=== PATIENT | female | born 1995 | race African-American/Black ===

== ENCOUNTER 2020-03-19 10:30 | Emergency (ER) | payer MEDICAID, SELFPAY ==
[2020-03-19 11:04] VITALS: BP 146/101; PULSE 95; RESP 16; TEMP 37.2; O2SAT 100; BMI 50.4
[2020-03-19 11:30] VITALS: BP 142/92; PULSE 73; RESP 20; TEMP 36.7; O2SAT 99
--- NOTE | 2020-03-19 11:36 | ED_ITS ---
HPI - Female Genitourinary General Chief complaint: Urogenital-Female Stated complaint: personal problem Time Seen by Provider: 03/19/20 11:09 History of Present Illness HPI Narrative: patient presents to the ED for uterine prolapse for 1 month. Patient denies any abdominal pain, nausea, vomiting, fever, or chills. Patient was evaluated by membership sales advisor who states she needs referral to OBGYN to have pessary procedure done. Patient [facility] for about a month and has not been called back for an appointment. Patient states slight vaginal spotting since IUD was placed. patient states she is presently being treated for yeast infection. Related Data Previous Rx's Medication Instructions Recorded nitrofurantoin monohyd/m-cryst 100 mg PO Q12H 7 Days #14 cap 03/19/20 [Macrobid] Allergies Allergy/AdvReac Type Severity Reaction Status Date / Time No Known Allergies Allergy Verified 03/19/20 11:09 Review of Systems Constitutional: Constitutional: Reports no additional constitutional complaints ENT: Reports system reviewed and no additional complaints, except as documented Cardiovascular: Cardiovascular: Reports as per HPI, Reports no additional cardiovascular complaints, Denies chest pain at rest and Denies chest pain with activity Respiratory: Respiratory: Reports as per HPI and Reports no additional respi ratory complaints Gastrointestinal: Gastrointestinal: Denies abdominal pain, Denies belching, Denies melena, Denies bloating, Denies hematochezia and Denies change in bowel habits Genitourinary: Genitourinary: Reports no additional female genitourinary complaints and Reports as per HPI Comments: Uterine prolapse Musculoskeletal: Musculoskeletal: Reports no additional musculoskeletal complaints Psychiatric: Psychiatric: Reports no additional psychiatric complaints and Reports as per HPI [facility] Past Medical History Medical History (Updated 03/19/20 @ 13:57 by GET Matso) Asthma Social History Social History Smoking Status: Never smoker Use of substances other than those prescribed or required for medical reasons: No Advance Directives: No Advance Directives Information Provided: Yes Physical Exam Vital Signs: Vital Signs: Vital Signs Temp Pulse Resp BP Pulse Ox 03/19/20 13:40 79 14 127/84 99 03/19/20 11:30 98.1 F 73 20 142/92 H 99 03/19/20 11:04 99.0 F 95 16 146/101 H 100 Body Mass Index 50.4 Const: General: cooperative, healthy appearing and comfortable Orientation/consciousness: patient oriented x3 HENMT: Head: Yes normal to inspection Eyes: General: appearance normal, both eyes and all related structures Neck: Neck: Yes normal visual inspection and Yes full ROM Chest: Chest palpation & inspection: normal inspection of the chest Resp: Effort & Inspection: normal respiratory effort and able to speak in complete sentences Cardio: Jugular venous distension: no JVD Rate: regular rate Rhythm: regular rhythm Heart sounds: S1 normal heart sound present and S2 normal heart sound present GI: Inspection: Yes normal to inspection, No abdominal wall ecchymosis, No Abdominal wall edema, No distended, No incision, No Abdominal panniculus present, No obesity and No scaphoid : Other: positive for uterine prolapse. Negative for any vaginal lesions or vaginal discharge. General: No CVA tenderness and Yes no CVA tenderness Bimanual Exam- Adnexa, other: normal adnexae Back/Spine/Pelvis: Back: no CVA tenderness, No CVA tenderness and No back tenderness Skin: General skin exam: no rashes or lesions noted Neuro: General: patient oriented x3 Extrem: General: Yes normal to inspection Psych: Appearance: grossly normal and well kempt Course Course Course Narrative: History physical exam indicate uterine prolapse. Awaiting UA results to make sure there is no . Also mention in the UTI Reevaluation(s) Reevaluation #1: spoke with Dr. Rene of OBGYN and she agrees patient should follow-up with [facility]. [facility]. Rene states she will send patient's name To her office and they will call patient for appointment this week. Urine negative for any . urine shows UTI, may be dirty catch will be treated. Time: 13:52 MDM - Female Genitourinary MDM Narrative Medical decision making narrative: patient does not need any emergency surgical procedure for uterine prolapse. Patient will follow-up outpatient with OBGYN. Uterine prolapse high vaginal canal. Uterine prolapse is not at vaginal opening. Lab Data Attestation: I reviewed the patient's lab results. Labs: Lab Results 03/19/20 Range/Units 12:46 Urine Color YELLOW Urine Appearance HAZY Urine pH 7.0 (5.0-8.0) Ur Specific [place] 1.025 (1.005-1.025) Urine Protein NEG (NEG-TRACE) MG/DL Urine Glucose (UA) NEG (NEG) MG/DL Urine Ketones NEG (NEG) MG/DL Urine Blood NEG (NEG) Urine Nitrite NEG (NEG) Ur Leukocyte Esterase 2+ H (NEG) Urine RBC 1-4 (0) /HPF Urine WBC 10-14 H (0-4) /HPF Ur Squamous Epith Cells 2+ /LPF Urine Bacteria 1+ /LPF Urine Mucus 2+ /LPF Urine Test NEGATIVE (NEGATIVE) Discharge Plan Discharge Clinical Impression: Urinary tract infection, Uterine prolapse Patient Disposition: Home, Self-Care Instructions: Urinary Tract Infection in Women (ED), Uterine Prolapse (ED) Prescriptions: New nitrofurantoin monohyd/m-cryst [Macrobid] 100 mg capsule 100 mg PO Q12H 7 Days Qty: 14 RF: 0 Referrals: Chrissy Rene MD [Physician] - 2 days ( please call for follow-up for management of uterine prolapse. call the number [phone]. Address: [address] [place] [address]. [place] [address]) Stand Alone Forms: Work/School Release Interventions: ED Discharge Assessment Last Done: 03/19/20 14:55 Discharge Date/Time: 03/19/20 14:15 Print Language: [place]ian
--- NOTE | 2020-03-19 12:52 | PC.NURSE ---
NABOR DEUTSCH PERFORMING A PELVIC EXAM, CHAPERONED BY JARVIS MITTAL
[2020-03-19 12:59] LABS: Glucose Urine UA NEG (NEG); Leukocyte Esterase Urine 2+ (NEG); Nitrite Urine NEG (NEG); Specific Gravity - Urine 1.025 (1.005-1.025); Urine Blood NEG (NEG); Urine Ketones NEG (NEG); Urine Protein NEG (NEG-TRACE)
[2020-03-19 13:00] LABS: Appearance Urine HAZY; Color Urine YELLOW
[2020-03-19 13:02] LABS: UPreg QC Valid YES; Urine Pregnancy NEGATIVE (NEGATIVE)
[2020-03-19 13:11] LABS: Bacteria Urine 1+ /LPF; Mucus Urine 2+ /LPF; Squamous Epithelial Cell Urine 2+ /LPF
[2020-03-19 13:40] VITALS: BP 127/84; PULSE 79; RESP 14; O2SAT 99
== END 2020-03-19 14:15 | disposition home or self-care (01) ==
PROVIDERS: Physician Assistant; Emergency Provider Emergency Medicine; PCP Internal Medicine
DX: N39.0 Urinary tract infection, site not specified (principal); N81.4 Uterovaginal prolapse, unspecified
CPT/HCPCS: 81001; 81003; 81025; 87086; 99283; 99284

== ENCOUNTER 2020-03-28 13:15 | Outpatient (REF) | payer MEDICAID, SELFPAY ==
[2020-03-29 11:38] LABS: CT PCR NOT DETECTED (Not Detect.); NG PCR NOT DETECTED (Not Detect.)
== END 2020-03-28 13:16 | disposition home or self-care (01) ==
LOC: HO.LAB 13:15
PROVIDERS: PCP Internal Medicine; Visit Provider Obstetrics & Gynecology
DX: N81.4 Uterovaginal prolapse, unspecified (principal)
CPT/HCPCS: 51798; 57160; 87491; 87591; 99203; 99204

== ENCOUNTER → 2020-04-04 13:32 | Outpatient (BNVA) | payer MEDICAID, SELFPAY | PROVIDERS: PCP Internal Medicine; Visit Provider Obstetrics & Gynecology | DX: Z46.6 Encounter for fitting and adjustment of urinary device (principal); N81.4 Uterovaginal prolapse, unspecified | CPT/HCPCS: 51798; 99213 ==

== ENCOUNTER 2020-04-06 09:01 | Outpatient (REF) | payer MEDICAID, SELFPAY ==
[2020-04-07 10:32] LABS: BV Int Neg Control Negative (Negative); BV Int Pos Control Positive (Positive)
[2020-04-12 07:21] LABS: HPV mRNA E6/E7 rflx Not Detected (Not Detected)
== END 2020-04-06 09:02 | disposition home or self-care (01) ==
LOC: HO.LAB 09:01
PROVIDERS: Visit Provider Obstetrics & Gynecology
DX: Z01.419 Encounter for gynecological examination (general) (routine) without abnormal findings (principal); N81.4 Uterovaginal prolapse, unspecified; Z97.5 Presence of (intrauterine) contraceptive device
CPT/HCPCS: 87480; 87510; 87624; 87625; 87660; 88142

== ENCOUNTER 2020-06-23 15:08 | Outpatient (REF) | payer MEDICAID, SELFPAY ==
--- NOTE | 2020-06-23 | XR_ITS ---
EXAMINATION: XR CHEST CLINICAL INFORMATION: Cough for 3 weeks.] Positive COMPARISON: None TECHNIQUE: 2 views of the chest were obtained. FINDINGS: The lungs are well-expanded with increased bilateral interstitial markings but no confluent infiltrates. Heart size and vascularity is normal. No gross bony abnormality seen. XR/XR chest 2V IMPRESSION: Unremarkable chest exam.
== END 2020-06-23 15:09 | disposition home or self-care (01) ==
LOC: HO.XRAY 15:08
PROVIDERS: PCP Internal Medicine; Visit Provider Nurse Practitioner Family
DX: U07.1 COVID-19 (principal); R05 Cough
CPT/HCPCS: 71046

== ENCOUNTER 2020-07-20 14:53 | Outpatient (REF) | payer MEDICAID, SELFPAY ==
--- NOTE | 2020-07-20 | PFT_ITS ---
INDICATION: Asthma. SPIROMETRY: The FEV1 to FVC 91% with an FEV1 of 3.56 L, which is 106% predicted and an FVC of 3.93 L, which is 102% predicted. No significant response to bronchodilators noted. Maximum voluntary ventilation 108% predicted. LUNG VOLUMES: Total lung capacity 98% predicted with an expiratory reserve volume of 53% predicted. DIFFUSION CAPACITY: DLCO 111% predicted. COMPARISONS: None. INTERPRETATION: No obstructive nor restrictive ventilatory defects identified. No significant response to bronchodilators noted. Normal maximum voluntary ventilation. Normal lung volumes and also normal diffusion capacity. These are consistent with normal lung mechanics. If asthma is in the differential, a methacholine challenge will be helpful in assessing for hyper-reactive airways, otherwise clinical correlation warranted. Grant Montano MD MR/MODL / [id number]
== END 2020-07-20 14:54 | disposition home or self-care (01) ==
LOC: HO.RESP 14:53
PROVIDERS: PCP Internal Medicine; Visit Provider Internal Medicine
DX: J45.20 Mild intermittent asthma, uncomplicated (principal)
CPT/HCPCS: 94060; 94727; 94729

== ENCOUNTER 2020-10-26 14:39 | Outpatient (REF) | payer MEDICAID, SELFPAY ==
--- NOTE | ~2020-10-26 | US_ITS ---
EXAMINATION: ULTRASOUND PELVIS AND TRANSVAGINAL. CLINICAL INFORMATION: History aneurysm COMPARISON: None TECHNIQUE: Transabdominal and transvaginal imaging of pelvis is performed FINDINGS: Limited exam due to patient's body habitus. The uterus is anteverted measuring 7.0 cm in length, 2.6 cm in AP and 2.9 cm in transverse dimension. Endometrial thickness is 0.49 cm. Low-lying IUD within the endometrial mL. The right ovary measures 2.5 x 1.6 x 2.6 cm volume 4.6 mL. It appears unremarkable. The left ovary measures 8.9 x 6.6 x 10.2 cm and volume 313.7 mL. There is a large cyst with diffuse internal echogenicity suggestive of complex cyst. It measures 7.0 x 6.9 x 6.5 cm There is a small amount of free fluid in cul-de-sac. US/US pelvic and transvaginal IMPRESSION: Large complex left ovary and cyst. Unremarkable right ovary. Low-lying IUD within the endometrial canal. Small amount of free fluid in the cul-de-sac.
== END 2020-10-26 14:40 | disposition home or self-care (01) ==
LOC: HO.US 14:39
PROVIDERS: Visit Provider Family Medicine
DX: L68.0 Hirsutism (principal)
CPT/HCPCS: 76830; 76856

== ENCOUNTER → 2020-11-15 10:36 | Outpatient (BNVA) | payer MEDICAID, SELFPAY | PROVIDERS: PCP Internal Medicine; Referring Provider Internal Medicine; Visit Provider Internal Medicine | DX: L68.0 Hirsutism (principal); N83.209 Unspecified ovarian cyst, unspecified side; E55.9 Vitamin D deficiency, unspecified | CPT/HCPCS: 99202 ==

== ENCOUNTER 2020-11-17 07:32 | Outpatient (REF) | payer MEDICAID, SELFPAY ==
[2020-11-17 09:05] LABS: Estimated Average Glucose 114 mg/dL; Hemoglobin A1c % 5.6 %
[2020-11-17 09:10] LABS: Alanine Aminotransferase 8 U/L (0-31); Albumin Level 3.7 g/dL (3.5-5.0); Alkaline Phosphatase 67 U/L (39-117); Anion Gap 10 (12-20); Aspartate Amino Transferase 13 U/L (5-31); Bilirubin Total 0.3 mg/dL (0.0-1.0); Blood Urea Nitrogen 10 mg/dL (9-16); Calcium 8.5 mg/dL (8.4-10.2); Carbon Dioxide 26 mmol/L (22-29); Chloride 107 mmol/L (96-108); Cholesterol 125 mg/dL; Estimated Glomerular Filt Rate > 60; Glucose Random 115 mg/dL (60-115); HDL Cholesterol 33 mg/dL; LDL Cholesterol Calculated 82 mg/dl; Potassium 4.1 mmol/L (3.3-5.1); Sodium 139 mmol/L (135-145); Total Protein 6.9 g/dL (6.5-8.0); Triglycerides 53 mg/dL
[2020-11-17 09:28] LABS: Glucose Fasting 113 mg/dL (60-99)
[2020-11-17 09:32] LABS: Free T4 (Free Thyroxine) 1.06 ng/dL (0.71-1.85); HCG Quantitative < 2 mIU/mL; Thyroid Stimulating Hormone 1.05 uIU/mL (0.32-4.0); Vitamin D 25-OH Total 11.6 ng/mL (>30)
[2020-11-17 10:26] LABS: Glucose 1 Hour 180 mg/dL
[2020-11-17 12:13] LABS: Glucose 2 Hour 100 mg/dL
[2020-11-18 08:32] LABS: Follicle Stimulating Hormone 4.9 mIU/mL; Lutenizing Hormone 1.8 mIU/mL; Prolactin 10.6 ng/mL
[2020-11-18 09:17] LABS: DHEA Sulfate 148 mcg/dL (18-391); Sex Hormone Binding Globulin 31 nmol/L (17-124)
[2020-11-20 18:18] LABS: LDL Cholesterol Direct 93 mg/dL (<100)
[2020-11-20 22:46] LABS: Adrenocorticotropic Hormone 22 pg/mL (6-50)
[2020-11-21 16:56] LABS: Testosterone, Total 31 ng/dL (2-45)
[2020-11-22 22:03] LABS: Estradiol Ultra Sensitive 32 pg/mL
[2020-11-23 19:57] LABS: Androstenedione 86 ng/dL
[2020-11-25 01:12] LABS: Estradiol Free 0.83 pg/mL; Estradiol, Ultrasensitive 32 pg/mL
== END 2020-11-17 07:33 | disposition home or self-care (01) ==
LOC: HO.RESP 07:32
PROVIDERS: Absent Provider Internal Medicine; PCP Internal Medicine; Visit Provider Internal Medicine
DX: J45.20 Mild intermittent asthma, uncomplicated (principal); E55.9 Vitamin D deficiency, unspecified; L68.0 Hirsutism
CPT/HCPCS: 36415; 80053; 80061; 82024; 82157; 82306; 82533; 82627; 82670; 82681; 83001; 83002; 83036; 83498; 83721; 84146; 84270; 84402; 84403; 84439; 84443; 84702

== ENCOUNTER 2020-12-01 14:28 | Outpatient (REF) | payer MEDICAID, SELFPAY ==
[2020-12-01 16:34] LABS: Lactate Dehydrogenase 250 U/L (122-220)
[2020-12-01 16:49] LABS: HCG Quantitative < 2 mIU/mL
[2020-12-02 02:29] LABS: CT PCR NOT DETECTED (Not Detect.); NG PCR NOT DETECTED (Not Detect.)
[2020-12-04 11:51] LABS: Alpha Fetoprotein 1.5 ng/mL
[2020-12-04 18:46] LABS: CA-125 14 U/mL (<35)
[2020-12-05 18:36] LABS: Inhibin B 99 pg/mL
== END 2020-12-01 14:29 | disposition home or self-care (01) ==
LOC: HO.LAB 14:28
PROVIDERS: PCP Internal Medicine; Visit Provider Obstetrics & Gynecology
DX: Z30.432 Encounter for removal of intrauterine contraceptive device (principal); T83.32XA Displacement of intrauterine contraceptive device, initial encounter; N83.299 Other ovarian cyst, unspecified side; N92.6 Irregular menstruation, unspecified
CPT/HCPCS: 36415; 58301; 81003; 81025; 82105; 82397; 83615; 84702; 86304; 86336; 87491; 87591; 99212

== ENCOUNTER → 2020-12-19 12:26 | Outpatient (BNVA) | payer MEDICAID, SELFPAY | PROVIDERS: PCP Internal Medicine; Visit Provider Obstetrics & Gynecology ==

== ENCOUNTER 2021-01-04 13:08 | Outpatient (REF) | payer MEDICAID, SELFPAY ==
--- NOTE | ~2021-01-04 | CT_ITS ---
EXAMINATION: CT ABDOMEN AND PELVIS WITH CONTRAST CLINICAL INFORMATION: Large complex cystic mass left adnexa. COMPARISON: Ultrasound pelvis 10/26/2020. Scoliosis series 07/06/2008. TECHNIQUE: Multidetector volumetric images were obtained from the superior aspect of the liver through the pubic symphysis following administration 85 mL of Omnipaque 350 intravenous contrast. Sagittal and coronal reformatted images were obtained on the technologist's workstation. Oral contrast: Yes This CT examination was performed using dose optimization techniques as appropriate, variously including the following: *Automated exposure control *Adjustment of mA and/or kV according to patient size (this includes techniques or standardized protocols for targeted exams where dose is matched to indication/reason for exam; i.e. extremities or head) *Use of iterative reconstruction technique DLP: 813 mGy-cm FINDINGS: LUNG BASES: The visualized lung bases are unremarkable. LIVER, GALLBLADDER, AND BILIARY TREE: The The gallbladder is unremarkable with no evidence of radiopaque gallstones, gallbladder wall thickening, or obvious pericholecystic inflammatory changes. PANCREAS: Unremarkable. SPLEEN: Unremarkable. ADRENAL GLANDS: Unremarkable. KIDNEYS AND URETERS: The kidneys are normal in size, shape, and attenuation. No hydronephrosis, hydroureter, or calculi seen. No perinephric stranding. BLADDER: Unremarkable. GASTROINTESTINAL TRACT: There is no bowel obstruction or inflammatory changes in the bowel or mesentery. The appendix is normal. There is no ascites or fluid collection. ABDOMINAL WALL: No significant hernia is appreciated. LYMPH NODES: No lymphadenopathy. VASCULAR: Unremarkable. PELVIC VISCERA: There is a large complex posterior left adnexal mass measuring 10.5 x 8.5 x 8.2 cm. The lesion has large fatty component with fat-fluid level and an internal septation with bulky calcification 2 x 3 cm in size. There are some intermediate smooth peripheral nodular densities within the lesion. No associated pelvic ascites. The uterus is tilted towards the left and otherwise normal in size and contour. The right ovary appears normal and has a dominant follicle measuring 2 cm. OSSEOUS STRUCTURES: Unremarkable. CT/CT abdomen pelvis w con IMPRESSION: 1. Large complex posterior left adnexal mass consistent with cystic teratoma 10.5 cm. No pelvic ascites. Normal-appearing uterus and right ovary. 2. No hydronephrosis or perinephric stranding. 3. No inflammatory changes in bowel or mesentery. Normal appendix.
[2021-01-04 14:29] LABS: Blood Urea Nitrogen 13 mg/dL (9-16); Estimated Glomerular Filt Rate > 60
[2021-01-04] MEDS: iohexoL 350 MG/ML 100 ML INFUS..BTL IV (16:19)
[2021-01-04] MEDS: Barium Sulfate Oral (Mocha) 450 ML ORAL.SUSP 900 ML PO (16:20)
== END 2021-01-04 13:09 | disposition home or self-care (01) ==
LOC: HO.CT 13:08
PROVIDERS: PCP Internal Medicine; Visit Provider Obstetrics & Gynecology
DX: N83.299 Other ovarian cyst, unspecified side (principal)
CPT/HCPCS: 36415; 74177; 82565; 84520; Q9967

== ENCOUNTER → 2021-05-07 08:59 | Outpatient (BNVA) | payer MEDICAID, SELFPAY | PROVIDERS: PCP Internal Medicine; Visit Provider Internal Medicine ==

== ENCOUNTER 2021-05-22 14:17 | Outpatient (REF) | payer MEDICAID, SELFPAY ==
[2021-05-23 10:50] LABS: CT PCR NOT DETECTED (Not Detect.); NG PCR NOT DETECTED (Not Detect.)
[2021-05-23 11:18] LABS: BV Int Neg Control Negative (Negative); BV Int Pos Control Positive (Positive)
== END 2021-05-22 14:18 | disposition home or self-care (01) ==
LOC: HO.LAB 14:17
PROVIDERS: PCP Internal Medicine; Visit Provider Obstetrics & Gynecology
DX: Z01.411 Encounter for gynecological examination (general) (routine) with abnormal findings (principal); R10.2 Pelvic and perineal pain; B37.3 Candidiasis of vulva and vagina
CPT/HCPCS: 81003; 81025; 87480; 87491; 87510; 87591; 87660

== ENCOUNTER 2021-06-18 12:13 | Outpatient (REF) | payer MEDICAID, SELFPAY ==
--- NOTE | ~2021-06-18 | US_ITS ---
EXAMINATION: US PELVIS CLINICAL INFORMATION: Pelvic and perineal pain. COMPARISON: CT abdomen/pelvis dated from 01/04/2021 and pelvic ultrasound dated from 10/26/2020. TECHNIQUE: Ultrasound of the pelvis is performed using both transabdominal and transvaginal transducers. Transvaginal imaging is performed due to inadequate visualization transabdominally. FINDINGS: Uterus: The uterus is anteverted and measures 7.0 x 2.2 x 4.0 cm cm. The double wall endometrial thickness is 5 mm. The uterus is smooth in contour and has normal myometrial echogenicity. No visible fibroid. Adnexa: The right ovary measures 3.0 x 1.9 x 3.0 cm (volume of approximately 9 mL). There is a simple follicle in the right ovary measuring up to 1.2 cm. The left ovary measures 4.3 x 2.2 x 3.4 cm (volume of approximately 17 mL) with redemonstration of a large predominantly hyperechoic complex lesion, previously characterized as a fat-containing teratoma. This is not entirely well delineated in this examination and accurate size determination cannot be obtained. Flow to both ovaries is preserved on color Doppler. There is free fluid in the cul-de-sac and within both adnexal regions. US/US pelvic and transvaginal IMPRESSION: Due to its large size, a previously described teratoma is not entirely well delineated in this examination. This could predispose to torsion/detorsion, and therefore if clinical indicated, surgical referral should be considered. Free fluid is indeterminate.
== END 2021-06-18 12:14 | disposition home or self-care (01) ==
LOC: HO.US 12:13
PROVIDERS: Visit Provider Obstetrics & Gynecology
DX: R10.2 Pelvic and perineal pain (principal)
CPT/HCPCS: 76830; 76856

== ENCOUNTER → 2021-06-20 13:35 | Outpatient (BNVA) | payer MEDICAID, SELFPAY | PROVIDERS: Visit Provider Obstetrics & Gynecology ==

== ENCOUNTER 2022-05-14 14:25 | Emergency (ER) | payer MEDICAID, SELFPAY ==
[2022-05-14 15:22] VITALS: BP 157/92; PULSE 121; RESP 16; TEMP 38.4; O2SAT 100; BMI 53.0
--- NOTE | 2022-05-14 15:22 | ED_ITS ---
HPI - General Adult General Chief complaint: Fever <Corie Robles MD - Last Filed: 05/14/22 15:26> Stated complaint: HBP/Heartrate/SOB/Fever <Corie Robles MD - Last Filed: 05/14/22 15:26> Time Seen by Provider: 05/14/22 17:30 <Corie Robles MD - Last Filed: 05/14/22 15:26> Source: patient <Chrissy Landry CNP - Last Filed: 05/14/22 17:48> Mode of arrival: ambulatory <Chrissy Landry CNP - Last Filed: 05/14/22 17:48> Limitations: no limitations <Chrissy Landry CNP - Last Filed: 05/14/22 17:48> History of Present Illness HPI narrative: Patient is a 27-year-old female who presents emergency department for evaluation of fever, chills, headache, lightheadedness, and body aches. Reports symptom onset at approximately 01:00 this morning. She states that she was recently over a friend's house who sibling was ill with similar symptoms. She has been vaccinated for COVID-19, has not received vaccination for influenza. Denies neck pain, neck stiffness, chest pain, shortness of breath, difficulty breathing, nausea, vomiting, abdominal pain, possibility of . <Chrissy Landry CNP - Last Filed: 05/14/22 17:48> Related Data Home medications: Home Medications Medication Instructions Recorded Confirmed albuterol sulfate 90 mcg/actuation 2 puff inhalation Q6H PRN 03/28/20 05/07/21 aerosol inhaler cetirizine 10 mg capsule (Zyrtec) 10 mg PO DAILY 03/28/20 05/07/21 hydroxyzine HCl 10 mg tablet 10 mg PO TID PRN 12/01/20 05/07/21 escitalopram oxalate 5 mg tablet 10 mg PO DAILY 01/04/21 05/07/21 Previous Rx's Medication Instructions Recorded cholecalciferol (vitamin D3) 50 50 mcg PO DAILY 30 days #30 caps 01/11/21 mcg (2,000 unit) capsule terconazole 0.8 % vaginal cream 1 appful vaginal BEDTIME 3 days 05/22/21 #20 grams <Corie Robles MD - Last Filed: 05/14/22 15:26> Allergies/adverse reactions: Allergies Allergy/AdvReac Type Severity Reaction Status Date / Time No Known Allergies Allergy Verified 05/22/21 14:24 <Corie Robles MD - Last Filed: 05/14/22 15:26> Review of Systems Review of Systems: Constitutional: Positive tactile fever. Positive chills. No weakness. Positive fatigue. Positive body aches ENT/ Mouth: No Ear Pain, no Nasal Congestion, no sore throat, No Rhinorrhea, No Swallowing Difficulty Skin: No rash or itching. Cardiovascular: No chest pain. No palpitations. Respiratory: No shortness of breath. No cough. No sputum production. Gastrointestinal: No nausea. No vomiting. No diarrhea. No abdominal pain. Genitourinary: No burning micturition. No urinary frequency. Neurologic: Positive headache. No dizziness. No syncope. No numbness or tingling in the extremities. <Chrissy Landry CNP - Last Filed: 05/14/22 17:48> Yes all other systems are reviewed and are negative <Chrissy Landry CNP - Last Filed: 05/14/22 17:48> PMF Past Medical History Attestation statement: The following information was validated with the patient. <Chrissy Landry CNP - Last Filed: 05/14/22 17:48> Source: old records reviewed <Chrissy Landry CNP - Last Filed: 05/14/22 17:48> Medical History: Medical History Asthma Hirsutism History of anxiety History of depression Ovarian cyst Vitamin D deficiency <Corie Robles MD - Last Filed: 05/14/22 15:26> Surgical History: Surgical History Hx of ovarian cystectomy <Corie Robles MD - Last Filed: 05/14/22 15:26> Family History Family History: Family History Father HTN (hypertension) Diabetes Mother HTN (hypertension) Diabetes Maternal Grandmother Cervical cancer <Corie Robles MD - Last Filed: 05/14/22 15:26> Social History Social History: Social History Alcohol intake: current Alcohol intake frequency: holidays/special occasions only Alcohol type: wine Patient Tobacco Use Status: Never used Tobacco Advance Directives: No Advance Directives Information Provided: No Sexual orientation: Straight/Heterosexual Gender identity: Female <Corie Robles MD - Last Filed: 05/14/22 15:26> Physical Exam ED Vital Signs: Vital Signs - 24 hr 05/14/22 15:22 05/14/22 17:32 Temperature 101.1 F H 98.0 F Pulse Rate 121 H 99 Respiratory Rate 16 18 Blood Pressure 157/92 H 142/85 H Pulse Oximetry 100 96 Oxygen Delivery Method Room Air Room Air BMI result Body Mass Index 53.0 <Corie Robles MD - Last Filed: 05/14/22 15:26> Vital Signs - 24 hr 05/14/22 15:22 05/14/22 17:32 Temperature 101.1 F H 98.0 F Pulse Rate 121 H 99 Respiratory Rate 16 18 Blood Pressure 157/92 H 142/85 H Pulse Oximetry 100 96 Oxygen Delivery Method Room Air Room Air BMI result Body Mass Index 53.0 <Chrissy Landry CNP - Last Filed: 05/14/22 17:48> Appearance: Alert.?Oriented to person, place and time. No acute distress.?Normal affect. Eyes: Pupils equal, round and reactive to light.? ENT: TM normal bilaterally. Pharynx with 2+ tonsillar hypertrophy bilaterally, no exudates, uvula midline, no trismus Neck: Normal inspection.? Neck supple.??No cervical adenopathy. No nuchal rigidity CVS: Heart sounds normal. Normal heart rate and rhythm.? Pulses normal.?? Respiratory: No respiratory distress.? Lung sounds clear to auscultation bilaterally?? Abdomen: Soft and non-tender. Skin: Skin warm and dry.? Normal skin color.? ? Extremities: No lower extremity edema.? Neuro: Moves all extremities spontaneously. Sensation intact bilaterally. No motor deficits. Ambulates with normal steady gait. <Chrissy Landry CNP - Last Filed: 05/14/22 17:48> Course Course Course Narrative: 27F with subjective fevers, chills, headaches, denies cough/sore throat and denies GI/. VS Reviewed GEN: NAD EARS: wnl THROAT: enlarged tonsils no noted exudates LUNGS: CTAB CVS: RRR ABD: NT/ND <Corie Robles MD - Last Filed: 05/14/22 15:26> Medications Administered Discontinued Medications Generic Name Dose Route Start Last Admin Trade Name Freq PRN Reason Stop Dose Admin Acetaminophen 975 mg 05/14/22 15:24 05/14/22 15:26 Acetaminophen 325 Mg Tablet PO 05/14/22 15:25 975 mg ONCE ONE Administration <Corie Robles MD - Last Filed: 05/14/22 15:26> Medications Administered Discontinued Medications Generic Name Dose Route Start Last Admin Trade Name Freq PRN Reason Stop Dose Admin Acetaminophen 975 mg 05/14/22 15:24 05/14/22 15:26 Acetaminophen 325 Mg Tablet PO 05/14/22 15:25 975 mg ONCE ONE Administration <Chrissy Landry CNP - Last Filed: 05/14/22 17:48> Medical Decision Making Medical Decision Making MDM Narrative: Patient is a 27-year-old female with past medical history of asthma, anxiety, depression, presenting for evaluation of upper respiratory symptoms. COVID-19 testing negative. Influenza A testing positive, discussed indications for Tamiflu and potential side-effects, patient declined.. At this time history and physical exam not consistent with meningitis/pneumonia/ peritonsillar abscess/ retropharyngeal abscess. Well-appearing, nontoxic, no tachypnea/hypoxia. Initially tachycardic and febrile which is secondary to viral infection, do not suspect sepsis/bacterial infection, after receiving antipyretic fever normalized, heart rate improved. Speaking clear full sentences, ambulatory with steady gait. Discussed conservative treatment including rest, hydration, Tylenol/ibuprofen as needed for fever and body aches, saline nasal spray, humidifier, [id number] cold medication. Advised to f ollow-up with primary care provider as needed, discussed reasons to return back to the emergency department. All questions were answered. Patient discharged home in stable condition. Provided with a return to worknote. <Chrissy Landry CNP - Last Filed: 05/14/22 17:48> Differential Diagnoses: Differential diagnosis Differential Diagnosis: The differential diagnosis associated with the patient?s presentation includes: COVID-19/influenza/ meningitis/ pneumonia/ peritonsillar abscess/ retroph aryngeal abscess <Chrissy Landry CNP - Last Filed: 05/14/22 17:48> Lab Attestation: I reviewed the patient's lab results. Lab results narrative: Reviewed viral studies, positive for influenza A, COVID-19 and strep testing are negative. <Chrissy Landry CNP - Last Filed: 05/14/22 17:48> Discharge Plan Discharge Clinical Impression: Influenza <Corie Robles MD - Last Filed: 05/14/22 15:26> Patient Disposition: Home, Self-Care <Corie Robles MD - Last Filed: 05/14/22 15:26> Instructions: Influenza (ED) <Corie Robles MD - Last Filed: 05/14/22 15:26> Additional Instructions: Be sure to rest, stay well hydrated drinking plenty of fluids, eat small frequent meals. Tylenol/ibuprofen can be used as needed for fever/pain. [id number]-[id number] cold medications may be helpful as well for symptoms. Saline nasal spray, humidifier may be helpful for nasal congestion. You may return to the emergency department with any new or worsening symptoms or concerns. Follow-up with your primary care provider as needed. Should remain out of school/ work until symptoms have resolved and have been without a fever for 24 hours without the use of Tylenol or ibuprofen. <Corie Robles MD - Last Filed: 05/14/22 15:26> Prescriptions: No Action cholecalciferol (vitamin D3) 50 mcg (2,000 unit) capsule 50 mcg PO DAILY 30 Days Qty: 30 11RF hydroxyzine HCl 10 mg tablet 10 mg PO TID PRN escitalopram oxalate 5 mg tablet 10 mg PO DAILY albuterol sulfate 90 mcg/actuation HFA aerosol inhaler 2 puff inhalation Q6H PRN Zyrtec 10 mg capsule 10 mg PO DAILY terconazole 0.8 % cream 1 appful vaginal BEDTIME 3 Days Qty: 20 0RF <Corie Robles MD - Last Filed: 05/14/22 15:26> Referrals: Nichole Andrea MD [Primary Care Provider] - <Corie Robles MD - Last Filed: 05/14/22 15:26> Stand Alone Forms: Work/School Release <Corie Robles MD - Last Filed: 05/14/22 15:26>
[2022-05-14] MEDS: Acetaminophen 325 MG TABLET 975 MG PO (15:26)
[2022-05-14 16:43] LABS: Strep A Nucleic Acid Negative (Negative)
[2022-05-14 16:49] LABS: COVID-19 Test Negative (Negative); IDNOW Serial# BCCEAD1C
[2022-05-14 16:52] LABS: IDNOW Serial# 9DB6401D; Influenza A Positive (Negative); Influenza B2 Negative (Negative)
[2022-05-14 17:32] VITALS: BP 142/85; PULSE 99; RESP 18; TEMP 36.7; O2SAT 96
== END 2022-05-14 17:55 | disposition home or self-care (01) ==
PROVIDERS: Student in an Organized Health Care Education/Training Program; Emergency Provider Internal Medicine; PCP Internal Medicine
DX: J10.1 Influenza due to other identified influenza virus with other respiratory manifestations (principal); R50.9 Fever, unspecified; R06.02 Shortness of breath; R51.9 Headache, unspecified; M79.10 Myalgia, unspecified site; Z20.822 Contact with and (suspected) exposure to COVID-19; Z79.899 Other long term (current) drug therapy
CPT/HCPCS: 36415; 87502; 87635; 87651; 99283

== ENCOUNTER 2022-06-19 14:28 | Outpatient (REF) | payer MEDICAID, SELFPAY ==
[2022-06-20 12:46] LABS: CT PCR NOT DETECTED (Not Detect.); NG PCR NOT DETECTED (Not Detect.)
[2022-06-20 14:36] LABS: BV Int Neg Control Negative (Negative); BV Int Pos Control Positive (Positive)
== END 2022-06-19 14:29 | disposition home or self-care (01) ==
LOC: HO.LNP 14:28
PROVIDERS: PCP Internal Medicine; Visit Provider Advanced Practice Midwife
DX: Z01.419 Encounter for gynecological examination (general) (routine) without abnormal findings (principal); D27.9 Benign neoplasm of unspecified ovary; L68.0 Hirsutism; B37.31 Acute candidiasis of vulva and vagina; N81.4 Uterovaginal prolapse, unspecified; R32 Unspecified urinary incontinence; E66.01 Morbid (severe) obesity due to excess calories; Z11.3 Encounter for screening for infections with a predominantly sexual mode of transmission; Z79.899 Other long term (current) drug therapy
CPT/HCPCS: 0353U; 87480; 87510; 87660; 88142

== ENCOUNTER 2022-07-09 15:13 | Outpatient (REF) | payer MEDICAID, SELFPAY ==
--- NOTE | ~2022-07-09 | US_ITS ---
EXAMINATION: US PELVIS CLINICAL INFORMATION: History of left ovarian teratoma removal COMPARISON: CT abdomen pelvis 01/04/2021, pelvic ultrasound 06/18/2021 TECHNIQUE: Ultrasound of the pelvis is performed using both transabdominal and transvaginal transducers along with Doppler. Transvaginal imaging is performed due to inadequate visualization transabdominally. FINDINGS: The uterus is of normal size and echogenicity measuring 6.8 x 2.9 x 3.6 cm. A regular homogeneous endometrium is identified measuring 0.3 cm. Both ovaries are mildly enlarged with multiple follicles which could be seen in the setting of polycystic ovarian syndrome. The right measures 4.1 x 2.3 x 2.2 cm for a volume of 10.9 mL. The left measures 4.0 x 1.8 x 3.4 cm for a volume of 12.8 mL. There is a 1.4 x 0.7 x 1.9 cm echogenic structure in the left ovary, previously 2.3 x 1.[address] the previous ovarian dermoid measured approximately 10.5 cm There is trace physiologic volume pelvic free fluid. US/US pelvic and transvaginal IMPRESSION: A 1.4 cm echogenic structure in the left ovary, could potentially reflect some remnant ovarian dermoid tissue, similar to recent pelvic ultrasound however markedly decreased from prior CT. Recommend continued annual surveillance. Ovaries are mildly enlarged bilaterally with multiple follicles which could be seen in the setting of polycystic ovarian syndrome.
== END 2022-07-09 15:14 | disposition home or self-care (01) ==
LOC: HO.US 15:13
PROVIDERS: Visit Provider Advanced Practice Midwife
DX: D27.9 Benign neoplasm of unspecified ovary (principal); L68.0 Hirsutism; B37.9 Candidiasis, unspecified
CPT/HCPCS: 76830; 76856

== ENCOUNTER → 2022-07-23 13:18 | Outpatient (BNVA) | payer MEDICAID, SELFPAY | PROVIDERS: PCP Internal Medicine; Visit Provider Advanced Practice Midwife | DX: Z12.4 Encounter for screening for malignant neoplasm of cervix (principal); D72.9 Disorder of white blood cells, unspecified; D28.2 Benign neoplasm of uterine tubes and ligaments; E66.01 Morbid (severe) obesity due to excess calories; Z68.43 Body mass index [BMI] 50.0-59.9, adult | CPT/HCPCS: 99212 ==

== ENCOUNTER 2023-02-05 18:57 | Emergency (ER) | payer MEDICAID, SELFPAY ==
--- NOTE | ~2023-02-05 | XR_ITS ---
EXAMINATION: XR CHEST CLINICAL INFORMATION: Chest pain. Covid infection. COMPARISON: Previous chest x-ray June 2020 TECHNIQUE: Frontal view of the chest was obtained. FINDINGS: No significant abnormality is noted involving the heart, lungs, mediastinum, bony thorax or soft tissues. XR/XR chest 1V IMPRESSION: Unremarkable examination.
[2023-02-05 19:57] VITALS: BP 156/98; PULSE 85; RESP 18; TEMP 36.8; O2SAT 99; BMI 57.2
--- NOTE | 2023-02-05 20:10 | ED.URI ---
HPI - URI/Sore Throat General Chief Complaint: Upper Respiratory Symptoms Stated Complaint: Covid +, chest pain Time Seen by Provider: 02/05/23 20:25 Source: patient Mode of arrival: ambulatory Limitations: no limitations History of Present Illness HPI Narrative: 27 yo female with PMH of PCOS, obesity, vaccinated against COVID x 2, not on OCPs started with body aches, cough not feeling well yesterday + COVID test at home today. Comes in today with c/o R upper chest wall pain anf feeling short of breath. She wants paxlovid. MD elicited complaint: cough Pertinent past history: asthma Onset (ago): day(s) (2) Consistency: intermittent Severity: mild Description of mucous: clear Able to tolerate fluids by mouth: Yes Exacerbating factors: deep breaths Relieving factors: nothing Associated symptoms: chills, rhinorrhea, cough, chest pain and shortness of breath Treatments prior to arrival: none Related Data Home Medications Medication Instructions Recorded Confirmed albuterol sulfate 90 mcg/actuation 2 puff inhalation Q6H PRN 03/28/20 07/23/22 aerosol inhaler cetirizine 10 mg capsule (Zyrtec) 10 mg PO DAILY 03/28/20 07/23/22 fluticasone propionate 110 1 puff inhalation Q12H 06/19/22 07/23/22 mcg/actuation HFA aerosol inhaler (Flovent HFA) triamcinolone acetonide 55 mcg 2 spray intranasal DAILY 06/19/22 07/23/22 nasal spray aerosol Previous Rx's Medication Instructions Recorded cholecalciferol (vitamin D3) 50 50 mcg PO DAILY 30 days #30 caps 01/11/21 mcg (2,000 unit) capsule fluconazole 150 mg tablet 150 mg PO Q3D 2 doses #2 tabs 06/19/22 nirmatrelvir 300 mg (150 mg See Rx Instructions PO .COMPLEX 02/05/23 x2)-ritonavir 100 mg tablet,dose #30 ea pack (Paxlovid) Allergies Allergy/AdvReac Type Severity Reaction Status Date / Time No Known Allergies Allergy Verified 02/05/23 20:04 Review of Systems Review of Systems: Constitutional : No Fever, pos Chills ENT/Mouth : No Hoarseness, No sore throat, No Rhinorrhea Eyes: No Redness, No Discharge, No Vision Changes Cardiovascular : pos Chest Pain, positive SOB, positive Dyspnea on Exertion, No Edema Respiratory : positive Cough, No Sputum, positive Wheezing, Gastrointestinal : No Nausea, No Vomiting, No Diarrhea, No abdominal Pain Genitourinary : No Dysuria, No Hematuria Musculoskeletal : No joint pain, No Myalgias Skin : No rash Neuro : No Weakness, No Numbness, No Headache Psych : No anxiety, depression Heme/Lymph: No Bruising, No Bleeding Endocrine : No Polyuria, No Polydipsia All other systems reviewed and are negative [facility] Past Medical History Attestation statement: The following information was validated with the patient. Medical History Asthma Hirsutism History of anxiety History of depression Ovarian cyst Vitamin D deficiency Surgical History Hx of ovarian cystectomy Family History Family History Father HTN (hypertension) Diabetes Mother HTN (hypertension) Diabetes Maternal Grandmother Cervical cancer Social History Social History Alcohol intake: current Alcohol intake frequency: holidays/special occasions only Alcohol type: wine Patient Tobacco Use Status: Never used Tobacco Advance Directives: No Advance Directives Information Provided: No Sexual orientation: Straight/Heterosexual Gender identity: Female Physical Exam Vital Signs: Vital Signs: Last Vital Signs Temp 98.2 F 02/05/23 19:57 Pulse 85 02/05/23 19:57 Resp 18 02/05/23 19:57 BP 156/98 H 02/05/23 19:57 Pulse Ox 99 02/05/23 19:57 O2 Del Method Room Air 02/05/23 19:57 BMI result Body Mass Index 57.2 Appearance: Alert. Oriented X3. No acute distress. Eyes: Pupils equal, round and reactive to light. ENT: Pharynx normal. Neck: Normal inspection. Neck supple. CVS: Normal heart rate and rhythm. Pulses normal. Respiratory: No respiratory distress. Breath sounds normal. Abdomen: Soft and nontender. Skin: Skin warm and dry. Normal skin color. Normal skin turgor. Extremities: No lower extremity edema. No calf ttp Neuro: Oriented X 3. No motor deficit. No sensory deficit. Course Course Course Narrative: This is an RME: Additional HPI, ROS, PE not included below will be deferred to primary provider. This is a 27-year-old female presenting to the emergency department with complaints of cough, shortness of breath, sore throat and SOB since yesterday. Lungs CTAB, OP is erythematous with tonsillar hypertrophy. Mildly hypertensive, all other VSS. Plan: Strep, COVID/FLU/RSV Reevaluation(s) Reevaluation #1: ddimer trop and CXR negative Medical Decision Making Medical Decision Making MDM Narrative: 27 yo female with PMH of PCOS, obesity, vaccinated against COVID x 2, not on OCPs here with c/o COVID symptoms + test at this time will need EKG, CXR, ddimer and troponin - her symptoms do seem MSK in nature but she is somewhat high risk given her BMI. She is not hypoxic or toxic appearing. If her workup is negative I will start her on paxlovid - she is aware of EAU and wants to proceed. Differential Diagnosis Differential Diagnoses: The differential diagnosis associated with the presentation includes COVID, chest wall pain, VTE, covid pneumonia Admission/Observation Consideration of admission/observation: Escalation of care including admission/observation considered no hypoxia can be managed as outpatient workup negative Lab Data [facility] Lab Attestation statement: I reviewed the patient's lab results. 02/05/23 21:18 02/05/23 21:18 Labs: Lab Results 02/05/23 02/05/23 02/05/23 Range/Units 20:24 20:24 21:18 WBC 7.1 (4.8-10.8) X10*3/uL RBC 4.57 (4.20-5.50) X10*6/uL Hgb 12.6 (12.0-16.0) g/dl Hct 40.1 (37.0-47.0) % MCV 87.7 (80.0-98.0) fL MCH 27.6 (27.0-33.0) pg MCHC 31.4 (31.0-35.0) g/dl RDW 13.7 (11.0-16.0) % Plt Count 332 (160-400) X10*3/uL MPV 9.5 (9.4-12.3) fL Immature Gran % (Auto) 0.3 (0.0-0.4) % Neut % (Auto) 44.1 L (45-73) % Lymph % (Auto) 29.0 (20-40) % Hendricks % (Auto) 18.8 H (2-11) % Eos % (Auto) 7.1 H (0-4) % Baso % (Auto) 0.7 (0-2) % Lymph # (Auto) 2.1 (1.2-4.9) X10*3/uL Hendricks # (Auto) 1.3 H (0.1-1.2) X10*3/uL Eos # (Auto) 0.5 H (0.0-0.4) X10*3/uL Baso # (Auto) 0.1 (0.0-0.2) X10*3/uL Abs Immat Gran (auto) 0.02 (0.00-0.03) X10*3/uL Absolute Neuts (auto) 3.2 (2.0-8.3) x10*3/uL Absolute Nucleated RBC 0.000 (0.0-0.012) X10*3/uL Nucleated RBC % (auto) 0.0 (0.0-0.2) /100WBC D-Dimer High Sensitivty NG/ML Sodium (135-145) mmol/L Potassium (3.3-5.1) mmol/L Chloride (96-108) mmol/L Carbon Dioxide (22-29) mmol/L Anion Gap (12-20) BUN (9-16) mg/dL Creatinine (0.5-1.4) mg/dL Estim Creat Clear Calc Estimated GFR Random Glucose (60-115) mg/dL Calcium (8.4-10.2) mg/dL Troponin I High Sens (<3.5-17.0) ng/L COVID-19 (GRETTA) Positive A (Negative) COVID-19 Clin Com See Note S. pyogenes GrpA LANDRY Negative (Negative) 02/05/23 02/05/23 02/05/23 Range/Units 21:18 21:18 21:18 WBC (4.8-10.8) X10*3/uL RBC (4.20-5.50) X10*6/uL Hgb (12.0-16.0) g/dl Hct (37.0-47.0) % MCV (80.0-98.0) fL MCH (27.0-33.0) pg MCHC (31.0-35.0) g/dl RDW (11.0-16.0) % Plt Count (160-400) X10*3/uL MPV (9.4-12.3) fL Immature Gran % (Auto) (0.0-0.4) % Neut % (Auto) (45-73) % Lymph % (Auto) (20-40) % Hendricks % (Auto) (2-11) % Eos % (Auto) (0-4) % Baso % (Auto) (0-2) % Lymph # (Auto) (1.2-4.9) X10*3/uL Hendricks # (Auto) (0.1-1.2) X10*3/uL Eos # (Auto) (0.0-0.4) X10*3/uL Baso # (Auto) (0.0-0.2) X10*3/uL Abs Immat Gran (auto) (0.00-0.03) X10*3/uL Absolute Neuts (auto) (2.0-8.3) x10*3/uL Absolute Nucleated RBC (0.0-0.012) X10*3/uL Nucleated RBC % (auto) (0.0-0.2) /100WBC D-Dimer High Sensitivty < 150 NG/ML Sodium 141 (135-145) mmol/L Potassium 4.0 (3.3-5.1) mmol/L Chloride 107 (96-108) mmol/L Carbon Dioxide 26 (22-29) mmol/L Anion Gap 12 (12-20) BUN 10 (9-16) mg/dL Creatinine 0.73 (0.5-1.4) mg/dL Estim Creat Clear Calc 173.4 Estimated GFR > 60 Random Glucose 113 (60-115) mg/dL Calcium 8.7 (8.4-10.2) mg/dL Troponin I High Sens < 2.7 (<3.5-17.0) ng/L COVID-19 (GRETTA) (Negative) COVID-19 Clin Com S. pyogenes GrpA LANDRY (Negative) Independent Interpretation I performed an independent interpretation of an: EKG and Plain X-Ray (no pneumonia) Interpretation: Rate: 87 Rhythm: NSR [place]: left Normal P waves. Normal [place]. Normal QRS complex. ST T wave : no SHANAE, inverted V1, III aVF qTC: normal prior studies: no priors but no acute ischemia The study has been interpreted contemporaneously by me. . Radiology Impression Discussion of test interpretation with radiology: I have reviewed the radiologist's reading. External Record Review External record reviewed: Inpatient record Prescription Management I considered prescription management with: Antiviral Discharge Plan Discharge Clinical Impression: COVID-19 Patient Disposition: Home, Self-Care Instructions: COVID-19 (Coronavirus Disease 2019) (ED) Additional Instructions: your chest xray did NOT show covid pneumonia, your heart test was normal, your blood clot test was negative. return for worsening symptoms of difficulty breathing and you cannot walk to your bathroom you are so short of breath. your amlodipine interacts with paxlovid - you need to cut the amlodipine down to 5mg daily while on treatment and for 5 days afterwards - monitor your blood pressure Prescriptions: New Paxlovid 300 mg (150 mg x 2)-100 mg tablets,dose pack See Rx Instructions .ROUTE .COMPLEX Qty: 30 0RF Rx Instructions: take TWO 150 mg tablets of nirmatrelvir with ONE 100 mg tablet of ritonavir twice daily for 5 days No Action cholecalciferol (vitamin D3) 50 mcg (2,000 unit) capsule 50 mcg PO DAILY 30 Days Qty: 30 11RF albuterol sulfate 90 mcg/actuation HFA aerosol inhaler 2 puff inhalation Q6H PRN Zyrtec 10 mg capsule 10 mg PO DAILY fluticasone propionate [Flovent HFA] 110 mcg/actuation HFA aerosol inhaler 1 puff inhalation Q12H triamcinolone acetonide 55 mcg aerosol,spray 2 spray intranasal DAILY fluconazole 150 mg tablet 150 mg PO Q3D 0 Days Qty: 2 2RF Rx Instructions: may repeat second dose 72 hrs after first dose if symptoms persist
[2023-02-05 20:47] LABS: IDNOW Serial# 16C4AD1C; Strep A Nucleic Acid Negative (Negative)
[2023-02-05 20:48] LABS: COVID-19 Test Positive (Negative)
--- NOTE | 2023-02-05 20:48 | ECG_ITS ---
Test Reason : plueritic CP Blood Pressure : / mmHG Vent. Rate : 087 BPM Atrial Rate : 087 BPM P-R Int : 142 ms QRS Dur : 078 ms QT Int : 346 ms P-R-T Axes : 000 071 -27 degrees QTc Int : 416 ms Normal sinus rhythm with sinus arrhythmia Low voltage QRS T wave abnormality, consider inferior ischemia Abnormal ECG No previous ECGs available Referred By: Faiza Sanchez Electronically Signed By:DANNY MARK
--- NOTE | 2023-02-05 21:23 | PC.NURSE ---
labs obtained, EKG performed, XR taken - call cordero within reach
[2023-02-05 21:24] LABS: MANUAL DIFF FLAG NO
[2023-02-05 21:26] LABS: Basophils Absolute Auto 0.1 X10*3/uL (0.0-0.2); Basophils Percent Auto 0.7 % (0-2); Eosinophils Absolute Auto 0.5 X10*3/uL (0.0-0.4); Eosinophils Percent Auto 7.1 % (0-4); Hematocrit 40.1 % (37.0-47.0); Hemoglobin 12.6 g/dl (12.0-16.0); Imm Gran Abs Auto 0.02 X10*3/uL (0.00-0.03); Imm Gran Pct Auto 0.3 % (0.0-0.4); Lymphocytes Absolute Auto 2.1 X10*3/uL (1.2-4.9); Mean Corpuscular HGB Conc 31.4 g/dl (31.0-35.0); Mean Corpuscular Hemoglobin 27.6 pg (27.0-33.0); Mean Corpuscular Volume 87.7 fL (80.0-98.0); Mean Platelet Volume 9.5 fL (9.4-12.3); Monocytes Absolute Auto 1.3 X10*3/uL (0.1-1.2); Monocytes Percent Auto 18.8 % (2-11); Neutrophils Absolute Auto 3.2 x10*3/uL (2.0-8.3); Neutrophils Percent Auto 44.1 % (45-73); Platelet Count 332 X10*3/uL (160-400); Red Blood Count 4.57 X10*6/uL (4.20-5.50); Red Cell Distribution Width 13.7 % (11.0-16.0); White Blood Count 7.1 X10*3/uL (4.8-10.8)
[2023-02-05 21:40] LABS: D Dimer High Sensitivity < 150 NG/ML
[2023-02-05 21:44] LABS: Anion Gap 12 (12-20); Blood Urea Nitrogen 10 mg/dL (9-16); Calcium 8.7 mg/dL (8.4-10.2); Carbon Dioxide 26 mmol/L (22-29); Chloride 107 mmol/L (96-108); Creatinine Clr Calc Pharmacy 173.4; Estimated Glomerular Filt Rate > 60; Glucose Random 113 mg/dL (60-115); Sodium 141 mmol/L (135-145)
[2023-02-05 21:55] LABS: Troponin-I High Sensitivity < 2.7 ng/L (<3.5-17.0)
== END 2023-02-05 22:17 | disposition home or self-care (01) ==
PROVIDERS: Physician Assistant Medical; Emergency Provider Emergency Medicine; PCP Internal Medicine
DX: U07.1 COVID-19 (principal); R06.02 Shortness of breath
CPT/HCPCS: 36415; 71045; 80048; 84484; 85025; 85379; 87635; 87651; 93005; 99283

== ENCOUNTER 2023-02-28 18:03 | Outpatient (REF) | payer MEDICAID, SELFPAY ==
[2023-03-02 10:50] LABS: CT PCR NOT DETECTED (Not Detect.); NG PCR NOT DETECTED (Not Detect.)
[2023-03-02 11:20] LABS: BV Int Neg Control Negative (Negative); BV Int Pos Control Positive (Positive)
== END 2023-02-28 18:04 | disposition home or self-care (01) ==
LOC: HO.LNP 18:03
PROVIDERS: Visit Provider Emergency Medicine
DX: B37.31 Acute candidiasis of vulva and vagina (principal); N81.4 Uterovaginal prolapse, unspecified
CPT/HCPCS: 0353U; 87086; 87480; 87510; 87660

== ENCOUNTER 2023-03-06 13:03 | Outpatient (AMB) | payer MEDICAID, SELFPAY ==
--- NOTE | 2023-03-06 13:08 | A.OFFVIS_ITS ---
Intake Vital Signs 03/06/23 13:16 Height 5 ft 4 in Weight 332 lb 14.368 oz BMI 57.1 BP 126/82 Intake Visit Reasons: ? Prolapse Quality Control Microbiologist Required: No Information Interpreted: non-clinical & clinical Flight Radio Officer: Flight Radio Officer Present (Ana ONTIVEROS) Accompanied by: Self / Same As Patient Allergies No Known Allergies Allergy (Verified 03/06/23 13:17) Is last menstrual period known: Yes Last menstrual period: 02/10/23 HPI HPI Comments History of Present Illness Details Presenting complaining of a bulge per vagina associated with leakage of urine upon coughing, sneezing or lifting heavy objects in addition to urinary frequency nocturia , urgency and urge incontinence. No dysuria PFSH Medical History Vitamin D deficiency Ovarian cyst Hirsutism History of depression History of anxiety Asthma Surgical History Hx of ovarian cystectomy Family History Father HTN (hypertension) Diabetes Mother HTN (hypertension) Diabetes Maternal Grandmother Cervical cancer Social History Household Members: None Housing: Apartment Alcohol intake: current Alcohol intake frequency: holidays/special occasions on ly Alcohol type: wine Patient Tobacco Use Status: Never used Tobacco Current occupational status: student Sexually active: No Sexual orientation: Straight/Heterosexual Gender identity: Female Female Reproductive History Menstrual Age of Menarche: 14 Date of last menstrual period: 02/10/23 Review of Systems Const All systems reviewed & are unremarkable except as noted in HPI and below Physical Exam Vital Signs: Last Vital Signs BP 126/82 03/06/23 13:16 BMI result Body Mass Index 57.1 General: Yes no CVA tenderness External Female Exam: normal external appearance and normal appearance of the urethra Speculum Exam - Vagina: normal appearance of the vagina, normal palpation, no lesions and no masses Speculum Exam - Cervix: normal appearance of the cervix, normal palpation, no lesions, no masses and nontender Bimanual exam- vagina & uterus: normal bimanual exam, normal palpation, uterine size normal, normal palpation, uterine shape normal, No Cervical tenderness present, non-tender and other (Moderate uterine prolapse) Bimanual Exam- Adnexa, other: normal adnexae Back/Spine/Pelvis Back: no CVA tenderness Assessment & Plan Assessment & Plan (1) Uterine prolapse: Code(s): N81.4 - Uterovaginal prolapse, unspecified Plan: Discussed with the patient the finding on pelvic exam showing moderate uterine prolapse, options of treatment were discussed with the patient, will refer to Urogynecology for further management (2) Urine incontinence: Code(s): R32 - Unspecified urinary incontinence Plan: Discussed with the patient the different types of Urine incontinence, stress urinary incontinence, intrinsic sphincter deficiency, overactive bladder and its work up. We will refer to uro Gyne. All questions answered, the patient verbalized understanding. Orders: Referrals Urogynecology Referral N81.4 - Uterovaginal prolapse, unspecified, R32 - Unspecified urinary incontinence Coding Level of Care Code Est Pt Level 3 (05380) Diagnoses Uterine prolapse N81.4 Urine incontinence R32
[2023-03-06 13:16] VITALS: BP 126/82; BMI 57.1
== END 2023-03-06 14:24 | disposition home or self-care (01) ==
PROVIDERS: PCP Internal Medicine; Visit Provider Obstetrics & Gynecology
DX: N81.4 Uterovaginal prolapse, unspecified (principal); R32 Unspecified urinary incontinence
CPT/HCPCS: 99213

== ENCOUNTER → 2023-03-06 13:03 | Outpatient (BNVA) | payer MEDICAID, SELFPAY | PROVIDERS: PCP Internal Medicine; Visit Provider Obstetrics & Gynecology | DX: N81.4 Uterovaginal prolapse, unspecified (principal); R32 Unspecified urinary incontinence | CPT/HCPCS: 99212 ==

== ENCOUNTER 2023-05-04 20:13 | Emergency (ER) | payer MEDICAID, SELFPAY ==
[2023-05-04 20:15] VITALS: BP 161/94; PULSE 98; RESP 22; TEMP 36.7; O2SAT 98; BMI 57.9
[2023-05-04 21:14] LABS: Influenza A PCR NEGATIVE (Negative); Influenza B PCR NEGATIVE (Negative); Resp Syncy Virus RNA Qual PCR NEGATIVE (Negative); SARS COV2 PCR INHOUSE NEGATIVE (Negative)
--- NOTE | 2023-05-04 22:26 | ED_ITS ---
HPI - URI/Sore Throat General Chief Complaint: Upper Respiratory Symptoms Stated Complaint: asthma,cough sob Time Seen by Provider: 05/04/23 22:25 Source: patient Mode of arrival: ambulatory Limitations: no limitations History of Present Illness HPI Narrative: Patient with history of asthma lives in apartment with mold in the bathroom does have a lot of allergies come complaining of feeling short of breath for l ast 4 weeks Related Data Home Medications Medication Instructions Recorded Confirmed albuterol sulfate 90 mcg/actuation 2 puff inhalation Q6H PRN 03/28/20 07/23/22 aerosol inhaler cetirizine 10 mg capsule (Zyrtec) 10 mg PO DAILY 03/28/20 07/23/22 fluticasone propionate 110 1 puff inhalation Q12H 06/19/22 07/23/22 mcg/actuation HFA aerosol inhaler (Flovent HFA) triamcinolone acetonide 55 mcg 2 spray intranasal DAILY 06/19/22 07/23/22 nasal spray aerosol Previous Rx's Medication Instructions Recorded cholecalciferol (vitamin D3) 50 50 mcg PO DAILY 30 days #30 caps 01/11/21 mcg (2,000 unit) capsule fluconazole 150 mg tablet 150 mg PO Q3D 2 doses #2 tabs 06/19/22 nirmatrelvir 300 mg (150 mg See Rx Instructions PO .COMPLEX 02/05/23 x2)-ritonavir 100 mg tablet,dose #30 ea pack (Paxlovid) albuterol sulfate 2.5 mg/3 mL 2.5 mg (3 mL) inhalation Q4-6H PRN 05/04/23 (0.083 %) solution for nebulization shortness of breath or wheezing #90 mL albuterol sulfate 2.5 mg/3 mL 2.5 mg (3 mL) inhalation Q4-6H PRN 05/04/23 (0.083 %) solution for nebulization shortness of breath or wheezing #90 mL albuterol sulfate 90 mcg/actuation 2 puff inhalation Q4-6H PRN 05/04/23 aerosol inhaler (ProAir HFA) shortness of breath or wheezing #8.5 grams benzonatate 200 mg capsule 200 mg PO TID PRN cough #30 caps 05/04/23 nebulizer and compressor #1 ea 05/04/23 nebulizer and compressor #1 ea 05/04/23 prednisone 20 mg tablet 40 mg (2 x 20 mg) PO DAILY #10 tabs 05/04/23 prednisone 20 mg tablet 40 mg (2 x 20 mg) PO DAILY #10 tabs 05/04/23 Allergies Allergy/AdvReac Type Severity Reaction Status Date / Time environmental allergies Allergy Unknown Verified 05/04/23 20:20 Review of Systems Review of Systems: Yes all other systems are reviewed and are negative [facility] Past Medical History Medical History (Updated 05/05/23 @ 00:01 by Prakash Sanchez) Vitamin D deficiency Ovarian cyst Hirsutism History of depression History of anxiety Asthma Surgical History Hx of ovarian cystectomy Family History Family History Father HTN (hypertension) Diabetes Mother HTN (hypertension) Diabetes Maternal Grandmother Cervical cancer Social History Household Members: None Housing: Apartment Alcohol intake: current Alcohol intake frequency: holidays/special occasions only Alcohol type: wine Patient Tobacco Use Status: Never used Tobacco Smoked in Last 30 Days: No Use of substances other than those prescribed or required for medical reasons: No Advance Directives: No Advance Directives Information Provided: No Current occupational status: student Sexual orientation: Straight/Heterosexual Gender identity: Female Physical Exam Vital Signs: Vital Signs: Last Vital Signs Temp 98.1 F 05/04/23 20:15 Pulse 107 H 05/04/23 23:50 Resp 20 05/04/23 23:50 BP 158/62 H 05/04/23 23:50 Pulse Ox 98 05/04/23 23:50 O2 Del Method Room Air 05/04/23 23:50 BMI result Body Mass Index 57.9 Appearance: Alert. Oriented X3. No acute distress. ENT: Pharynx normal. Oral Mucosa moist enlarged tonsils Neck: Normal inspection. Neck supple. CVS: Normal heart rate and rhythm. Pulses normal. Respiratory: No respiratory distress. Equal air entry bilateral, bilateral wheezing Abdomen: Soft and nontender. Bowel sounds are present, no mass palpable, no CVA tenderness Skin: Skin warm and dry. Normal skin color. Normal skin turgor. Extremities: No lower extremity edema. No calf tenderness Neuro: Oriented X 3. Medications Administered Discontinued Medications Generic Name Dose Route Start Last Admin Trade Name Freq PRN Reason Stop Dose Admin Albuterol Sulfate 5 mg/ 7.5 mg 05/04/23 22:46 05/04/23 22:50 Albuterol Sulfate 2.5 mg INHALE 05/04/23 22:47 7.5 mg ONCE ONE Administration Benzonatate 200 mg 05/04/23 22:37 05/04/23 22:54 Benzonatate 100 Mg Capsule PO 05/04/23 22:38 200 mg ONCE ONE Administration Dexamethasone 10 mg 05/04/23 22:36 05/04/23 22:54 Dexamethasone 2 Mg Tablet PO 05/04/23 22:37 10 mg ONCE ONE Administration Medical Decision Making Medical Decision Making MDM Narrative: Patient has allergies with asthma comes here multiple times with asthma flare up. Patient advised to take as a mold at home with nebulizing treatment and steroid Lab Data Labs: Lab Results 05/04/23 Range/Units 20:32 Influenza Type A (PCR) NEGATIVE (Negative) Influenza Type B (PCR) NEGATIVE (Negative) RSV RNA Qual (PCR) NEGATIVE (Negative) SARS-CoV-2 RNA (RT-PCR) NEGATIVE (Negative) Discharge Plan Discharge Clinical Impression: Acute asthma exacerbation Patient Disposition: Home, Self-Care Instructions: Asthma (ED) Additional Instructions: Use inhaler as advised take prednisone use Nebulizer as advised Follow-up with your PCP/lung specialist Prescriptions: New (DME) nebulizer and compressor Device See Rx Instructions .Route Qty: 1 0RF Rx Instructions: As directed albuterol sulfate 2.5 mg /3 mL (0.083 %) solution for nebulization 2.5 mg inhalation Q4-6H PRN (Reason: shortness of breath or wheezing) Qty: 90 0RF prednisone 20 mg tablet 40 mg PO DAILY Qty: 10 0RF (DME) nebulizer and compressor Device See Rx Instructions .Route Qty: 1 0RF Rx Instructions: As directed albuterol sulfate 2.5 mg /3 mL (0.083 %) solution for nebulization 2.5 mg inhalation Q4-6H PRN (Reason: shortness of breath or wheezing) Qty: 90 0RF benzonatate 200 mg capsule 200 mg PO TID PRN (Reason: cough) Qty: 30 0RF prednisone 20 mg tablet 40 mg PO DAILY Qty: 10 0RF albuterol sulfate [ProAir HFA] 90 mcg/actuation HFA aerosol inhaler 2 puff inhalation Q4-6H PRN (Reason: shortness of breath or wheezing) Qty: 8.5 0RF No Action cholecalciferol (vitamin D3) 50 mcg (2,000 unit) capsule 50 mcg PO DAILY 30 Days Qty: 30 11RF Paxlovid 300 mg (150 mg x 2)-100 mg tablets,dose pack See Rx Instructions .ROUTE .COMPLEX Qty: 30 0RF Rx Instructions: take TWO 150 mg tablets of nirmatrelvir with ONE 100 mg tablet of ritonavir twice daily for 5 days albuterol sulfate 90 mcg/actuation HFA aerosol inhaler 2 puff inhalation Q6H PRN Zyrtec 10 mg capsule 10 mg PO DAILY fluticasone propionate [Flovent HFA] 110 mcg/actuation HFA aerosol inhaler 1 puff inhalation Q12H triamcinolone acetonide 55 mcg aerosol,spray 2 spray intranasal DAILY fluconazole 150 mg tablet 150 mg PO Q3D 0 Days Qty: 2 2RF Rx Instructions: may repeat second dose 72 hrs after first dose if symptoms persist Referrals: Grant Montano MD [Physician] - 2 weeks Interventions: ED Discharge Assessment Last Done: 05/04/23 23:51 Discharge Date/Time: 05/04/23 23:55
[2023-05-04] MEDS: Albuterol Sulfate 5 MG, Albuterol Sulfate (0.083%) 2.5 MG 7.5 MG INHALE (22:50)
[2023-05-04 22:51] VITALS: PULSE 89; RESP 18; O2SAT 95
[2023-05-04] MEDS: Benzonatate 100 MG CAPSULE 200 MG PO (22:54)
[2023-05-04] MEDS: dexAMETHasone 2 MG TABLET 10 MG PO (22:54)
[2023-05-04 23:50] VITALS: BP 158/62; PULSE 107; RESP 20; O2SAT 98
== END 2023-05-04 23:55 | disposition home or self-care (01) ==
PROVIDERS: Emergency Provider Internal Medicine
DX: J45.901 Unspecified asthma with (acute) exacerbation (principal); R05.9 Cough, unspecified; R06.02 Shortness of breath; Z20.822 Contact with and (suspected) exposure to COVID-19; Z20.828 Contact with and (suspected) exposure to other viral communicable diseases; Z79.899 Other long term (current) drug therapy
CPT/HCPCS: 0241U; 94640; 99284; J8540

== ENCOUNTER 2023-06-23 13:43 | Outpatient (AMB) | payer MEDICAID, SELFPAY ==
[2023-06-23 13:57] VITALS: BP 138/80; PULSE 98; O2SAT 99; BMI 57.5
--- NOTE | 2023-06-23 13:57 | MHC.OFFVIS ---
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 Allergies environmental allergies Allergy (Verified 05/04/23 20:20) Unknown Medication List - Last Reconciled 06/23/23 by Huma Ochoa CNM albuterol sulfate 2.5 mg (3 mL) inhalation Q4-6H PRN albuterol sulfate 90 mcg/actuation (ProAir HFA) 2 puffs inhalation Q4-6H PRN albuterol sulfate 2.5 mg (3 mL) inhalation Q4-6H PRN albuterol sulfate 90 mcg/actuation 2 puffs inhalation Q6H PRN benzonatate 200 mg PO TID PRN cetirizine (Zyrtec) 10 mg PO DAILY cholecalciferol (vitamin D3) 50 mcg PO DAILY 30 days fluticasone propionate 110 mcg/actuation (Flovent HFA) 1 puff inhalation Q12H nebulizer and compressor As directed nebulizer and compressor As directed triamcinolone acetonide 2 sprays intranasal DAILY 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 She saw her primary 0 while ago and says she asked for referral to a power chisel operator her somebody help her with weight loss she just got a stove after having had to go to a house in court in order to get 1. She commutes by bus to work 2 jobs in [place]. She did not grow up eating healthy foods and she is starting to learn about eating healthier foods and wants to continue in this effort and is interested in being seen by somebody who could help her with this. She says also in the past she has had problems with uterine prolapse and was referred to [facility] urogynecology and had a discussion about surgery and was given a pessary but it makes her have more bowel movements and so that is very difficult and she can not use it when she is working because of that. She is sexually active with a female partner and has absolutely 0 worries about any STIs since she was last evaluated a year ago and had a negative Pap smear as well. She says her uterine prolapse is in his bad right now in the last month but sometimes it can be bad. [facility] Medical History (Updated 06/23/23 @ 15:13 by Huma Ochoa CNM) Vitamin D deficiency Ovarian cyst Hirsutism History of depression History of anxiety Asthma Surgical History Hx of ovarian cystectomy Family History Father HTN (hypertension) Diabetes Mother HTN (hypertension) Diabetes Maternal Grandmother Cervical cancer Social History Household Members: None Housing: Apartment Alcohol intake: current Alcohol intake frequency: holidays/special occasions only Alcohol type: wine Patient Tobacco Use Status: Never used Tobacco Current occupational status: student Sexual orientation: Straight/Heterosexual Gender identity: Female Female Reproductive History Menstrual Age of Menarche: 14 Date of last menstrual period: 06/13/23 Total pregnancies: 0 Date of last pap smear: 06/19/22 (wl) Physical Exam Vital Signs: Last Vital Signs Pulse 98 06/23/23 13:57 BP 138/80 06/23/23 13:57 Pulse Ox 99 06/23/23 13:57 Oxygen Delivery Method Room Air 06/23/23 13:57 BMI result Body Mass Index 57.5 Const Other: Has some darkening around skin folds around neck and also some darkening around her hands but she says the hands are eczema. General: healthy appearing, comfortable, no acute distress, well developed and alert Nutritional Appearance: average body habitus and obese morbidly obese Orientation/consciousness: patient oriented x3 Limitations: no limitations HEENT Head: Yes normocephalic Neck Neck: Yes normal visual inspection Chest Chest palpation & inspection: normal inspection of the chest Breast/axilla inspection: normal inspection of the breasts and normal inspection of the axillae Breast/axilla palpation: normal palpation of the breasts and normal palpation of the axillae Resp Effort & Inspection: normal respiratory effort GI Inspection: Yes normal to inspection, No Abdominal wall edema and No distended Palpation (GI): Soft to palpation and nontender Other: External normal limits vagina pink and moist normal appearing whitish discharge cervix nulliparous pink smooth healthy appearing it does palpate ever so slightly low but does not feel as if it is prolapsed to day during this exam uterus difficult to feel completely but nontender adnexa nontender and patient was able to do a good Kegel. General: Yes bladder normal to palpation External Female Exam: normal external appearance and normal appearance of the urethra Speculum Exam - Vagina: normal appearance of the vagina, normal palpation and normal vaginal discharge Speculum Exam - Cervix: normal appearance of the cervix, normal palpation and nontender Bimanual exam- vagina & uterus: normal bimanual exam, normal palpation, uterine size normal, bladder normal to palpation, consistency normal, normal palpation, uterine mobility normal, uterine shape normal, No Cervical tenderness present, non-tender and no cervical motion tenderness Bimanual Exam- Adnexa, other: normal adnexae, no masses, normal and No adnexal tenderness Neuro General: patient oriented x3 Results Reviewed Results Reviewed: Name: Rafaela Terrell Age/Sex: 27/F Attending: Huma Ochoa CNM : 1995 Submitted by: Huma Ochoa CNM Copies to: Nichole Andrea MD MR #: [id number] Status: DEP REF Collected: 06/19/22 [facility] Received: 06/20/22 Interpretation Satisfactory for evaluation. Negative for intraepithelial lesion or malignancy. Clinical Information LMP: 05/27/22 Previous PAP test: 04/07/20, WNL Material Received ThinPrep-Cervical Copies To Nichole Andrea MD [address] [place] [id number] Leonard [address] [place] [address] [id number] Electronically Signed By: Anabel Matthews 06/29/22 [id number] The Pap Test is a screening procedure with the inherent possibility of both false negative and false positive results. Results should be interpreted in the context of historic and current clinical findings. Reliability of the Pap Test is enhanced by performing the test on a regular repetitive basis. Patient: Rafaela Terrell Age/Sex: 27/F MR#: [id number] Page 1 of 1 Assessment & Plan Assessment & Plan (1) Well woman exam: Code(s): Z01.419 - Encounter for gynecological examination (general) (routine) without abnormal findings (2) Uterine prolapse: Code(s): N81.4 - Uterovaginal prolapse, unspecified (3) Obesity, morbid, BMI 50 or higher: Code(s): E66.01 - Morbid (severe) obesity due to excess calories (4) Elevated blood pressure reading: Code(s): R03.0 - Elevated blood-pressure reading, without diagnosis of hypertension (5) Cervical cancer screening: Comment: 06/19/2022 Pap is negative. Code(s): Z12.4 - Encounter for screening for malignant neoplasm of cervix Plan Discussed her efforts to be healthier and goals. She is interested in trying to eat healthier and lose weight so I placed a referral for her to weight management because I did not see it already placed in the system. She certainly has comorbidities that would recommend her to the program. Discussed healthy ways of preparing vegetables now that she has a stove. Suggested ways to sneak in exercise and walking in her day but it is challenging given her commute by bus and working 2 jobs in a different city. Did offer testing for STIs but she declined discussed her efforts and previous learning that she has done about trying to support her pelvic structures. I do recommend that if she were add to ever consider surgery she should really really endeavor to lose weight 1st. I offered and placed another referral to pelvic floor therapy for her and encouraged her to continue doing her exercises every day as much as she can. Both referrals were placed and we will see her in a year. She has not due for Pap smear for another 2 years Orders: Referrals Medical Weight Management Referral E66.01 - Morbid (severe) obesity due to excess calories, N81.4 - Uterovaginal prolapse, unspecified, R03.0 - Elevated blood-pressure reading, without diagnosis of hypertension, Z01.419 - Encounter for gynecological examination (general) (routine) without abnormal findings, Z12.4 - Encounter for screening for malignant neoplasm of cervix Pelvic Detail Supervisor Referral M62.89 - Other specified disorders of muscle Coding Level of Care Code Est Pt Prev Care 18-39y([id number]) Diagnoses Well woman exam Z01.419 Uterine prolapse N81.4 Obesity, morbid, BMI 50 or higher E66.01 Elevated blood pressure reading R03.0 Cervical cancer screening Z12.4
== END 2023-06-23 15:14 | disposition home or self-care (01) ==
PROVIDERS: PCP Internal Medicine; Visit Provider Advanced Practice Midwife
DX: Z01.419 Encounter for gynecological examination (general) (routine) without abnormal findings (principal); N81.4 Uterovaginal prolapse, unspecified; E66.01 Morbid (severe) obesity due to excess calories; R03.0 Elevated blood-pressure reading, without diagnosis of hypertension; Z12.4 Encounter for screening for malignant neoplasm of cervix
CPT/HCPCS: 99395

== ENCOUNTER → 2023-06-23 13:43 | Outpatient (BNVA) | payer MEDICAID, SELFPAY | PROVIDERS: Visit Provider Advanced Practice Midwife | DX: Z01.419 Encounter for gynecological examination (general) (routine) without abnormal findings (principal); Z12.4 Encounter for screening for malignant neoplasm of cervix; N81.4 Uterovaginal prolapse, unspecified; R03.0 Elevated blood-pressure reading, without diagnosis of hypertension; E66.01 Morbid (severe) obesity due to excess calories; Z68.43 Body mass index [BMI] 50.0-59.9, adult | CPT/HCPCS: 99395 ==

== ENCOUNTER 2023-08-08 18:51 | Outpatient (REF) | payer MEDICAID, SELFPAY ==
[2023-08-09 13:47] LABS: BV Int Neg Control Negative (Negative); BV Int Pos Control Positive (Positive)
== END 2023-08-08 18:52 | disposition home or self-care (01) ==
LOC: HO.HHCLNP 18:51
PROVIDERS: Visit Provider Internal Medicine
DX: N89.8 Other specified noninflammatory disorders of vagina (principal)
CPT/HCPCS: 87480; 87510; 87660

== ENCOUNTER → 2023-08-29 19:00 | Outpatient (BNV) | payer MEDICAID, SELFPAY | PROVIDERS: PCP Internal Medicine; Visit Provider Internal Medicine | DX: G47.33 Obstructive sleep apnea (adult) (pediatric) (principal) | CPT/HCPCS: 95811 ==

== ENCOUNTER → 2023-08-29 20:30 | Outpatient (REF) | payer MEDICAID, SELFPAY | LOC: HO.SL 20:30 | PROVIDERS: PCP Internal Medicine; Visit Provider Internal Medicine | DX: G47.33 Obstructive sleep apnea (adult) (pediatric) (principal); R06.83 Snoring; I10 Essential (primary) hypertension; Z79.899 Other long term (current) drug therapy | CPT/HCPCS: 95811 ==

== ENCOUNTER 2023-09-11 17:57 | Emergency (ER) | payer MEDICAID, SELFPAY ==
--- NOTE | ~2023-09-11 | XR_ITS ---
EXAMINATION: XR CHEST CLINICAL INFORMATION: Chest pain. COMPARISON: None available. TECHNIQUE: 2 views of the chest were obtained. FINDINGS: No significant abnormality is noted involving the heart, lungs, mediastinum, bony thorax or soft tissues. XR/XR chest 2V IMPRESSION: Unremarkable chest examination.
[2023-09-11 18:01] VITALS: BP 152/95; PULSE 92; RESP 16; TEMP 36.9; O2SAT 98; BMI 58.4
--- NOTE | 2023-09-11 18:01 | ED_ITS ---
HPI - General Adult General Chief complaint: Upper Respiratory Symptoms Stated complaint: chest congestion,tightness cough,sob Time Seen by Provider: 09/11/23 19:14 Source: patient Mode of arrival: ambulatory Limitations: no limitations History of Present Illness HPI narrative: 28-year-old female history of asthma hypertension presents to ED for shortness of breath, coughing, congestion, nasal congestion, right-sided pleurisy, and chills. Patient states her friend was sick 1st symptoms. Patient denies any recent long travel recent surgery. Patient denies any calf pain or of control use Related Data Home Medications ?Medication ?Instructions ?Recorded ?Confirmed albuterol sulfate 90 mcg/actuation 2 puff inhalation Q6H PRN 03/28/20 06/23/23 aerosol inhaler cetirizine 10 mg capsule (Zyrtec) 10 mg PO DAILY 03/28/20 06/23/23 fluticasone propionate 110 1 puff inhalation Q12H 06/19/22 07/23/22 mcg/actuation HFA aerosol inhaler (Flovent HFA) triamcinolone acetonide 55 mcg 2 spray intranasal DAILY 06/19/22 07/23/22 nasal spray aerosol Previous Rx's ?Medication ?Instructions ?Recorded cholecalciferol (vitamin D3) 50 50 mcg PO DAILY 30 days #30 caps 01/11/21 mcg (2,000 unit) capsule albuterol sulfate 2.5 mg/3 mL 2.5 mg (3 mL) inhalation Q4-6H PRN 05/04/23 (0.083 %) solution for nebulization shortness of breath or wheezing #90 mL albuterol sulfate 2.5 mg/3 mL 2.5 mg (3 mL) inhalation Q4-6H PRN 05/04/23 (0.083 %) solution for nebulization shortness of breath or wheezing #90 mL albuterol sulfate 90 mcg/actuation 2 puff inhalation Q4-6H PRN 05/04/23 aerosol inhaler (ProAir HFA) shortness of breath or wheezing #8.5 grams benzonatate 200 mg capsule 200 mg PO TID PRN cough #30 caps 05/04/23 nebulizer and compressor #1 ea 05/04/23 nebulizer and compressor #1 ea 05/04/23 benzonatate 200 mg capsule 200 mg PO TID PRN cough 5 days #15 04/04/24 caps prednisone 20 mg tablet 40 mg (2 x 20 mg) PO DAILY 5 days 09/11/23 #10 tabs Allergies Allergy/AdvReac Type Severity Reaction Status Date / Time environmental allergies Allergy Unknown Verified 09/11/23 18:06 Review of Systems 2 Review of Systems: Coughing, nasal congestion, right-sided pleurisy, Yes all other systems are reviewed and are negative [facility] Past Medical History Medical History (Updated 09/12/23 @ 00:01 by Prakash Sanchez) Vitamin D deficiency Ovarian cyst Hirsutism History of depression History of anxiety Asthma Surgical History Hx of ovarian cystectomy Family History Family History Father HTN (hypertension) Diabetes Mother HTN (hypertension) Diabetes Maternal Grandmother Cervical cancer Social History Social History Household Members: None Housing: Apartment Alcohol intake: current Alcohol intake frequency: holidays/special occasions only Alcohol type: wine Patient Tobacco Use Status: Never used Tobacco Advance Directives: No Advance Directives Information Provided: No Current occupational status: student Sexual orientation: Straight/Heterosexual Gender identity: Female Physical Exam ED Vital Signs: Vital Signs - 24 hr 09/11/23 18:01 Temperature 98.4 F Pulse Rate 92 Respiratory Rate 16 Blood Pressure 152/95 H Pulse Oximetry 98 Oxygen Delivery Method Room Air BMI result Body Mass Index 58.4 Const General: cooperative, healthy appearing, comfortable, no acute distress, well developed, alert, awake and Physically active Orientation/consciousness: oriented to person, oriented to place, oriented to time and patient oriented x3 HENMT Head: Yes normal to inspection, Yes No palpable skull fracture present, Yes normocephalic, Yes atraumatic and No abrasion Eyes General: appearance normal, both eyes and all related structures Neck Neck: Yes normal visual inspection, Yes full ROM, Yes no lymphadenopathy, Yes no meningeal signs, Yes trachea midline, Yes supple, No anterior neck swelling and No tender Chest Chest palpation & inspection: normal inspection of the chest and normal palpation of entire chest wall Chest/axillae images: 2 1. Positive for tenderness on palpation. For rash, breast swelling, bruising erythema, or nipple discharge Resp Effort & Inspection: normal respiratory effort and able to speak in complete sentences Auscultation: clear to auscultation bilaterally Cardio Jugular venous distension: no JVD Heart sounds: S1 normal heart sound present and S2 normal heart sound present GI Inspection: Yes normal to inspection Palpation (GI): Soft to palpation, not firm, nontender, no guarding and not rigid General: No CVA tenderness and Yes no CVA tenderness Back/Spine/Pelvis Back: no CVA tenderness, No CVA tenderness and No back tenderness Skin General skin exam: no rashes or lesions noted, elasticity normal and turgor normal Neuro General: oriented to person, oriented to place, oriented to time, patient oriented x3, gait normal, tone normal, moves all extremities, Normal light touch and pain sensation, no meningeal signs, no focal motor deficits, CN's II-XI intact bilaterally and normal sensation to monofilament Extrem Other: Negative for bilateral extremity swelling, pitting edema, or calf tenderness General: Yes normal to inspection, Yes full ROM and Yes capillary refill normal Psych Appearance: grossly normal, well kempt and not disheveled Course Course Course Narrative: RME:?28 yo female hx of asthma here w/ fatigue, chest tightness/pressure to right chest worse with breathing, cough, nasal congestion, and tactile fevers x2 days. admits her friend recently had viral pneumonia. denies hemoptysis, calf pain, palpitations, chest pain. viral serology, ekg, and cxr ordered. Full HPI, ROS and PE to be performed by the primary ED provider. Medical Decision Making Medical Decision Making [facility] Narrative: 28-year-old female with past medical history of asthma hypertension presents to ED for coughing, shortness of breath, right-sided pleurisy, nasal congestion, body aches, and chills for 2 days. Patient denies recent long travel recent surgery or control use. EKG negative STEMI. Troponin negative. BNP negative. D-dimer 159 which is negative. Upper limit normal 230. PERC score 0. Chest x-ray normal. Patient is safe for discharge. Patient explained worrisome signs. Not suspecting heart failure, myocardial infarction, pulmonary embolus, myocarditis, or respiratory failure. Differential Diagnosis Differential Diagnoses: The differential diagnosis associated with the presentation includes (COVID, RSV, influenza, pneumonia, PE, heart failure, myocardial infarction) Admission/Observation Consideration of admission/observation: Escalation of care including admission/observation considered Lab Data MDM Lab Attestation statement: I reviewed the patient's lab results. 09/11/23 20:21 09/11/23 20:21 Labs: Lab Results 09/11/23 09/11/23 09/11/23 Range/Units 18:17 20:21 20:21 WBC 13.0 H (4.8-10.8) X10*3/uL RBC 4.31 (4.20-5.50) X10*6/uL Hgb 11.8 L (12.0-16.0) g/dl Hct 36.9 L (37.0-47.0) % MCV 85.6 (80.0-98.0) fL MCH 27.4 (27.0-33.0) pg MCHC 32.0 (31.0-35.0) g/dl RDW 13.0 (11.0-16.0) % Plt Count 347 (160-400) X10*3/uL MPV 9.4 (9.4-12.3) fL Immature Gran % (Auto) 0.4 (0.0-0.4) % Neut % (Auto) 66.5 (45-73) % Lymph % (Auto) 18.7 L (20-40) % [place] % (Auto) 8.2 (2-11) % Eos % (Auto) 5.8 H (0-4) % Baso % (Auto) 0.4 (0-2) % Lymph # (Auto) 2.4 (1.2-4.9) X10*3/uL [place] # (Auto) 1.1 (0.1-1.2) X10*3/uL Eos # (Auto) 0.8 H (0.0-0.4) X10*3/uL Baso # (Auto) 0.1 (0.0-0.2) X10*3/uL Abs Immat Gran (auto) 0.05 H (0.00-0.03) X10*3/uL Absolute Neuts (auto) 8.6 H (2.0-8.3) x10*3/uL Absolute Nucleated RBC 0.000 (0.0-0.012) X10*3/uL Nucleated RBC % (auto) 0.0 (0.0-0.2) /100WBC PT 12.8 (11.1-13.3) SEC INR 1.1 (0.9-1.1) APTT 34.4 (26.0-36.8) SEC D-Dimer High Sensitivty 159 NG/ML Sodium Cancelled 139 Potassium Cancelled Chloride Carbon Dioxide Anion Gap BUN Creatinine Estim Creat Clear Calc Estimated GFR Random Glucose Calcium Total Bilirubin AST ALT Alkaline Phosphatase Troponin I High Sens (<3.5-17.0) ng/L B-Natriuretic Peptide (<100) pg/mL Total Protein Albumin Beta HCG, Quant mIU/mL Influenza Type A (PCR) NEGATIVE (Negative) Influenza Type B (PCR) NEGATIVE (Negative) RSV RNA Qual (PCR) NEGATIVE (Negative) SARS-CoV-2 RNA (RT-PCR) NEGATIVE (Negative) 09/11/23 09/11/23 09/11/23 Range/Units 20:21 20:21 20:21 WBC (4.8-10.8) X10*3/uL RBC (4.20-5.50) X10*6/uL Hgb (12.0-16.0) g/dl Hct (37.0-47.0) % MCV (80.0-98.0) fL MCH (27.0-33.0) pg MCHC (31.0-35.0) g/dl RDW (11.0-16.0) % Plt Count (160-400) X10*3/uL MPV (9.4-12.3) fL Immature Gran % (Auto) (0.0-0.4) % Neut % (Auto) (45-73) % Lymph % (Auto) (20-40) % [place] % (Auto) (2-11) % Eos % (Auto) (0-4) % Baso % (Auto) (0-2) % Lymph # (Auto) (1.2-4.9) X10*3/uL [place] # (Auto) (0.1-1.2) X10*3/uL Eos # (Auto) (0.0-0.4) X10*3/uL Baso # (Auto) (0.0-0.2) X10*3/uL Abs Immat Gran (auto) (0.00-0.03) X10*3/uL Absolute Neuts (auto) (2.0-8.3) x10*3/uL Absolute Nucleated RBC (0.0-0.012) X10*3/uL Nucleated RBC % (auto) (0.0-0.2) /100WBC PT (11.1-13.3) SEC INR (0.9-1.1) APTT (26.0-36.8) SEC D-Dimer High Sensitivty NG/ML Sodium Potassium 3.6 Chloride Cancelled 106 Carbon Dioxide Cancelled 28 Anion Gap Cancelled BUN Creatinine Estim Creat Clear Calc Estimated GFR Random Glucose Calcium Total Bilirubin AST ALT Alkaline Phosphatase Troponin I High Sens (<3.5-17.0) ng/L B-Natriuretic Peptide (<100) pg/mL Total Protein Albumin Beta HCG, Quant mIU/mL Influenza Type A (PCR) (Negative) Influenza Type B (PCR) (Negative) RSV RNA Qual (PCR) (Negative) SARS-CoV-2 RNA (RT-PCR) (Negative) 09/11/23 09/11/23 09/11/23 Range/Units 20:21 20:21 20:21 WBC (4.8-10.8) X10*3/uL RBC (4.20-5.50) X10*6/uL Hgb (12.0-16.0) g/dl Hct (37.0-47.0) % MCV (80.0-98.0) fL MCH (27.0-33.0) pg MCHC (31.0-35.0) g/dl RDW (11.0-16.0) % Plt Count (160-400) X10*3/uL MPV (9.4-12.3) fL Immature Gran % (Auto) (0.0-0.4) % Neut % (Auto) (45-73) % Lymph % (Auto) (20-40) % [place] % (Auto) (2-11) % Eos % (Auto) (0-4) % Baso % (Auto) (0-2) % Lymph # (Auto) (1.2-4.9) X10*3/uL [place] # (Auto) (0.1-1.2) X10*3/uL Eos # (Auto) (0.0-0.4) X10*3/uL Baso # (Auto) (0.0-0.2) X10*3/uL Abs Immat Gran (auto) (0.00-0.03) X10*3/uL Absolute Neuts (auto) (2.0-8.3) x10*3/uL Absolute Nucleated RBC (0.0-0.012) X10*3/uL Nucleated RBC % (auto) (0.0-0.2) /100WBC PT (11.1-13.3) SEC INR (0.9-1.1) APTT (26.0-36.8) SEC D-Dimer High Sensitivty NG/ML Sodium Potassium Chloride Carbon Dioxide Anion Gap 9 L BUN Cancelled 9 Creatinine Cancelled 0.70 Estim Creat Clear Calc Cancelled Estimated GFR Random Glucose Calcium Total Bilirubin AST ALT Alkaline Phosphatase Troponin I High Sens (<3.5-17.0) ng/L B-Natriuretic Peptide (<100) pg/mL Total Protein Albumin Beta HCG, Quant mIU/mL Influenza Type A (PCR) (Negative) Influenza Type B (PCR) (Negative) RSV RNA Qual (PCR) (Negative) SARS-CoV-2 RNA (RT-PCR) (Negative) 09/11/23 09/11/23 09/11/23 Range/Units 20:21 20:21 20:21 WBC (4.8-10.8) X10*3/uL RBC (4.20-5.50) X10*6/uL Hgb (12.0-16.0) g/dl Hct (37.0-47.0) % MCV (80.0-98.0) fL MCH (27.0-33.0) pg MCHC (31.0-35.0) g/dl RDW (11.0-16.0) % Plt Count (160-400) X10*3/uL MPV (9.4-12.3) fL Immature Gran % (Auto) (0.0-0.4) % Neut % (Auto) (45-73) % Lymph % (Auto) (20-40) % [place] % (Auto) (2-11) % Eos % (Auto) (0-4) % Baso % (Auto) (0-2) % Lymph # (Auto) (1.2-4.9) X10*3/uL [place] # (Auto) (0.1-1.2) X10*3/uL Eos # (Auto) (0.0-0.4) X10*3/uL Baso # (Auto) (0.0-0.2) X10*3/uL Abs Immat Gran (auto) (0.00-0.03) X10*3/uL Absolute Neuts (auto) (2.0-8.3) x10*3/uL Absolute Nucleated RBC (0.0-0.012) X10*3/uL Nucleated RBC % (auto) (0.0-0.2) /100WBC PT (11.1-13.3) SEC INR (0.9-1.1) APTT (26.0-36.8) SEC D-Dimer High Sensitivty NG/ML Sodium Potassium Chloride Carbon Dioxide Anion Gap BUN Creatinine Estim Creat Clear Calc 181.7 Estimated GFR Cancelled > 60 Random Glucose Cancelled 109 Calcium Cancelled Total Bilirubin AST ALT Alkaline Phosphatase Troponin I High Sens (<3.5-17.0) ng/L B-Natriuretic Peptide (<100) pg/mL Total Protein Albumin Beta HCG, Quant mIU/mL Influenza Type A (PCR) (Negative) Influenza Type B (PCR) (Negative) RSV RNA Qual (PCR) (Negative) SARS-CoV-2 RNA (RT-PCR) (Negative) 09/11/23 09/11/23 09/11/23 Range/Units 20:21 20:21 20:21 WBC (4.8-10.8) X10*3/uL RBC (4.20-5.50) X10*6/uL Hgb (12.0-16.0) g/dl Hct (37.0-47.0) % MCV (80.0-98.0) fL MCH (27.0-33.0) pg MCHC (31.0-35.0) g/dl RDW (11.0-16.0) % Plt Count (160-400) X10*3/uL MPV (9.4-12.3) fL Immature Gran % (Auto) (0.0-0.4) % Neut % (Auto) (45-73) % Lymph % (Auto) (20-40) % [place] % (Auto) (2-11) % Eos % (Auto) (0-4) % Baso % (Auto) (0-2) % Lymph # (Auto) (1.2-4.9) X10*3/uL [place] # (Auto) (0.1-1.2) X10*3/uL Eos # (Auto) (0.0-0.4) X10*3/uL Baso # (Auto) (0.0-0.2) X10*3/uL Abs Immat Gran (auto) (0.00-0.03) X10*3/uL Absolute Neuts (auto) (2.0-8.3) x10*3/uL Absolute Nucleated RBC (0.0-0.012) X10*3/uL Nucleated RBC % (auto) (0.0-0.2) /100WBC PT (11.1-13.3) SEC INR (0.9-1.1) APTT (26.0-36.8) SEC D-Dimer High Sensitivty NG/ML Sodium Potassium Chloride Carbon Dioxide Anion Gap BUN Creatinine Estim Creat Clear Calc Estimated GFR Random Glucose Calcium 8.8 Total Bilirubin Cancelled 0.1 AST Cancelled 12 ALT Cancelled Alkaline Phosphatase Troponin I High Sens (<3.5-17.0) ng/L B-Natriuretic Peptide (<100) pg/mL Total Protein Albumin Beta HCG, Quant mIU/mL Influenza Type A (PCR) (Negative) Influenza Type B (PCR) (Negative) RSV RNA Qual (PCR) (Negative) SARS-CoV-2 RNA (RT-PCR) (Negative) 09/11/23 09/11/23 09/11/23 Range/Units 20:21 20:21 20:21 WBC (4.8-10.8) X10*3/uL RBC (4.20-5.50) X10*6/uL Hgb (12.0-16.0) g/dl Hct (37.0-47.0) % MCV (80.0-98.0) fL MCH (27.0-33.0) pg MCHC (31.0-35.0) g/dl RDW (11.0-16.0) % Plt Count (160-400) X10*3/uL MPV (9.4-12.3) fL Immature Gran % (Auto) (0.0-0.4) % Neut % (Auto) (45-73) % Lymph % (Auto) (20-40) % [place] % (Auto) (2-11) % Eos % (Auto) (0-4) % Baso % (Auto) (0-2) % Lymph # (Auto) (1.2-4.9) X10*3/uL [place] # (Auto) (0.1-1.2) X10*3/uL Eos # (Auto) (0.0-0.4) X10*3/uL Baso # (Auto) (0.0-0.2) X10*3/uL Abs Immat Gran (auto) (0.00-0.03) X10*3/uL Absolute Neuts (auto) (2.0-8.3) x10*3/uL Absolute Nucleated RBC (0.0-0.012) X10*3/uL Nucleated RBC % (auto) (0.0-0.2) /100WBC PT (11.1-13.3) SEC INR (0.9-1.1) APTT (26.0-36.8) SEC D-Dimer High Sensitivty NG/ML Sodium Potassium Chloride Carbon Dioxide Anion Gap BUN Creatinine Estim Creat Clear Calc Estimated GFR Random Glucose Calcium Total Bilirubin AST ALT 11 Alkaline Phosphatase Cancelled 73 Troponin I High Sens < 2.7 (<3.5-17.0) ng/L B-Natriuretic Peptide 36 (<100) pg/mL Total Protein Cancelled 7.0 Albumin Cancelled Beta HCG, Quant mIU/mL Influenza Type A (PCR) (Negative) Influenza Type B (PCR) (Negative) RSV RNA Qual (PCR) (Negative) SARS-CoV-2 RNA (RT-PCR) (Negative) 09/11/23 Range/Units 20:21 WBC (4.8-10.8) X10*3/uL RBC (4.20-5.50) X10*6/uL Hgb (12.0-16.0) g/dl Hct (37.0-47.0) % MCV (80.0-98.0) fL MCH (27.0-33.0) pg MCHC (31.0-35.0) g/dl RDW (11.0-16.0) % Plt Count (160-400) X10*3/uL MPV (9.4-12.3) fL Immature Gran % (Auto) (0.0-0.4) % Neut % (Auto) (45-73) % Lymph % (Auto) (20-40) % [place] % (Auto) (2-11) % Eos % (Auto) (0-4) % Baso % (Auto) (0-2) % Lymph # (Auto) (1.2-4.9) X10*3/uL [place] # (Auto) (0.1-1.2) X10*3/uL Eos # (Auto) (0.0-0.4) X10*3/uL Baso # (Auto) (0.0-0.2) X10*3/uL Abs Immat Gran (auto) (0.00-0.03) X10*3/uL Absolute Neuts (auto) (2.0-8.3) x10*3/uL Absolute Nucleated RBC (0.0-0.012) X10*3/uL Nucleated RBC % (auto) (0.0-0.2) /100WBC PT (11.1-13.3) SEC INR (0.9-1.1) APTT (26.0-36.8) SEC D-Dimer High Sensitivty NG/ML Sodium Potassium Chloride Carbon Dioxide Anion Gap BUN Creatinine Estim Creat Clear Calc Estimated GFR Random Glucose Calcium Total Bilirubin AST ALT Alkaline Phosphatase Troponin I High Sens (<3.5-17.0) ng/L B-Natriuretic Peptide (<100) pg/mL Total Protein Albumin 3.5 Beta HCG, Quant < 2 mIU/mL Influenza Type A (PCR) (Negative) Influenza Type B (PCR) (Negative) RSV RNA Qual (PCR) (Negative) SARS-CoV-2 RNA (RT-PCR) (Negative) Independent Interpretation I performed an independent interpretation of an: EKG (Negative STEMI. Sinus rhythm) and Plain X-Ray Radiology Impression Discussion of test interpretation with radiology: I have reviewed the radiologist's reading. Independent Historian Clinical information obtained from an independent historian. History obtained from or confirmed by: Other (Prior visits) External Record Review External record reviewed: Other (Prior visits) Discharge Plan Discharge Clinical Impression: Asthma, Upper respiratory infection Patient Disposition: Home, Self-Care Instructions: Asthma (ED), Upper Respiratory Infection (ED) Additional Instructions: EKG blood work and chest x-ray came back negative for signs of heart failure, heart attack, pneumonia, or pulmonary embolus. Recommend follow-up with the primary care provider. Return to the ED immediately for any chest pain, shortness of breath, coughing up blood, weakness, dizziness, calf pain, leg swelling, chest pain inspiration, or any other concerning symptoms. Keep using your albuterol pump at home. Prescriptions: New prednisone 20 mg tablet 40 mg PO DAILY 5 Days Qty: 10 0RF benzonatate 200 mg capsule 200 mg PO TID PRN (Reason: cough) 5 Days Qty: 15 0RF No Action cholecalciferol (vitamin D3) 50 mcg (2,000 unit) capsule 50 mcg PO DAILY 30 Days Qty: 30 11RF (DME) nebulizer and compressor Device See Rx Instructions .Route Qty: 1 0RF Rx Instructions: As directed albuterol sulfate 2.5 mg /3 mL (0.083 %) solution for nebulization 2.5 mg inhalation Q4-6H PRN (Reason: shortness of breath or wheezing) Qty: 90 0RF (DME) nebulizer and compressor Device See Rx Instructions .Route Qty: 1 0RF Rx Instructions: As directed albuterol sulfate 2.5 mg /3 mL (0.083 %) solution for nebulization 2.5 mg inhalation Q4-6H PRN (Reason: shortness of breath or wheezing) Qty: 90 0RF benzonatate 200 mg capsule 200 mg PO TID PRN (Reason: cough) Qty: 30 0RF albuterol sulfate [ProAir HFA] 90 mcg/actuation HFA aerosol inhaler 2 puff inhalation Q4-6H PRN (Reason: shortness of breath or wheezing) Qty: 8.5 0RF albuterol sulfate 90 mcg/actuation HFA aerosol inhaler 2 puff inhalation Q6H PRN Zyrtec 10 mg capsule 10 mg PO DAILY fluticasone propionate [Flovent HFA] 110 mcg/actuation HFA aerosol inhaler 1 puff inhalation Q12H triamcinolone acetonide 55 mcg aerosol,spray 2 spray intranasal DAILY Stand Alone Forms: Work/School Release Interventions: ED Discharge Assessment Last Done: 09/11/23 22:39 Discharge Date/Time: 09/11/23 22:40 Print Language: Amharic
--- NOTE | 2023-09-11 18:04 | ECG_ITS ---
Test Reason : CHEST PERSSURE Blood Pressure : / mmHG Vent. Rate : 085 BPM Atrial Rate : 085 BPM P-R Int : 146 ms QRS Dur : 088 ms QT Int : 340 ms P-R-T Axes : 044 031 004 degrees QTc Int : 404 ms Sinus rhythm with marked sinus arrhythmia Otherwise normal ECG When compared with ECG of 05-FEB-2023 21:11, T wave inversion less evident in Inferior leads Referred By: Jacque Curry Electronically Signed By:GOKUL LEWIS MD
[2023-09-11 19:04] LABS: Influenza A PCR NEGATIVE (Negative); Influenza B PCR NEGATIVE (Negative); Resp Syncy Virus RNA Qual PCR NEGATIVE (Negative); SARS COV2 PCR INHOUSE NEGATIVE (Negative)
[2023-09-11 20:28] LABS: MANUAL DIFF FLAG NO
[2023-09-11 20:30] LABS: Basophils Absolute Auto 0.1 X10*3/uL (0.0-0.2); Basophils Percent Auto 0.4 % (0-2); Eosinophils Absolute Auto 0.8 X10*3/uL (0.0-0.4); Eosinophils Percent Auto 5.8 % (0-4); Hematocrit 36.9 % (37.0-47.0); Hemoglobin 11.8 g/dl (12.0-16.0); Imm Gran Abs Auto 0.05 X10*3/uL (0.00-0.03); Imm Gran Pct Auto 0.4 % (0.0-0.4); Lymphocytes Absolute Auto 2.4 X10*3/uL (1.2-4.9); Lymphocytes Percent Auto 18.7 % (20-40); Mean Corpuscular Hemoglobin 27.4 pg (27.0-33.0); Mean Corpuscular Volume 85.6 fL (80.0-98.0); Mean Platelet Volume 9.4 fL (9.4-12.3); Monocytes Absolute Auto 1.1 X10*3/uL (0.1-1.2); Monocytes Percent Auto 8.2 % (2-11); Neutrophils Absolute Auto 8.6 x10*3/uL (2.0-8.3); Neutrophils Percent Auto 66.5 % (45-73); Platelet Count 347 X10*3/uL (160-400); Red Blood Count 4.31 X10*6/uL (4.20-5.50)
[2023-09-11 20:36] LABS: INTERNATIONAL NORM RATIO 1.1 (0.9-1.1); Prothrombin Time 12.8 SEC (11.1-13.3)
[2023-09-11 20:38] LABS: D Dimer High Sensitivity 159 NG/ML
[2023-09-11 20:39] LABS: Partial Thromboplastin Time 34.4 SEC (26.0-36.8)
[2023-09-11 20:50] LABS: Alanine Aminotransferase 11 U/L (0-31); Albumin Level 3.5 g/dL (3.5-5.0); Alkaline Phosphatase 73 U/L (39-117); Anion Gap 9 (12-20); Aspartate Amino Transferase 12 U/L (5-31); Bilirubin Total 0.1 mg/dL (0.0-1.0); Blood Urea Nitrogen 9 mg/dL (9-16); Calcium 8.8 mg/dL (8.4-10.2); Carbon Dioxide 28 mmol/L (22-29); Chloride 106 mmol/L (96-108); Creatinine Clr Calc Pharmacy 181.7; Estimated Glomerular Filt Rate > 60; Glucose Random 109 mg/dL (60-115); Potassium 3.6 mmol/L (3.3-5.1); Sodium 139 mmol/L (135-145)
[2023-09-11 20:51] LABS: HCG Quantitative < 2 mIU/mL
[2023-09-11 20:52] LABS: Troponin-I High Sensitivity < 2.7 ng/L (<3.5-17.0)
[2023-09-11 21:17] VITALS: BP 141/80; PULSE 83; RESP 18; TEMP 36.6; O2SAT 98
[2023-09-11 21:48] LABS: B Type Natriuretic Peptide 36 pg/mL (<100)
[2023-09-11 22:39] VITALS: BP 141/80; PULSE 83; RESP 18; TEMP 36.6; O2SAT 98
== END 2023-09-11 22:40 | disposition home or self-care (01) ==
PROVIDERS: Physician Assistant; Physician Assistant Medical; Emergency Provider Emergency Medicine; PCP Internal Medicine
DX: J06.9 Acute upper respiratory infection, unspecified (principal); R07.89 Other chest pain; R05.9 Cough, unspecified; R06.02 Shortness of breath; J45.909 Unspecified asthma, uncomplicated; Z11.52 Encounter for screening for COVID-19; Z20.822 Contact with and (suspected) exposure to COVID-19; Z79.899 Other long term (current) drug therapy
CPT/HCPCS: 0241U; 36415; 71046; 80053; 83880; 84484; 84702; 85025; 85379; 85610; 85730; 93005; 99283

== ENCOUNTER → 2023-09-11 18:04 | Outpatient (BNV) | payer MEDICAID, SELFPAY | PROVIDERS: Emergency Provider Emergency Medicine; PCP Internal Medicine; Visit Provider Internal Medicine Cardiovascular Disease | DX: I49.8 Other specified cardiac arrhythmias (principal) | CPT/HCPCS: 93010 ==

== ENCOUNTER 2023-09-20 17:16 | Emergency (ER) | payer MEDICAID, SELFPAY ==
--- NOTE | ~2023-09-20 | CT_ITS ---
EXAMINATION: CT SOFT TISSUE NECK WITH CONTRAST CLINICAL INFORMATION: Neck fullness COMPARISON: None available. TECHNIQUE: Following the intravenous administration of 100 mL of Omnipaque 350 intravenous contrast, helical imaging was performed in the axial plane with generation of coronal and sagittal reformatted images. This CT examination was performed using dose optimization techniques as appropriate, variously including the following: *Automated exposure control *Adjustment of mA and/or kV according to patient size (this includes techniques or standardized protocols for targeted exams where dose is matched to indication/reason for exam; i.e. extremities or head) *Use of iterative reconstruction technique DLP: 667 mGy-cm FINDINGS: Bilateral, mildly enlarged lymph nodes are identified to 1.5 cm in transverse diameter on the right and, likely reactive in nature. No cystic components. Normal pedro morphology. There is hypertrophy of the bilateral palatine tonsils with associated central narrowing of the nasopharyngeal airway. No peritonsillar abscesses is identified. No abnormal enhancement is seen seen within the oral cavity or pharyngeal mucosal space. The parotid glands are homogeneous in attenuation. The submandibular glands are normal. The laryngeal structures are normal. The parapharyngeal fat is preserved. The carotid sheath vasculature opacify normally. No extra mucosal soft tissue mass or fluid collection is seen. No retropharyngeal fluid collection is seen. There is a 6 mm hypoattenuating nodule in the right thyroid lobe. No recommend imaging follow-up Thyroid glands are otherwise normal.. The superior mediastinum is unremarkable. The lung apices are clear. The mastoid air cells are clear. There is mucosal thickening in the left maxillary sinus with an air-fluid level. The temporomandibular joints are normal. No periapical disease is identified. No osseous abnormalities are seen. The imaged portions of the brain parenchyma are unremarkable. CT/CT soft tissue neck w IV con IMPRESSION: 1. Hypertrophy of the bilateral palatine tonsils with associated central narrowing of the nasopharyngeal airway. No peritonsillar abscesses. 2. Left maxillary sinus mucosal thickening with an air-fluid level. This may correspond to acute sinusitis. 3. Mild cervical adenopathy, likely reactive in nature.
[2023-09-20 17:49] VITALS: BP 164/91; PULSE 79; RESP 18; TEMP 36.8; O2SAT 100; BMI 53.3
--- NOTE | 2023-09-20 17:51 | ED_ITS ---
HPI - General Adult General Chief complaint: Neck Pain/Injury Stated complaint: sore throat Time Seen by Provider: 09/20/23 20:27 Source: patient and RN notes reviewed Mode of arrival: ambulatory Limitations: no limitations History of Present Illness HPI narrative: This is a 28-year-old female, with a history of hypertension and uterine prolapse, who presents emergency department with complaints of neck fullness sensation since yesterday. Patient reports that yesterday gradually throughout the day she noticed increased swelling in her neck. She states that today she is noticed worsening neck swelling, she states that she feels as though someone is choking her. She is able to eat and drink okay however states that she has had progressing symptoms in her neck. Patient was seen on September 11, 2023 due to a upper respiratory infection and was treated with prednisone, and Tessalon Perles. Patient also endorsing urinary frequency and dysuria. Also reports some vaginal discharge. She states that her period is late, which is atypical of her. Denies fevers, chills, chest pain, shortness of breath, abdominal pain, nausea, vomiting or diarrhea. She does state that yesterday she felt sweaty overnight, otherwise denies any night sweats, or recent weight loss. No other complaints or concerns at this time. MD complaint: Neck fullness Onset (ago): day(s) Location: neck Radiation: neck Severity: moderate Pain Consistency: constant Relieving factors: none Exacerbating factors: none Associated symptoms: denies other symptoms Treatments prior to arrival: none Related Data Home Medications ?Medication ?Instructions ?Recorded ?Confirmed albuterol sulfate 90 mcg/actuation 2 puff inhalation Q6H PRN 03/28/20 06/23/23 aerosol inhaler cetirizine 10 mg capsule (Zyrtec) 10 mg PO DAILY 03/28/20 06/23/23 fluticasone propionate 110 1 puff inhalation Q12H 06/19/22 07/23/22 mcg/actuation HFA aerosol inhaler (Flovent HFA) triamcinolone acetonide 55 mcg 2 spray intranasal DAILY 06/19/22 07/23/22 nasal spray aerosol Previous Rx's ?Medication ?Instructions ?Recorded cholecalciferol (vitamin D3) 50 50 mcg PO DAILY 30 days #30 caps 01/11/21 mcg (2,000 unit) capsule albuterol sulfate 2.5 mg/3 mL 2.5 mg (3 mL) inhalation Q4-6H PRN 05/04/23 (0.083 %) solution for nebulization shortness of breath or wheezing #90 mL albuterol sulfate 2.5 mg/3 mL 2.5 mg (3 mL) inhalation Q4-6H PRN 05/04/23 (0.083 %) solution for nebulization shortness of breath or wheezing #90 mL albuterol sulfate 90 mcg/actuation 2 puff inhalation Q4-6H PRN 05/04/23 aerosol inhaler (ProAir HFA) shortness of breath or wheezing #8.5 grams benzonatate 200 mg capsule 200 mg PO TID PRN cough #30 caps 05/04/23 nebulizer and compressor #1 ea 05/04/23 nebulizer and compressor #1 ea 05/04/23 benzonatate 200 mg capsule 200 mg PO TID PRN cough 5 days #15 09/11/23 caps prednisone 20 mg tablet 40 mg (2 x 20 mg) PO DAILY 5 days 09/11/23 #10 tabs amoxicillin 875 mg-potassium 1 tab PO Q12H 7 days #14 tabs 09/21/23 clavulanate 125 mg tablet prednisone 50 mg tablet 50 mg PO DAILY 5 days #5 tabs 09/21/23 Allergies Allergy/AdvReac Type Severity Reaction Status Date / Time environmental allergies Allergy Unknown Verified 09/20/23 17:52 Review of Systems 2 Review of Systems: Yes all other systems are reviewed and are negative Constitutional: Constitutional: Reports as per [facility] Past Medical History Medical History (Updated 09/21/23 @ 01:00 by GET Martinez) Vitamin D deficiency Ovarian cyst Hirsutism History of depression History of anxiety Asthma Surgical History Hx of ovarian cystectomy Family History Family History Father HTN (hypertension) Diabetes Mother HTN (hypertension) Diabetes Maternal Grandmother Cervical cancer Social History Social History Household Members: None Housing: Apartment Alcohol intake: current Alcohol intake frequency: holidays/special occasions only Alcohol type: wine Patient Tobacco Use Status: Never used Tobacco Smoked in Last 30 Days: No Use of substances other than those prescribed or required for medical reasons: No Advance Directives: No Advance Directives Information Provided: No Current occupational status: student Sexual orientation: Straight/Heterosexual Gender identity: Female Physical Exam ED Vital Signs: Vital Signs - 24 hr 09/20/23 17:49 09/20/23 20:12 09/20/23 22:34 Temperature 98.3 F 98.2 F 98.2 F Pulse Rate 79 80 97 Respiratory Rate 18 20 20 Blood Pressure 164/91 H 158/88 H 144/70 H Pulse Oximetry 100 100 100 Oxygen Delivery Method Room Air Room Air Room Air 09/21/23 01:53 Temperature 97.9 F Pulse Rate 89 Respiratory Rate 18 Blood Pressure 143/84 H Pulse Oximetry 100 Oxygen Delivery Method Room Air BMI result Body Mass Index 53.3 Const General: cooperative, comfortable and no acute distress Orientation/consciousness: patient oriented x3 Limitations: no limitations HENMT Other: Oropharynx is patent Head: Yes normal to inspection, Yes normocephalic and Yes atraumatic Ears: hearing grossly normal bilaterally General nose exam: Normal external nose present Face and sinus: Yes normal facial exam Mouth: Normal oral and palatal mucosa present, oropharynx normal and moist mucous membranes Throat: Yes posterior oropharynx normal Eyes General: appearance normal, both eyes and all related structures Eyelids: Yes eyelids normal Conjunctivae: conjunctivae normal Sclerae: sclerae normal Pupils: Equal, round and reactive pupils present EOM: EOMs intact bilaterally Neck Other: Neck is supple however full, no palpable masses. Neck: Yes normal visual inspection, Yes full ROM and Yes no lymphadenopathy Lymphatic: no lymphadenopathy noted Chest Chest palpation & inspection: normal inspection of the chest Resp Effort & Inspection: normal respiratory effort and able to speak in complete sentences Auscultation: clear to auscultation bilaterally, no crackles, no rales, no rhonchi and no wheezes Cardio Rate: regular rate Rhythm: regular rhythm Heart sounds: S1 normal heart sound present and S2 normal heart sound present GI Other: Abdomen is soft, nontender, nondistended Inspection: Yes normal to inspection Skin General skin exam: no rashes or lesions noted Trauma: no lacerations or abrasions Wounds: no wounds Neuro General: patient oriented x3 and moves all extremities Cranial nerves: Yes Equal, round and reactive pupils present Extrem General: Yes normal to inspection Right upper extremity: normal to inspection Left upper extremity: normal to inspection Right lower extremity: normal to inspection Left lower extremity: normal to inspection Course Reevaluation(s) Reevaluation #1: Labs returned, significant for leukocytosis at 19.5 with left shift. Of note, patient did complete a course of prednisone, this may be reactive however given fullness sensation in her neck, will obtain CT of the neck. She remained stable, mildly hypertensive however she is speaking in full sentences under no acute respiratory distress. Will continue to closely monitor. Cultures added. Time: 20:56 Reevaluation #2: Sign-out given to my colleague, Jacque Curry PA-C pending CT neck and UA. Time: 21:11 Reevaluation #3: I received patient in sign-out pending CT neck and UA. > > Urine does not show infection. CT soft tissue neck showing hypertrophy of the bilateral palatine tonsils with associated central narrowing of the oropharyngeal airway. There is no peritonsillar abscesses. Left maxillary sinus mucosal thickening with air-fluid level corresponding to acute sinusitis > will start patient on amoxicillin.There is mild cervical adenopathy, likely reactive. > after discussing these findings with my attending physician, Dr. Izaguirre, IV dexamethasone was administered. On re-evaluation, patient reports improvement in symptoms after dexamethasone administration. She states that she has been struggling with enlarged tonsils for years and is currently following with PCP and sleep specialist. She was recently diagnosed with obstructive sleep apnea and will be getting CPAP within the next few weeks. She has never consulted ENT regarding further interventions. Will provide patient with and he referral. Five days of prednisone sent to pharmacy. > Patient has remained stable throughout ED visit today. Airway is patent. No concern for acute respiratory distress. Discussed worrisome signs and symptoms and when to return to the ED. All questions answered at this time. Patient is agreeable with disposition and stable for discharge. Time: 01:00 Medications Administered Discontinued Medications Generic Name Dose Route Start Last Admin Trade Name Freq PRN Reason Stop Dose Admin Dexamethasone Sodium Phosphate 10 mg 09/20/23 23:22 09/20/23 23:58 Dexamethasone Sod Phosphate 10 Mg/Ml Vial IVPUSH 09/20/23 23:23 10 mg ONCE ONE Administration Iohexol 100 ml 09/20/23 21:06 09/20/23 21:06 Iohexol 350 Mg/Ml 100 Ml Infus..Btl IV 09/20/23 21:07 80 ml ONCE ONE Administration Medical Decision Making Medical Decision Making [facility] Narrative: This is a 28-year-old female,with a history of hypertension, and uterine prolapse, who presents emergency department with complaints of neck fullness sensation since yesterday. On arrival, patient mildly hypertensive at 164/91, all other vital signs within normal limits. Patient does have fullness sensation in her anterior neck. Differential diagnoses include mono, RSV, flu, angioedema-unlikely, mass, abscess. Patient also complaining of urinary symptoms as well as increased vaginal discharge. Patient refusing pelvic examination, requesting self swabs. Explained to patient that this will only test for gonorrhea chlamydia, she will follow-up outpatient with her OBGYN regarding this further. Plan: Labs, viral swabs, CT neck with IV contrast Differential Diagnosis Differential Diagnoses: The differential diagnosis associated with the presentation includes See above Admission/Observation Consideration of admission/observation: Escalation of care including admission/observation considered Escalation of care including admission/observation considered however given workup today not warranted at this time. Lab Data [facility] Lab Attestation statement: I reviewed the patient's lab results. Patient with leukocytosis at 19.5, with left shift noted. Chemistry within normal limits, TSH normal, negative flu, RSV, COVID, strep 09/20/23 18:08 09/20/23 18:08 Labs: Lab Results 09/20/23 09/21/23 Range/Units 18:08 01:17 WBC 19.5 H (4.8-10.8) X10*3/uL RBC 4.67 (4.20-5.50) X10*6/uL Hgb 12.5 (12.0-16.0) g/dl Hct 38.7 (37.0-47.0) % MCV 82.9 (80.0-98.0) fL MCH 26.8 L (27.0-33.0) pg MCHC 32.3 (31.0-35.0) g/dl RDW 13.1 (11.0-16.0) % Plt Count 430 H (160-400) X10*3/uL MPV 8.9 L (9.4-12.3) fL Immature Gran % (Auto) 0.4 (0.0-0.4) % Neut % (Auto) 69.9 (45-73) % Lymph % (Auto) 18.8 L (20-40) % [place] % (Auto) 5.6 (2-11) % Eos % (Auto) 4.9 H (0-4) % Baso % (Auto) 0.4 (0-2) % Lymph # (Auto) 3.7 (1.2-4.9) X10*3/uL [place] # (Auto) 1.1 (0.1-1.2) X10*3/uL Eos # (Auto) 1.0 H (0.0-0.4) X10*3/uL Baso # (Auto) 0.1 (0.0-0.2) X10*3/uL Abs Immat Gran (auto) 0.08 H (0.00-0.03) X10*3/uL Absolute Neuts (auto) 13.6 H (2.0-8.3) x10*3/uL Absolute Nucleated RBC 0.000 (0.0-0.012) X10*3/uL Nucleated RBC % (auto) 0.0 (0.0-0.2) /100WBC Sodium 137 (135-145) mmol/L Potassium 3.8 (3.3-5.1) mmol/L Chloride 105 (96-108) mmol/L Carbon Dioxide 25 (22-29) mmol/L Anion Gap 11 L (12-20) BUN 9 (9-16) mg/dL Creatinine 0.73 (0.5-1.4) mg/dL Estim Creat Clear Calc 176.0 Estimated GFR > 60 Random Glucose 104 (60-115) mg/dL Calcium 8.7 (8.4-10.2) mg/dL Total Bilirubin 0.1 (0.0-1.0) mg/dL Direct Bilirubin < 0.2 (0.0-0.5) mg/dL AST 15 (5-31) U/L ALT 15 (0-31) U/L Alkaline Phosphatase 81 (39-117) U/L Total Protein 7.1 (6.5-8.0) g/dL Albumin 3.5 (3.5-5.0) g/dL TSH 0.67 (0.32-4.0) uIU/mL Beta HCG, Quant < 2 mIU/mL Urine Color Yellow Urine Appearance Clear Urine pH 7.0 (5.0-9.0) Ur Specific [place] 1.020 (1.005-1.025) Urine Protein Negative (Neg-Trace) mg/dL Urine Glucose (UA) Negative (Negative) mg/dL Urine Ketones Negative (Negative) mg/dL Urine Blood Negative (Negative) Urine Nitrite Negative (Negative) Ur Leukocyte Esterase Small (1+) H (Negative) Urine RBC 0-2 (0-2) /HPF Urine WBC 0-5 (0-5) /HPF Ur Squamous Epith Cells 0-2 (0-2) /HPF Urine Bacteria None Seen (None Seen) Hyaline Casts 0-2 (0-2) /LPF Monoscreen Negative (Negative) Influenza Type A (PCR) NEGATIVE (Negative) Influenza Type B (PCR) NEGATIVE (Negative) RSV RNA Qual (PCR) NEGATIVE (Negative) SARS-CoV-2 RNA (RT-PCR) NEGATIVE (Negative) S. pyogenes GrpA LANDRY Negative (Negative) Radiology Impression Discussion of test interpretation with radiology: I have reviewed the radiologist's reading. External Record Review External record reviewed: Inpatient record, Office record, Outpatient record, Prior outpatient labs, Prior outpatient radiology, Primary care record and Outside ED record Discharge Plan Discharge Clinical Impression: Neck fullness, Sinusitis Patient Disposition: Home, Self-Care Instructions: Sleep Apnea (DC), Sinusitis (ED), Tonsillectomy (DC) Additional Instructions: Your labs today are reassuring. You tested negative for COVID, flu, RSV. The CT scan of your neck demonstrated enlarged tonsils causing narrowing of the airway. These results were discussed with you. You were given 1 dose of steroids in the ED today. Prednisone as a steroid that has been sent to your pharmacy. Start this medication tomorrow. Take this for the next 5 days. You have been provided with a referral to an ear nose and throat doctor. You may call them to establish care. They will not call you. The CT scan of your neck also demonstrated an incidental finding of sinusitis (infection of the sinuses). Treatment for this is antibiotics. Augmentin as an antibiotic that has been sent to your pharmacy. Take this as prescribed over the next 7 days. Do not stop taking this early or skip any doses. On Augmentin, softer bowel movements are to be expected. Call your provider if you move your bowels more than 4 times a day, your bowel movements are almost all liquid, or you get a rash.? Additionally, you were swabbed for both gonorrhea and chlamydia today and these were sent off to the lab. You will be contacted with any positive results from these tests. Your urine does not demonstrate infection. Please return to the ED with new or worsening symptoms. In the case of an emergency call 911. Prescriptions: New prednisone 50 mg tablet 50 mg PO DAILY 5 Days Qty: 5 0RF amoxicillin-pot clavulanate 875-125 mg tablet 1 tab PO Q12H 7 Days Qty: 14 0RF No Action cholecalciferol (vitamin D3) 50 mcg (2,000 unit) capsule 50 mcg PO DAILY 30 Days Qty: 30 11RF (DME) nebulizer and compressor Device See Rx Instructions .Route Qty: 1 0RF Rx Instructions: As directed albuterol sulfate 2.5 mg /3 mL (0.083 %) solution for nebulization 2.5 mg inhalation Q4-6H PRN (Reason: shortness of breath or wheezing) Qty: 90 0RF (DME) nebulizer and compressor Device See Rx Instructions .Route Qty: 1 0RF Rx Instructions: As directed albuterol sulfate 2.5 mg /3 mL (0.083 %) solution for nebulization 2.5 mg inhalation Q4-6H PRN (Reason: shortness of breath or wheezing) Qty: 90 0RF benzonatate 200 mg capsule 200 mg PO TID PRN (Reason: cough) Qty: 30 0RF albuterol sulfate [ProAir HFA] 90 mcg/actuation HFA aerosol inhaler 2 puff inhalation Q4-6H PRN (Reason: shortness of breath or wheezing) Qty: 8.5 0RF prednisone 20 mg tablet 40 mg PO DAILY 5 Days Qty: 10 0RF benzonatate 200 mg capsule 200 mg PO TID PRN (Reason: cough) 5 Days Qty: 15 0RF albuterol sulfate 90 mcg/actuation HFA aerosol inhaler 2 puff inhalation Q6H PRN Zyrtec 10 mg capsule 10 mg PO DAILY fluticasone propionate [Flovent HFA] 110 mcg/actuation HFA aerosol inhaler 1 puff inhalation Q12H triamcinolone acetonide 55 mcg aerosol,spray 2 spray intranasal DAILY Referrals: Christian Hendrix [Physician] - Interventions: ED Discharge Assessment Last Done: 09/21/23 01:53 Discharge Date/Time: 09/21/23 01:54 Print Language: Guatemalan
[2023-09-20 18:15] LABS: MANUAL DIFF FLAG NO
[2023-09-20 18:17] LABS: Basophils Absolute Auto 0.1 X10*3/uL (0.0-0.2); Basophils Percent Auto 0.4 % (0-2); Eosinophils Percent Auto 4.9 % (0-4); Hematocrit 38.7 % (37.0-47.0); Hemoglobin 12.5 g/dl (12.0-16.0); Imm Gran Abs Auto 0.08 X10*3/uL (0.00-0.03); Imm Gran Pct Auto 0.4 % (0.0-0.4); Lymphocytes Absolute Auto 3.7 X10*3/uL (1.2-4.9); Lymphocytes Percent Auto 18.8 % (20-40); Mean Corpuscular HGB Conc 32.3 g/dl (31.0-35.0); Mean Corpuscular Hemoglobin 26.8 pg (27.0-33.0); Mean Corpuscular Volume 82.9 fL (80.0-98.0); Mean Platelet Volume 8.9 fL (9.4-12.3); Monocytes Absolute Auto 1.1 X10*3/uL (0.1-1.2); Monocytes Percent Auto 5.6 % (2-11); Neutrophils Absolute Auto 13.6 x10*3/uL (2.0-8.3); Neutrophils Percent Auto 69.9 % (45-73); Platelet Count 430 X10*3/uL (160-400); Red Blood Count 4.67 X10*6/uL (4.20-5.50); Red Cell Distribution Width 13.1 % (11.0-16.0); White Blood Count 19.5 X10*3/uL (4.8-10.8)
[2023-09-20 18:37] LABS: IDNOW Serial# 58CA691E; Strep A Nucleic Acid Negative (Negative)
[2023-09-20 18:41] LABS: Monotest Negative (Negative)
[2023-09-20 18:46] LABS: Alanine Aminotransferase 15 U/L (0-31); Albumin Level 3.5 g/dL (3.5-5.0); Alkaline Phosphatase 81 U/L (39-117); Anion Gap 11 (12-20); Aspartate Amino Transferase 15 U/L (5-31); Bilirubin Direct < 0.2 mg/dL (0.0-0.5); Bilirubin Total 0.1 mg/dL (0.0-1.0); Blood Urea Nitrogen 9 mg/dL (9-16); Calcium 8.7 mg/dL (8.4-10.2); Carbon Dioxide 25 mmol/L (22-29); Chloride 105 mmol/L (96-108); Estimated Glomerular Filt Rate > 60; Glucose Random 104 mg/dL (60-115); Potassium 3.8 mmol/L (3.3-5.1); Sodium 137 mmol/L (135-145); Total Protein 7.1 g/dL (6.5-8.0)
[2023-09-20 18:56] LABS: Influenza A PCR NEGATIVE (Negative); Influenza B PCR NEGATIVE (Negative); Resp Syncy Virus RNA Qual PCR NEGATIVE (Negative); SARS COV2 PCR INHOUSE NEGATIVE (Negative)
[2023-09-20 19:00] LABS: TSH reflex Free T4 0.67 uIU/mL (0.32-4.0)
[2023-09-20 20:12] VITALS: BP 158/88; PULSE 80; RESP 20; TEMP 36.8; O2SAT 100
[2023-09-20 20:50] LABS: HCG Quantitative < 2 mIU/mL
[2023-09-20] MEDS: iohexoL 350 MG/ML 100 ML INFUS..BTL IV (21:06)
[2023-09-20 22:34] VITALS: BP 144/70; PULSE 97; RESP 20; TEMP 36.8; O2SAT 100
[2023-09-20] MEDS: dexAMETHasone sod phosphate 10 MG/ML VIAL IVPUSH (23:58)
[2023-09-21 01:22] LABS: Appearance Urine Clear; Color Urine Yellow; Glucose Urine UA Negative (Negative); Leukocyte Esterase Urine Small (1+) (Negative); Nitrite Urine Negative (Negative); UMIC TRIGGER UACC YES; Urine Blood Negative (Negative); Urine Ketones Negative (Negative); Urine Protein Negative (Neg-Trace)
[2023-09-21 01:31] LABS: Bacteria Urine None Seen (None Seen); Hyaline Casts Urine 0-2 /LPF (0-2); RBC Urine 0-2 /HPF (0-2); Squamous Epithelial Cell Urine 0-2 /HPF (0-2); UACC Culture Trigger YES; WBC Urine 0-5 /HPF (0-5)
[2023-09-21 01:53] VITALS: BP 143/84; PULSE 89; RESP 18; TEMP 36.6; O2SAT 100
[2023-09-21 08:50] LABS: CT PCR NOT DETECTED (Not Detect.); NG PCR NOT DETECTED (Not Detect.)
== END 2023-09-21 01:54 | disposition home or self-care (01) ==
PROVIDERS: Physician Assistant Medical; Emergency Provider Emergency Medicine; PCP Internal Medicine
DX: J32.9 Chronic sinusitis, unspecified (principal); J02.9 Acute pharyngitis, unspecified; R22.1 Localized swelling, mass and lump, neck; N89.8 Other specified noninflammatory disorders of vagina; Z79.899 Other long term (current) drug therapy; Z11.52 Encounter for screening for COVID-19; Z20.822 Contact with and (suspected) exposure to COVID-19
CPT/HCPCS: 0241U; 0353U; 36415; 70491; 80048; 80076; 81001; 84443; 84702; 85025; 86308; 87040; 87086; 87651; 96374; 99284; J1100; Q9967

== ENCOUNTER 2023-09-24 19:06 | Outpatient (REF) | payer MEDICAID, SELFPAY ==
[2023-09-26 17:23] LABS: C. trachomatis RNA TMA NOT DETECTED (NOT DETECTED); Candida glabrata RNA NOT DETECTED (NOT DETECTED); Candida species RNA DETECTED (NOT DETECTED); N. gonorrhoeae RNA TMA NOT DETECTED (NOT DETECTED); Trichomonas vaginalis RNA NOT DETECTED (NOT DETECTED)
== END 2023-09-24 19:07 | disposition home or self-care (01) ==
LOC: HO.HHCLNP 19:06
PROVIDERS: Visit Provider Emergency Medicine
DX: N89.8 Other specified noninflammatory disorders of vagina (principal); R30.0 Dysuria
CPT/HCPCS: 36415; 81513; 87086; 87481; 87491; 87591; 87661

== ENCOUNTER 2023-09-25 14:54 | Outpatient (AMB) | payer MEDICAID, SELFPAY ==
--- NOTE | 2023-09-25 15:05 | A.OFFVIS_ITS ---
Vital Signs 09/25/23 15:06 Height 5 ft 6 in Weight 330 lb BMI 53.3 BP 114/72 Intake Visit Reasons: ? vaginitis Intake Note: pt c/o white/yellow discharge, prolapse Unishear Operator: Unishear Operator Present (Gilda) Allergies environmental allergies Allergy (Verified 09/25/23 15:06) Unknown Is last menstrual period known: Yes Last menstrual period: 08/08/23 HPI Comments Details: Patient is here today with her partner, and has concerns that she is experiencing some external discomfort irritation. Was seen in urgent care yesterday and had some cultures, they are currently pending. She recently repor ts being on prednisone and some antibiotics for a sinus and tonsillitis infection. 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 She has a history of irregular cycles and reports the last menstrual cycle was 2 months ago, was told in the past by Huma that she possibly had PCOS, unclear on her diagnoses. She also is concerned that she has a history of prolapse and was seen at [facility], she did not think the visit was a good fit for her and the provider, she has not proceeded with any plans but would like to continue with pursuing treatment options for the prolapse. [facility] Medical History (Updated 09/25/23 @ 15:10 by WESTON Travis) Sleep apnea Vitamin D deficiency Ovarian cyst Hirsutism History of depression History of anxiety Asthma Surgical History Hx of ovarian cystectomy Family History Father HTN (hypertension) Diabetes Mother HTN (hypertension) Diabetes Maternal Grandmother Cervical cancer Social History Household Members: None Housing: Apartment Alcohol intake: current Alcohol intake frequency: holidays/special occasions only Alcohol type: wine Patient Tobacco Use Status: Never used Tobacco Current occupational status: student Sexual orientation: Straight/Heterosexual Gender identity: Female Female Reproductive History Menstrual Age of Menarche: 14 Date of last menstrual period: 08/08/23 Review of Systems Const All systems reviewed & are unremarkable except as noted in HPI and below Physical Exam Vital Signs: Last Vital Signs BP 114/72 09/25/23 15:06 BMI result Body Mass Index 53.3 Const General: cooperative, healthy appearing and no acute distress Orientation/consciousness: patient oriented x3 GI Inspection: Yes normal to inspection Palpation (GI): Soft to palpation and Other GI palpation findings present (Nontender) Rectal Exam - Female: visual inspection normal Other: Mild external erythema, no lesions General: Yes bladder normal to palpation External Female Exam: normal appearance of the urethra Speculum Exam - Vagina: normal appearance of the vagina, normal palpation and abnormal vaginal discharge (Clumpy white) Speculum Exam - Cervix: normal appearance of the cervix, normal palpation and Other cervical findings present (Elongated length) Bimanual exam- vagina & uterus: normal bimanual exam, normal palpation, uterine size normal, bladder normal to palpation, normal palpation, uterine shape normal and non-tender Bimanual Exam- Adnexa, other: normal adnexae and Other (Some degree of prolapse with Valsalva maneuver) Neuro General: patient oriented x3 Results AMB Test Urine AMB Test Urine Negative Last Edit by WESTON Travis on 09/25/23 15:57 Results Reviewed Results Reviewed: Laboratory Last Values Tst Clinic Negative 09/25/23 15:57 Assessment & Plan Assessment & Plan (1) Uterine prolapse: Code(s): N81.4 - Uterovaginal prolapse, unspecified Category: Medical (2) Vulvar irritation: Code(s): N90.89 - Other specified noninflammatory disorders of vulva and perineum (3) Irregular menses: Code(s): N92.6 - Irregular menstruation, unspecified Plan Discussed: PCOS, irregular cycles plan a follow up visit to continue a plan of care. 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 Will discuss referral to [facility] again for prolapse concerns at her next visit. All of her questions and concerns were addressed to the best of my ability and shared decision making. She is agreeable to the plan of care. This note is constructed using voice recognition software. While every effort has been made to ensure accuracy, insurance broker errors may have been included. Orders: Orders AMB HCG Urine Test Today Z32.02 - Encounter for test, result negative Medications: New clotrimazole-betamethasone 1-0.05 % apply externally a thin coat to the area 1 appl topical BID 45 grams 0RF itching 7 days
[2023-09-25 15:06] VITALS: BP 114/72; BMI 53.3
== END 2023-09-25 15:59 | disposition home or self-care (01) ==
LOC: HO.HWS 14:54
PROVIDERS: PCP Internal Medicine; Visit Provider Advanced Practice Midwife
DX: N81.4 Uterovaginal prolapse, unspecified (principal); N90.89 Other specified noninflammatory disorders of vulva and perineum; N92.6 Irregular menstruation, unspecified; Z32.02 Encounter for pregnancy test, result negative
CPT/HCPCS: 99214

== ENCOUNTER → 2023-09-25 14:54 | Outpatient (BNVA) | payer MEDICAID, SELFPAY | PROVIDERS: PCP Internal Medicine; Visit Provider Advanced Practice Midwife | DX: N81.4 Uterovaginal prolapse, unspecified (principal); N90.89 Other specified noninflammatory disorders of vulva and perineum; N92.6 Irregular menstruation, unspecified; Z32.02 Encounter for pregnancy test, result negative | CPT/HCPCS: 81025; 99212 ==

== ENCOUNTER 2023-11-06 14:35 | Outpatient (AMB) | payer MEDICAID, SELFPAY ==
[2023-11-06 14:55] VITALS: BP 126/80; BMI 53.4
--- NOTE | 2023-11-06 14:55 | MHC.OFFVIS ---
Vital Signs 11/06/23 14:55 Height 5 ft 6 in Weight 331 lb BMI 53.4 BP 126/80 Intake Visit Reasons: Follow up Intake Note: Still hasn't had menses for 3 months, follow up on PCOS, and possible needing control Steeple Jack Required: No Information Interpreted: non-clinical & clinical Plasma Specialist: Plasma Specialist Present (Jannie) Allergies environmental allergies Allergy (Verified 11/06/23 14:56) Unknown Post menopausal: No HPI Comments Details: Patient is here for a follow-up she was recently referred to [facility] for a consultation visit this month is not available. She also has a history of irregular menstrual cycles, facial hair, acne. Labs in the past for normal ranges. She denies any risk to , female only partner. She also has some vaginal discharge white clumpy with some itching, lower abdominal pressure and frequency of urination. She also notes that her moods are off when she has not cycling regularly, history of anxiety and depression. She reports the provider recommended weight loss before she has surgery for her prolapse. She is attempting to eat a healthy balanced diet and goes to plan at fitness. [facility] Medical History (Updated 11/06/23 @ 15:30 by Lamar Mcallister CNM) Sleep apnea Vitamin D deficiency Ovarian cyst Hirsutism History of depression History of anxiety Asthma Surgical History (Updated 11/06/23 @ 15:34 by Lamar Mcallister CNM) Hx of ovarian cystectomy Family History Father HTN (hypertension) Diabetes Mother HTN (hypertension) Diabetes Maternal Grandmother Cervical cancer Social History Household Members: None Housing: Apartment Alcohol intake: current Alcohol intake frequency: holidays/special occasions only Alcohol type: wine Patient Tobacco Use Status: Never used Tobacco Current occupational status: student Sexual orientation: Straight/Heterosexual Gender identity: Female Female Reproductive History Menstrual Age of Menarche: 14 control method: none Date of last pap smear: 06/20/22 (negative) History of abnormal pap smear: No Review of Systems Const All systems reviewed & are unremarkable except as noted in HPI and below Physical Exam Vital Signs: Last Vital Signs BP 126/80 11/06/23 14:55 BMI result Body Mass Index 53.4 Const General: cooperative, healthy appearing and no acute distress Orientation/consciousness: patient oriented x3 GI Inspection: Yes normal to inspection Palpation (GI): Soft to palpation and Other GI palpation findings present (Nontender) Rectal Exam - Female: visual inspection normal General: Yes bladder normal to palpation External Female Exam: normal appearance of the urethra Speculum Exam - Vagina: normal appearance of the vagina, normal palpation and normal vaginal discharge Speculum Exam - Cervix: normal appearance of the cervix, normal palpation and Other cervical findings present (Elongated) Bimanual exam- vagina & uterus: normal bimanual exam, normal palpation, uterine size normal, bladder normal to palpation, normal palpation, uterine shape normal and non-tender Bimanual Exam- Adnexa, other: normal adnexae Neuro General: patient oriented x3 Results AMB Urinalysis, Automated UA Leukoctes 0 Dominick/uL Last Edit by WESTON Earl on 11/06/23 15:28 UA Nitrite Negative Last Edit by Jannie [place] on 11/06/23 15:28 UA Urobilinogen 0 mg/dL Last Edit by Jannie [place] on 11/06/23 15:28 UA Protein 0 mg/dL Last Edit by Jannie [place] on 11/06/23 15:28 UA pH 6 Last Edit by Jannie South [facility] on 11/06/23 15:28 UA Blood 0 Beni/uL Last Edit by Jannie [place] on 11/06/23 15:28 UA Specific [place] 1.025 Last Edit by Jannie [place] on 11/06/23 15:28 UA Ketone Negative Last Edit by Jannie [place] on 11/06/23 15:28 UA Bilirubin 0 mg/dL Last Edit by Jannie [place] on 11/06/23 15:28 UA Glucose 0 mg/dL Last Edit by Jannie South [facility] on 11/06/23 15:28 Assessment & Plan Assessment & Plan (1) Hirsutism: Code(s): L68.0 - Hirsutism Category: Medical (2) Uterine prolapse: Code(s): N81.4 - Uterovaginal prolapse, unspecified Category: Medical (3) Irregular menses: Code(s): N92.6 - Irregular menstruation, unspecified (4) Vaginal itching: Code(s): N89.8 - Other specified noninflammatory disorders of vagina Plan Discussed: BV panel obtained today await results for plan of care. PCOS labs ordered, she will start Provera for withdrawal bleed, counseled regarding intermittent Provera use verses control, risks and benefits. Return to the office in 3 weeks for test results and future plan of care. Sign release from records from [facility]. Continue with eating healthy follow up Mediterranean type diet, and exercise as planned at [employer] regularly. All of her q Insert voice recognition uestions and concerns were addressed to the best of my ability and shared decision making. She is agreeable to the plan of care. Orders: Orders DHEA Sulfate Today L68.0 - Hirsutism, L70.9 - Acne, unspecified, N92.6 - Irregular menstruation, unspecified Testosterone, Free/Total Today L68.0 - Hirsutism, L70.9 - Acne, unspecified, N92.6 - Irregular menstruation, unspecified 17 Hydroxyprogesterone Today L68.0 - Hirsutism, L70.9 - Acne, unspecified, N92.6 - Irregular menstruation, unspecified AMB Urinalysis Automated Today N81.4 - Uterovaginal prolapse, unspecified Bacterial Vaginosis Panel Today L68.0 - Hirsutism, L70.9 - Acne, unspecified, N90.89 - Other specified noninflammatory disorders of vulva and perineum, N92.6 - Irregular menstruation, unspecified Prolactin Today L68.0 - Hirsutism, L70.9 - Acne, unspecified, N92.6 - Irregular menstruation, unspecified Medications: New medroxyprogesterone (Provera) may repeat if no menses after 2.5-3 months, and after a home test is negative 10 mg PO DAILY 10 days 10 tabs 3RF Coding Level of Care Code Est Pt Level 4 (82110) Diagnoses Hirsutism L68.0 Uterine prolapse N81.4 Irregular menses N92.6 Vaginal itching N89.8
== END 2023-11-06 15:34 | disposition home or self-care (01) ==
PROVIDERS: PCP Internal Medicine; Visit Provider Advanced Practice Midwife
DX: L68.0 Hirsutism (principal); N81.4 Uterovaginal prolapse, unspecified; N92.6 Irregular menstruation, unspecified; N89.8 Other specified noninflammatory disorders of vagina
CPT/HCPCS: 99214

== ENCOUNTER 2023-11-06 14:35 | Outpatient (REF) | payer MEDICAID, SELFPAY ==
[2023-11-07 11:00] LABS: Bacterial Vaginosis PCR NEGATIVE (Negative); Candida Group PCR NOT DETECTED (Not Detect); Candida glab krusei PCR NOT DETECTED (Not Detect); Trichomonas vaginalis PCR NOT DETECTED (Not Detect)
== END 2023-11-06 14:36 | disposition home or self-care (01) ==
LOC: HO.LNP 14:35
PROVIDERS: PCP Internal Medicine; Visit Provider Advanced Practice Midwife
DX: N90.89 Other specified noninflammatory disorders of vulva and perineum (principal); N92.6 Irregular menstruation, unspecified; N81.4 Uterovaginal prolapse, unspecified; L70.9 Acne, unspecified; L68.0 Hirsutism; E28.2 Polycystic ovarian syndrome
CPT/HCPCS: 0352U; 36415; 81003; 82627; 83498; 84146; 84402; 84403; 99212

== ENCOUNTER 2023-11-06 15:49 | Outpatient (REF) | payer MEDICAID, SELFPAY ==
[2023-11-07 22:48] LABS: Prolactin 8.2 ng/mL
[2023-11-08 00:54] LABS: DHEA Sulfate 128 mcg/dL (14-349)
[2023-11-16 16:28] LABS: Testosterone, Free 3.5 pg/mL (0.1-6.4); Testosterone, Total 31 ng/dL (2-45)
== END 2023-11-06 15:50 | disposition home or self-care (01) ==
LOC: HO.LAB 15:49
PROVIDERS: Absent Provider Internal Medicine; PCP Internal Medicine; Visit Provider Advanced Practice Midwife
DX: N92.6 Irregular menstruation, unspecified (principal); L68.0 Hirsutism; L70.9 Acne, unspecified
CPT/HCPCS: 36415; 82627; 83498; 84146; 84402; 84403

== ENCOUNTER 2023-12-03 13:26 | Outpatient (AMB) | payer MEDICAID, SELFPAY ==
--- NOTE | 2023-12-03 13:30 | MHC.OFFVIS ---
Vital Signs 12/03/23 13:32 Height 5 ft 6 in Weight 339 lb 6 oz BMI 54.8 BP 110/84 Blood Pressure Location Lt radial Position Sitting Intake Visit Reasons: Follow up Intake Note: Blood work follow up, medication follow up, she did have a period. Allergies environmental allergies Allergy (Verified 11/06/23 14:56) Unknown Is last menstrual period known: Yes Last menstrual period: 11/17/23 Post menopausal: No Patient : No HPI Comments Details: Patient is here today with her partner for test results. History of anovulatory cycles. She has a follow up at [facility] for her prolapse. She reports withdrawal bleed from the Provera. [facility] Medical History (Updated 11/06/23 @ 15:30 by Lamar Mcallister CNM) Sleep apnea Vitamin D deficiency Ovarian cyst Hirsutism History of depression History of anxiety Asthma Surgical History (Updated 11/06/23 @ 15:34 by Lamar Mcallister CNM) Hx of ovarian cystectomy Family History Father HTN (hypertension) Diabetes Mother HTN (hypertension) Diabetes Maternal Grandmother Cervical cancer Social History Household Members: None Housing: Apartment Alcohol intake: current Alcohol intake frequency: holidays/special occasions only Alcohol type: wine Patient Tobacco Use Status: Never used Tobacco Current occupational status: student Sexual orientation: Straight/Heterosexual Gender identity: Female Female Reproductive History Menstrual Age of Menarche: 14 Date of last menstrual period: 11/17/23 Review of Systems Const All systems reviewed & are unremarkable except as noted in HPI and below Physical Exam Vital Signs: Last Vital Signs BP 110/84 12/03/23 13:32 BMI result Body Mass Index 54.8 Const General: cooperative, healthy appearing and no acute distress Orientation/consciousness: patient oriented x3 Neuro General: patient oriented x3 Assessment & Plan Assessment & Plan (1) PCOS (polycystic ovarian syndrome): Code(s): E28.2 - Polycystic ovarian syndrome Category: Medical (2) Encounter to discuss test results: Code(s): Z71.2 - Person consulting for explanation of examination or test findings Plan Discussed: Lab work is normal plan to continue with Provera use as needed. Reviewed purpose of the Provera, risks, warning and benefits. She denies any risk factors for Provera use. Female only partner. Weight management. Has a annual exam in 06/28/2024 scheduled. All of her questions and concerns were addressed to the best of my ability and shared decision making. She is agreeable to the plan of care. This note is constructed using voice recognition software. While every effort has been made to ensure accuracy, liner worker errors may have been included. Medications: New medroxyprogesterone (Provera) 10 mg PO DAILY 10 tabs 6RF 10 days Coding Level of Care Code Est Pt Level 3 (90352) Diagnoses PCOS (polycystic ovarian syndrome) E28.2 Encounter to discuss test results Z71.2
[2023-12-03 13:32] VITALS: BP 110/84; BMI 54.8
== END 2023-12-03 14:27 | disposition home or self-care (01) ==
PROVIDERS: PCP Internal Medicine; Visit Provider Advanced Practice Midwife
DX: E28.2 Polycystic ovarian syndrome (principal); Z71.2 Person consulting for explanation of examination or test findings
CPT/HCPCS: 99213

== ENCOUNTER → 2023-12-03 13:26 | Outpatient (BNVA) | payer MEDICAID, SELFPAY | PROVIDERS: PCP Internal Medicine; Visit Provider Advanced Practice Midwife | DX: E28.2 Polycystic ovarian syndrome (principal); Z71.2 Person consulting for explanation of examination or test findings | CPT/HCPCS: 99212 ==

== ENCOUNTER 2024-02-15 16:01 | Emergency (ER) | payer MEDICAID, OTHER, SELFPAY ==
--- NOTE | ~2024-02-15 | XR_ITS ---
EXAMINATION: CHEST 2 VIEWS CLINICAL INFORMATION: SOB. COMPARISON: 09/11/2023. TECHNIQUE: PA and lateral views of the chest obtained. FINDINGS: The lungs are well expanded. No focal infiltrate, effusion, edema, or pneumothorax. Cardiac and mediastinal silhouettes are within normal limits for technique. No acute bony abnormality seen XR/XR chest 2V IMPRESSION: No evidence of acute disease Electronically signed by: Ever Vazquez MD 02/15/2024 04:45 PM EDT
[2024-02-15 16:05] VITALS: BP 180/97; PULSE 105; RESP 19; TEMP 36.6; O2SAT 100; BMI 58.0
--- NOTE | 2024-02-15 16:07 | ED_ITS ---
HPI - General Adult General Chief complaint: Upper Respiratory Symptoms Stated complaint: sob Time Seen by Provider: 02/15/24 17:20 Source: patient, RN notes reviewed and old records reviewed Mode of arrival: ambulatory History of Present Illness ED Provider: Libertad Enamorado PA-C HPI narrative: 29-year-old female with past medical history of sleep apnea, hirsutism, asthma, presenting to the ED complaining of intermittent SOB and chest discomfort x1 month, now with dry cough, subjective fever/chills and fatigue x few days. Has been using inhaler with little relief. Denies sore throat, recent travel, sick contacts, pedal edema. Related Data Home Medications ?Medication ?Instructions ?Recorded ?Confirmed cetirizine 10 mg capsule (Zyrtec) 10 mg PO DAILY 03/28/20 06/23/23 fluticasone propionate 110 1 puff inhalation Q12H 06/19/22 07/23/22 mcg/actuation HFA aerosol inhaler (Flovent HFA) triamcinolone acetonide 55 mcg 2 spray intranasal DAILY 06/19/22 07/23/22 nasal spray aerosol lisinopril 2.5 mg tablet 2.5 mg PO QAM 09/25/23 Previous Rx's ?Medication ?Instructions ?Recorded albuterol sulfate 2.5 mg/3 mL 2.5 mg (3 mL) inhalation Q4-6H PRN 05/04/23 (0.083 %) solution for nebulization shortness of breath or wheezing #90 mL albuterol sulfate 90 mcg/actuation 2 puff inhalation Q4-6H PRN 05/04/23 aerosol inhaler (ProAir HFA) shortness of breath or wheezing #8.5 grams prednisone 50 mg tablet 50 mg PO DAILY 5 days #5 tabs 09/21/23 medroxyprogesterone 10 mg tablet 10 mg PO DAILY 10 days #10 tabs 12/03/23 (Provera) methylprednisolone 4 mg tablets in 4 mg PO DAILY #21 ea 02/15/24 a dose pack (Medrol (John)) Allergies Allergy/AdvReac Type Severity Reaction Status Date / Time prednisone Allergy Unknown Flushing Verified 02/15/24 17:57 environmental allergies Allergy Unknown Verified 02/15/24 16:06 Review of Systems Review of Systems: Yes all other systems are reviewed and are negative Constitutional: Constitutional: Reports as per HPI PMFSH Past Medical History Attestation statement: The following information was validated with the patient. Source: old records reviewed Medical History Sleep apnea Vitamin D deficiency Ovarian cyst Hirsutism History of depression History of anxiety Asthma Surgical History Hx of ovarian cystectomy Family History Family History Father HTN (hypertension) Diabetes Mother HTN (hypertension) Diabetes Maternal Grandmother Cervical cancer Social History Social History Household Members: None Housing: Apartment Alcohol intake: current Alcohol intake frequency: holidays/special occasions only Alcohol type: wine Patient Tobacco Use Status: Never used Tobacco Advance Directives: No Advance Directives Information Provided: No Do you have a plan to hurt others: No Plan Current occupational status: student Sexual orientation: Straight/Heterosexual Gender identity: Female Physical Exam ED Vital Signs: Vital Signs - 24 hr 02/15/24 16:05 02/15/24 17:41 02/15/24 18:19 Temperature 98 F 99.3 F 99.3 F Pulse Rate 105 H 102 H 102 H Respiratory Rate 19 19 19 Blood Pressure 180/97 H 156/91 H 156/91 H Pulse Oximetry 100 100 100 Oxygen Delivery Method Room Air Room Air Room Air BMI result Body Mass Index 58.0 Const General: cooperative, healthy appearing and no acute distress Orientation/consciousness: patient oriented x3 Limitations: no limitations HENAL Head: Yes normal to inspection and Yes atraumatic Ears: hearing grossly normal bilaterally General nose exam: Normal external nose present Face and sinus: Yes normal facial exam Eyes General: appearance normal, both eyes and all related structures EOM: EOMs intact bilaterally Neck Neck: Yes normal visual inspection and Yes no meningeal signs Resp Effort & Inspection: normal respiratory effort and no respiratory distress Auscultation: clear to auscultation bilaterally, no crackles and no wheezes Cardio Rate: regular rate Heart sounds: S1 normal heart sound present and S2 normal heart sound present GI Inspection: Yes normal to inspection Palpation (GI): Soft to palpation, nontender, no guarding and not rigid General: Yes no CVA tenderness Back/Spine/Pelvis Back: no CVA tenderness Skin Rashes: no rashes Wounds: no wounds Neuro General: patient oriented x3, tone normal and no meningeal signs Cranial nerves: Yes CN's II-XII intact bilaterally Gait exam (Neuro): Normal gait present Extrem General: Yes normal to inspection and Yes no pedal edema Course Course Course Narrative: RME performed by Kaylen Hua PA-C. Patient is a 29 year old assigned female at presenting to the emergency department with increased shortness of breath / asthma symptoms. Patient states her inhaler has not been working like it usually does and she feels as though she is having worsening asthma. Detailed physical exam and review of systems are deferred to the manager urology. Imaging and swabs ordered. Patient placed back in the waiting room pending room availability and results. XR chest 2V IMPRESSION: No evidence of acute disease -COVID-19 positive Results discussed with patient including worrisome signs and symptoms and strict return precautions, and when to return to the emergency department. They verbalized understanding and feel safe for discharge at this time. Medications Administered Discontinued Medications Generic Name Dose Route Start Last Admin Trade Name Freq PRN Reason Stop Dose Admin Ibuprofen 400 mg 02/15/24 17:56 02/15/24 18:07 Ibuprofen 400 Mg Tablet PO 02/15/24 17:57 400 mg ONCE ONE Administration Medical Decision Making Medical Decision Making [facility] Narrative: 29-year-old female with past medical history of sleep apnea, hirsutism, asthma, presenting to the ED complaining of intermittent SOB and chest discomfort x1 month, now with dry cough, subjective fever/chills and fatigue x few days. On exam mildly tachycardic likely from low-grade fever, 99.3. Lungs CTA, no pedal edema/calf tenderness. Nontoxic appearing, no respiratory distress. Concern for viral illness vs asthma exacerbation vs bronchitis. Rule out pneumonia. Lower suspicion for ACS/PE Plan: Viral testing, CXR Please refer to course for remaining clinical decision making, interpretation of labs/imaging results, and discussions with consultants and/or family members. Differential Diagnosis Differential Diagnoses: The differential diagnosis associated with the presentation includes As above Admission/Observation Consideration of admission/observation: Escalation of care including admission/observation considered Lab Data [facility] Lab Attestation statement: I reviewed the patient's lab results. Labs: Lab Results 02/15/24 Range/Units 16:15 Influenza Type A (PCR) NEGATIVE (Negative) Influenza Type B (PCR) NEGATIVE (Negative) RSV RNA Qual (PCR) NEGATIVE (Negative) SARS-CoV-2 RNA (RT-PCR) POSITIVE A (Negative) Independent Interpretation I performed an independent interpretation of an: Plain X-Ray Radiology Impression Discussion of test interpretation with radiology: I have reviewed the radiologist's reading. External Record Review External record reviewed: Inpatient record, Office record, Outpatient record, Prior outpatient labs, Prior outpatient radiology, Primary care record and Outside ED record Tests considered The following testing was considered but not selected: As above Prescription Management I considered prescription management with: Pain Medication and Antibiotic Chronic Conditions Patient?s care impacted by: Other (Asthma) Discharge Plan Discharge Clinical Impression: COVID-19 Patient Disposition: Home, Self-Care Instructions: COVID-19 (Coronavirus Disease 2019) (ED) Additional Instructions: YOU HAVE COVID-19 Your x-ray is unremarkable. Please continue to use inhaler at home. Please take Medrol pack as prescribed At this time you will be okay for discharge. Please self isolate for 5 days. Do not expose yourself to others. You may not go to work or school. Please continue to follow cold instructions and wash your hands frequently. You may take Tylenol / Motrin as directed on the bottle for pain or fever. If you have constant or persistent shortness of breath, fever unresolved with medications, chest pain, or your unable to eat or drink please return to the ED CDC Guidelines for home isolation: - Stay away from others - WEAR A MASK if you are sick AND STAY HOME - Cover your mouth and nose with a tissue when you cough or sneeze. Dispose of tissues in a lined trash can and wash your hands immediately with soap and water for at least 20 seconds. If soap and water are not available, clean hands with alcohol-based hand skirt trimmer that contains at least 60% alcohol. - Clean your hands often with soap and water for at least 20 seconds - Avoid touching your eyes, nose and mouth with unwashed hands - Do not share dishes, drinking glasses, cups, eating utensils, towels, or bedding with other people in your home. After using these items, wash them thoroughly with soap and water or put in the analog design engineer. - Clean high-touch surfaces in your isolation area ( sick room and bathroom) every day; let a caregiver clean and disinfect high-touch surfaces in other areas of the home. Clean the area or item with soap and water or another detergent if it is dirty. Then, use a household disinfectant. - Limit contact with pets and animals: If you must care for a pet, wash your hands before and after interacting with them) Prescriptions: New methylprednisolone [Medrol (John)] 4 mg tablets,dose pack 4 mg PO DAILY Qty: 21 0RF No Action albuterol sulfate 2.5 mg /3 mL (0.083 %) solution for nebulization 2.5 mg inhalation Q4-6H PRN (Reason: shortness of breath or wheezing) Qty: 90 0RF albuterol sulfate [ProAir HFA] 90 mcg/actuation HFA aerosol inhaler 2 puff inhalation Q4-6H PRN (Reason: shortness of breath or wheezing) Qty: 8.5 0RF prednisone 50 mg tablet 50 mg PO DAILY 5 Days Qty: 5 0RF Zyrtec 10 mg capsule 10 mg PO DAILY fluticasone propionate [Flovent HFA] 110 mcg/actuation HFA aerosol inhaler 1 puff inhalation Q12H triamcinolone acetonide 55 mcg aerosol,spray 2 spray intranasal DAILY lisinopril 2.5 mg tablet 2.5 mg PO QAM medroxyprogesterone [Provera] 10 mg tablet 10 mg PO DAILY 10 Days Qty: 10 6RF Referrals: Nichole Andrea MD [Primary Care Provider] - 1 week Stand Alone Forms: Work/School Release Interventions: ED Discharge Assessment Last Done: 02/15/24 18:19 Discharge Date/Time: 02/15/24 18:19 Print Language: Sinhala
[2024-02-15 17:06] LABS: Influenza A PCR NEGATIVE (Negative); Influenza B PCR NEGATIVE (Negative); Resp Syncy Virus RNA Qual PCR NEGATIVE (Negative); SARS COV2 PCR INHOUSE POSITIVE (Negative)
[2024-02-15 17:41] VITALS: BP 156/91; PULSE 102; RESP 19; TEMP 37.4; O2SAT 100
[2024-02-15] MEDS: Ibuprofen 400 MG TABLET PO (18:07)
[2024-02-15 18:19] VITALS: BP 156/91; PULSE 102; RESP 19; TEMP 37.4; O2SAT 100
== END 2024-02-15 18:19 | disposition home or self-care (01) ==
PROVIDERS: Physician Assistant Medical; Emergency Provider Emergency Medicine; PCP Internal Medicine
DX: U07.1 COVID-19 (principal); R06.02 Shortness of breath; R07.89 Other chest pain; R53.83 Other fatigue; Z79.899 Other long term (current) drug therapy
CPT/HCPCS: 0241U; 71046; 99283

== ENCOUNTER 2024-02-29 03:43 | Emergency (ER) | payer MEDICAID, SELFPAY ==
--- NOTE | ~2024-02-29 | XR_ITS ---
EXAMINATION: XR CHEST CLINICAL INFORMATION: Cough and congestion. COMPARISON: February 15, 2024 TECHNIQUE: Frontal view of the chest was obtained. FINDINGS: No significant abnormality is noted involving the heart, lungs, mediastinum, bony thorax or soft tissues. XR/XR chest 1V IMPRESSION: Unremarkable examination. Electronically signed by: Daniel Carranza MD 02/29/2024 04:37 AM EDT
[2024-02-29 03:47] VITALS: BP 151/99; PULSE 80; RESP 18; TEMP 36.6; O2SAT 98; BMI 58.3
[2024-02-29 04:39] VITALS: PULSE 83; RESP 16; O2SAT 99
--- NOTE | 2024-02-29 04:42 | PC.NURSE ---
Holding protocol labs pending MD assessment
[2024-02-29] MEDS: Albuterol Sulfate 5 MG, Albuterol/Iprat 2.5/0.5MG 3 ML 3 ML INHALE (04:49)
[2024-02-29 04:51] VITALS: PULSE 98; RESP 22; O2SAT 98
[2024-02-29] MEDS: Magnesium Sulfate/H2O 2 GM/50 ML PIGGYBACK IV (05:08)
[2024-02-29] MEDS: methylPREDNISolone Sod Succ 125 MG/2 ML VIAL IVPUSH (05:08)
[2024-02-29 05:12] LABS: Basophils Absolute Auto 0.1 X10*3/uL (0.0-0.2); Basophils Percent Auto 0.6 % (0-2); Eosinophils Percent Auto 8.1 % (0-4); Hematocrit 37.6 % (37.0-47.0); Hemoglobin 12.2 g/dl (12.0-16.0); Imm Gran Abs Auto 0.03 X10*3/uL (0.00-0.03); Imm Gran Pct Auto 0.3 % (0.0-0.4); Lymphocytes Absolute Auto 3.8 X10*3/uL (1.2-4.9); Lymphocytes Percent Auto 32.7 % (20-40); MANUAL DIFF FLAG NO; Mean Corpuscular HGB Conc 32.4 g/dl (31.0-35.0); Mean Corpuscular Hemoglobin 26.9 pg (27.0-33.0); Mean Platelet Volume 9.3 fL (9.4-12.3); Monocytes Percent Auto 8.8 % (2-11); Neutrophils Absolute Auto 5.8 x10*3/uL (2.0-8.3); Neutrophils Percent Auto 49.5 % (45-73); Platelet Count 356 X10*3/uL (160-400); Red Blood Count 4.53 X10*6/uL (4.20-5.50); Red Cell Distribution Width 13.8 % (11.0-16.0); White Blood Count 11.7 X10*3/uL (4.8-10.8)
[2024-02-29 05:25] LABS: Alanine Aminotransferase 11 U/L (0-31); Albumin Level 3.8 g/dL (3.5-5.0); Alkaline Phosphatase 70 U/L (39-117); Anion Gap 12 (12-20); Aspartate Amino Transferase 11 U/L (5-31); Bilirubin Total 0.2 mg/dL (0.0-1.0); Blood Urea Nitrogen 10 mg/dL (9-16); Calcium 8.9 mg/dL (8.4-10.2); Carbon Dioxide 24 mmol/L (22-29); Chloride 107 mmol/L (96-108); Creatinine Clr Calc Pharmacy 161.6; Estimated Glomerular Filt Rate > 60; Glucose Random 145 mg/dL (60-115); Potassium 3.5 mmol/L (3.3-5.1); Sodium 139 mmol/L (135-145); Total Protein 7.3 g/dL (6.5-8.0)
[2024-02-29 07:55] VITALS: BP 146/78; PULSE 121; RESP 16; TEMP 36.9; O2SAT 97
--- NOTE | 2024-02-29 07:55 | ED_ITS ---
HPI - URI/Sore Throat General Chief Complaint: Upper Respiratory Symptoms Stated Complaint: diff breathing Time Seen by Provider: 02/29/24 04:52 Source: patient Mode of arrival: ambulatory Limitations: no limitations History of Present Illness ED Provider: Dr. Rothmna HPI Narrative: Patient has a history of asthma had recent COVID and now not using her CPAP. MD elicited complaint: cough Onset (ago): day(s) Severity: moderate Related Data Home Medications ?Medication ?Instructions ?Recorded ?Confirmed cetirizine 10 mg capsule (Zyrtec) 10 mg PO DAILY 03/28/20 06/23/23 fluticasone propionate 110 1 puff inhalation Q12H 06/19/22 07/23/22 mcg/actuation HFA aerosol inhaler (Flovent HFA) triamcinolone acetonide 55 mcg 2 spray intranasal DAILY 06/19/22 07/23/22 nasal spray aerosol lisinopril 2.5 mg tablet 2.5 mg PO QAM 09/25/23 Previous Rx's ?Medication ?Instructions ?Recorded albuterol sulfate 2.5 mg/3 mL 2.5 mg (3 mL) inhalation Q4-6H PRN 05/04/23 (0.083 %) solution for nebulization shortness of breath or wheezing #90 mL albuterol sulfate 90 mcg/actuation 2 puff inhalation Q4-6H PRN 05/04/23 aerosol inhaler (ProAir HFA) shortness of breath or wheezing #8.5 grams prednisone 50 mg tablet 50 mg PO DAILY 5 days #5 tabs 09/21/23 medroxyprogesterone 10 mg tablet 10 mg PO DAILY 10 days #10 tabs 12/03/23 (Provera) methylprednisolone 4 mg tablets in 4 mg PO DAILY #21 ea 02/15/24 a dose pack (Medrol (John)) prednisone 20 mg tablet 60 mg (3 x 20 mg) PO DAILY #12 tabs 02/29/24 Allergies Allergy/AdvReac Type Severity Reaction Status Date / Time prednisone Allergy Unknown Flushing Verified 02/29/24 03:47 environmental allergies Allergy Unknown Verified 02/29/24 03:47 Review of Systems 2 Review of Systems: Yes all other systems are reviewed and are negative Neurologic: Denies Sensory deficit (Neuro) PMFSH Past Medical History Medical History Sleep apnea Vitamin D deficiency Ovarian cyst Hirsutism History of depression History of anxiety Asthma Surgical History Hx of ovarian cystectomy Family History Family History Father HTN (hypertension) Diabetes Mother HTN (hypertension) Diabetes Maternal Grandmother Cervical cancer Social History Social History Household Members: None Housing: Apartment Alcohol intake: current Alcohol intake frequency: holidays/special occasions only Alcohol type: wine Patient Tobacco Use Status: Never used Tobacco Smoked in Last 30 Days: No Use of substances other than those prescribed or required for medical reasons: No Advance Directives: No Do you have a plan to hurt others: No Plan Patient : No Current occupational status: student Sexual orientation: Straight/Heterosexual Gender identity: Female Physical Exam 2 Vital Signs: Vital Signs: Last Vital Signs Temp 98.5 F 02/29/24 07:55 Pulse 121 H 02/29/24 07:55 Resp 16 02/29/24 07:55 BP 146/78 H 02/29/24 07:55 Pulse Ox 97 02/29/24 07:55 O2 Del Method Room Air 02/29/24 07:55 BMI result Body Mass Index 58.3 Const: Other: obese female short of breath Orientation/consciousness: oriented to person and patient oriented x3 L imitations: no limitations HEENT: Head: Yes normal to inspection Ears: external ears normal General nose exam: Normal external nose present Mouth: Normal oral and palatal mucosa present and oropharynx normal Throat: Yes posterior oropharynx normal Eyes: General: appearance normal, both eyes and all related structures Neck: Other: supple Neck: Yes normal visual inspection Chest: Chest palpation & inspection: normal inspection of the chest Resp: Other: diffuse wheezing tight Cardio: Jugular venous distension: no JVD Rate: regular rate Rhythm: r egular rhythm Heart sounds: S1 normal heart sound present and S2 normal heart sound present GI: Inspection: Yes normal to inspection Palpation (GI): Soft to palpation, nontender and No hepatosplenomegaly present Auscultation: normal bowel sounds : General: Yes no CVA tenderness Back/Spine/Pelvis: Back: no CVA tenderness Skin: General skin exam: no rashes or lesions noted Neuro: General: oriented to person and patient oriented x3 Cranial nerves: Yes CN's II-XII intact bilaterally Motor exam (neuro): 5/5 motor strength present throughout Sensory Exam: No Sensory deficit (Neuro) Extrem: General: Yes normal to inspection Psych: Appearance: grossly normal Course Reevaluation(s) Reevaluation #1: Patient recieved IV magnesium, IV steroids and continous nebs. Time: 07:58 Reevaluation #2: I spent 40 minutes of critical care, with interventions, assessments, speaking to patient, consultants, and family. Time: 07:58 Reevaluation #3: patient improved will dc home Time: 07:59 Medications Administered Discontinued Medications Generic Name Dose Route Start Last Admin Trade Name Freq PRN Reason Stop Dose Admin Albuterol Sulfate 5 mg/ 0 mg 02/29/24 04:48 02/29/24 04:49 Albuterol/Ipratropium 3 ml INHALE 02/29/24 04:49 1 each ONCE ONE Administration Magnesium Sulfate 2 gm in 50 mls @ 25 mls/hr 02/29/24 04:53 02/29/24 06:33 Magnesium Sulfate/H2o IV 02/29/24 06:52 Infused ONCE ONE Infusion Methylprednisolone Sodium Succinate 125 mg 02/29/24 04:54 02/29/24 05:08 Methylprednisolone Sod Succ 125 Mg/2 Ml Vial IVPUSH 02/29/24 04:55 125 mg ONCE ONE Administration Medical Decision Making Differential Diagnosis Differential Diagnoses: The differential diagnosis associated with the presentation includes (asthma exacerbation, pneumonia) Admission/Observation Consideration of admission/observation: Escalation of care including admission/observation considered (upon arrival patient considered for admission) Lab Data 02/29/24 05:05 02/29/24 05:05 Labs: Lab Results 02/29/24 Range/Units 05:05 WBC 11.7 H (4.8-10.8) X10*3/uL RBC 4.53 (4.20-5.50) X10*6/uL Hgb 12.2 (12.0-16.0) g/dl Hct 37.6 (37.0-47.0) % MCV 83.0 (80.0-98.0) fL MCH 26.9 L (27.0-33.0) pg MCHC 32.4 (31.0-35.0) g/dl RDW 13.8 (11.0-16.0) % Plt Count 356 (160-400) X10*3/uL MPV 9.3 L (9.4-12.3) fL Immature Gran % (Auto) 0.3 (0.0-0.4) % Neut % (Auto) 49.5 (45-73) % Lymph % (Auto) 32.7 (20-40) % [place] % (Auto) 8.8 (2-11) % Eos % (Auto) 8.1 H (0-4) % Baso % (Auto) 0.6 (0-2) % Lymph # (Auto) 3.8 (1.2-4.9) X10*3/uL [place] # (Auto) 1.0 (0.1-1.2) X10*3/uL Eos # (Auto) 1.0 H (0.0-0.4) X10*3/uL Baso # (Auto) 0.1 (0.0-0.2) X10*3/uL Abs Immat Gran (auto) 0.03 (0.00-0.03) X10*3/uL Absolute Neuts (auto) 5.8 (2.0-8.3) x10*3/uL Absolute Nucleated RBC 0.000 (0.0-0.012) X10*3/uL Nucleated RBC % (auto) 0.0 (0.0-0.2) /100WBC Sodium 139 (135-145) mmol/L Potassium 3.5 (3.3-5.1) mmol/L Chloride 107 (96-108) mmol/L Carbon Dioxide 24 (22-29) mmol/L Anion Gap 12 (12-20) BUN 10 (9-16) mg/dL Creatinine 0.78 (0.5-1.4) mg/dL Estim Creat Clear Calc 161.6 Estimated GFR > 60 Random Glucose 145 H (60-115) mg/dL Calcium 8.9 (8.4-10.2) mg/dL Total Bilirubin 0.2 (0.0-1.0) mg/dL AST 11 (5-31) U/L ALT 11 (0-31) U/L Alkaline Phosphatase 70 (39-117) U/L Total Protein 7.3 (6.5-8.0) g/dL Albumin 3.8 (3.5-5.0) g/dL Independent Interpretation I performed an independent interpretation of an: Plain X-Ray (no infiltrate) Independent Historian Clinical information obtained from an independent historian. History obtained from or confirmed by: Friend External Record Review External record reviewed: Outpatient record Prescription Management I considered prescription management with: Antibiotic (no infiltrate on cxr) Chronic Conditions Patient?s care impacted by: Other (asthma, sleep apnea) Discharge Plan Discharge Clinical Impression: Asthma Patient Disposition: Home, Self-Care Instructions: Asthma (ED) Prescriptions: New prednisone 20 mg tablet 60 mg PO DAILY Qty: 12 0RF No Action albuterol sulfate 2.5 mg /3 mL (0.083 %) solution for nebulization 2.5 mg inhalation Q4-6H PRN (Reason: shortness of breath or wheezing) Qty: 90 0RF albuterol sulfate [ProAir HFA] 90 mcg/actuation HFA aerosol inhaler 2 puff inhalation Q4-6H PRN (Reason: shortness of breath or wheezing) Qty: 8.5 0RF prednisone 50 mg tablet 50 mg PO DAILY 5 Days Qty: 5 0RF methylprednisolone [Medrol (John)] 4 mg tablets,dose pack 4 mg PO DAILY Qty: 21 0RF Zyrtec 10 mg capsule 10 mg PO DAILY fluticasone propionate [Flovent HFA] 110 mcg/actuation HFA aerosol inhaler 1 puff inhalation Q12H triamcinolone acetonide 55 mcg aerosol,spray 2 spray intranasal DAILY lisinopril 2.5 mg tablet 2.5 mg PO QAM medroxyprogesterone [Provera] 10 mg tablet 10 mg PO DAILY 10 Days Qty: 10 6RF Referrals: Physician,Unknown J [Primary Care Provider] - 5 days Print Language: Slovenian
[2024-02-29 08:15] VITALS: BP 146/78; PULSE 121; RESP 16; TEMP 36.9; O2SAT 97
== END 2024-02-29 08:15 | disposition home or self-care (01) ==
PROVIDERS: Emergency Provider Emergency Medicine
DX: R06.02 Shortness of breath (principal); R05.9 Cough, unspecified; J45.909 Unspecified asthma, uncomplicated; R09.89 Other specified symptoms and signs involving the circulatory and respiratory systems
CPT/HCPCS: 36415; 71045; 80053; 85025; 94640; 96365; 96366; 99284; 99285; J2919; J3475

== ENCOUNTER 2024-06-29 09:44 | Outpatient (REF) | payer MEDICAID, SELFPAY ==
--- OUTSIDE RECORDS SUMMARY | 2024-06-29 12:04 | XMS_ITS | Encounter Summary ---
Author Organization [employer] Address [address] [facility] 7t [place] [address] Care Team Providers Care Medical Office Technology Instructor Name Role Phone Nichole Andrea MD Primary Care Provider + Encounter Details Date Type Department Care Team (Late Contact Info) Description 05/30/2023 Telephone [facility] [address] [place] [address] Nichole Andrea MD [address] [place] [address] Social History Tobacco Use Types Packs/Day Years [...] Description 09/06/2024 8:00 AM EDT Office Visit [facility] ADULT DENTAL [address] [place] [address] González Perezaris [address] [place] [address] documented as of this encounter Visit Diagnoses Not on filedocumented in this encounter Care Teams Medical Office Technology Instructor Relationship Specialty Start Date End Date Nichole Andrea MD [address] [place] [phone] PCP - General Family Medicine 05/27/18 documented as of this encounter
--- OUTSIDE RECORDS SUMMARY | 2024-06-29 12:04 | XMS_ITS | Encounter Summary ---
Author Organization [employer] Address [address] [facility] 7t [place] [address] Care Team Providers Care Microarray Operations Vice President Name Role Phone Nichole Andrea MD Primary Care Provider + Reason for Visit * Reason Comments Sinusitis Encounter Details Date Type Department Care Team ([facility] st Contact Info) Description 06/15/2024 1:40 PM EST Office Visit [facility] [address] [place], [place] [phone] Debo Hayes NP [address] [place] [address] Hypertension, unspecified type (Primary Dx); Frontal sinusitis, [...] 09/06/2024 8:00 AM EDT Office Visit [facility] ADULT DENTAL [address] [place], [place] [phone] González Perezaris [address] [place] [address] Scheduled Orders Name Type Priority Associated Diagnoses [...] PM EST) Influenza B Negative Negative, Indeterminate [facility] Swab 06/15/2024 1:43 PM EST Debo Hayes NP POINT OF CARE TEST ENTER/EDIT OR DERABLES Final Result Performing Organization Address [facility]/ZIP Co de Phone Number [facility] [address] [place] [phone] * Influenza A (ID NOW Rapid Molecular) (06/15/2024 1:43 PM EST) Pathologist [facility] Influenza A Negative Negative, Indeterminate [facility] Swab 06/15/2024 1:43 PM EST Debo Hayes EMPLOYEE OPERATIONS EXAMINER POINT OF CARE TEST ENTER/EDIT OR DERABLES Final Result Performing Organization Address [facility]/ZIP Co de Phone Number [facility] [address] [place] [phone] * POCT Rapid COVID Ag (06/15/2024 1:43 PM EST) Rapid COVID Ag Negative [facility] Swab 06/15/2024 1:43 PM EST us Debo Hayes EMPLOYEE OPERATIONS EXAMINER POINT OF CARE TEST ENTER/EDIT OR DERABLES Final Result [facility] [address] [place] [phone] documented in this encounter Visit Diagnoses Diagnosis Hypertension, unspecified type- Primary Frontal sinusitis, unspecified chronicity documented in this encounter Care Teams Microarray Operations Vice President Relationship Specialty Start Date End Date Nichole Andrea MD [address] [place] [phone] PCP - General Family Medicine 05/27/18 documented as of this encounter
--- OUTSIDE RECORDS SUMMARY | 2024-06-29 12:04 | XMS_ITS | Encounter Summary ---
Author Organization [employer] Address [address] [place] [address] 7t [place] [address] Care Team Providers Care Special Forces Warrant Officer Name Role Phone Nichole Andrea MD Primary Care Provider + Reason for Visit * Reason Onset Date Comments Medication Question 02/04/2023 Encounter Details Date Type Department Care Team ([facility] st Contact Info) Description 02/04/2023 Telephone [facility] [address] [place], [place] [phone] Nichole Andrea MD [address] [place], [place] [phone] Medication Question Social History Tobacco Use Types [...] seems like the [facility] has already filledscript and should be [...] Description 09/06/2024 8:00 AM EDT Office Visit [facility] ADULT DENTAL [address] [place] [address] Ana, Damari [address] [place] [address] documented as of this encounter Visit Diagnoses Not on filedocumented in this encounter Care Teams Special Forces Warrant Officer Relationship Specialty Start Date End Date Nichole Andrea MD [address] [place] [address] PCP - General Family Medicine 05/27/18 documented as of this encounter
--- OUTSIDE RECORDS SUMMARY | 2024-06-29 12:04 | XMS_ITS | Clinical Summary ---
Author Organization [facility] Address [address] [place] [address] Phone Care Team Providers Care Braddisher Name Role Phone Yisel Hooker MD Primary [...] age to complete this topic Care Teams Braddisher Relationship Specialty Start Date End Date Yisel Hooker MD PCP - General 01/17/17
--- OUTSIDE RECORDS SUMMARY | 2024-06-29 12:04 | XMS_ITS | Clinical Summary ---
Author Organization [employer] Address [address] [facility] 7t [place] [address] Care Team Providers Care Business Assistant Name Role Phone Nichole Andrea MD Primary [...] intercourse exclusively with AFAB - f/u with BUSINESS SUPPORT MANAGER - counseled regarding weight reduction SEBAS (obstructive [...] (10/15/2023 10:51 AM EDT): - seen by BUSINESS SUPPORT MANAGER, awaiting for surgery - refer to [facility] , she needs to lose weight prior to surgery Assessment & Plan (06/30/2023 8:05 PM EST): FU with BUSINESS SUPPORT MANAGER at [facility]. Dental caries 07/11/2022 Foot pain, bilateral [...] life style modifications, diet and referral to case manager specialist. Recommended to decrease soda and sugary [...] exercise, life style modifications, diet, referral to case manager specialist. Discussed re lower calorie intake, increase dietary fiber Will refer to transplant nurse practitioner Pt given information about weight reduction programs at both [facility] and [facility] Assessment & Plan (06/30/2023 8:05 PM EST): Discussed re weight reduction options including exercise, life style modifications, diet, referral to case manager specialist, she wants to hold off on it for now.. Discussed re lower calorie intake, increase dietary fiber Resolved Problems Problem Noted Date Diagnosed Date Resolved Date Overweight (BMI 25.0-29.9) 05/11/2022 0 06/17/2023 Encounters Date Type Department Care Team Description 06/24/2024 Telephone [facility] [address] [place] [address] Meli Ch MA Chart prep 06/22/2024 Telephone [facility] [address] [place] [address] Nichole Andrea MD Referral 06/15/2024 1:40 PM EST Office Visit [facility] [address] [place] [address] Debo Hayes NP Hypertension, unspecified type (Primary Dx); Frontal sinusitis, unspecified chronicity 04/26/2024 10:30 AM EST Clinical Support [facility] [address] [place] [phone] Leigha Newsome, TEJ Primary hypertension 04/26/2024 Telephone [facility] [address] [place] [phone] Leigha Newsome RN Blood Pressure Check 04/26/2024 Travel 04/21/2024 11:30 AM EST Office Visit [facility] ADULT DENTAL [address] [place] [address] Haley Freeman DDS Status post dental jehovah's witness (Primary Dx) 04/20/2024 Telephone [facility] [address] [place] [phone] Nichole Andrea MD Jeny recall 04/01/2024 3:00 PM EDT Office Visit [facility] ADULT D[facility]AL [address] [place] [address] Haley Freeman, DDS Dental caries (Primary Dx) [...] Description 09/06/2024 8:00 AM EDT Office Visit [facility] ADULT DENTAL [address] [place] [address] Ana, Damari [address] [place] [address] Health Maintenance Due Date Last Done Comments [...] 04/21/2024 11:30 AM EST Status post dental jehovah's witness [employer] - PROFESSIONAL VISITS - [...] Rapid Molecular) (06/15/2024 1:43 PM EST) Pathologist [facility] Influenza B Negative Negative, Indeterminate [facility] Swab 06/15/2024 1:43 PM EST Debo Hayes MAINTENANCE PORTER POINT OF CARE TEST ENTER/EDIT OR DERABLES Final Result Performing Organization Address [facility] Co de Phone Number [facility] [address] [place] [phone] * Influenza A (ID NOW Rapid Molecular) (06/15/2024 1:43 PM EST) Pathologist [facility] Influenza A Negative Negative, Indeterminate [facility] Swab 06/15/2024 1:43 PM EST Debo Hayes MAINTENANCE PORTER POINT OF CARE TEST ENTER/EDIT OR DERABLES Final Result Performing Organization Address [facility] Co de Phone Number [facility] [address] [place] [phone] * POCT Rapid COVID Ag (06/15/2024 1:43 PM EST) [facility] Rapid COVID Ag Negative [facility] Swab 06/15/2024 1:43 PM EST Debo Hayes MAINTENANCE PORTER POINT OF CARE TEST ENTER/EDIT OR DERABLES Final Result Performing Organization Address [facility] de Phone Number [facility] [address] [place] [phone] * Pap Smear (06/19/2022 3:50 PM EST) 06/19/2022 3:50 PM EST 06/20/2022 9:45 AM EST Narrative [facility] - 06/29/2022 3:25 PM EST ----- ------- Name: Rafaela Terrell Lilliam ?Age/Sex: 27/F ? : 1995 Unit#: [id number] ?? Attend Dr: Huma Ochoa CNM ?Re06/19/22 ?Status: DEP REF ? Location: HO.LNP ?Disch: ? ----- ------- SPEC : [id number] ?RECD: 06/20/22 ? STATUS: ??SOUT ? REQ NUM: [id number] ? ENEIDA: 06/19/22-1549 ? SUBM DR: Huma Ochoa CNM ? ENTERED: ??06/20/22 ?SP TYPE: Pap Smr ?OTHR DR: Nichole Andrea MD ? ORDERED: ??Pap Smear ? Interpretation ?? Satisfactory for evaluation. ?? Negative for intraepithelial lesion or malignancy. ?Clinical Information LMP: 05/27/22 Previous PAP test: 04/07/20, WNL ? Material Received ?? ThinPrep-Cervical Copies To: ?? Nichole Andrea MD ?? [address] [facility] ?? [address] [place] [address] ? Huma Ochoa CNM ?? [address] [place] [address] [facility] ?? [address] [place] [address] ?? [phone] ----- ------- Signed (signature on file) Anabel Vyas Cassie 06/29/22 1525 ? ----- ------- ? END OF REPORT ? [facility] External Provider LAB CYT OLOGY ORDERABLES Final Result [facility] [address] [place] [address] [phone] * HIV 1/2 ANTIGEN/ANTIBODY,FOURTH GENERATION W/RFL [...] ? For additional information please refer to http://Cribspot.CarRentalsMarket/faq/LHQ922 (This link is being provided for informational/ [...] ? For additional information please refer to http://Cribspot.[employer]RentalsMarket/faq/TRV724 (This link is being provided for informational/ educational purposes only.) ? The performance of this assay has not been clinically validated in patients less than 2 years old. ?? 11/11/2019 12:0 4 PM EDT us Anna Whitfield CN LAB BLOOD ORDERABLES Angeli albert Result [facility] Pending sale to [facility] [address] from Last 3 Months or Most Recently Relevant to Health Maintenance Insurance [facility] C3 HSN FULL * Guarantor: Rafaela Terrell Account Type Relation to Patient Date of Phone Billing Address Dental Self 1995 [address] [facility] [address] [place] [address] [facility] MEDICAID STAND ADULT Care Teams Business Assistant Relationship Specialty Start Date End Date Nichole Andrea MD [address] [place] [phone] PCP - General Family Medicine 05/27/18
--- OUTSIDE RECORDS SUMMARY | 2024-06-29 12:04 | XMS_ITS | Encounter Summary ---
Author Organization [employer] Address [address] [facility] 7t [place] [address] Care Team Providers Care High Pressure Kettle Operator Name Role Phone Nichole Andrea MD Primary Care Provider + Reason for Referral * Consultation (Routine) - Pending Review Specialty Diagnoses / Procedures Referred By Chloe wagner Referred To Contact Optometry Diagnoses Primary hypertension Nichole Andrea MD [address] [place] [address] Phone: tel: fax: Referral ID Status Reason Start Date Expiration Date Visits Requested Visits Authorized [id number] Pending Review Specialty Services Required 06/22/2024 06/22/2025 1 1 Reason for Visit * Reason Onset Date Comments Referral 06/22/2024 Encounter Details Date Type Department Care Team (Late st Contact Info) Description 06/22/2024 Telephone [facility] [address] [place], [place] [phone] Nichole Andrea MD [address] [place], [place] [phone] Referral Social History Tobacco Use Types Packs/Day [...] from pt requesting new referral : Address: [address] [place] [address], [place] [address] Visits: 3 per year Facility Name: [facility] Type of Specialist: Cashier Receptionist DX: [id number] Provider : Franco Provider NPI : [id number] Facility Phone # : [phone] Fax #: [phone] documented in this encounter Plan of Treatment Upcoming Encounters Date Type Department Care Team (Late st Contact Info) Description 09/06/2024 8:00 AM EDT Office Visit [facility] ADULT DENTAL [address] [place] [address] Ana, Damari [address] [place] [address] Scheduled Referrals Name Type Priority Associated Diagnoses Orde r Schedule Referral to Optometry Outpatient Referral Routine Primary hypertension Expected: 06/22/2024 (Approximate), Expires: 06/22/2025 documented as of this encounter Visit Diagnoses Diagnosis Primary hypertension- Primary Unspecified essential hypertension documented in this encounter Care Teams High Pressure Kettle Operator Relationship Specialty Start Date End Date Nichole Andrea MD [address] [place] [address] PCP - General Family Medicine 05/27/18 documented as of this encounter
--- OUTSIDE RECORDS SUMMARY | 2024-06-29 12:04 | XMS_ITS | Encounter Summary ---
Author Organization [employer] [facility] Address [address] [facility] 7t [place] [address] Care Team Providers Care Duty Manager Name Role Phone Nichole Andrea MD Primary Care Provider + Encounter Details Date Type Department Care Team (Late Contact Info) Description 08/09/2022 Abstract [facility] ADULT DENTAL [address] [place], [place] [phone] Madi Summers DDS [address] [place], [place] [phone] Social History Tobacco Use Types Packs/Day Years [...] Description 09/06/2024 8:00 AM EDT Office Visit [facility] ADULT [facility] [address] [place], [place] [phone] Damari Perez [address] [place] [address] documented as of this encounter Visit Diagnoses Not on filedocumented in this encounter Care Teams Duty Manager Relationship Specialty Start Date End Date Nichole Andrea MD [address] [place] [phone] PCP - General Family Medicine 05/27/18 documented as of this encounter
--- OUTSIDE RECORDS SUMMARY | 2024-06-29 12:04 | XMS_ITS | Clinical Summary ---
Author Organization [facility] [employer] Address [address] [facility] [place] [address] Care Team Providers Care Pharmacy General Manager Name Role Phone Pcp, No Primary Care Provider [phone] Social History Tobacco Use Types Packs/Day Years [...] Adults 18 yrs or above (or HM Modifier)([facility]) 2015 Hepatitis C Virus Infection in Adolescents and Adults: Screening (or Modifier) ([facility]) 2015 SDOH Screening Reminder: Tiff calvinlly for all adults ([facility]) 2015 Tobacco Smoking Cessation: i n Adults excluding Women: Behavioral and Pharmacotherapy Interventions ([facility]) 2015 DTaP/Tdap/Td Vaccines ([facility]) (1 - Tdap) 02/13/2016 Lipid Screening: Once for Wo men aged 20 to 45 yrs ([facility]) 2017 Cervical Cancer Screenin 1-65 yrs of age (or Modifier) 2018 Cervical Cancer Screening: P ap every 3 yrs pts age 21-65 2018 Cervical Cancer: Pap Screeni ng with Modifier timing ([facility]) 2018 Cervical Cancer: hrHPV alone or with cotesting Pap for Pts 30-65yrs screening every 5yrs ([facility]) 2018 Flu Vaccination: Yearly for ages 18mos through 64 years (or Modifier)([facility]) 01/08/2024 COVID-19 Vaccine Screening: Initial Series and Booster Status ([facility]) (2023- season) 2024 Zoster/Shingles Vaccine Seri es Screening: Adults aged 18+ yrs (or HM Modifiers)([facility]) (1 of 2) 2047 Pneumococcal Vaccination Scr eening: Pts 0-19 & 19-64 yrs of age ([facility]) Aged Out No longer eligible based on patient's age to complete this topic [employer] Not on file Insurance [employer] Care Teams Pharmacy General Manager Relationship Specialty Start Date End Date Pcp, Keisha PCP - General Family Medicine 10/01/20
--- OUTSIDE RECORDS SUMMARY | 2024-06-29 12:04 | XMS_ITS | Encounter Summary ---
Author Organization [employer] [facility] Address [address] [facility] 7t [place] [address] Care Team Providers Care Electronics Scale Tester Name Role Phone Nichole Andrea MD Primary Care Provider + Encounter Details Date Type Department Care Team (Latest Contact Info) Description 08/21/2020 Abstract [facility] Dental, Provider, DDS Social History [...] Description 09/06/2024 8:00 AM EDT Office Visit [facility] ADULT DENTAL [address] [place] [address] Ana, Damari [address] [place] [address] documented as of this encounter Visit Diagnoses Not on filedocumented in this encounter Care Teams Electronics Scale Tester Relationship Specialty Start Date End Date Nichole Andrea MD [address] [place] [address] PCP - General Family Medicine 05/27/18 documented as of this encounter
--- OUTSIDE RECORDS SUMMARY | 2024-06-29 12:04 | XMS_ITS | Encounter Summary ---
Author Organization [employer] Address [address] [facility] 7t [place] [address] Care Team Providers Care Black Jack Dealer Name Role Phone Nichole Andrea MD Primary Care Provider + Reason for Visit * Reason Onset Date Comments Appointment Request 05/30/2023 Encounter Details Date Type Department Care Team (Late st Contact Info) Description 05/30/2023 Telephone [facility] [address] [place], [place] [phone] Nichole Andrea MD [address] [place] [address] Appointment Request Social History Tobacco Use Types [...] Description 09/06/2024 8:00 AM EDT Office Visit [facility] ADULT DENTAL [address] [place] [address] González Perezaris [address] [place], [place] [phone] documented as of this encounter Visit Diagnoses Not on filedocumented in this encounter Care Teams Black Jack Dealer Relationship Specialty Start Date End Date Nichole Andrea MD [address] [place] [address] PCP - General Family Medicine 05/27/18 documented as of this encounter
--- OUTSIDE RECORDS SUMMARY | 2024-06-29 12:04 | XMS_ITS | Encounter Summary ---
Author Organization [employer] Address [address] [facility] 7t [place] [address] Care Team Providers Care Sales Support Associate Name Role Phone Nichole Andrea MD Primary Care Provider + Reason for Visit * Reason Onset Date Comments Chart prep 06/24/2024 Encounter Details Date Type Department Care Team (Late Contact Info) Description 06/24/2024 Telephone [facility] MED[facility]INE [address] [place] [address] Meli Ch MA Chart prep Social History [...] EDT Office Visit [facility] [address] [place] [address] González Perezaris [address] [place] [address] documented as of this encounter Visit Diagnoses Not on filedocumented in this encounter Care Teams Sales Support Associate Relationship Specialty Start Date End Date Nichole Andrea MD [address] [place] [address] PCP - General Family Medicine 05/27/18 documented as of this encounter
--- OUTSIDE RECORDS SUMMARY | 2024-06-29 12:04 | XMS_ITS | Encounter Summary ---
Author Organization [employer] Address [address] [facility] 7t [place] [address] Care Team Providers Care Crane Service Technician Name Role Phone Nichole Andrea MD Primary Care Provider + Reason for Visit * Reason Onset Date Comments Nurse Triage 11/25/2023 Encounter Details Date Type Department Care Team ([facility] st Contact Info) Description 11/25/2023 Telephone [facility] [address] [place], [place] [phone] Nichole Andrea MD [address] [place], [place] [phone] Nurse Triage Social History Tobacco Use Types [...] . Pt is advised to come to [facility] to be seen by provider if needed. Pt agrees with home care advised and if time available will come to [facility]. Pt agrees with disposition and home care [...] Upcoming Encounters Date Type Department Care Team ([facility] st Contact Info) Description 09/06/2024 8:00 AM EDT Office Visit [facility] ADULT [facility] [address] [place] [address] Ana Damari [address] [place] [address] documented as of this encounter Visit Diagnoses Not on filedocumented in this encounter Care Teams Crane Service Technician Relationship Specialty Start Date End Date Nichole Andrea MD [address] [place] [phone] PCP - General Family Medicine 05/27/18 documented as of this encounter
--- OUTSIDE RECORDS SUMMARY | 2024-06-29 12:04 | XMS_ITS | Encounter Summary ---
Author Organization [facility] Address [address] [place] [phone] Phone Care Team Providers Care Foster Care Case Manager Name Role Phone Yisel Hooker MD Primary Care Provider Unavailabl e Encounter Details Date Type Department Care Team (Late st Contact Info) Description 04/10/2017 Conversion Encounter [facility] - [address] [address] Social History Tobacco Use Types Packs/Day Years [...] on filedocumented in this encounter Care Teams Foster Care Case Manager Relationship Specialty Start Date End Date Yisel Hooker MD PCP - General 01/17/17 documented as of this encounter
[2024-06-30 03:23] LABS: CT PCR NOT DETECTED (Not Detect.); NG PCR NOT DETECTED (Not Detect.)
[2024-06-30 13:46] LABS: Bacterial Vaginosis PCR NEGATIVE (Negative); Candida Group PCR NOT DETECTED (Not Detect); Candida glab krusei PCR DETECTED (Not Detect); Trichomonas vaginalis PCR NOT DETECTED (Not Detect)
== END 2024-06-29 09:45 | disposition home or self-care (01) ==
LOC: HO.LAB 09:44
PROVIDERS: PCP Internal Medicine; Visit Provider Advanced Practice Midwife
DX: Z01.419 Encounter for gynecological examination (general) (routine) without abnormal findings (principal); R10.2 Pelvic and perineal pain
CPT/HCPCS: 81515; 87491; 87591; 99212

== ENCOUNTER 2024-06-29 09:44 | Outpatient (AMB) | payer MEDICAID, SELFPAY ==
--- NOTE | 2024-06-29 10:11 | A.OFFVIS_ITS ---
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 Additionally she feels like she has another yeast infection. Regular monthly menses. Currently is sexually active, female partner only. STI screening offered; she accepts. She tries to eat healthy and stays active with some exercise, walks when possible. Denies family history of breast, ovarian or colon cancer. Last pap smear 2022, negative. [facility] Medical History Sleep apnea Vitamin D deficiency Ovarian cyst Hirsutism History of depression History of anxiety Asthma Surgical History Hx of ovarian cystectomy Family History (Updated 06/29/24 @ 10:19 by WESTON Travis) Father HTN (hypertension) Diabetes Mother HTN (hypertension) Diabetes Maternal Grandmother Cervical cancer Uterine cancer Maternal Grandfather Colon cancer Social History Household Members: None Housing: Apartment Alcohol intake: current Alcohol intake frequency: holidays/special occasions only Alcohol type: wine Patient Tobacco Use Status: Never used Tobacco Current occupational status: student Sexual orientation: Straight/Heterosexual Gender identity: Female Female Reproductive History Menstrual Age of Menarche: 14 Duration of menses: 3-5 days Date of last menstrual period: 06/14/24 Total pregnancies: 0 Date of last pap smear: 06/19/22 (neg) Review of Systems Const All systems reviewed & are unremarkable except as noted in HPI and below Reports as per HPI Eyes Reports no additional complaints ENT Reports no additional complaints Card Reports no additional complaints Resp Reports no additional complaints GI Reports as per HPI and Reports no additional complaints Reports as per HPI Musc Reports no additional complaints Skin/Breast Reports as per HPI Neuro Reports no additional complaints Psych Reports no additional complaints Endo Reports no additional complaints Michael/Lymph Reports no additional complaints Aller/Immun Reports no additional complaints Physical Exam Vital Signs: Last Vital Signs BP 106/62 06/29/24 10:14 BMI result Body Mass Index 56.6 Const General: cooperative, healthy appearing, no acute distress, well developed and alert Orientation/consciousness: patient oriented x3 HEENT Head: Yes normal to inspection Eyes General: appearance normal, both eyes and all related structures Neck Neck: Yes normal visual inspection Thyroid: Thyroid normal Chest Chest palpation & inspection: normal inspection of the chest and other (no puckering, dimpling, peau de orange, retraction, discharge, masses) Breast/axilla inspection: normal inspection of the breasts Breast/axilla palpation: normal palpation of the breasts Resp Effort & Inspection: normal respiratory effort GI Inspection: Yes normal to inspection Palpation (GI): Soft to palpation Rectal Exam - Female: deferred General: Yes bladder normal to palpation External Female Exam: normal external appearance and normal appearance of the urethra Speculum Exam - Vagina: normal appearance of the vagina, normal palpation and normal vaginal discharge Speculum Exam - Cervix: normal appearance of the cervix, normal palpation and Other cervical findings present (Elongated cervix) Bimanual exam- vagina & uterus: normal bimanual exam, normal palpation, uterine size normal, bladder normal to palpation, normal palpation and non-tender Bimanual Exam- Adnexa, other: no masses Skin General skin exam: no rashes or lesions noted Rashes: no rashes Neuro General: patient oriented x3 Cognition (Neuro): normal cognition Extrem General: Yes normal to inspection Psych Attitude: cooperative Thought process: Normal thought process present Assessment & Plan Assessment & Plan (1) Well woman exam: Code(s): Z01.419 - Encounter for gynecological examination (general) (routine) without abnormal findings Category: Medical (2) Pelvic pain: Code(s): R10.2 - Pelvic and perineal pain Category: Medical Plan: Plan pelvic ultrasound workup, pelvic cultures, follow up in person for test results. If any increase in pain or on resolved or worsening to report to the emergency room for immediate evaluation. [id number] ibuprofen or Tylenol if no contraindications for use per manufacture's recommendations. Total time I personally spent on visit and management today: ?15 minutes. Time spent included review of pertinent office notes in the electronic health record; review of laboratory and imaging results; review of personal family, discussing diagnosis and plan of care with the patient; documenting the encounter in the EMR. Plan Discussed: Current recommendations for pap smears per ASCCP guidelines. Breast awareness and periodic breast exams. Maintain a healthy lifestyle including a well balanced diet and routine exercise. Use condoms for STI and prevention. Patient verbalizes understanding and agrees to the plan of care. She was given opportunity to ask questions and all questions were answered to the best of my ability. 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 This note is constructed using voice recognition software. While every effort has been made to ensure accuracy, auction block clerk errors may have been included. Orders: Orders US pelvic and transvaginal Today R10.2 - Pelvic and perineal pain Bacterial Vaginosis Panel Today R10.2 - Pelvic and perineal pain CT NG by PCR Today R10.2 - Pelvic and perineal pain Coding Level of Care Code Est Pt Level 2 (68408) Diagnoses Well woman exam Z01.419 Pelvic pain R10.2
[2024-06-29 10:14] VITALS: BP 106/62; BMI 56.6
--- OUTSIDE RECORDS SUMMARY | 2024-06-29 10:42 | XMS_ITS | Clinical Summary ---
Author Organization [facility] Address [address] [place] [phone] Phone Care Team Providers Care Instructional Specialist Name Role Phone Yisel Hooker MD Primary Care Provider Unavailabl e Immunizations Name Administration Dates Next Due Unknown Vaccine 06/23/2007 Social History Tobacco Use Types Packs/Day Years Used Date Smoking Tobacco: Never Assessed Comments Unknown Sex and Gender Information Value Date Recorded Sex Assigned at Not on file Legal Sex Female 4:15 PM EDT Gender Identity Not on file Sexual Orientation Not on file Plan of Treatment Health Maintenance Due Date Last Done Comments MMR Vaccines (1 of 1 - Stand jose antonio series) 1998 Varicella Vaccines (1 of 2 - 13+ 2-dose series) 2010 DTaP,Tdap,and Td Vaccines (1 - Tdap) 2015 Hepatitis B Vaccines (1 of 3 - 19+ 3-dose series) 02/13/2016 Influenza Vaccines (#1) 2024 COVID-19 Vaccine ( - 2023-2 5 season) 2024 HIB Vaccines Aged Out No longer eligi ble based on patient's age to complete this topic HPV Vaccines Aged Out No longer eligi ble based on patient's age to complete this topic Hepatitis A Vaccines Aged Out No long er eligible based on patient's age to complete this topic IPV Vaccines Aged Out No longer eligi ble based on patient's age to complete this topic Men B Vaccine Aged Out No longer elig ible based on patient's age to complete this topic Meningococcal Vaccine Aged Out No poly mushtaq eligible based on patient's age to complete this topic Pneumococcal Vaccine Aged Out No long er eligible based on patient's age to complete this topic Care Teams Instructional Specialist Relationship Specialty Start Date End Date Yisel Hooker MD PCP - General 01/17/17
--- OUTSIDE RECORDS SUMMARY | 2024-06-29 10:42 | XMS_ITS | Clinical Summary ---
Author Organization [facility] [employer] [address] Address [address] [facility] [place] [address] Care Team Providers Care Reinforcement Maker Name Role Phone Pcp, No Primary Care Provider [phone] Social History Tobacco Use Types Packs/Day Years Used Date Smoking Tobacco: Never Assessed Comments Unknown Sex and Gender Information Value Date Recorded Sex Assigned at Not on file Legal Sex Female 1:51 PM EDT Gender Identity Not on file Sexual Orientation Not on file Plan of Treatment Health Maintenance Due Date Last Done Comments Depression: Screening Annual ly using PHQ-2/9 in Adults 18 yrs or above (or HM Modifier)([facility]) 2015 Hepatitis C Virus Infection in Adolescents and Adults: Screening (or Modifier) ([facility]) 2015 SDOH Screening Reminder: Tiff calvinlly for all adults ([facility]) 2015 Tobacco Smoking Cessation: i n Adults excluding Women: Behavioral and Pharmacotherapy Interventions ([facility]) 2015 DTaP/Tdap/Td Vaccines ([facility]) (1 - Tdap) 02/13/2016 Lipid Screening: Once for Wo men aged 20 to 45 yrs ([facility]) 2017 Cervical Cancer Screenin 1-65 yrs of age (or Modifier) 2018 Cervical Cancer Screening: P ap every 3 yrs pts age 21-65 2018 Cervical Cancer: Pap Screeni ng with Modifier timing ([facility]) 2018 Cervical Cancer: hrHPV alone or with cotesting Pap for Pts 30-65yrs screening every 5yrs ([facility]) 2018 Flu Vaccination: Yearly for ages 18mos through 64 years (or Modifier)([facility]) 01/08/2024 COVID-19 Vaccine Screening: Initial Series and Booster Status ([facility]) (2023- season) 2024 Zoster/Shingles Vaccine Seri es Screening: Adults aged 18+ yrs (or HM Modifiers)([facility]) (1 of 2) 2047 Pneumococcal Vaccination Scr eening: Pts 0-19 & 19-64 yrs of age ([facility]) Aged Out No longer eligible based on patient's age to complete this topic Medical Devices Not on file Insurance [facility] Care Teams Reinforcement Maker Relationship Specialty Start Date End Date Pcp, Keisha PCP - General Family Medicine 10/01/20
--- OUTSIDE RECORDS SUMMARY | 2024-06-29 10:42 | XMS_ITS | Encounter Summary ---
Author Organization [employer] Address [address] [place] [address] Care Team Providers Care Tire Building Supervisor Name Role Phone Nichole Andrea MD Primary Care Provider + Encounter Details Date Type Department Care Team (Late Contact Info) Description 05/30/2023 Telephone [facility] MEDICINE [address] [place] [phone] Nichole Andrea MD [address] [place] [address] Social History Tobacco Use Types Packs/Day Years Used Date Smoking Tobacco: Never Passive Smoke Exposure: Never Smokeless Tobacco: Never Alcohol Use Standard Drinks/Week Comments Never 0 (1 standard drink = 0.6 oz pur e alcohol) Comments Unknown Sex and Gender Information Value Date Recorded Sex Assigned at Female 04/08/2022 10:14 AM EDT Legal Sex Female 10:14 AM EDT Gender Identity Female 04/08/2022 10:14 AM EDT Sexual Orientation Bisexual 06/03/2022 12 :40 PM EST documented as of this encounter Plan of Treatment Upcoming Encounters Date Type Department Care Team (Late st Contact Info) Description 09/06/2024 8:00 AM EDT Office Visit [facility] ADULT DENTAL [address] [place] [address] González Perez[address] [place] [address] documented as of this encounter Visit Diagnoses Not on filedocumented in this encounter Care Teams Tire Building Supervisor Relationship Specialty Start Date End Date Nichole Andrea MD [address] [place] [phone] PCP - General Family Medicine 05/27/18 documented as of this encounter
--- OUTSIDE RECORDS SUMMARY | 2024-06-29 10:42 | XMS_ITS | Encounter Summary ---
Author Organization [employer] Address [address] [facility] 7t [place] [address] Care Team Providers Care Urban Redevelopment Specialist Name Role Phone Nichole Andrea MD Primary Care Provider + Reason for Visit * Reason Comments Sinusitis Encounter Details Date Type Department Care Team ([facility] st Contact Info) Description 06/15/2024 1:40 PM EST Office Visit [facility] [address] [place], [place] [phone] Debo Hayes NP [address] [place] [address] Hypertension, unspecified type (Primary Dx); Frontal sinusitis, unspecified chronicity Social History Tobacco Use Types Packs/Day Years Used Date Smoking Tobacco: Never Passive Smoke Exposure: Never Smokeless Tobacco: Never Alcohol Use Standard Drinks/Week Comments Yes 0 (1 standard drink = 0.6 oz pur e alcohol) casual Comments No Sex and Gender Information Value Date Recorded Sex Assigned at Female 04/08/2022 10:14 AM EDT Legal Sex Female 10:14 AM EDT Gender Identity Female 04/08/2022 10:14 AM EDT Sexual Orientation Bisexual 06/03/2022 12 :40 PM EST documented as of this encounter Last Filed Vital Signs Vital Sign Reading Time Taken Comments Blood Pressure 158/69 06/15/2024 1:30 PM EST Pulse 65 06/15/2024 1:30 PM EST Temperature 36.2 ??C (97.2 ??F) 06/15/2024 1:30 PM ES T Respiratory Rate 19 06/15/2024 1:30 PM EST Oxygen Saturation 98% 06/15/2024 1:30 PM EST Inhaled Oxygen Concentration - - Weight 152 kg (334 lb 3.2 oz) 06/15/2024 1:30 PM EST Height - - Body Mass Index 57.37 03/15/2024 3:45 PM EDT documented in this encounter Progress Notes * Debo Hayes NP - 06/15/2024 1:40 PM EST Subjective: Rafaela Terrell is a 29 y.o. female who presents to the office for a sick visit. HPI 3 weeks of sinus infection, nasal congestion, copious green mucous, no lower URI symptoms, sinus pain , pressure headache, unable to clear congestion Taking topical therapies no improvement Elevated bp, running high at home , using cpap mask, taking meds as prescribed, no side effects No chance of No fever no cough Has had sinus infections before, used to get them regularly 2 years ago was last, but as a child had them frequently Patient Active Problem List Diagnosis Abnormal uterine bleeding Acanthosis nigricans Acne Acute low back pain Allergic rhinitis Anxiety disorder Asthenia Asthma Attention deficit hyperactivity disorder, predominantly inattentive type Atypical chest pain Benign cyst of breast Cyst of ovary Depressive disorder Dizziness Female hirsutism Fever Flexural eczema Food insecurity Loss of hair Low vision, both eyes Mild intermittent asthma Obesity Sleep disorder Pain in female pelvis Panic attack Suspected COVID-19 virus infection Tremor Preventative health care Encounter for initial prescription of contraceptives, unspecified Foot pain, bilateral Dental caries Uterine prolapse Primary hypertension Witnessed episode of apnea Habitual snoring Vaginal discharge Enlarged tonsils Amenorrhea SEBAS (obstructive sleep apnea) Bed bug bite Cervical cancer screening Disease due to severe acute respiratory syndrome coronavirus 2 (SARS-CoV-2) Elevated blood pressure reading Influenza Neck fullness Ovarian teratoma Polycystic ovarian syndrome Scoliosis deformity of spine Sinusitis Upper respiratory infection Urinary tract infection Urine incontinence Vitamin D deficiency Candidiasis of genitalia in female Vulvovaginitis evelyn albicans Anxiety Acute asthma exacerbation Complex ovarian cyst Depressed Encounter for IUD removal Family planning advice Screen for sexually transmitted diseases Well woman exam Hirsutism Obesity, morbid, BMI 50 or higher (CMS/HCC) Severe obesity (CMS/HCC) Pelvic pain Malpositioned IUD Hypertension Review of Systems Constitutional: Negative for activity change, appetite change and chills. HENT: Positive for congestion, sinus pressure and sinus pain. Negative for sore throat. Cardiovascular: Negative for chest pain. Allergies Allergen Reactions Dust Mite Extract Hives and Itching Reported by Pt. Molds & Smuts Cough, Headache, Itching, Shortness of breath, Swelling and Wheezing Lactase 500 [Tilactase] Other Intolerance Prednisone Other pt reports reaction is burning of skin. Objective: Visit Vitals BP (!) 158/69 (BP Location: Left arm, Patient Position: Sitting, BP Cuff Size: Large adult) Pulse 65 Temp 97.2 ??F (36.2 ??C) (Temporal) Resp 19 Wt 334 lb 3.2 oz (152 kg) SpO2 98% BMI 57.37 kg/m?? OB Status Having periods Smoking Status Never BSA 2.62 m?? Physical Exam Vitals reviewed. Constitutional: Appearance: She is obese. HENT: Head: Normocephalic and atraumatic. Right Ear: Tympanic membrane normal. Left Ear: Tympanic membrane normal. Nose: Congestion and rhinorrhea present. Mouth/Throat: Mouth: Mucous membranes are moist. Tonsils: 3+ on the right. 3+ on the left. Eyes: Conjunctiva/sclera: Conjunctivae normal. Cardiovascular: Rate and Rhythm: Normal rate and regular rhythm. Pulmonary: Effort: Pulmonary effort is normal. Breath sounds: Normal breath sounds. Musculoskeletal: Cervical back: Normal range of motion and neck supple. Neurological: General: No focal deficit present. Mental Status: She is alert. Assessment/Plan: Problem List Items Addressed This Visit Sinusitis Current Assessment & Plan Worsening symptoms over 3 weeks Poct tests neg for covid/flu Treat with augmentin Return to clinic for failure to improve Relevant Medications amoxicillin-clavulanate (Augmentin) 875-125 MG tablet Other Relevant Orders POCT Rapid COVID Ag (Completed) Influenza A (ID NOW Rapid Molecular) (Completed) Influenza B (ID NOW Rapid Molecular) (Completed) Hypertension - Primary Current Assessment & Plan Above goal both in clinic and at home readings Pt compliant with meds and cpap Increase lisinopril to 20 mg Future bmp ordered Has upcoming visit with pcp Relevant Orders Basic Metabolic Panel Current Outpatient Medications Medication Sig Dispense Refill albuterol (Ventolin HFA) 108 (90 Base) MCG/ACT inhaler Inhale 2 puffs Every 4-6 hours as needed forwheezing. 18 g 1 amoxicillin-clavulanate (Augmentin) 875-125 MG tablet Take 1 tablet by mouth 2 times daily for 7 days. 14 tablet 0 azelastine (Astelin) 0.1 % nasal spray Administer 1 spray into each nostril 2 times daily. Use in each nostril as directed 30 mL 12 Blood Pressure Monitor kit Use as directed 3x/week 1 kit 0 cetirizine (ZyrTEC) 10 MG tablet Take 1 tablet (10 mg) by mouth Once per day. 90 tablet 3 fluticasone furoate (Arnuity Ellipta) 200 MCG/ACT inhaler Inhale 1 puff Once per day. Rinse mouth with water after use to reduce aftertaste and incidence of candidiasis. Do not swallow. 1 each 11 lisinopril (Prinivil) 20 MG tablet Take 1 tablet (20 mg) by mouth Once per day. 30 tablet 11 Spacer/Aero-Holding Chambers device Use as directed 4x/d prn SOB, with inhaler 1 Units 0 No current facility-administered medications for this visit. documented in this encounter Miscellaneous Notes * Assessment & Plan Note - Debo Hayes NP - 06/15/2024 2:21 PM ESTAssociated Problem(s): Sinusitis Worsening symptoms over 3 weeks Poct tests neg for covid/flu Treat with augmentin Return to clinic for failure to improve * Assessment & Plan Note - Debo Hayes NP - 06/15/2024 2:20 PM ESTAssociated Problem(s): Hypertension Above goal both in clinic and at home readings Pt compliant with meds and cpap Increase lisinopril to 20 mg Future bmp ordered Has upcoming visit with pcp documented in this encounter Plan of Treatment Upcoming Encounters Date Type Department Care Team (Late st Contact Info) Description 09/06/2024 8:00 AM EDT Office Visit [facility] [address] [place], [place] [phone] González Perezaris [address] [place] [address] Scheduled Orders Name Type Priority Associated Diagnoses Orde r Schedule Basic Metabolic Panel Lab Routine Hypertension, unspecified type Expected: 06/15/2024 (Approximate), Expires: 07/16/2024 documented as of this encounter Procedures Procedure Name Priority Date/Time Associated Diagnosis Comments POCT INFLUENZA B (ID NOW RAPID MOLECULAR) Routine 06/15/2024 1:43 PM EST Frontal sinusitis, unspecified chronicity POCT INFLUENZA A (ID NOW RAPID MOLECULAR) Routine 06/15/2024 1:43 PM EST Frontal sinusitis, unspecified chronicity POCT RAPID COVID ANTIGEN Routine 06/15/2024 1:43 PM EST Frontal sinusitis, unspecified chronicity documented in this encounter Results * Influenza B (ID NOW Rapid Molecular) (06/15/2024 1:43 PM EST) Influenza B Negative Negative, Indeterminate [facility] Swab 06/15/2024 1:43 PM EST Debo Hayes NP POINT OF CARE TEST ENTER/EDIT OR DERABLES Final Result Performing Organization Address [facility]/ZIP Co de Phone Number [facility] [address] [place] [phone] * Influenza A (ID NOW Rapid Molecular) (06/15/2024 1:43 PM EST) Pathologist [facility] Influenza A Negative Negative, Indeterminate [facility] Swab 06/15/2024 1:43 PM EST Debo Hayes BUSINESS PROCESS COORDINATOR POINT OF CARE TEST ENTER/EDIT OR DERABLES Final Result Performing Organization Address [facility]/ZIP Co de Phone Number [facility] [address] [place] [phone] * POCT Rapid COVID Ag (06/15/2024 1:43 PM EST) Rapid COVID Ag Negative [facility] Swab 06/15/2024 1:43 PM EST us Debo Hayes BUSINESS PROCESS COORDINATOR POINT OF CARE TEST ENTER/EDIT OR DERABLES Final Result [facility] [address] [place] [phone] documented in this encounter Visit Diagnoses Diagnosis Hypertension, unspecified type- Primary Frontal sinusitis, unspecified chronicity documented in this encounter Care Teams Urban Redevelopment Specialist Relationship Specialty Start Date End Date Nichole Andrea MD [address] [place] [phone] PCP - General Family Medicine 05/27/18 documented as of this encounter
--- OUTSIDE RECORDS SUMMARY | 2024-06-29 10:42 | XMS_ITS | Encounter Summary ---
Author Organization [employer] [facility] Address [address] [facility] 7t [place] [address] Care Team Providers Care Design/Animation Instructor Name Role Phone Nichole Andrea MD Primary Care Provider + Encounter Details Date Type Department Care Team (Late Contact Info) Description 08/09/2022 Abstract [facility] [address] [place], [place] [phone] Madi Summers DDS [address] [place], [place] [phone] Social History Tobacco Use Types Packs/Day Years [...] Orientation Bisexual 06/03/2022 12 :40 PM EST COVID-19 Exposure Response Date Recorded In the last 10 days, have yo u been in contact with someone who was confirmed or suspected to have Coronavirus/COVID-19? No / Unsure 08/01/2022 10:49 AM EST documented as of this encounter Plan of Treatment Upcoming Encounters Date Type Department Care Team (Late Contact Info) Description 09/06/2024 8:00 AM EDT Office Visit [facility] [address] [place], [place] [phone] Damari Perez [address] [place] [address] documented as of this encounter Visit Diagnoses Not on filedocumented in this encounter Care Teams Design/Animation Instructor Relationship Specialty Start Date End Date Nichole Andrea MD [address] [place] [phone] PCP - General Family Medicine 05/27/18 documented as of this encounter
--- OUTSIDE RECORDS SUMMARY | 2024-06-29 10:42 | XMS_ITS | Encounter Summary ---
Author Organization [employer] [facility] Address [address] [facility] [address]t [place] [address] Care Team Providers Care Sandblast Operator Name Role Phone Nichole Andrea MD Primary Care Provider + Encounter Details Date Type Department Care Team (Latest Contact Info) Description 08/21/2020 Abstract [facility] CONVERSIONS Dental, Provider, DDS Social History Tobacco Use Types Packs/Day Years [...] Description 09/06/2024 8:00 AM EDT Office Visit [facility] [address] [place] [address] Ana, Damari [address] [place] [address] documented as of this encounter Visit Diagnoses Not on filedocumented in this encounter Care Teams Sandblast Operator Relationship Specialty Start Date End Date Nichole Andrea MD [address] [place] [phone] PCP - General Family Medicine 05/27/18 documented as of this encounter
--- OUTSIDE RECORDS SUMMARY | 2024-06-29 10:42 | XMS_ITS | Encounter Summary ---
Author Organization [employer] Address [address] [facility] 7t [place] [address] Care Team Providers Care Hardboard Press Operator Name Role Phone Nichole Andrea MD Primary Care Provider + Reason for Visit * Reason Onset Date Comments Appointment Request 05/30/2023 Encounter Details Date Type Department Care Team (Late st Contact Info) Description 05/30/2023 Telephone [facility] [address] [place], [place] [phone] Nichole Andrea MD [address] [place] [address] Appointment Request Social History Tobacco Use Types Packs/Day Years [...] PM EST documented as of this encounter Miscellaneous Notes * Telephone Encounter - Margo Mcdonald - 05/30/2023 10:53 AM EST Tc from pt requesting OV with PCP, states wanted to talk with PCP about some concerns. documented in this encounter Plan of Treatment Upcoming Encounters Date Type Department Care Team (Late Contact Info) Description 09/06/2024 8:00 AM EDT Office Visit [facility] AD[facility] [address] [place] [address] González Perezaris [address] [place], [place] [phone] documented as of this encounter Visit Diagnoses Not on filedocumented in this encounter Care Teams Hardboard Press Operator Relationship Specialty Start Date End Date Nichole Andrea MD [address] [place] [address] PCP - General Family Medicine 05/27/18 documented as of this encounter
--- OUTSIDE RECORDS SUMMARY | 2024-06-29 10:42 | XMS_ITS | Encounter Summary ---
Author Organization [employer] Address [address] [facility] 7t [place] [address] Care Team Providers Care Final Inspector And Tester Name Role Phone Nichole Andrea MD Primary Care Provider + Reason for Visit * Reason Onset Date Comments Nurse Triage 11/25/2023 Encounter Details Date Type Department Care Team ([facility] st Contact Info) Description 11/25/2023 Telephone [facility] MEDICINE [address] [place], [place] [phone] Nichole Andrea MD [address] [place], [place] [phone] Nurse Triage Social History Tobacco Use Types Packs/Day Years [...] encounter Miscellaneous Notes * Telephone Encounter - Shavonne Grant RN - 11/25/2023 10:32 AM EDT Triage call Pt reports 11/22/23 Pt started to find insect bites on chest, then spread to abdomen andnow arm pits, buttocks and legs. Pt reports bites are red, itchy and large bumps to small bumps. Nodifficulty breathing or throat irritation. Pt has found small dk brown bugs on bed. Pt reports has a cat which has just been neutered and has to stay in room with Pt at this time but, has not been treated for fleas. Home care advised, treat cat with anti flea collar or liquid application obtained in local store. Wash all bed linens and pillows in hot soapy water, spray mattress with OTC product available in store for fleas/bed bugs. Pt is advised to use hydrocortisone cream OTC for itchiness, co ld wash cloth and benadryl at bed time . Pt is advised to come to [facility] to be seen by provider if needed. Pt agrees with home care advised and if time available will come to [facility]. Pt agrees with disposition and home care advised. Protocol Used: Insect Bite (Adult) Protocol-Based Disposition: Home Care Positive Triage Question: * Itchy insect bite * All higher-acuity triage questions were negative Care Advice Discussed: * Reassurance and Education - Insect Bite(s) * Four Simple Home Remedies for Itchy Insect Bites * Don't Scratch * Hydrocortisone Cream for Severe Itching * Antihistamine Medicines for Severe Itching * Expected Course * Reasons To Call Back - Severe pain persists over 2 hours after pain medicine - Bite looks infected (pus, red streaks, increased tenderness) - Bite has not healed after 14 days - Redness getting larger and more than 48 hours after the bite - You become worse * Telephone Encounter - Chilango Murphy - 11/25/2023 10:04 AM EDT Symptom: Insect Bites Outcome: Talk to a nurse or provider within 15 minutes Reason: Hives or rash all over the body The caller accepted this outcome documented in this encounter Plan of Treatment Upcoming Encounters Date Type Department Care Team ([facility] st Contact Info) Description 09/06/2024 8:00 AM EDT Office Visit [facility] ADULT DENTAL [address] [place] [address] Ana Damari [address] [place] [address] documented as of this encounter Visit Diagnoses Not on filedocumented in this encounter Care Teams Final Inspector And Tester Relationship Specialty Start Date End Date Nichole Andrea MD [address] [place] [phone] PCP - General Family Medicine 05/27/18 documented as of this encounter
--- OUTSIDE RECORDS SUMMARY | 2024-06-29 10:42 | XMS_ITS | Encounter Summary ---
Author Organization [employer] Address [address] [place] [address] [address]t [place] [address] Care Team Providers Care Job Lithographer Name Role Phone Nichole Andrea MD Primary Care Provider + Reason for Visit * Reason Onset Date Comments Medication Question 02/04/2023 Encounter Details Date Type Department Care Team ([facility] st Contact Info) Description 02/04/2023 Telephone [facility] MEDICINE [address] [place], [place] [phone] Nichole Andrea MD [address] [place], [place] [phone] Medication Question Social History Tobacco Use Types Packs/Day Years [...] encounter Miscellaneous Notes * Telephone Encounter - Artemio Moran RN - 02/06/2023 2:07 PM EDT FYI: Call returned to [facility]. States there was a medication interaction with the Paxlovid. Would increase amlodipine levels. He also states there was an issue with the sig on the script that was sent. Per Ranjeet, it seems like the [facility] and should be all set. * Telephone Encounter - Yajaira Moran - 02/05/2023 9:15 AM EDT Tc from pharmacy calling in regards to message above. * Telephone Encounter - Yajaira Moran - 02/04/2023 4:00 PM EDT Tc from pharmacy requesting a call in regards to Nirmatrelvir&Ritonavir 300/100 (Paxlovid, 300/100,) 20 x 150 MG & 10 x 100MG tablet therapy pack documented in this encounter Plan of Treatment Upcoming Encounters Date Type Department Care Team (Late st Contact Info) Description 09/06/2024 8:00 AM EDT Office Visit [facility] ADULT DENT[facility] [address] [place] [address] Ana, Damari [address] [place] [address] documented as of this encounter Visit Diagnoses Not on filedocumented in this encounter Care Teams Job Lithographer Relationship Specialty Start Date End Date Nichole Andrea MD [address] [place] [address] PCP - General Family Medicine 05/27/18 documented as of this encounter
--- OUTSIDE RECORDS SUMMARY | 2024-06-29 10:42 | XMS_ITS | Clinical Summary ---
Author Organization [employer] Address [address] [facility] 7[address] [place] [address] Care Team Providers Care Body Builder Name Role Phone Nichole Andrea MD Primary Care Provider + Allergies Active Allergy Reactions Criticality Noted Date Comments Dust Mite Extract Hives,Itching High 07/11/2022 Reported by Pt. Tilactase Other 06/04/2022 Intolerance Molds & Smuts Cough,Headache,Itchi ng, Shortness of breath,Swelling,Wheezin g High 06/17/2023 Prednisone Other 02/15/2024 pt reports reaction is burning of skin. Medications * This document contains information received from the source organization and may not represent a complete record from that organization. Blood Pressure Monitor kitIndications:P rimary hypertension Use as directed 3x/week 1 kit 06/17/19 24 Active cetirizine (ZyrTEC) 10 MG tabletIndication s:Bedbug bite, initial encounter Take 1 tablet (10 mg) by mouth Once per day. 90 tablet 3 11/25/19 24 025 Active albuterol (Ventolin HFA) 108 (90 Base) MCG/ACT inhaler Inhale 2 puffs Every 4-6 hours as needed for wheezing. 18 g 1 01/08/20 24 025 Active azelastine (Astelin) 0.1 % nasal spray Administer 1 spray into each nostril 2 times daily. Use in each nostril as directed 30 mL 12 03/15/20 24 025 Active fluticasone furoate (Arnuity Ellipta) 200 MCG/ACT inhaler Inhale 1 puff Once per day. Rinse mouth with water after use to reduce aftertaste and incidence of candidiasis. Do not swallow. 1 each 11 03/15/20 24 025 Active Spacer/Aero-Hold ing Chambers deviceIndication s:Moderate persistent asthma without complication Use as directed 4x/d prn SOB, with inhaler 1 Units 03/15/20 24 Active lisinopril (Prinivil) 20 MG tablet Take 1 tablet (20 mg) by mouth Once per day. 30 tablet 11 06/15/19 25 026 Active lisinopril 10 MG tabletIndication s:Primary hypertension Take 1 tablet (10 mg) by mouth Once per day. 90 tablet 1 03/15/20 24 025 Discontinued amoxicillin-clav ulanate (Augmentin) 875-125 MG tabletIndication s:Frontal sinusitis, unspecified chronicity Take 1 tablet by mouth 2 times daily for 7 days. 14 tablet 06/15/19 25 025 Active Problems Problem Noted Date Diagnosed Date Hypertension 06/15/2024 Assessment & Plan (06/15/2024 2:20 PM EST): Above goal both in clinic and at home readings Pt compliant with meds and cpap Increase lisinopril to 20 mg Future bmp ordered Has upcoming visit with pcp Cervical cancer screening 04/21/2024 Elevated blood pressure reading 04/21/2024 Influenza 04/21/2024 Neck fullness 04/21/2024 Ovarian teratoma 04/21/2024 Polycystic ovarian syndrome 04/21/2024 Sinusitis 04/21/2024 Assessment & Plan (06/15/2024 2:21 PM EST): Worsening symptoms over 3 weeks Poct tests neg for covid/flu Treat with augmentin Return to clinic for failure to improve Upper respiratory infection 04/21/2024 Urinary tract infection 04/21/2024 Urine incontinence 04/21/2024 Vitamin D deficiency 04/21/2024 Candidiasis of genitalia in female 04/21/2024 Vulvovaginitis evelyn albicans 04/21/2024 Anxiety 04/21/2024 Acute asthma exacerbation 04/21/2024 Complex ovarian cyst 04/21/2024 Depressed 04/21/2024 Encounter for IUD removal 04/21/2024 Family planning advice 04/21/2024 Screen for sexually transmitted diseases 024 Well woman exam 04/21/2024 Hirsutism 04/21/2024 Obesity, morbid, BMI 50 or higher 04/21/2024 Severe obesity 04/21/2024 Pelvic pain 04/21/2024 Malpositioned IUD 04/21/2024 Bed bug bite 11/25/2023 Assessment & Plan (11/25/2023 5:46 PM EDT): Discussed presumptive diagnosis will patient How to treat the bites themselves (antihistamine and steroid cream) Protocols for treating mattress, bedding, clothing, bags Letter given for landlord to fumigate the room Enlarged tonsils 10/15/2023 Assessment & Plan (10/15/2023 11:26 AM EDT): - has recurrent URIs and recently one with mild airway obstruction - refer to ENT and consider tonsillectomy Amenorrhea 10/15/2023 Assessment & Plan (10/15/2023 11:30 AM EDT): - recurrent - recent test is negative and she has intercourse exclusively with AFAB - f/u with AGRONOMY INSTRUCTOR - counseled regarding weight reduction SEBAS (obstructive sleep apnea) 10/15/2023 Assessment & Plan (10/15/2023 10:47 AM EDT): - started using CPAP one week ago, doing well - continue to use CPAP every night to morbidity and mortality Witnessed episode of apnea 08/08/2023 Habitual snoring 08/08/2023 Assessment & Plan (08/08/2023 1:31 PM EST): R/o sleep apnea Order sleep study and FU w/ it Vaginal discharge 08/08/2023 Assessment & Plan (08/08/2023 1:34 PM EST): R/o candidiasis, will Rx fluconazole and will review swab results Recommended to avoid vaginal washes w/ foam wash Primary hypertension 06/30/2023 Assessment & Plan (03/15/2024 5:01 PM EDT): - uncontrolled, increase Lisinopril to 10 mg daily and f/u with me with RN in 3 months - order labs - advised regarding weight reduction, she has information regarding weight reduction programs Assessment & Plan (10/15/2023 11:15 AM EDT): - BP is slightly better controlled after starting on CPAP this week - continue using CPAP and f/u in 6-8 weeks + continue Lisinopril 2.5 mg per day Assessment & Plan (08/08/2023 1:30 PM EST): R/o HTN Counseled re low salt diet/increase moderate physical activity. Check home BP BIW and prn CP/GOMEZ/SANCHES Non smoking patient. Pt will bring BP log in 2-3 wks and will fu w labs Assessment & Plan (06/30/2023 8:06 PM EST): She's off meds. She will check BP three times per week and fu withme in 2-3m Counseled re low salt diet/increase moderate physical activity. Check home BP BIW and prn CP/GOMEZ/SANCHES Non smoking patient. Uterine prolapse 02/28/2023 Assessment & Plan (10/15/2023 10:51 AM EDT): - seen by AGRONOMY INSTRUCTOR, awaiting for surgery - refer to [facility] , she needs to lose weight prior to surgery Assessment & Plan (06/30/2023 8:05 PM EST): FU with AGRONOMY INSTRUCTOR at [facility]. 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 Psychotherapist didn't think she needed neuropsychology testing, patient is doing well now. Continue Fu with provider for anxiety sxs. She feels safe at home and is able to contract for safeety Atypical chest pain 05/11/2022 Cyst of ovary 05/11/2022 Dizziness 05/11/2022 Female hirsutism 05/11/2022 Fever 05/11/2022 Flexural eczema 05/11/2022 Food insecurity 05/11/2022 Loss of hair 05/11/2022 Low vision, both eyes 05/11/2022 Mild intermittent asthma 05/11/2022 Assessment & Plan (06/04/2022 2:13 PM EST): Improving after Influenza. Start Flovent bid to avoid daily use of Proair. FU with me in 2m Pain in female pelvis 05/11/2022 Panic attack 05/11/2022 Suspected COVID-19 virus infection 05/11/2022 Tremor 05/11/2022 Encounter for initial prescr iption of contraceptives, unspecified 05/11/2022 Disease due to severe acute respiratory syndrome coronavirus 2 (SARS-CoV-2) 12/30/2021 Overview (04/21/2024): Problem added by Discern Expert Preventative health care 03/23/2020 Acne 11/03/2014 Allergic rhinitis 11/03/2014 Anxiety disorder 10/11/2014 Assessment & Plan (03/15/2024 5:03 PM EDT): - Pt to continue with F counseling, may need a BE to r/o ADHD - will refer to to support pt with BE from her counselor Depressive disorder 08/23/2014 Sleep disorder 08/23/2014 Benign cyst of breast 08/17/2014 Scoliosis deformity of spine 02/15/2013 Overview (04/21/2024): I've had this condition for years. Asthma 11/08/2011 Assessment & Plan (03/15/2024 4:59 PM EDT): - uncontrolled, increase Arnuity to 200 mg daily - continue to use Albuterol PRN only - will have influenza IZ today Assessment & Plan (06/30/2023 8:04 PM EST): Start asmanex bid and use albuterol prn SOB only. FU with me in 2-3m Reminded her re Flu and Covid boosters Obesity 11/08/2011 Assessment & Plan (03/15/2024 5:02 PM EDT): Discussed re weight reduction options including exercise, life style modifications, diet and referral to dairy specialist. Recommended to decrease soda and sugary beverage consumption, increase protein intake with meals (at least 1 portion of protein with each meal) to assist with satiety, increase dietary fiber Recommended at least 150 min/week of moderate intensity exercise. Reinded pt to make appointment with weight reduction program for bariatric surgery Order labs and f/u with me in 3 months Will consider Ozempic Assessment & Plan (10/15/2023 11:30 AM EDT): Discussed re weight reduction options including exercise, life style modifications, diet, referral to dairy specialist. Discussed re lower calorie intake, increase dietary fiber Will refer to property site manager Pt given information about weight reduction programs at [facility] Assessment & Plan (06/30/2023 8:05 PM EST): Discussed re weight reduction options including exercise, life style modifications, diet, referral to dairy specialist, she wants to hold off on it for now.. Discussed re lower calorie intake, increase dietary fiber Resolved Problems Problem Noted Date Diagnosed Date Resolved Date Overweight (BMI 25.0-29.9) 05/11/2022 0 06/17/2023 Encounters Date Type Department Care Team Description 06/24/2024 Telephone [facility] [address] [place] [address] Meli Ch MA Chart prep 06/22/2024 Telephone [facility] [address] [place] [address] Nichole Andrea MD Referral 06/15/2024 1:40 PM EST Office Visit [facility] [address] [place] [address] Debo Hayes NP Hypertension, unspecified type (Primary Dx); Frontal sinusitis, unspecified chronicity 04/26/2024 10:30 AM EST Clinical Support [facility] [address] [place] [phone] Leigha Newsome, TEJ Primary hypertension 04/26/2024 Telephone [facility] [address] [place] [phone] Leigha Newsome RN Blood Pressure Check 04/26/2024 Travel 04/21/2024 11:30 AM EST Office Visit [facility] [address] [place] [address] Haley Freeman DDS Status post dental orthodoxy (Primary Dx) 04/20/2024 Telephone [facility] [address] [place] [phone] Nichole Andrea MD Jeny recall 04/01/2024 3:00 PM EDT Office Visit [facility] [address] [place] [phone] Haley Freeman, DDS Dental caries (Primary Dx) from Last 3 Months Immunizations Name Administration Dates Next Due DTaP 01/26/2009, 2,05/18/1998,07/28,1997,1997 HPV, Quadrivalent 05/30/2011,03/25/2011,01/18/20 11 Hep B, Adolescent or Pediatric 1997,1996,1997 Hib (HbOC) 05/18/1998, 8,1997,04/08 IPV 01/04/2002,199 8,1997,04/08 Influenza Injectable Quadriv alant Preservative Free IIV4 MDCK 04/19/2018 Influenza injectable quadriv alent IIV4 with preservative 07/17/2015 Influenza injectable quadriv alent preservative free 07/01/2019,07/17/2015,06/06/2014 Influenza, IIV3, injectable 03/18/2007 Influenza, Split (incl. corinne fied surface antigen) 03/23/2013 Influenza, seasonal, injecta ble, preservative free 03/15/2024,01/05/2008 MMR 01/04/2002,03/09/1998 Meningococcal MCV4P ACYW-135 07/17/2015,06/06/20 14 Moderna Covid-19 Vaccine 12+ 09/26/2020,08/30/19 21 Tdap 11/09/2015 Varicella 01/05/2008,03/09/1998 Social History Tobacco Use Types Packs/Day Years Used Date Smoking Tobacco: Never Passive Smoke Exposure: Never Smokeless Tobacco: Never Tobacco Cessation:Counseling Given: Not Answered Alcohol Use Standard Drinks/Week Comments Yes 0 (1 standard drink = 0.6 oz pur e alcohol) casual Comments No Sex and Gender Information Value Date Recorded Sex Assigned at Female 04/08/2022 10:14 AM EDT Legal Sex Female 10:14 AM EDT Gender Identity Female 04/08/2022 10:14 AM EDT Sexual Orientation Bisexual 06/03/2022 12 :40 PM EST Last Filed Vital Signs Vital Sign Reading [...] 3.2 oz) 06/15/2024 1:30 PM EST Height 162.6 cm (5' 4 ) 03/15/2024 3:45 PM EDT Body Mass Index 57.37 03/15/2024 3:45 PM EDT Plan of Treatment Upcoming Encounters Date Type Department Care Team (Late st Contact Info) Description 09/06/2024 8:00 AM EDT Office Visit [facility] [address] [place] [address] Ana, Damari [address] [place] [address] Health Maintenance Due Date Last Done Comments Depression Screening 1997 Lipid Panel 1997 SDOH Screening 1997 Pneumococcal Vaccine: Pediatrics (0 to 5 Years) and At-Risk Patients (6 to 64 Years) (1 of 2 - PCV) 2003 Alcohol/Substance Use Screening 2009 HPV Vaccines (3 - 2-dose series) 08/22/2011 05/30/2011, 03/25/2011, 01/17/2011 Hepatitis C Screening 2015 COVID-19 Vaccine ( season) 2024 04/16/2022, 06/23/2021, 09/26/2020, Additional history exists Dental Oral Exam 09/06/2024 03/08/2024, 07/11/2022 Dental Prophylaxis 09/06/2024 03/08/2024, 07/11/2022 Dental X-Ray: Bitewings 03/09/2025 03/08/2024, 07/11 Tobacco Screening 04/21/2025 04/21/2024 Pap Smear 06/19/2025 06/19/2022 DTaP/Tdap/Td Vaccines (8 - Td or Tdap) 11/08/2025 11/09/2015, 01/26/2009, 01/04/2002, Additional history exists Dental X-Ray: Full Mouth 03/09/2027 03/08/2024, 0309/2020 Zoster Vaccines (1 of 2) 2047 RSV Patients and Patients Aged 60 years or older (1 - 1-dose 75+ series) 02/13/2072 Hepatitis B Vaccines Completed 1997, 1997, 1997 HIB Vaccines Completed 05/18/1998, 07/10, 1997, Additional history exists IPV Vaccines Completed 01/04/2002, 05/09, 1997, Additional history exists Meningococcal Vaccine Completed 07/17/2015, 014 HIV Screening Completed 11/11/2019 Influenza Vaccine Completed 03/15/2024, , 04/19/2018, Additional history exists Hepatitis A Vaccines Aged Out No long er eligible based on patient's age to complete this topic RSV under 20 months Aged Out No longe r eligible based on patient's age to complete this topic Rotavirus Vaccines Aged Out No longer eligible based on patient's age to complete this topic Procedures Procedure Name Priority Date/Time Associated Diagnosis Comments POCT INFLUENZA B (ID NOW RAPID MOLECULAR) Routine 06/15/2024 1:43 PM EST Frontal sinusitis, unspecified chronicity POCT INFLUENZA A (ID NOW RAPID MOLECULAR) Routine 06/15/2024 1:43 PM EST Frontal sinusitis, unspecified chronicity POCT RAPID COVID ANTIGEN Routine 06/15/2024 1:43 PM EST Frontal sinusitis, unspecified chronicity NO CHARGE VISIT Routine 04/21/2024 11:30 AM EST Status post dental orthodoxy ADJUNCTIVE GENERAL SERVICES - PROFESSIONAL VISITS - CASE PRESENTATION, SUBSEQUENT TO DETAILED AND EXTENSIVE TREATMENT PLANNING Routine 04/01/2024 3:00 PM EDT Dental caries 3 LO RESTORATIVE - RESIN-BASED COMPOSITE RESTORATIONS - DIRECT - RESIN-BASED COMPOSITE - TWO SURFACES, POSTERIOR Routine 04/01/2024 3:00 PM EDT Dental caries 5 DO RESTORATIVE - RESIN-BASED COMPOSITE RESTORATIONS - DIRECT - RESIN-BASED COMPOSITE - TWO SURFACES, POSTERIOR Routine 04/01/2024 3:00 PM EDT Dental caries 4 MO RESTORATIVE - RESIN-BASED COMPOSITE RESTORATIONS - DIRECT - RESIN-BASED COMPOSITE - TWO SURFACES, POSTERIOR Routine 04/01/2024 3:00 PM EDT Dental caries PROPHYLAXIS - ADULT Routine 03/08/2024 8 :00 AM EDT Dental plaque on multiple teeth DIAGNOSTIC - DIAGNOSTIC IMAGING - INTRAORAL - COMPREHENSIVE SERIES OF RADIOGRAPHIC IMAGES Routine 03/08/2024 8:00 AM EDT Dental plaque on multiple teeth PERIODIC ORAL EVALUATION - ESTABLISHED PATIENT Routine 03/08/2024 8:00 AM EDT Dental plaque on multiple teeth Encounter for dental examination Dental caries PAP SMEAR Routine 06/19/2022 3:50 PM EST HIV 1/2 ANTIGEN/ANTIBODY, FOURTH GENERATION W/RFL Routine 11/11/2019 12:04 PM EDT from Last 3 Months or Most Recently Relevant to Health Maintenance Results * Influenza B (ID NOW Rapid Molecular) (06/15/2024 1:43 PM EST) Pathologist [facility] Influenza B Negative Negative, Indeterminate [facility] Swab 06/15/2024 1:43 PM EST Debo Hayes MANAGER PARKING POINT OF CARE TEST ENTER/EDIT OR DERABLES Final Result Performing Organization Address [facility] Co de Phone Number [facility] [address] [place] [phone] * Influenza A (ID NOW Rapid Molecular) (06/15/2024 1:43 PM EST) Pathologist [facility] Influenza A Negative Negative, Indeterminate [facility] Swab 06/15/2024 1:43 PM EST Debo Hayes MANAGER PARKING POINT OF CARE TEST ENTER/EDIT OR DERABLES Final Result Performing Organization Address [facility] Co de Phone Number [facility] [address] [place] [phone] * POCT Rapid COVID Ag (06/15/2024 1:43 PM EST) [facility] Rapid COVID Ag Negative [facility] Swab 06/15/2024 1:43 PM EST Debo Hayes MANAGER PARKING POINT OF CARE TEST ENTER/EDIT OR DERABLES Final Result Performing Organization Address [facility] de Phone Number [facility] [address] [place] [phone] * Pap Smear (06/19/2022 3:50 PM EST) 06/19/2022 3:50 PM EST 06/20/2022 9:45 AM EST Narrative [facility] - 06/29/2022 3:25 PM EST ----- ------- Name: Rafaela Terrell Lilliam ?Age/Sex: 27/F ? : 1995 Unit#: [id number] ?? Attend Dr: Huma Ochoa CNM ?Re06/19/22 ?Status: DEP REF ? Location: HO.LNP ?Disch: ? ----- ------- SPEC : [id number] ?RECD: 06/20/22 ? STATUS: ??SOUT ? REQ NUM: [id number] ? ENEIDA: 06/19/22-1549 ? SUBM DR: Huma Ochoa CNM ? ENTERED: ??06/20/22 ?SP TYPE: Pap Smr ?OTHR DR: Nichole Andrea MD ? ORDERED: ??Pap Smear ? Interpretation ?? Satisfactory for evaluation. ?? Negative for intraepithelial lesion or malignancy. ?Clinical Information LMP: 05/27/22 Previous PAP test: 04/07/20, WNL ? Material Received ?? ThinPrep-Cervical Copies To: ?? Nichole Andrea MD ?? [address] [facility] ?? [address] [place] [id number] ? Huma Ochoa CNM ?? [address] [place] [address] Dr. Leonard [facility] ?? [address] [place] [address] ?? [phone] ----- ------- Signed (signature on file) Anabel Vyas Cassie 06/29/22 1525 ? ----- ------- ? END OF REPORT ? [facility] External Provider LAB CYT OLOGY ORDERABLES Final Result [facility] [address] [place] [phone] [phone] * HIV 1/2 ANTIGEN/ANTIBODY,FOURTH GENERATION W/RFL (11/11/2019 12:04 PM EDT) HIV-1/2 ANTIGEN AND ANTIBODIES, 4TH GENERATION W/ REFLEX NON-REACT [facility] NON-REACT [facility] Comment: HIV-1 antigen and HIV-1/HIV-2 antibodies were not detected. There is no laboratory evidence of HIV infection. ?? PLEASE NOTE: This information has been disclosed to you from records whose confidentiality may be protected by state law. ??If your state requires such protection, then the state law prohibits you from making any further disclosure of the information without the specific written consent of the person to whom it pertains, or as otherwise permitted by law. A general authorization for the release of medical or other information is NOT sufficient for this purpose. ? For additional information please refer to http://[employer].Lab42/faq/OVI930 (This link is being provided for informational/ educational purposes only.) ? The performance of this assay has not been clinically validated in patients less than 2 years old. ?? HIV-1/2 ANTIGEN AND ANTIBODIES, 4TH GENERATION W/ REFLEX NON-REACT [facility] NON-REACT [facility] Comment: HIV-1 antigen and HIV-1/HIV-2 antibodies were not detected. There is no laboratory evidence of HIV infection. ?? PLEASE NOTE: This information has been disclosed to you from records whose confidentiality may be protected by state law. ??If your state requires such protection, then the state law prohibits you from making any further disclosure of the information without the specific written consent of the person to whom it pertains, or as otherwise permitted by law. A general authorization for the release of medical or other information is NOT sufficient for this purpose. ? For additional information please refer to http://[employer] [facility].Lab42/faq/GAO863 (This link is being provided for informational/ educational purposes only.) ? The performance of this assay has not been clinically validated in patients less than 2 years old. ?? 11/11/2019 12:0 4 PM EDT us Anna Whitfield CN LAB BLOOD ORDERABLES Angeli albert Result [facility] [address] from Last 3 Months or Most Recently Relevant to Health Maintenance Insurance [facility] C3 HSN FULL * Guarantor: Rafaela Terrell Account Type Relation to Patient Date of Phone Billing Address Dental Self 1995 [address] [place] [address] DENTAL-[facility] MEDICAID STAND ADULT Care Teams Body Builder Relationship Specialty Start Date End Date Nichole Andrea MD [address] [place] [phone] PCP - General Family Medicine 05/27/18
--- OUTSIDE RECORDS SUMMARY | 2024-06-29 10:42 | XMS_ITS | Encounter Summary ---
Author Organization [employer] Address [address] [facility] [address] [place] [address] Care Team Providers Care Supervisor [employer] Name Role Phone Nichole Andrea MD Primary Care Provider + Reason for Referral * Consultation (Routine) - Pending Review Specialty Diagnoses / Procedures Referred By Chloe wagner Referred To Contact Optometry Diagnoses Primary hypertension Nichole Andrea MD [address] [place] [address] Phone: tel: fax: Referral ID Status Reason Start Date Expiration Date Visits Requested Visits Authorized [id number] Pending Review Specialty Services Required 06/22/2024 06/22/2025 1 1 Reason for Visit * Reason Onset Date Comments Referral 06/22/2024 Encounter Details Date Type Department Care Team (Late st Contact Info) Description 06/22/2024 Telephone [facility] [address] [place], [place] [phone] Nichoel Andrea MD [address] [place], [place] [phone] Referral Social History Tobacco Use Types Packs/Day Years [...] encounter Miscellaneous Notes * Telephone Encounter - Nichole Andrea MD - 06/22/2024 7:54 PM EST See below re optometry referral * Telephone Encounter - Junior Samuels - 06/22/2024 4:14 PM EST TC from pt requesting new referral : Address: [address] [place] [address], [place] [address] Visits: 3 per year Facility Name: [facility] Type of Specialist: Admin Prog Coord DX: [id number] Provider : Franco Provider NPI : [id number] Facility Phone # : [phone] Fax #: [phone] documented in this encounter Plan of Treatment Upcoming Encounters Date Type Department Care Team (Late st Contact Info) Description 09/06/2024 8:00 AM EDT Office Visit [facility] [address] [place] [address] Ana, Damari [address] [place] [address] Scheduled Referrals Name Type Priority Associated Diagnoses Orde r Schedule Referral to Optometry Outpatient Referral Routine Primary hypertension Expected: 06/22/2024 (Approximate), Expires: 06/22/2025 documented as of this encounter Visit Diagnoses Diagnosis Primary hypertension- Primary Unspecified essential hypertension documented in this encounter Care Teams Supervisor [employer] Relationship Specialty Start Date End Date Nichole Andrea MD [address] [place] [address] PCP - General Family Medicine 05/27/18 documented as of this encounter
--- OUTSIDE RECORDS SUMMARY | 2024-06-29 10:42 | XMS_ITS | Encounter Summary ---
Author Organization [employer] Address [address] [facility] 7t [place] [address] Care Team Providers Care Income Tax Return Preparer Name Role Phone Nichole Andrea MD Primary Care Provider + Reason for Visit * Reason Onset Date Comments Chart prep 06/24/2024 Encounter Details Date Type Department Care Team (Late Contact Info) Description 06/24/2024 Telephone [facility] [address] [place] [address] Meli Ch MA Chart prep Social History Tobacco Use Types Packs/Day Years [...] encounter Miscellaneous Notes * Telephone Encounter - Meli Ch MA - 06/24/2024 2:21 PM EST Chart Prep Labs: not done Images: done Vaccines due: yes Referrals: pending appt Screenings: N/A Overdue care gaps: SDOH, PHQ-9 documented in this encounter Plan of Treatment Upcoming Encounters Date Type Department Care Team (Late Contact Info) Description 09/06/2024 8:00 AM EDT Office Visit [facility] [address] [place] [address] González Perezaris [address] [place] [address] documented as of this encounter Visit Diagnoses Not on filedocumented in this encounter Care Teams Income Tax Return Preparer Relationship Specialty Start Date End Date Nichole Andrea MD [address] [place] [address] PCP - General Family Medicine 05/27/18 documented as of this encounter
--- OUTSIDE RECORDS SUMMARY | 2024-06-29 10:43 | XMS_ITS | Encounter Summary ---
Author Organization [facility] Address [address] [place] [phone] Phone Care Team Providers Care Ict Trainer Name Role Phone Yisel Hooker MD Primary Care Provider Unavailabl e Encounter Details Date Type Department Care Team (Late st Contact Info) Description 04/10/2017 Conversion Encounter [facility] - [address] [address] Social History Tobacco Use Types Packs/Day Years Used Date Smoking Tobacco: Never Assessed Comments Unknown Sex and Gender Information Value Date Recorded Sex Assigned at Not on file Legal Sex Female 4:15 PM EDT Gender Identity Not on file Sexual Orientation Not on file documented as of this encounter Plan of Treatment Not on file documented as of this encounter Visit Diagnoses Not on filedocumented in this encounter Care Teams Ict Trainer Relationship Specialty Start Date End Date Yisel Hooker MD PCP - General 01/17/17 documented as of this encounter
== END 2024-06-29 10:58 | disposition home or self-care (01) ==
PROVIDERS: PCP Internal Medicine; Visit Provider Advanced Practice Midwife
DX: Z01.419 Encounter for gynecological examination (general) (routine) without abnormal findings (principal); R10.2 Pelvic and perineal pain
CPT/HCPCS: 99212

== ENCOUNTER 2024-06-29 10:39 | Outpatient (REF) | payer MEDICAID, SELFPAY | END 2024-06-29 10:40 | disposition home or self-care (01) | LOC: HO.LNP 10:39 | PROVIDERS: Visit Provider Advanced Practice Midwife | DX: Z13.89 Encounter for screening for other disorder (principal) ==

== ENCOUNTER 2024-07-12 15:25 | Emergency (ER) | payer MEDICAID, SELFPAY ==
--- NOTE | ~2024-07-12 | XR_ITS ---
EXAMINATION: XR CHEST CLINICAL INFORMATION: cp cough COMPARISON: 02/29/2024. TECHNIQUE: 2 views of the chest were obtained. FINDINGS: The cardiac, hilar, and mediastinal contours are normal. The lungs are clear bilaterally. There is no pneumothorax or pleural effusion. There is no focal osseous or soft tissue abnormality. XR/XR chest 2V IMPRESSION: Normal chest. Electronically signed by: Kiet Adam MD 07/12/2024 04:39 PM [facility]
--- NOTE | 2024-07-12 15:37 | ECG_ITS ---
Test Reason : CHEST PAIN Blood Pressure : */* mmHG Vent. Rate : 73 BPM Atrial Rate : 73 BPM P-R Int : 150 ms QRS Dur : 82 ms QT Int : 372 ms P-R-T Axes : 55 40 8 degrees QTcB Int : 409 ms Normal sinus rhythm with sinus arrhythmia Cannot rule out Anterior infarct , age undetermined Abnormal ECG When compared with ECG of 11-Sep-2023 18:10, No significant change was found Referred By: Generic ED Physician Electronically Signed By: Asim Aguiar
[2024-07-12 16:02] VITALS: BP 115/91; PULSE 62; RESP 16; TEMP 36.7; O2SAT 100; BMI 56.5
--- NOTE | 2024-07-12 16:02 | ED_ITS ---
HPI - URI/Sore Throat General Chief Complaint: Upper Respiratory Symptoms Stated Complaint: chest pain/dry cough Time Seen by Provider: 07/12/24 19:45 Source: patient Mode of arrival: ambulatory Limitations: no limitations History of Present Illness ED Provider: Kaylen Hua PA-C HPI Narrative: Patient is a 29 year old assigned female at with a history of asthma presenting to the emergency department today with a cough, fever, sore throat, and nasal congestion. Patient states that over the last week she has been having a cough, fever, sore throat, and nasal congestion. Patient denies any dizziness, lightheadedness, abdominal pain, nausea, vomiting, chills, blurry vision, double vision, loss of vision, chest pain, difficulty breathing, shortness of breath, back pain, night sweats, pain with urination, increased urinary frequency, increased urinary urgency, blood in her urine or stool, syncope or a near syncopal episode, recent trauma or falls, bowel incontinence, bladder incontinence, or any other complaints at this time. Related Data Home Medications ?Medication ?Instructions ?Recorded ?Confirmed cetirizine 10 mg capsule (Zyrtec) 10 mg PO DAILY 03/28/20 06/23/23 fluticasone propionate 110 1 puff inhalation Q12H 06/19/22 07/23/22 mcg/actuation HFA aerosol inhaler (Flovent HFA) triamcinolone acetonide 55 mcg 2 spray intranasal DAILY 06/19/22 07/23/22 nasal spray aerosol lisinopril 20 mg tablet 20 mg PO DAILY 06/29/24 Previous Rx's ?Medication ?Instructions ?Recorded albuterol sulfate 2.5 mg/3 mL 2.5 mg (3 mL) inhalation Q4-6H PRN 05/04/23 (0.083 %) solution for nebulization shortness of breath or wheezing #90 mL albuterol sulfate 90 mcg/actuation 2 puff inhalation Q4-6H PRN 05/04/23 aerosol inhaler (ProAir HFA) shortness of breath or wheezing #8.5 grams prednisone 50 mg tablet 50 mg PO DAILY 5 days #5 tabs 09/21/23 medroxyprogesterone 10 mg tablet 10 mg PO DAILY 10 days #10 tabs 12/03/23 (Provera) methylprednisolone 4 mg tablets in 4 mg PO DAILY #21 ea 02/15/24 a dose pack (Medrol (John)) prednisone 20 mg tablet 60 mg (3 x 20 mg) PO DAILY #12 tabs 02/29/24 fluconazole 150 mg tablet 150 mg PO ONCE 1 day #1 tab 06/30/24 Allergies Allergy/AdvReac Type Severity Reaction Status Date / Time prednisone Allergy Unknown Flushing Verified 07/12/24 16:04 environmental allergies Allergy Unknown Verified 07/12/24 16:04 Review of Systems Constitutional: Constitutional: Reports no additional constitutional complaints, Denies chills, Reports fever(s) and Denies night sweats Eyes: Eyes: Reports no additional eye complaints, Denies blurry vision, Denies change in vision, Denies diplopia, Denies eye discharge, Denies loss of vision and Denies eye pain ENT: Denies dizziness and Reports nasal congestion Cardiovascular: Cardiovascular: Reports no additional cardiovascular complaints, Denies chest pain, Denies lightheadedness, Denies Loss of Consciousness and Denies dyspnea Respiratory: Respiratory: Reports no additional respiratory complaints, Reports cough and Denies dyspnea Gastrointestinal: Gastrointestinal: Reports no additional gastrointestinal complaints, Denies abdominal pain, Denies melena, Denies hematochezia, Denies change in bowel habits and Denies change in stool character Genitourinary: Genitourinary: Denies hematuria, Denies urinary frequency, Denies dysuria, Denies urinary incontinence, Denies urinary hesitancy and Denies urinary urgency Musculoskeletal: Musculoskeletal: Reports no additional musculoskeletal complaints, Denies numbness and Denies tingling Neurologic: Denies dizziness, Denies loss of vision, Denies numbness and Denies tingling Psychiatric: Psychiatric: Reports no additional psychiatric complaints Endocrine: Endocrine: Reports no additional endocrine complaints Hematologic/Lymphatic: Hematologic/Lymphatic: Reports no additional hematologic/lymphatic complaints Allergic/Immunologic: Allergic/Immunologic: Reports no additional a llergic/immunologic complaints PMFSH Past Medical History Attestation statement: The following information was validated with the patient. Source: old records reviewed and nursing notes reviewed Medical History Sleep apnea Vitamin D deficiency Ovarian cyst Hirsutism History of depression History of anxiety Asthma Surgical History Hx of ovarian cystectomy Family History Family History Father HTN (hypertension) Diabetes Mother HTN (hypertension) Diabetes Maternal Grandmother Cervical cancer Uterine cancer Maternal Grandfather Colon cancer Social History Social History Household Members: None Housing: Apartment Alcohol intake: current Alcohol intake frequency: holidays/special occasions only Alcohol type: wine Patient Tobacco Use Status: Never used Tobacco Advance Directives: No Advance Directives Information Provided: No Current occupational status: student Sexual orientation: Straight/Heterosexual Gender identity: Female Physical Exam Vital Signs: Vital Signs: Last Vital Signs Temp 98.2 F 07/12/24 19:50 Pulse 72 07/12/24 19:50 Resp 20 07/12/24 19:50 BP 143/101 H 07/12/24 19:50 Pulse Ox 98 07/12/24 19:50 O2 Del Method Room Air 07/12/24 19:50 BMI result Body Mass Index 56.5 Const: General: cooperative, no acute distress, alert and awake Nutritional Appearance: well nourished Orientation/consciousness: patient oriented x3 Limitations: no limitations HEENT: Head: Yes normal to inspection and Yes atraumatic Ears: hearing grossly normal bilaterally and external ears normal General nose exam: Normal external nose present, no nasal discharge noted and no epistaxis Face and sinus: Yes normal facial exam, No abrasion and No laceration Mouth: Normal oral and palatal mucosa present, no drooling and no muffled voice Eyes: General: appearance normal, both eyes and all related structures Katherine orbital: periorbital findings normal Eyelids: Yes eyelids normal Conjunctivae: conjunctivae normal Pupils: Equal, round and reactive pupils present EOM: EOMs intact bilaterally Neck: Neck: Yes normal visual inspection, Yes full ROM and Yes no lymphadenopathy Chest: Chest palpation & inspection: normal inspection of the chest Resp: Effort & Inspection: normal respiratory effort and able to speak in complete sentences GI: Inspection: Yes normal to inspection Neuro: General: patient oriented x3 and moves all extremities Cranial nerves: Yes Equal, round and reactive pupils present Cognition (Neuro): normal cognition Extrem: General: Yes normal to inspection, Yes full ROM and Yes capillary refill normal Psych: Appearance: grossly normal Mental Status: mental status grossly normal Affect: normal affect Attitude: cooperative Thought process: Normal thought process present Thought content: Normal thought content present Insight: Good insight present (Psych) Course Course Course Narrative: This is a Rapid Medical Exam performed in triage by Libertad Enamorado PA-C. Full HPI, ROS and PE to be performed by primary ED provider. 29yo F w pmhx asthma, presenting to the ED c/o cough, chest tightness, sore throat, rhinorrhea x1 wk PE: Talking in complete sentences, nontoxic appearing Plan: viral testing, rapid strep, ekg, CXR Medical Decision Making Medical Decision Making [facility] Narrative: Patient is a 29 year old assigned female at with a history of asthma presenting to the emergency department today with a cough, fever, sore throat, and nasal congestion. Patient's physical exam was unremarkable. Patient's chest x-ray showed no acute process. Patient's RSV testing was positive. I explained my physical exam findings as well as all test results to the patient. I answered all questions asked by the patient. I stressed the importance of the patient taking her medication as directed (either prescribed or as the over the counter packaging recommends). I stressed the importance of the patient following up with her primary care provider. I stressed the importance of the patient ret urning to the emergency department immediately if her symptoms were to worsen or if she were to develop any dizziness, shortness of breath, difficulty breathing, chest pain, blurry vision, loss of vision, nausea, vomiting, abdominal pain, fever, chills, back pain, or any other complaints. Patient verbalized agreement and understanding with this treatment plan and discharge. Differential Diagnosis Differential Diagnoses: The differential diagnosis associated with the presentation includes Cough RSV Influenza Strep Admission/Observation Consideration of admission/observation: Escalation of care including admission/observation considered Patient would have been admitted to the hospital had her work up had any findings where hospital admission was appropriate and her clinical presentation warranted hospital admission. Lab Data [facility] Lab Attestation statement: I reviewed the patient's lab results. My interpretation of these results are in the [facility] Rationale portion of this note. Labs: Lab Results 07/12/24 Range/Units 16:08 Influenza Type A (PCR) NEGATIVE (Negative) Influenza Type B (PCR) NEGATIVE (Negative) RSV RNA Qual (PCR) POSITIVE A (Negative) SARS-CoV-2 RNA (RT-PCR) NEGATIVE (Negative) S. pyogenes GrpA LANDRY Negative (Negative) Independent Interpretation I performed an independent interpretation of an: Plain X-Ray Interpretation: My interpretation is in agreement with the radiologist's impression of this imaging study. EXAMINATION: XR CHEST CLINICAL INFORMATION: cp cough COMPARISON: 02/29/2024. TECHNIQUE: 2 views of the chest were obtained. FINDINGS: The cardiac, hilar, and mediastinal contours are normal. The lungs are clear bilaterally. There is no pneumothorax or pleural effusion. There is no focal osseous or soft tissue abnormality. XR/XR chest 2V IMPRESSION: Normal chest. Electronically signed by: Kiet Adam MD 07/12/2024 04:39 PM [facility] Dictated By: Kiet Adam MD Signed By: Electronically signed by Kiet Adam MD 07/12/24 1639 Radiology Impression Discussion of test interpretation with radiology: I have reviewed the radiologist's reading. Discharge Plan Discharge Clinical Impression: RSV (respiratory syncytial virus infection) Patient Disposition: Home, Self-Care Instructions: Respiratory Syncytial Virus (ED) Additional Instructions: Follow up with your primary care provider. Return to the emergency department immediately if your symptoms worsen or if you develop any dizziness, shortness of breath, difficulty breathing, chest pain, blurry vision, loss of vision, nausea, vomiting, abdominal pain, fever, chills, back pain, or any other complaints. Prescriptions: No Action fluconazole 150 mg tablet 150 mg PO ONCE 1 Days Qty: 1 0RF albuterol sulfate 2.5 mg /3 mL (0.083 %) solution for nebulization 2.5 mg inhalation Q4-6H PRN (Reason: shortness of breath or wheezing) Qty: 90 0RF albuterol sulfate [ProAir HFA] 90 mcg/actuation HFA aerosol inhaler 2 puff inhalation Q4-6H PRN (Reason: shortness of breath or wheezing) Qty: 8.5 0RF prednisone 50 mg tablet 50 mg PO DAILY 5 Days Qty: 5 0RF methylprednisolone [Medrol (John)] 4 mg tablets,dose pack 4 mg PO DAILY Qty: 21 0RF prednisone 20 mg tablet 60 mg PO DAILY Qty: 12 0RF Zyrtec 10 mg capsule 10 mg PO DAILY fluticasone propionate [Flovent HFA] 110 mcg/actuation HFA aerosol inhaler 1 puff inhalation Q12H triamcinolone acetonide 55 mcg aerosol,spray 2 spray intranasal DAILY lisinopril 20 mg tablet 20 mg PO DAILY medroxyprogesterone [Provera] 10 mg tablet 10 mg PO DAILY 10 Days Qty: 10 6RF Referrals: Nichole Andrea MD [Primary Care Provider] - Stand Alone Forms: Work/School Release Interventions: ED Discharge Assessment Last Done: 07/12/24 19:50 Discharge Date/Time: 07/12/24 19:51 Print Language: Chadian
[2024-07-12 16:30] LABS: IDNOW Serial# 6674DD1D; Strep A Nucleic Acid Negative (Negative)
[2024-07-12 17:05] LABS: Influenza A PCR NEGATIVE (Negative); Influenza B PCR NEGATIVE (Negative); Resp Syncy Virus RNA Qual PCR POSITIVE (Negative); SARS COV2 PCR INHOUSE NEGATIVE (Negative)
--- OUTSIDE RECORDS SUMMARY | 2024-07-12 17:18 | XMS_ITS | Encounter Summary ---
Author Organization [employer] Address [address] [facility] 7t [place] [address] Care Team Providers Care Drafter Marine Name Role Phone Nichole Andrea MD Primary Care Provider + Reason for Visit * Reason Onset Date Comments Appointment Request 05/30/2023 Encounter Details Date Type Department Care Team (Late st Contact Info) Description 05/30/2023 Telephone [facility] [address] [place], [place] [phone] Nichole Andrea MD [address] [place] [address] Appointment Request Social History Tobacco Use Types [...] 09/06/2024 8:00 AM EDT Office Visit [facility] ADULT DENTAL [address] [place] [address] González Perezaris [address] [place] [address] 09/08/2024 10:15 AM EDT Office Visit [facility] [address] [place] [address] Nichole Andrea MD [address] [place] [phone] documented as of this encounter Visit Diagnoses Not on filedocumented in this encounter Care Teams Drafter Marine Relationship Specialty Start Date End Date Nichole Andrea MD [address] [place] [phone] PCP - General Family Medicine 05/27/18 documented as of this encounter
--- OUTSIDE RECORDS SUMMARY | 2024-07-12 17:18 | XMS_ITS | Encounter Summary ---
Author Organization [employer] Address [address] [place] [address] 7t [place] [address] Care Team Providers Care Data Consultant Name Role Phone Nichole Andrea MD Primary Care Provider + Reason for Visit * Reason Onset Date Comments Medication Question 02/04/2023 Encounter Details Date Type Department Care Team ([facility] st Contact Info) Description 02/04/2023 Telephone [facility] [address] [place], [place] [phone] Nichole Andrea MD [address] [place], [place] [phone] Medication Question Social History Tobacco Use Types [...] seems like the [facility] already filledscript and should be [...] Description 09/06/2024 8:00 AM EDT Office Visit [facility]ULT [facility] [address] [place] [address] Ana, Damari [address] [place] [address] 09/08/2024 10:15 AM EDT Office Visit [facility] [address] [place] [address] Nichole Andrea MD [address] [place] [address] documented as of this encounter Visit Diagnoses Not on filedocumented in this encounter Care Teams Data Consultant Relationship Specialty Start Date End Date Nichole Andrea MD [address] [place] [address] PCP - General Family Medicine 05/27/18 documented as of this encounter
--- OUTSIDE RECORDS SUMMARY | 2024-07-12 17:18 | XMS_ITS | Encounter Summary ---
Author Organization [employer] [facility] Address [address] [facility] [address]t [place] [address] Care Team Providers Care Test Skein Winder Name Role Phone Nichole Andrea MD Primary Care Provider + Encounter Details Date Type Department Care Team (Late Contact Info) Description 08/09/2022 Abstract [facility] ADULT [facility] [address] [place], [place] [phone] Madi Summers DDS [address] [place], [place] [phone] Social History Tobacco Use Types Packs/Day Years [...] Description 09/06/2024 8:00 AM EDT Office Visit [facility]ULT D[facility] [address] [place], [place] [phone] Damari Perez [address] [place] [address] 09/08/2024 10:15 AM EDT Office Visit [facility] [address] [place] [address] Nichole Andrea MD [address] [place] [address] documented as of this encounter Visit Diagnoses Not on filedocumented in this encounter Care Teams Test Skein Winder Relationship Specialty Start Date End Date Nichole Andrea MD [address] [place] [phone] PCP - General Family Medicine 05/27/18 documented as of this encounter
--- OUTSIDE RECORDS SUMMARY | 2024-07-12 17:18 | XMS_ITS | Encounter Summary ---
Author Organization [employer] [facility] Address [address] [place] [address] 7t [place] [address] Care Team Providers Care Recreational Sports Director Name Role Phone Nichole Andrea MD Primary Care Provider + Encounter Details Date Type Department Care Team (Latest Contact Info) Description 08/21/2020 Abstract [facility] Dental, Provider, DDS Social History Tobacco [...] Description 09/06/2024 8:00 AM EDT Office Visit [facility]ULT [facility] [address] [place] [address] González Perezaris [address] [place] [address] 09/08/2024 10:15 AM EDT Office Visit [facility] [address] [place] [address] Nichole Andrea MD [address] [place] [address] documented as of this encounter Visit Diagnoses Not on filedocumented in this encounter Care Teams Recreational Sports Director Relationship Specialty Start Date End Date Nichole Andrea MD [address] [place] [address] PCP - General Family Medicine 05/27/18 documented as of this encounter
--- OUTSIDE RECORDS SUMMARY | 2024-07-12 17:18 | XMS_ITS | Encounter Summary ---
Author Organization [employer] Address [address] [facility] 7t [place] [address] Care Team Providers Care Manager Non Profit Name Role Phone Nichole Andrea MD Primary Care Provider + Encounter Details Date Type Department Care Team (Late Contact Info) Description 05/30/2023 Telephone [facility] [address] [place] [phone] Nichole Andrea MD [address] [place] [phone] Social History Tobacco Use Types Packs/Day Years [...] Description 09/06/2024 8:00 AM EDT Office Visit [facility] [address] [place], [place] [phone] Damari Perez [address] [place] [address] 09/08/2024 10:15 AM EDT Office Visit [facility] [address] [place] [phone] Nichole Andrea MD [address] [place] [address] documented as of this encounter Visit Diagnoses Not on filedocumented in this encounter Care Teams Manager Non Profit Relationship Specialty Start Date End Date Nichole Andrea MD [address] [place] [address] PCP - General Family Medicine 05/27/18 documented as of this encounter
--- OUTSIDE RECORDS SUMMARY | 2024-07-12 17:18 | XMS_ITS | Encounter Summary ---
Author Organization [employer] Address [address] [facility] 7t [place] [address] Care Team Providers Care Personal Loan Specialist Name Role Phone Nichole Andrea MD Primary Care Provider + Reason for Visit * Reason Onset Date Comments Nurse Triage 11/25/2023 Encounter Details Date Type Department Care Team ([facility] st Contact Info) Description 11/25/2023 Telephone [facility] [address] [place], [place] [phone] Nichole Andrea MD [address] [place], [place] [phone] Nurse Triage Social History Tobacco Use Types [...] . Pt is advised to come to [facility] to be seen by provider if needed. Pt agrees with home care advised and if time available will come to [facility]. Pt agrees with disposition and home [...] Description 09/06/2024 8:00 AM EDT Office Visit [facility] ADULT DENT[facility] [address] [place] [address] Ana, Damari [address] [place] [address] 09/08/2024 10:15 AM EDT Office Visit [facility] [address] [place] [address] Nichole Andrea MD [address] [place] [address] documented as of this encounter Visit Diagnoses Not on filedocumented in this encounter Care Teams Personal Loan Specialist Relationship Specialty Start Date End Date Nichole Andrea MD [address] [place] [phone] PCP - General Family Medicine 05/27/18 documented as of this encounter
--- OUTSIDE RECORDS SUMMARY | 2024-07-12 17:19 | XMS_ITS | Encounter Summary ---
Author Organization [employer] [facility] Address [address] [place] [address] [address] [place] [address] Care Team Providers Care Valve Liner Rubber Name Role Phone Nichole Andrea MD Primary Care Provider + Encounter Details Date Type Department Care Team (Late st Contact Info) Description 06/29/2024 Orders Only GENERIC EXTERNAL DATA DEPARTMENT Provider, Generic External Data Social History Tobacco Use Types Packs/Day Years [...] Description 09/06/2024 8:00 AM EDT Office Visit [facility]ULT [facility] [address] [place] [address] González Perezaris [address] [place] [address] 09/08/2024 10:15 AM EDT Office Visit [facility] MEDICINE [address] [place] [address] Nichole Andrea MD [address] [place] [address] documented as of this encounter Procedures Procedure Name Priority Date/Time Associated Diagnosis Comments BACTERIAL VAGINOSIS PANEL Routine 06/29/2024 9:44 AM EST CHLAMYDIA/N. GONORRHOEAE RNA, TMA, UROGENITAL Routine 06/29/2024 9:44 AM EST documented in this encounter Results * (ABNORMAL) Bacterial Vaginosis (06/29/2024 9:44 AM EST) TRICHOMONAS VAGINALIS DETECTION BY PCR NOT DETECTED Not Detect [facility] BACTERIAL VAGINOSIS DETECTION BY PCR NEGATIVE Negative [facility] Comment:The BV organism targ ets of the Xpert Xpress MVP test can becommensal in women; Xpert Xpress MVP positive results forbacterial vaginosis should be considered in conjunction withother clinical and patient information to determine thedisease status. Organisms that are not detected by the XpertXpress MVP test have also been reported to be associatedwith BV and aerobic vaginitis.The Xpert Xpress MVP test performance has not been evaluatedin patients under the age of 14. ESTHER GROUP DETECTION BY PCR NOT DETECTED Not Detect [facility] Esther glab krusei PCR DETECTED(A) Not Detect [facility] 06/29/2024 9:44 AM EST 06/29/2024 3:28 PM EST us Generic External Data Provider LAB MICROBIOLOGY - GENERAL ORDERABLES Final Result [facility] [address] [place] [phone] * Chlamydia/N. Gonorrhoeae RNA, TMA, Urogenitial (06/29/2024 9:44 AM EST) Pathologist [facility] CT PCR NOT DETECTED Not Detect. [facility] Comment:A not detected test result does not exclude the possibilityof infection because test results can be affected byimproper specimen collection, concurrent antibiotic therapy,or the number of organisms in the specimen which may bebelow the sensitivity of the test. As with many diagnostictests, results from the Xpert CT/NG assay should beinterpreted in conjunction with other laboratory andclinical data available to the clinician.Xpert CT/NG performance has not been evaluated in patientsless than 14 years of age. The assay should not be used forthe evaluationof suspected sexual abuse or for other medico-legalindications. Additional testing is recommended in anycircumstance when false positive or false negative resultscould lead to adverse medical, social or psychologicalconsequences. NG PCR NOT DETECTED Not Detect. [facility] Comment:A not detected test result does not exclude the possibilityof infection because test results can be affected byimproper specimen collection, concurrent antibiotic therapy,or the number of organisms in the specimen which may bebelow the sensitivity of the test. As with many diagnostictests, results from the Xpert CT/NG assay should beinterpreted in conjunction with other laboratory andclinical data available to the clinician.Xpert CT/NG performance has not been evaluated in patientsless than 14 years of age. The assay should not be used forthe evaluationof suspected sexual abuse or for other medico-legalindications. Additional testing is recommended in anycircumstance when false positive or false negative resultscould lead to adverse medical, social or psychologicalconsequences. 06/29/2024 9:44 AM EST 06/29/2024 3:28 PM EST Narrative [facility] - 06/30/2024 3:23 AM EST Vaginal us Generic External Data Provider LAB MICROBIOLOGY - GENERAL ORDERABLES Final Result Performing Organization Address City/State/[facility] Co de Phone Number [facility] [address] [place] [phone] documented in this encounter Visit Diagnoses Not on filedocumented in this encounter Care Teams Valve Liner Rubber Relationship Specialty Start Date End Date Nichole Andrea MD [address] [place] [phone] PCP - General Family Medicine 05/27/18 documented as of this encounter
--- OUTSIDE RECORDS SUMMARY | 2024-07-12 17:19 | XMS_ITS | Encounter Summary ---
Author Organization [employer] Address [address] [facility] [address] [place] [address] Care Team Providers Care Guidance Adviser Name Role Phone Nichole Andrea MD Primary Care Provider + Reason for Visit * Reason Onset Date Comments Chart prep 06/24/2024 Encounter Details Date Type Department Care Team (Late Contact Info) Description 06/24/2024 Telephone [facility] [address] [place] [address] Meli Ch MA Chart prep Social History [...] EDT Office Visit [facility] [address] [place] [address] González Perezaris [address] [place] [address] 09/08/2024 10:15 AM EDT Office Visit [facility] [address] [place] [address] Nichole Andrea MD [address] [place] [address] documented as of this encounter Visit Diagnoses Not on filedocumented in this encounter Care Teams Guidance Adviser Relationship Specialty Start Date End Date Nichole Andrea MD [address] [place] [address] [phone] PCP - General Family Medicine 05/27/18 documented as of this encounter
--- OUTSIDE RECORDS SUMMARY | 2024-07-12 17:19 | XMS_ITS | Encounter Summary ---
Author Organization [employer] Address [address] [facility] [address] [place] [address] Care Team Providers Care Pinion Polisher Name Role Phone Nichole Andrea MD Primary Care Provider + Reason for Visit * Reason Comments Sinusitis Encounter Details Date Type Department Care Team ([facility] st Contact Info) Description 06/15/2024 1:40 PM EST Office Visit [facility] [address] [place], [place] [phone] Debo Hayes NP [address] [place] [address] Hypertension, unspecified type (Primary Dx); Frontal sinusitis, [...] Description 09/06/2024 8:00 AM EDT Office Visit [facility] ADULT DENTAL [address] [place], [place] [phone] González Perezaris [address] [place] [address] 09/08/2024 10:15 AM EDT Office Visit [facility] MEDICINE [address] [place] [address] Nichole Andrea MD [address] [place] [address] Scheduled Orders Name Type Priority Associated Diagnoses [...] NOW Rapid Molecular) (06/15/2024 1:43 PM EST) [facility] Influenza B Negative Negative, Indeterminate [facility] Swab 06/15/2024 1:43 PM EST Debo Hayes NP POINT OF CARE TEST ENTER/EDIT OR DERABLES Final Result [facility] [address] [place] [phone] * Influenza A (ID NOW Rapid Molecular) (06/15/2024 1:43 PM EST) [facility] Influenza A Negative Negative, Indeterminate [facility] Swab 06/15/2024 1:43 PM EST Debo Hayes MANAGER OPERATIONAL POINT OF CARE TEST ENTER/EDIT OR DERABLES Final Result Performing Organization Address [facility] Co de Phone Number [facility] [address] [place] [phone] * POCT Rapid COVID Ag (06/15/2024 1:43 PM EST) Rapid COVID Ag Negative [facility] Swab 06/15/2024 1:43 PM EST us Debo Hayes MANAGER OPERATIONAL POINT OF CARE TEST ENTER/EDIT OR DERABLES Final Result Performing Organization Address [facility] de Phone Number [facility] [address] [place] [phone] documented in this encounter Visit Diagnoses Diagnosis Hypertension, unspecified type- Primary Frontal sinusitis, unspecified chronicity documented in this encounter Care Teams Pinion Polisher Relationship Specialty Start Date End Date Nichole Andrea MD [address] [place] [phone] PCP - General Family Medicine 05/27/18 documented as of this encounter
--- OUTSIDE RECORDS SUMMARY | 2024-07-12 17:19 | XMS_ITS | Encounter Summary ---
Author Organization [employer] Address [address] [facility] 7[address] [place] [address] Care Team Providers Care Chief Dispatcher Service Name Role Phone Nichole Andrea MD Primary Care Provider + Encounter Details Date Type Department Care Team (Latest Contact Info) Description 07/07/2024 Travel Social History Tobacco Use Types Packs/Day Years [...] 8:00 AM EDT Office Visit [facility] ADULT [facility] [address] [place] [address] Ana Damari [address] [place] [address] 09/08/2024 10:15 AM EDT Office Visit [facility] MED[facility] [address] [place] [address] Nichole Andrea MD [address] [place] [address] documented as of this encounter Visit Diagnoses Not on filedocumented in this encounter Care Teams Chief Dispatcher Service Relationship Specialty Start Date End Date Nichole Andrea MD [address] [place] [phone] PCP - General Family Medicine 05/27/18 documented as of this encounter
--- OUTSIDE RECORDS SUMMARY | 2024-07-12 17:19 | XMS_ITS | Clinical Summary ---
Author Organization [email or web address] Address [address] [facility] [address] [place] [address] Care Team Providers Care Photography Spotter Name Role Phone Nichole Andrea MD Primary [...] record from that organization. Blood Pressure Monitor kitIndications: Primary hypertension Use as directed 3x/week 1 kit 06/17/19 24 Active cetirizine (ZyrTEC) 10 MG tabletIndicatio ns:Bedbug bite, initial encounter Take 1 tablet (10 mg) by mouth Once per day. 90 tablet 3 11/25/19 24 025 Active azelastine (Astelin) 0.1 % [...] 1 each 11 03/15/20 24 025 Active Spacer/Aero-Hol ding Chambers deviceIndicatio ns:Moderate persistent asthma without complication Use as directed 4x/d prn SOB, with inhaler 1 Units 03/15/20 24 Active lisinopril (Prinivil) 20 MG tablet Take 1 tablet (20 mg) by mouth Once per day. 30 tablet 11 06/15/19 25 026 Active albuterol (Ventolin HFA) 108 (90 Base) MCG/ACT inhalerIndicati ons:Cough in adult patient Inhale 2 puffs Every 4-6 hours as needed for wheezing or shortness of breath. 18 g 1 07/07/19 25 026 Active albuterol (Ventolin HFA) 108 (90 Base) MCG/ACT inhaler Inhale 2 puffs Every 4-6 hours as needed for wheezing. 18 g 1 01/08/20 24 025 Discontinued(R eorder (will not trigger notification to Pharmacy)) lisinopril 10 MG tabletIndicatio ns:Primary hypertension Take 1 tablet (10 mg) by mouth Once per day. 90 tablet 1 03/15/20 24 025 Discontinued amoxicillin-cla vulanate (Augmentin) 875-125 MG tabletIndicatio ns:Frontal sinusitis, unspecified chronicity Take 1 tablet by [...] intercourse exclusively with AFAB - f/u with DINING ROOM ATTENDANT - counseled regarding weight reduction SEBAS (obstructive [...] (10/15/2023 10:51 AM EDT): - seen by DINING ROOM ATTENDANT, awaiting for surgery - refer to chari , she needs to lose weight prior to surgery Assessment & Plan (06/30/2023 8:05 PM EST): FU with DINING ROOM ATTENDANT at [facility]. Dental caries 07/11/2022 Foot pain, bilateral [...] life style modifications, diet and referral to asset recovery specialist. Recommended to decrease soda and sugary [...] exercise, life style modifications, diet, referral to asset recovery specialist. Discussed re lower calorie intake, increase dietary fiber Will refer to computerized machine fabric cutter Pt given information about weight reduction programs at both [facility] and [facility] Assessment & Plan (06/30/2023 8:05 PM EST): Discussed re weight reduction options including exercise, life style modifications, diet, referral to asset recovery specialist, she wants to hold off on it for now.. Discussed re lower calorie intake, increase dietary fiber Resolved Problems Problem Noted Date Diagnosed Date Resolved Date Overweight (BMI 25.0-29.9) 05/11/2022 0 06/17/2023 Encounters Date Type Department Care Team Description 07/12/2024 Orders Only GENERIC EXTERNAL DATA DEPARTMENT Provider, Generic External Data 07/07/2024 6:40 PM EST Office Visit [facility] [address] [place] [phone] Cough in adult patient (Primary Dx); Palpitations 07/07/2024 Travel 06/29/2024 Orders Only GENERIC EXTERNAL DATA DEPARTMENT Provider, Generic External Data 06/24/[address] [address] Meli Ch MA Chart prep 06/22/[address] [address] Nichole Andrea MD Referral 06/15/2024 1:40 PM EST Office Visit [facility] [address] [address] Debo Hayes NP Hypertension, unspecified type (Primary Dx); Frontal sinusitis, unspecified chronicity 04/26/2024 10:30 AM EST Clinical Support [address] [address] Leigha Newsome, RN Primary hypertension 04/26/[address] [address] Leigha Newsome, RN Blood Pressure Check 04/26/2024 Travel 04/21/2024 11:30 AM EST Office Visit [facility] [address] [place] [phone] Haley Freeman, DDS Status post dental latter-day (Primary Dx) 04/20/[address] [phone] Nichole Andrea MD June recall from Last 3 Months Immunizations Name Administration Dates Next Due DTaP 01/26/2009, 2,05/18/1998,07/28,1997,1997 HPV, Quadrivalent 05/30/2011,03/25/2011,01/18/20 11 Hep B, Adolescent or Pediatric 1997,1996,1997 Hib (HbOC) 05/18/1998, 8,1997,04/08 IPV 01/04/2002, 8,1997,04/08 Influenza Injectable Quadriv alant Preservative Free [...] Sign Reading Time Taken Comments Blood Pressure 137/89 07/07/2024 5:51 PM EST Pulse 99 07/07/2024 5:51 PM EST Temperature 37 ??C (98.6 ??F) 07/07/2024 5:51 PM EST Respiratory Rate 18 07/07/2024 5:51 PM EST Oxygen Saturation 99% 07/07/2024 5:51 PM EST Inhaled Oxygen Concentration - - Weight 152 kg (334 lb 3.2 oz) 06/15/2024 1:30 PM EST Height 162.6 cm (5' 4 ) 03/15/2024 3:45 PM EDT Body Mass Index 57.37 03/15/2024 3:45 PM EDT Plan of Treatment Upcoming Encounters Date Type Department Care Team (Late st Contact Info) Description 09/06/2024 8:00 AM EDT Office Visit [facility] [address] [place] [address] González Perezaris [address] [place] [address] 09/08/2024 10:15 AM EDT Office Visit [facility] [address] [place] [address] Nichole Andrea MD [address] [place] [address] Health Maintenance Due Date Last Done Comments Depression Screening 1997 Lipid Panel 1997 SDOH Screening 1997 Alcohol/Substance Use Screening 2009 HPV Vaccines (3 - 2-dose series) 08/22/2011 05/30/2011, 03/25/2011, 01/17/2011 Family Planning (PISQ) 02/13/2012 Hepatitis C Screening 2015 Pneumococcal Vaccine: Pediatrics (0 to 5 Years) and At-Risk Patients (6 to 49) Years) (1 of 2 - PCV) 02/13/2016 COVID-19 Vaccine ( season) 2024 04/16/2022, 06/23/2021, 09/26/2020, Additional history exists Dental Oral Exam 09/06/2024 03/08/2024, 07/11/2022 Dental Prophylaxis 09/06/2024 03/08/2024, 07/11/2022 Dental X-Ray: Bitewings 03/09/2025 03/08/2024, 07/11 Tobacco Screening 04/21/2025 04/21/2024 Pap Smear 06/19/2025 06/19/2022 DTaP/Tdap/Td Vaccines (8 - Td or Tdap) 11/08/2025 11/09/2015, 01/26/2009, 01/04/2002, Additional history exists Dental X-Ray: Full Mouth 03/09/2027 03/08/2024, 09/2020 Zoster Vaccines (1 of 2) 2047 RSV [...] Procedure Name Priority Date/Time Associated Diagnosis Comments SARS COV2/INFLUENZA A/B AND RSV RNA QL NAAT Routine 07/12/2024 4:08 PM EST STREP A NUCLEIC ACID Routine 07/12/2024 4:08 PM EST XR CHEST 2 VIEWS Routine 07/12/2024 4:03 PM EST ECG 12-LEAD Routine 07/07/2024 8:23 PM EST Palpitations POCT INFLUENZA B Routine 07/07/2024 8:22 PM EST Cough in adult patient POCT INFLUENZA A Routine 07/07/2024 8:21 PM EST Cough in adult patient POCT RAPID COVID ANTIGEN Routine 07/07/2024 8:20 PM EST Cough in adult patient BACTERIAL VAGINOSIS PANEL Routine 06/29/2024 9:44 AM EST CHLAMYDIA/N. GONORRHOEAE RNA, TMA, UROGENITAL Routine 06/29/2024 9:44 AM EST POCT INFLUENZA B (ID NOW RAPID MOLECULAR) Routine 06/15/2024 1:43 PM EST Frontal sinusitis, unspecified chronicity POCT INFLUENZA A (ID NOW RAPID MOLECULAR) Routine 06/15/2024 1:43 PM EST Frontal sinusitis, unspecified chronicity POCT RAPID COVID ANTIGEN Routine 06/15/2024 1:43 PM EST Frontal sinusitis, unspecified chronicity NO CHARGE VISIT Routine 04/21/2024 11:30 AM EST Status post dental latter-day PROPHYLAXIS - ADULT Routine 03/08/2024 8 :00 [...] Recently Relevant to Health Maintenance Results * Strep A Nucleic Acid (07/12/2024 4:08 PM EST) IDNOW SERIAL# [id number] [facility] Strep A Nucleic Acid Negative Negative [facility] Comment:All test results mus t be correlated with clinical findings.This test has not been evaluated for monitoring treatment ofinfection.Additional follow-up testing using the culture method isrequired if the result is negative and clinical symptomspersist, or in the event of an acute rheumatic feveroutbreak. 07/12/2024 4:08 PM EST 07/12/2024 4:12 PM EST Generic External Data Provider LAB MICROBIOLOGY - GENERAL ORDERABLES Final Result Performing Organization Address [facility] de Phone Number [facility] [address] [place] [phone] * (ABNORMAL) SARS-CoV-2 RNA, Influenza A/B, and RSV RNA, Ql NAAT (07/12/2024 4:08 PM EST) Influenza A PCR NEGATIVE Negative [facility] Influenza B PCR NEGATIVE Negative [facility] Resp Syncy Virus RNA Qual PCR POSITIVE(A) Negative [facility] SARS COV2 PCR NEGATIVE Negative [facility] Comment:All test results mus t be correlated with clinical findings.Negative results do not preclude SARS-CoV2, influenza Avirus, influenza B virus and/or RSV infectionand should not be used as the sole basis for treatment orother patient management decisions. Negative results must becombined with clinical observations, patient history, andepidemiological information.This test has not been evaluated for monitoring treatment ofinfection.This test has been authorized by the FDA under an EmergencyUse Authorization (EUA) for use by authorized laboratories.Testing performed on the [employer] GeneXpert utilizingreal-time RT-PCR.All SARS CoV2 and positive influenza A/B results arereported to [facility]. 07/12/2024 4:08 PM EST 07/12/2024 4:12 PM EST Generic External Data Provider LAB MICROBIOLOGY - GENERAL ORDERABLES Final Result Performing Organization Address [facility] Co de Phone Number [facility] [address] [place] [phone] * XR Chest 2 Views (07/12/2024 4:03 PM EST) Anatomical Region Laterality Modality Chest Radiographic Lillian ging 07/12/2024 4:03 PM EST Narrative 07/12/2024 4:42 PM EST ? [place] [facility] ?[address] ?[place] [address] ?XRay Report ? Signed ? Patient: Westry,Rafaela A ?MR#: [id number] ?? 650 ? : 1995 ?Acct:[id number] ? Age/Sex: 29 / F ?ADM Date: 07/12/24 ? Loc: HO.ED ? Attending Dr: ? Ordering Physician: Libertad Enamorado ?? Date of Service: 07/12/24 ?? Procedure(s): XR chest 2V ?? Accession Number(s): [id number] ? cc: Nichole Andrea MD; Libertad Enamorado ? EXAMINATION: ?? XR CHEST ? CLINICAL INFORMATION: ?? cp cough ? COMPARISON: ?? 02/29/2024. ? TECHNIQUE: ?? 2 views of the chest were obtained. ? FINDINGS: ?? The cardiac, hilar, and mediastinal contours are normal. ? The lungs are clear bilaterally. There is no pneumothorax or pleural ?? effusion. ? There is no focal osseous or soft tissue abnormality. ? XR/XR chest 2V ?? IMPRESSION: ?? Normal chest. ? Electronically signed by: ??Kiet Adam MD ??07/12/2024 04:39 PM EST RP ? Dictated By: ?Kiet Adam MD ? Signed By: ?<Electronically signed by Kiet Adam MD in OV> ?07/12/24 1639 ? DD/ 1603 ? TD/TT: 07/12/24 1630 ? Bulk Sealer Operator: ? Procedure Note Jeremiah Romero - 07/12/[address] [address] XRay Report Signed Patient: Rafaela Terrell AMR#: [id number] 650 : 1995Acct:[id number] Age/Sex: 29 / FADM Date: 07/12/24 Loc: HO.ED Attending Dr: Ordering Physician: Libertad Enamorado Date of Service: 07/12/24 Procedure(s): XR chest 2V Accession Number(s): [id number] cc: Nichole Andrea MD; Pouliot,Libertad PA EXAMINATION: XR CHEST CLINICAL INFORMATION: cp cough COMPARISON: 02/29/2024. TECHNIQUE: 2 views of the chest were obtained. FINDINGS: The cardiac, hilar, and mediastinal contours are normal. The lungs are clear bilaterally. There is no pneumothorax or pleural effusion. There is no focal osseous or soft tissue abnormality. XR/XR chest 2V IMPRESSION: Normal chest. Electronically signed by: Kiet Adam MD 07/12/2024 04:39 PM EST Dictated By: Kiet Adam MD Signed By: <Electronically signed by Kiet dAam MD in OV> 07/12/24 1639 DD/ 1603 TD/TT: 07/12/24 1630 Bulk Sealer Operator: [facility] External Provider IMG XR PROCEDURES Final Result * ECG 12 lead (07/07/2024 8:23 PM EST) Kaelyn Rios NP - 07/07/2024 8:23 PM EST HR 82 bpm, left axis deviation. Sinus rhythm ECG Kaelyn Segovia RADIOLOGY ADMINISTRATOR ECG ORDERABLES Final Result * POCT Influenza B manually resulted (07/07/2024 8:22 PM EST) [facility] Rapid Influenza B Ag Negative Negative, Indeterminate QC Media Lot # [id number] Lot# Expiration Date Swab 07/07/2024 8:22 PM EST Kaelyn Segovia RADIOLOGY ADMINISTRATOR POINT OF CARE TEST ENTER/EDIT O RDERABLES Final Result * POCT Influenza A manually resulted (07/07/2024 8:21 PM EST) [facility] Rapid Influenza A Ag Negative Negative, Indeterminate QC Media Lot # [id number] Lot# Expiration Date Swab Nasopharyngeal structure / Unknown 07/07/2024 8:21 PM EST Kaelyn Segovia NP POINT OF CARE TEST ENTER/EDIT O RDERABLES Final Result * POCT Rapid COVID Ag (07/07/2024 8:20 PM EST) Only the most recent of2 resultswithin the time period is included. Pathologist [facility] Rapid COVID Ag Negative QC Media Lot # [id number] Lot# Expiration Date 11,313 Swab 07/07/2024 8:20 PM EST Kaelyn Segovia NP POINT OF CARE TEST ENTER/EDIT O RDERABLES Final Result * (ABNORMAL) Bacterial Vaginosis (06/29/2024 9:44 AM EST) [facility] TRICHOMONAS VAGINALIS DETECTION BY PCR NOT DETECTED Not Detect [facility] BACTERIAL VAGINOSIS DETECTION BY PCR NEGATIVE Negative [facility] Comment:The BV organism targ ets [...] evaluatedin patients under the age of 14. EVELYN GROUP DETECTION BY PCR NOT DETECTED Not Detect [facility] Evelyn glab krusei PCR DETECTED(A) Not Detect [facility] 06/29/2024 9:44 AM EST 06/29/2024 3:28 PM EST Generic External Data Provider LAB MICROBIOLOGY - GENERAL ORDERABLES Final Result [facility] [address] [place] [phone] * Chlamydia/N. Gonorrhoeae RNA, TMA, Urogenitial (06/29/2024 9:44 AM EST) Pathologist [facility] CT PCR NOT DETECTED Not Detect. [facility] Comment:A not detected test result [...] psychologicalconsequences. NG PCR NOT DETECTED Not Detect. [facility] Comment:A not detected test result [...] AM EST 06/29/2024 3:28 PM EST Narrative [facility] - 06/30/2024 3:23 AM EST Vaginal us Generic External Data Provider LAB MICROBIOLOGY - GENERAL ORDERABLES Final Result [facility] [address] [place] [phone] * Influenza B (ID NOW Rapid Molecular) (06/15/2024 1:43 PM EST) Influenza B Negative Negative, Indeterminate [facility] Swab 06/15/2024 1:43 PM EST us Debo Hayes RADIOLOGY ADMINISTRATOR POINT OF CARE TEST ENTER/EDIT OR DERABLES Final Result Performing Organization Address [facility]/ZIP Co de Phone Number [facility] [address] [place] [phone] * Influenza A (ID NOW Rapid Molecular) (06/15/2024 1:43 PM EST) Influenza A Negative Negative, Indeterminate [facility] Swab 06/15/2024 1:43 PM EST Debo Hayes RADIOLOGY ADMINISTRATOR POINT OF CARE TEST ENTER/EDIT OR DERABLES Final Result Performing Organization Address [facility] de Phone Number [facility] [address] [place] [phone] * Pap Smear (06/19/2022 3:50 PM EST) 06/19/2022 3:50 PM EST 06/20/2022 9:45 AM EST Narrative [facility] - 06/29/2022 3:25 PM EST ----- ------- Name: Rafaela Terrell ?Age/Sex: 27/F ? : 1995 Unit#: [id number] ?? Attend Dr: Huma Ochoa CNM ?Re06/19/22 ?Status: DEP REF ? Location: HO.LNP ?Disch: ? ----- ------- SPEC : [id number] ?RECD: 06/20/22 ? STATUS: ??SOUT ? REQ NUM: [id number] ? ENEIDA: 06/19/22 ? SUBM DR: Huma Ochoa CNM ? ENTERED: ??06/20/22 ?SP TYPE: Pap Smr ?OTHR DR: Nichole Andrea MD ? ORDERED: ??Pap Smear ? Interpretation ?? Satisfactory for evaluation. ?? Negative for intraepithelial lesion or malignancy. ?Clinical Information LMP: 05/27/22 Previous PAP test: 04/07/20, WNL ? Material Received ?? ThinPrep-Cervical Copies To: ?? Nichole Andrea MD ?? [address] [facility] ?? [place] [address] ? Huma Ochoa CNM ?? [address] ?? [place] [address] ?? [phone] ----- ------- Signed (signature on file) Anabel Matthews 06/29/22 1525 ? ----- ------- ? END OF REPORT ? [facility] External Provider LAB CYT OLOGY ORDERABLES Final Result [facility] [address] [place] [phone] * HIV 1/2 ANTIGEN/ANTIBODY,FOURTH GENERATION W/RFL (11/11/2019 12:04 PM EDT) HIV-1/2 ANTIGEN AND ANTIBODIES, 4TH GENERATION W/ REFLEX NON-REACT IRIS NON-REACT IRIS [facility] Comment: HIV-1 antigen and HIV-1/HIV-2 [...] ? For additional information please refer to http://Get-n-Post.[employer]/faq/ZLC062 (This link is being provided for informational/ educational purposes only.) ? The performance of this assay has not been clinically validated in patients less than 2 years old. ?? HIV-1/2 ANTIGEN AND ANTIBODIES, 4TH GENERATION W/ REFLEX NON-REACT IRIS NON-REACT IRIS [facility] Comment: HIV-1 antigen and HIV-1/HIV-2 [...] ? For additional information please refer to http://Get[employer]/faq/XZR090 (This link is being provided for informational/ educational purposes only.) ? The performance of this assay has not been clinically validated in patients less than 2 years old. ?? 11/11/2019 12:0 4 PM EDT Anna CHRISTIANSON LAB BLOOD ORDERABLES Angeli l Result [facility] [address] from Last 3 Months or Most Recently Relevant to Health Maintenance Insurance [facility] C3 HSN FULL DENTAL-[facility] MEDICAID STAND ADULT Care Teams Photography Spotter Relationship Specialty Start Date End Date Nichole Andrea MD [address] [place] [phone] PCP - General Family Medicine 05/27/18
--- OUTSIDE RECORDS SUMMARY | 2024-07-12 17:19 | XMS_ITS | Encounter Summary ---
Author Organization [employer] Address [address] [place] [address] Care Team Providers Care Compo Conveyor Operator Name Role Phone Nichole Andrea MD Primary Care Provider + Encounter Details Date Type Department Care Team (Late Contact Info) Description 07/07/2024 6:40 PM EST Office Visit [facility] [address] [place] [address] Cough in adult patient (Primary Dx); Palpitations Social History Tobacco Use Types Packs/Day Years [...] EST Inhaled Oxygen Concentration - - Weight - - Height - - Body Mass Index - - documented in this encounter Plan of Treatment Upcoming Encounters Date Type Department Care Team (Late Contact Info) Description 09/06/2024 8:00 AM EDT Office Visit [facility] [address] [place] [address] González Perezaris [address] [place] [address] 09/08/2024 10:15 AM EDT Office [facility] [address] [facility] [place] [address] Nichole Andrea MD [address] [place] [address] documented as of this encounter Procedures Procedure Name Priority Date/Time Associated Diagnosis Comments ECG 12-LEAD Routine 07/07/2024 8:23 PM EST Palpitations POCT INFLUENZA B Routine 07/07/2024 8:22 PM EST Cough in adult patient POCT INFLUENZA A Routine 07/07/2024 8:21 PM EST Cough in adult patient POCT RAPID COVID ANTIGEN Routine 07/07/2024 8:20 PM EST Cough in adult patient documented in this encounter Results * ECG 12 lead (07/07/2024 8:23 PM EST) Narrative Kaelyn Segovia NP - 07/07/2024 8:23 PM EST HR 82 bpm, left axis deviation. Sinus rhythm ECG us Kaelyn Segovia NP ECG ORDERABLES Final Result * POCT Influenza B manually resulted (07/07/2024 8:22 PM EST) Pathologist [facility] Rapid Influenza B Ag Negative Negative, Indeterminate QC Media Lot # [id number] Lot# Expiration Date [id number] Swab 07/07/2024 8:22 PM EST us Kaelyn Segovia NP POINT OF CARE TEST ENTER/EDIT O RDERABLES Final Result * POCT Influenza A manually resulted (07/07/2024 8:21 PM EST) [facility] Rapid Influenza A Ag Negative Negative, Indeterminate QC Media Lot # [id number] Lot# Expiration Date 8,626 Swab Nasopharyngeal structure / Unknown 07/07/2024 8:21 PM EST Kaelyn Juliette VAT SKIMMER POINT OF CARE TEST ENTER/EDIT O RDERABLES Final Result * POCT Rapid COVID Ag (07/07/2024 8:20 PM EST) [facility] Rapid COVID Ag Negative QC Media Lot # [id number] Lot# Expiration Date 71,826 Swab 07/07/2024 8:20 PM EST us Kaelyn Segovia VAT SKIMMER POINT OF CARE TEST ENTER/EDIT O RDERABLES Final Result documented in this encounter Visit Diagnoses Diagnosis Cough in adult patient- Primary Palpitations documented in this encounter Care Teams Compo Conveyor Operator Relationship Specialty Start Date End Date Nichole Andrea MD [address] [place] [phone] PCP - General Family Medicine 05/27/18 documented as of this encounter
--- OUTSIDE RECORDS SUMMARY | 2024-07-12 17:19 | XMS_ITS | Encounter Summary ---
Author Organization [employer] [facility] Address [address] [place] [address] 7t [place] [address] Care Team Providers Care Hospitality Team Member Name Role Phone Nichole Andrea MD Primary Care Provider + Encounter Details Date Type Department Care Team (Late st Contact Info) Description 07/12/2024 Orders Only GENERIC EXTERNAL DATA [...] Description 09/06/2024 8:00 AM EDT Office Visit [facility] ADULT DENTAL [address] [place] [address] González Perezaris [address] [place] [address] 09/08/2024 10:15 AM EDT Office Visit [facility] MEDICINE [address] [place] [address] Nichole Andrea MD [address] [place] [address] documented as of this encounter Procedures Procedure Name Priority Date/Time Associated Diagnosis Comments STREP A NUCLEIC ACID Routine 07/12/2024 4:08 PM EST SARS COV2/INFLUENZA A/B AND RSV RNA QL NAAT Routine 07/12/2024 4:08 PM EST XR CHEST 2 VIEWS Routine 07/12/2024 4:03 PM EST documented in this encounter Results * (ABNORMAL) SARS-CoV-2 RNA, Influenza A/B, and RSV RNA, Ql NAAT (07/12/2024 4:08 PM EST) Influenza A PCR NEGATIVE Negative [facility] Influenza B PCR NEGATIVE Negative [facility] Resp Syncy Virus RNA Qual PCR POSITIVE(A) Negative [facility] SARS COV2 PCR NEGATIVE Negative [facility] Comment:All test results mus t be [...] use by authorized laboratories.Testing performed on the [employer] GeneXpert utilizingreal-time RT-PCR.All SARS CoV2 and positive influenza A/B results arereported to [facility]. 07/12/2024 4:08 PM EST 07/12/2024 4:12 PM EST us Generic External Data Provider LAB MICROBIOLOGY - GENERAL ORDERABLES Final Result [facility] [address] [place] [address] [phone] * Strep A Nucleic Acid (07/12/2024 4:08 PM EST) IDNOW SERIAL# [id number] [facility] Strep A Nucleic Acid Negative Negative [facility] Comment:All test results mus t be correlated with clinical findings.This test has not been evaluated for monitoring treatment ofinfection.Additional follow-up testing using the culture method isrequired if the result is negative and clinical symptomspersist, or in the event of an acute rheumatic feveroutbreak. 07/12/2024 4:0 8 PM EST 07/12/2024 4:12 PM EST us Generic External Data Provider LAB MICROBIOLOGY - GENERAL ORDERABLES Final Result [facility] [address] [place] [address] [phone] * XR Chest 2 Views (07/12/2024 4:03 PM EST) Anatomical Region Laterality Modality Chest Radiographic Lillian ging 07/12/2024 4:03 PM EST Narrative 07/12/2024 4:42 PM EST ? [facility] ?[address] ?[place] [address] ?XRay Report ? Signed ? Patient: Rafaela Terrell ?MR#: [id number] ?? [id number] ? : 1995 ?Acct:[id number] ? Age/Sex: 29 / F ?ADM Date: 07/12/24 ? Loc: HO.ED ? Attending Dr: ? Ordering Physician: Libertad Enamorado ?? Date of Service: 07/12/24 ?? Procedure(s): XR chest 2V ?? Accession Number(s): [id number] ? cc: Nichole Andrea MD; Libertad Enamorado [...] DD/ 1603 ? TD/TT: 07/12/24 1630 ? Spring Assembler: ? Procedure Note Donjaclynter, Image - 07/12/[address] [address] XRay Report Signed Patient: Rafaela Terrell AMR#: [id number] : 1995Acct:[id number] Age/Sex: FADM Date: 07/12/24 Loc: .ED Attending Dr: Ordering Physician: Libertad Enamorado Date of Service: 07/12/24 Procedure(s): XR chest 2V Accession Number(s): [id number] cc: Nichole Andrea MD; Libertad Enamorado EXAMINATION: XR CHEST CLINICAL INFORMATION: cp cough COMPARISON: 02/29/2024. TECHNIQUE: 2 views of the chest were obtained. FINDINGS: The cardiac, hilar, and mediastinal contours are normal. The lungs are clear bilaterally. There is no pneumothorax or pleural effusion. There is no focal osseous or soft tissue abnormality. XR/XR chest 2V IMPRESSION: Normal chest. Electronically signed by: Kiet Adam MD 07/12/2024 04:39 PM [facility] Dictated By: Kiet Adam MD Signed By: <Electronically signed by Kiet Adam MD in OV> 07/12/24 1639 DD/ 1603 TD/TT: 07/12/24 1630 Spring Assembler: [facility] External Provider IMG XR PROCEDURES Final Result documented in this encounter Visit Diagnoses Not on filedocumented in this encounter Care Teams Hospitality Team Member Relationship Specialty Start Date End Date Nichole Andrea MD [address] [place] [address] PCP - General Family Medicine 05/27/18 documented as of this encounter
--- OUTSIDE RECORDS SUMMARY | 2024-07-12 17:19 | XMS_ITS | Encounter Summary ---
Author Organization [employer] Address [address] [facility] 7t [place] [address] Care Team Providers Care Double End Sewer Name Role Phone Nichole Andrea MD Primary Care Provider + Reason for Referral * Consultation (Routine) - Pending Review Specialty Diagnoses / Procedures Referred By Chloe wagner Referred To Contact Optometry Diagnoses Primary hypertension Nichole Andrea MD [address] [place] [address] Phone: tel: fax: Referral ID Status Reason Start Date Expiration Date Visits Requested Visits Authorized [id number] Pending Review Specialty Services Required 06/22/2024 06/22/2025 1 1 Reason for Visit * Reason Onset Date Comments Referral 06/22/2024 Encounter Details Date Type Department Care Team (Late st Contact Info) Description 06/22/2024 Telephone [facility] MEDICINE [address] [place], [place] [phone] Nichole Andrea MD [address] [place], [place] [phone] Referral Social History Tobacco Use Types Packs/Day [...] from pt requesting new referral : Address: [address] [place] [address], [place] [address] Visits: 3 per year Facility Name: [facility] Type of Specialist: Roll Inspector DX: [id number] Provider : Franco Provider NPI : [id number] Facility Phone # : [phone] Fax #: [phone] documented in this encounter Plan of Treatment Upcoming Encounters Date Type Department Care Team (Late st Contact Info) Description 09/06/2024 8:00 AM EDT Office Visit [facility] ADULT DENTAL [address] [place] [address] Ana, Damari [address] [place] [address] 09/08/2024 10:15 AM EDT Office Visit [facility] MEDICINE [address] [place] [address] Nichole Andrea MD [address] [place] [address] Scheduled Referrals Name Type Priority Associated Diagnoses Orde r Schedule Referral to Optometry Outpatient Referral Routine Primary hypertension Expected: 06/22/2024 (Approximate), Expires: 06/22/2025 documented as of this encounter Visit Diagnoses Diagnosis Primary hypertension- Primary Unspecified essential hypertension documented in this encounter Care Teams Double End Sewer Relationship Specialty Start Date End Date Nichole Andrea MD [address] [place] [address] PCP - General Family Medicine 05/27/18 documented as of this encounter
[2024-07-12 19:48] VITALS: BP 143/101; PULSE 72; RESP 20; TEMP 36.8; O2SAT 98
[2024-07-12 19:50] VITALS: BP 143/101; PULSE 72; RESP 20; TEMP 36.8; O2SAT 98
== END 2024-07-12 19:51 | disposition home or self-care (01) ==
PROVIDERS: Physician Assistant; Emergency Provider Emergency Medicine Emergency Medical Services; PCP Internal Medicine
DX: J22 Unspecified acute lower respiratory infection (principal); B97.4 Respiratory syncytial virus as the cause of diseases classified elsewhere; R07.89 Other chest pain; R05.9 Cough, unspecified; J02.9 Acute pharyngitis, unspecified; I49.8 Other specified cardiac arrhythmias; Z03.818 Encounter for observation for suspected exposure to other biological agents ruled out; Z79.899 Other long term (current) drug therapy
CPT/HCPCS: 0241U; 71046; 87651; 93005; 99283

== ENCOUNTER → 2024-07-12 16:03 | Outpatient (BNV) | payer MEDICAID, SELFPAY | PROVIDERS: PCP Internal Medicine; Visit Provider Radiology Diagnostic Radiology | DX: R07.9 Chest pain, unspecified (principal); R05.9 Cough, unspecified | CPT/HCPCS: 71046 ==

== ENCOUNTER 2024-07-28 19:42 | Emergency (ER) | payer MEDICAID, SELFPAY ==
--- NOTE | ~2024-07-28 | XR_ITS ---
CLINICAL HISTORY: pain Chest Radiographs, 2 views Comparison: 07/12/24 Findings: No cardiomegaly. Normal mediastinal contours. No pneumothorax. No opacity. No pleural effusion. Normal upper abdomen. No acute fracture. Impression: No acute findings. This document has been electronically signed by: Ni Gonzalez MD on 07/28/2024 20:47:32
--- NOTE | 2024-07-28 19:43 | ECG_ITS ---
Test Reason : chest pain Blood Pressure : */* mmHG Vent. Rate : 89 BPM Atrial Rate : 89 BPM P-R Int : 154 ms QRS Dur : 80 ms QT Int : 342 ms P-R-T Axes : 40 33 22 degrees QTcB Int : 416 ms Normal sinus rhythm with sinus arrhythmia Cannot rule out Anterior infarct (cited on or before 12-Jul-2024) Abnormal ECG When compared with ECG of 12-Jul-2024 15:45, No significant change was found Referred By: Generic ED Physician Electronically Signed By: BEBETO SCHAFER
[2024-07-28 19:54] VITALS: BP 140/76; PULSE 81; RESP 20; TEMP 36.8; O2SAT 97; BMI 57.2
--- NOTE | 2024-07-28 19:57 | ED_ITS ---
HPI - General Adult General Chief complaint: Chest Pain Stated complaint: chest pain Time Seen by Provider: 07/29/24 08:25 Source: patient Mode of arrival: ambulatory Limitations: no limitations History of Present Illness ED Provider: DR. Lopez HPI narrative: 29-year-old female came in for evaluation of chest pain x3 days. Patient recently diagnosed with RSV, still coughing occasionally with no sputum production, patient had fever to 3 days ago, patient describes the pain as bilateral chest pressure pain that is intermittent, no clear aggravating factor or relieving factors, no association with shortness of breath, no recent travel, no lower extremity swelling or tenderness, no prolonged immobilization. Patient declined any history of cigarette smoking or drug use. Related Data Home Medications ?Medication ?Instructions ?Recorded ?Confirmed cetirizine 10 mg capsule (Zyrtec) 10 mg PO DAILY 03/28/20 06/23/23 fluticasone propionate 110 1 puff inhalation Q12H 06/19/22 07/23/22 mcg/actuation HFA aerosol inhaler (Flovent HFA) triamcinolone acetonide 55 mcg 2 spray intranasal DAILY 06/19/22 07/23/22 nasal spray aerosol lisinopril 20 mg tablet 20 mg PO DAILY 06/29/24 Previous Rx's ?Medication ?Instructions ?Recorded albuterol sulfate 2.5 mg/3 mL 2.5 mg (3 mL) inhalation Q4-6H PRN 05/04/23 (0.083 %) solution for nebulization shortness of breath or wheezing #90 mL albuterol sulfate 90 mcg/actuation 2 puff inhalation Q4-6H PRN 05/04/23 aerosol inhaler (ProAir HFA) shortness of breath or wheezing #8.5 grams prednisone 50 mg tablet 50 mg PO DAILY 5 days #5 tabs 09/21/23 medroxyprogesterone 10 mg tablet 10 mg PO DAILY 10 days #10 tabs 12/03/23 (Provera) methylprednisolone 4 mg tablets in 4 mg PO DAILY #21 ea 02/15/24 a dose pack (Medrol (John)) prednisone 20 mg tablet 60 mg (3 x 20 mg) PO DAILY #12 tabs 02/29/24 fluconazole 150 mg tablet 150 mg PO ONCE 1 day #1 tab 06/30/24 fluconazole 150 mg tablet 150 mg PO ONCE 1 day #1 tab 07/14/24 Allergies Allergy/AdvReac Type Severity Reaction Status Date / Time prednisone Allergy Unknown Flushing Verified 07/28/24 19:56 environmental allergies Allergy Unknown Verified 07/28/24 19:56 Review of Systems 2 Review of Systems: All other systems are reviewed and are negative Constitutional: Reports as per HPI and Reports no additional constitutional complaints Eyes: Reports as per HPI and Reports no additional eye complaints Reports system reviewed and no additional complaints, except as documented Cardiovascular: Reports as per HPI and Reports no additional cardiovascular complaints Respiratory: Reports as per HPI and Reports no additional respiratory complaints Gastrointestinal: Reports as per HPI and Reports no additional gastrointestinal complaints Genitourinary: Reports no additional female genitourinary complaints Musculoskeletal: Reports no additional musculoskeletal complaints Skin/Breast: Reports system reviewed and no additional complaints, except as docu Psychiatric: Reports no additional psychiatric complaints Endocrine: Reports no additional endocrine complaints Hematologic/Lymphatic: Reports no additional hematologic/lymphatic complaints Allergic/Immunologic: Reports no additional allergic/immunologic complaints Reports system reviewed and no additional complaints, except as documented and Reports Abnormal speech present [facility] Past Medical History Medical History Sleep apnea Vitamin D deficiency Ovarian cyst Hirsutism History of depression History of anxiety Asthma Surgical History Hx of ovarian cystectomy Family History Family History Father HTN (hypertension) Diabetes Mother HTN (hypertension) Diabetes Maternal Grandmother Cervical cancer Uterine cancer Maternal Grandfather Colon cancer Social History Social History Household Members: None Housing: Apartment Alcohol intake: current Alcohol intake frequency: holidays/special occasions only Alcohol type: wine Patient Tobacco Use Status: Never used Tobacco Advance Directives: No Advance Directives Information Provided: Yes Current occupational status: student Sexual orientation: Straight/Heterosexual Gender identity: Female Physical Exam ED Vital Signs: Vital Signs - 24 hr 07/28/24 19:54 07/29/24 03:52 Temperature 98.3 F 97.2 F Pulse Rate 81 77 Respiratory Rate 20 20 Blood Pressure 140/76 H 140/52 H Pulse Oximetry 97 100 Oxygen Delivery Method Room Air Room Air BMI result Body Mass Index 57.2 Vital signs have been reviewed and appear to be correct. Blood pressure elevated. Heart rate normal. Respiratory rate normal. Temperature normal. Oxygen saturation normal. Appearance: Alert. Oriented X3. No acute distress. Head: Normal external exam. Normocephalic. Atraumatic. No Mcintyre signs noted. No raccoon eyes noted Eyes: PERRLA. EOMI. Conjunctiva and sclera normal. Eyelids normal. ENT: TM's Normal. Pharynx normal. Uvula midline. Moist mucous membranes. No trismus noted. No drooling noted. No muffled voice noted. Neck: Normal inspection. Neck supple. FROM. No adenopathy. Thyroid Normal. No meningeal signs. No neck mass noted. CVS: Normal heart rate and rhythm. Heart sound normal. No murmurs noted. Pulses normal throughout. Respiratory: No respiratory distress. Painless inspiration. Breath sounds normal. No wheezes/rales/rhonchi noted. Reproducible chest wall tenderness bilaterally, no step-off, no deformity. No accessory muscle usage noted or decreased air movement noted. Abdomen: Soft and nontender. Bowel sounds normal in all 4 quadrants. No distention noted. No organomegaly noted. No visible injury noted. Back: No CVA tenderness. Full range of motion noted. Skin: Skin warm and dry. Normal skin color. Normal skin turgor. No rashes/lesions/lacerations noted. Extremities: No lower extremity edema. Extremities exhibit normal range of motion. Extremities nontender. Neuro: Oriented X 3. Cranial nerve exam: II-XII are grossly intact No motor deficit. No sensory deficit. Reflexes normal. Course Course Course Narrative: RME, this is a rapid medical exam performed by Mundo Butts please refer to primary provider for complete H&P- 29 year old female presents for evaluation of chest pain. She reports having had RSV 2 weeks ago. She reports having had fevers 5 days ago. Plan for labs, chest x-ray, repeat viral testing. she was well-appearing Reevaluation(s) Reevaluation #1: Chronic leukocytosis, history of recent RSV that is negative today, COVID and influenza testing is negative as well, chest x-ray is unremarkable, VSS O2 sat is 100%, RR is 20, no risk for DVT/pulmonary embolism. Patient had a normal troponinx 2 Time: 08:39 Medical Decision Making Differential Diagnosis Differential Diagnoses: The differential diagnosis associated with the presentation includes (ACS, pneumonia, pneumothorax, pleural effusion, pulmonary embolism, electrolyte derangement, severe anemia, RSV, COVID-19 infection, influenza.) Admission/Observation Consideration of admission/observation: Escalation of care including admission/observation considered Lab Data MDM Lab Attestation statement: I reviewed the patient's lab results. 07/28/24 21:07 07/28/24 21:07 Labs: Lab Results 07/28/24 07/29/24 Range/Units 21:07 04:00 WBC 12.3 H (4.8-10.8) X10*3/uL RBC 4.59 (4.20-5.50) X10*6/uL Hgb 12.6 (12.0-16.0) g/dl Hct 39.0 (37.0-47.0) % MCV 85.0 (80.0-98.0) fL MCH 27.5 (27.0-33.0) pg MCHC 32.3 (31.0-35.0) g/dl RDW 13.9 (11.0-16.0) % Plt Count 369 (160-400) X10*3/uL MPV 9.2 L (9.4-12.3) fL Immature Gran % (Auto) 0.2 (0.0-0.4) % Neut % (Auto) 63.5 (45-73) % Lymph % (Auto) 20.4 (20-40) % [place] % (Auto) 8.2 (2-11) % Eos % (Auto) 7.2 H (0-4) % Baso % (Auto) 0.5 (0-2) % Lymph # (Auto) 2.5 (1.2-4.9) X10*3/uL [place] # (Auto) 1.0 (0.1-1.2) X10*3/uL Eos # (Auto) 0.9 H (0.0-0.4) X10*3/uL Baso # (Auto) 0.1 (0.0-0.2) X10*3/uL Abs Immat Gran (auto) 0.03 (0.00-0.03) X10*3/uL Absolute Neuts (auto) 7.8 (2.0-8.3) x10*3/uL Absolute Nucleated RBC 0.000 (0.0-0.012) X10*3/uL Nucleated RBC % (auto) 0.0 (0.0-0.2) /100WBC PT 12.8 H (10.9-12.4) SEC INR 1.1 (0.9-1.1) Sodium 140 (135-145) mmol/L Potassium 4.2 (3.3-5.1) mmol/L Chloride 107 (96-108) mmol/L Carbon Dioxide 26 (22-29) mmol/L Anion Gap 11 L (12-20) BUN 10 (9-16) mg/dL Creatinine 0.63 (0.5-1.4) mg/dL Estim Creat Clear Calc 197.4 Estimated GFR > 60 Random Glucose 100 (60-115) mg/dL Calcium 8.7 (8.4-10.2) mg/dL Total Bilirubin 0.1 (0.0-1.0) mg/dL AST 17 (5-31) U/L ALT 16 (0-31) U/L Alkaline Phosphatase 86 (39-117) U/L Troponin I High Sens < 2.7 < 2.7 (<3.5-17.0) ng/L Total Protein 7.7 (6.5-8.0) g/dL Albumin 3.8 (3.5-5.0) g/dL Lipase 24 (8-78) U/L Influenza Type A (PCR) NEGATIVE (Negative) Influenza Type B (PCR) NEGATIVE (Negative) RSV RNA Qual (PCR) NEGATIVE (Negative) SARS-CoV-2 RNA (RT-PCR) NEGATIVE (Negative) Independent Interpretation I performed an independent interpretation of an: EKG (Normal sinus rhythm at a 80 beats per minutes, normal intervals, T-wave inversion in lead III no change from previous EKG.) and Plain X-Ray (Chest: No acute findings) Radiology Impression Discussion of test interpretation with radiology: I have reviewed the radiologist's reading. Discharge Plan Discharge Clinical Impression: Anterior chest wall pain Patient Disposition: Home, Self-Care Instructions: Chest Wall Pain (ED) Additional Instructions: Take nsya-dtn-uhcydid ibuprofen 200 mg tablet every 6 hours if needed for pain. Prescriptions: No Action fluconazole 150 mg tablet 150 mg PO ONCE 1 Days Qty: 1 0RF fluconazole 150 mg tablet 150 mg PO ONCE 1 Days Qty: 1 0RF albuterol sulfate 2.5 mg /3 mL (0.083 %) solution for nebulization 2.5 mg inhalation Q4-6H PRN (Reason: shortness of breath or wheezing) Qty: 90 0RF albuterol sulfate [ProAir HFA] 90 mcg/actuation HFA aerosol inhaler 2 puff inhalation Q4-6H PRN (Reason: shortness of breath or wheezing) Qty: 8.5 0RF prednisone 50 mg tablet 50 mg PO DAILY 5 Days Qty: 5 0RF methylprednisolone [Medrol (John)] 4 mg tablets,dose pack 4 mg PO DAILY Qty: 21 0RF prednisone 20 mg tablet 60 mg PO DAILY Qty: 12 0RF Zyrtec 10 mg capsule 10 mg PO DAILY fluticasone propionate [Flovent HFA] 110 mcg/actuation HFA aerosol inhaler 1 puff inhalation Q12H triamcinolone acetonide 55 mcg aerosol,spray 2 spray intranasal DAILY lisinopril 20 mg tablet 20 mg PO DAILY medroxyprogesterone [Provera] 10 mg tablet 10 mg PO DAILY 10 Days Qty: 10 6RF Referrals: Nichole Andrea MD [Primary Care Provider] - Stand Alone Forms: Work/School Release Print Language: Latvian
[2024-07-28 21:13] LABS: MANUAL DIFF FLAG NO
[2024-07-28 21:14] LABS: Basophils Absolute Auto 0.1 X10*3/uL (0.0-0.2); Basophils Percent Auto 0.5 % (0-2); Eosinophils Absolute Auto 0.9 X10*3/uL (0.0-0.4); Eosinophils Percent Auto 7.2 % (0-4); Hemoglobin 12.6 g/dl (12.0-16.0); Imm Gran Abs Auto 0.03 X10*3/uL (0.00-0.03); Imm Gran Pct Auto 0.2 % (0.0-0.4); Lymphocytes Absolute Auto 2.5 X10*3/uL (1.2-4.9); Lymphocytes Percent Auto 20.4 % (20-40); Mean Corpuscular HGB Conc 32.3 g/dl (31.0-35.0); Mean Corpuscular Hemoglobin 27.5 pg (27.0-33.0); Mean Platelet Volume 9.2 fL (9.4-12.3); Monocytes Percent Auto 8.2 % (2-11); Neutrophils Absolute Auto 7.8 x10*3/uL (2.0-8.3); Neutrophils Percent Auto 63.5 % (45-73); Platelet Count 369 X10*3/uL (160-400); Red Blood Count 4.59 X10*6/uL (4.20-5.50); Red Cell Distribution Width 13.9 % (11.0-16.0); White Blood Count 12.3 X10*3/uL (4.8-10.8)
[2024-07-28 21:23] LABS: INTERNATIONAL NORM RATIO 1.1 (0.9-1.1); Prothrombin Time 12.8 SEC (10.9-12.4)
[2024-07-28 21:37] LABS: Alanine Aminotransferase 16 U/L (0-31); Albumin Level 3.8 g/dL (3.5-5.0); Alkaline Phosphatase 86 U/L (39-117); Anion Gap 11 (12-20); Aspartate Amino Transferase 17 U/L (5-31); Bilirubin Total 0.1 mg/dL (0.0-1.0); Blood Urea Nitrogen 10 mg/dL (9-16); Calcium 8.7 mg/dL (8.4-10.2); Carbon Dioxide 26 mmol/L (22-29); Chloride 107 mmol/L (96-108); Creatinine Clr Calc Pharmacy 197.4; Estimated Glomerular Filt Rate > 60; Glucose Random 100 mg/dL (60-115); Lipase 24 U/L (8-78); Potassium 4.2 mmol/L (3.3-5.1); Sodium 140 mmol/L (135-145); Total Protein 7.7 g/dL (6.5-8.0)
[2024-07-28 21:50] LABS: Troponin-I High Sensitivity < 2.7 ng/L (<3.5-17.0)
[2024-07-28 21:57] LABS: Influenza A PCR NEGATIVE (Negative); Influenza B PCR NEGATIVE (Negative); Resp Syncy Virus RNA Qual PCR NEGATIVE (Negative); SARS COV2 PCR INHOUSE NEGATIVE (Negative)
[2024-07-29 03:52] VITALS: BP 140/52; PULSE 77; RESP 20; TEMP 36.2; O2SAT 100
[2024-07-29 04:29] LABS: Troponin-I High Sensitivity < 2.7 ng/L (<3.5-17.0)
--- OUTSIDE RECORDS SUMMARY | 2024-07-29 08:53 | XMS_ITS | Encounter Summary ---
Author Organization [email or web address] Address [address] [facility] 7t [place] [address] Care Team Providers Care Silver Solderer Name Role Phone Nichole Andrea MD Primary [...] 8:00 AM EDT Office Visit [facility] ADULT DENTAL [address] [place] [address] Ana, Damari [address] [place] [address] 09/08/2024 3:00 PM EDT Office Visit [facility] MEDICINE [address] [place] [address] Nichole Andrea MD [address] [place] [address] documented as of this encounter Visit Diagnoses Not on filedocumented in this encounter Care Teams Silver Solderer Relationship Specialty Start Date End Date Nichole Andrea MD [address] [place] [address] PCP - General Family Medicine 05/27/18 documented as of this encounter
--- OUTSIDE RECORDS SUMMARY | 2024-07-29 08:53 | XMS_ITS | Encounter Summary ---
Author Organization [employer] Address [address] [place] [address] 7t [place] [address] Care Team Providers Care Viticulture Teacher Name Role Phone Nichole Andrea MD Primary Care Provider + Reason for Visit * Reason Onset Date Comments Medication Question 02/04/2023 Encounter Details Date Type Department Care Team ([facility] st Contact Info) Description 02/04/2023 Telephone [facility] [address] [place], [place] [phone] Nichole Andrea MD [address] [place], [place] [phone] Medication Question Social History Tobacco Use Types [...] seems like the [facility] has already filledscript and should be all [...] Description 09/06/2024 8:00 AM EDT Office Visit [facility] [address] [place] [address] Ana, Damari [address] [place] [address] 09/08/2024 3:00 PM EDT [facility] Visit [facility] [address] [place] [address] Nichole Andrea MD [address] [place] [address] documented as of this encounter Visit Diagnoses Not on filedocumented in this encounter Care Teams Viticulture Teacher Relationship Specialty Start Date End Date Nichole Andrea MD [address] [place] [address] PCP - General Family Medicine 05/27/18 documented as of this encounter
--- OUTSIDE RECORDS SUMMARY | 2024-07-29 08:53 | XMS_ITS | Encounter Summary ---
Author Organization [employer] Address [address] [facility] 7t [place] [address] Care Team Providers Care Switchboard And Control Room Operator Name Role Phone Nichole Andrea MD Primary Care Provider + Reason for Visit * Reason Onset Date Comments Nurse Triage 11/25/2023 Encounter Details Date Type Department Care Team ([facility] st Contact Info) Description 11/25/2023 Telephone [facility] MEDICINE [address] [place], [place] [phone] Nichole Andrea MD [address] [place], [place] [phone] Nurse Triage Social History Tobacco Use Types [...] . Pt is advised to come to [facility] to be seen by provider if needed. Pt agrees with home care advised and if time available will come to [facility]. Pt agrees with disposition and [...] Office Visit [facility] ADULT DENTAL [address] [place] [address] Ana, Damari [address] [place] [address] 09/08/2024 3:00 PM EDT Office Visit [facility] MEDICINE [address] [place] [address] Nichole Andrea MD [address] [place] [address] documented as of this encounter Visit Diagnoses Not on filedocumented in this encounter Care Teams Switchboard And Control Room Operator Relationship Specialty Start Date End Date Nichole Andrea MD [address] [place] [address] PCP - General Family Medicine 05/27/18 documented as of this encounter
--- OUTSIDE RECORDS SUMMARY | 2024-07-29 08:53 | XMS_ITS | Encounter Summary ---
Author Organization [facility] Address [address] [place] [address] 7t [place] [address] Care Team Providers Care Infrastructure Director Name Role Phone Nichole Andrea MD [...] Description 09/06/2024 8:00 AM EDT Office Visit [facility] ADULT DENTAL [address] [place] [address] Ana, Damari [address] [place] [address] 09/08/2024 3:00 PM EDT Office Visit [facility] MEDICINE [address] [place] [address] Nichole Andrea MD [address] [place] [address] documented as of this encounter Procedures Procedure Name Priority Date/Time Associated Diagnosis Comments BACTERIAL VAGINOSIS PANEL Routine 06/29/2024 9:44 AM EST CHLAMYDIA/N. GONORRHOEAE RNA, TMA, UROGENITAL Routine 06/29/2024 9:44 AM EST documented in this encounter Results * (ABNORMAL) Bacterial Vaginosis (06/29/2024 9:44 AM EST) TRICHOMONAS VAGINALIS DETECTION BY PCR NOT DETECTED Not Detect [facility] BACTERIAL VAGINOSIS DETECTION BY PCR NEGATIVE Negative [facility] Comment:The BV organism targ ets of [...] DETECTION BY PCR NOT DETECTED Not Detect [facility] Esther glab krusei PCR DETECTED(A) Not Detect [facility] 06/29/2024 9:44 AM EST 06/29/2024 3:28 PM EST us Generic External Data Provider LAB MICROBIOLOGY - GENERAL ORDERABLES Final Result [facility] [address] [place] [phone] * Chlamydia/N. Gonorrhoeae RNA, TMA, Urogenitial (06/29/2024 9:44 AM EST) Pathologist [facility] CT PCR NOT DETECTED Not Detect. [facility] Comment:A not detected test result does [...] psychologicalconsequences. NG PCR NOT DETECTED Not Detect. [facility] Comment:A not detected test result does [...] AM EST 06/29/2024 3:28 PM EST Narrative [facility] - 06/30/2024 3:23 AM EST Vaginal us Generic External Data Provider LAB MICROBIOLOGY - GENERAL ORDERABLES Final Result Performing Organization Address City/State/[facility] Co de Phone Number [facility] [address] [place] [phone] documented in this encounter Visit Diagnoses Not on filedocumented in this encounter Care Teams Infrastructure Director Relationship Specialty Start Date End Date Nichole Andrea MD [address] [place] [phone] PCP - General Family Medicine 05/27/18 documented as of this encounter
--- OUTSIDE RECORDS SUMMARY | 2024-07-29 08:53 | XMS_ITS | Encounter Summary ---
Author Organization [employer] Address [address] [facility] 7t [place] [address] Care Team Providers Care Plastic Tile Setter Name Role Phone Nichole Andrea MD Primary Care Provider + Encounter Details Date Type Department Care Team (Late Contact Info) Description 05/30/2023 Telephone [facility] MEDICINE [address] [place] [phone] Nichole Anrdea MD [address] [place] [phone] Social History Tobacco Use Types Packs/Day Years [...] Description 09/06/2024 8:00 AM EDT Office Visit [facility] ADULT DENTAL [address] [place], [place] [phone] Damari Perez [address] [place] [address] 09/08/2024 3:00 PM EDT Office Visit [facility] MEDICINE [address] [place] [address] Nichole Andrea MD [address] [place] [address] documented as of this encounter Visit Diagnoses Not on filedocumented in this encounter Care Teams Plastic Tile Setter Relationship Specialty Start Date End Date Nichole Andrea MD [address] [place] [address] PCP - General Family Medicine 05/27/18 documented as of this encounter
--- OUTSIDE RECORDS SUMMARY | 2024-07-29 08:53 | XMS_ITS | Encounter Summary ---
Author Organization [facility] Address [address] [place] [phone] Phone Care Team Providers Care Shirt Closer Name Role Phone Yisel Hooker MD Primary Care Provider Unavailabl e Encounter Details Date Type Department Care Team (Late st Contact Info) Description 04/10/2017 Conversion Encounter [facility] - [address] [phone] Social History Tobacco Use Types Packs/Day Years [...] on filedocumented in this encounter Care Teams Shirt Closer Relationship Specialty Start Date End Date Yisel Hooker MD PCP - General 01/17/17 documented as of this encounter
--- OUTSIDE RECORDS SUMMARY | 2024-07-29 08:53 | XMS_ITS | Encounter Summary ---
Author Organization [facility] [facility] Address [address] [facility] 7t [place] [address] Care Team Providers Care Fish Skinning Machine Feeder Name Role Phone Nichole Andrea MD Primary Care Provider + Encounter Details Date Type Department Care Team (Late Contact Info) Description 08/09/2022 Abstract [facility] ADULT DENTAL [address] [place], [place] [phone] Madi Summers DDS [address] [place], [place] [phone] Social History Tobacco Use Types Packs/Day Years [...] Office Visit [facility] ADULT DENTAL [address] [place], [place] [phone] Damari Perez [address] [place] [address] 09/08/2024 3:00 PM EDT Office Visit [facility] MEDICINE [address] [place], [place] [phone] Nichole Andrea MD [address] [place] [address] documented as of this encounter Visit Diagnoses Not on filedocumented in this encounter Care Teams Fish Skinning Machine Feeder Relationship Specialty Start Date End Date Nichole Andrea MD [address] [place] [phone] PCP - General Family Medicine 05/27/18 documented as of this encounter
--- OUTSIDE RECORDS SUMMARY | 2024-07-29 08:53 | XMS_ITS | Encounter Summary ---
Author Organization [facility] Address [address] [place] [address] 7t [place] [address] Care Team Providers Care Adjunct Philosophy Faculty Name Role Phone Nichole Andrea MD Primary Care Provider + Encounter Details Date Type Department Care Team (Latest Contact Info) Description 08/21/2020 Abstract [facility] CONVERSIONS Dental, Provider, DDS Social History [...] Description 09/06/2024 8:00 AM EDT Office Visit [facility] ADULT DENTAL [address] [place] [address] González Perezaris [address] [place] [address] 09/08/2024 3:00 PM EDT Office Visit [facility] MEDICINE [address] [place] [address] Nichole Andrea MD [address] [place] [address] documented as of this encounter Visit Diagnoses Not on filedocumented in this encounter Care Teams Adjunct Philosophy Faculty Relationship Specialty Start Date End Date Nichole Andrea MD [address] [place] [address] PCP - General Family Medicine 05/27/18 documented as of this encounter
--- OUTSIDE RECORDS SUMMARY | 2024-07-29 08:53 | XMS_ITS | Encounter Summary ---
Author Organization [employer] Address [address] [facility] 7t [place] [address] Care Team Providers Care Brokerage Clerk Name Role Phone Nichole Andrea MD Primary Care Provider + Reason for Visit * Reason Onset Date Comments Appointment Request 05/30/2023 Encounter Details Date Type Department Care Team (Late st Contact Info) Description 05/30/2023 Telephone [facility] MEDICINE [address] [place], [place] [phone] Nichole Andrea MD [address] [place] [address] Appointment Request Social History Tobacco Use Types [...] Description 09/06/2024 8:00 AM EDT Office Visit [facility] ADULT DENTAL [address] [place] [address] Ana, Damari [address] [place] [address] 09/08/2024 3:00 PM EDT Office Visit [facility] MEDICINE [address] [place] [address] Nichole Andrea MD [address] [place] [phone] documented as of this encounter Visit Diagnoses Not on filedocumented in this encounter Care Teams Brokerage Clerk Relationship Specialty Start Date End Date Nichole Andrea MD [address] [place] [phone] PCP - General Family Medicine 05/27/18 documented as of this encounter
--- OUTSIDE RECORDS SUMMARY | 2024-07-29 08:53 | XMS_ITS | Encounter Summary ---
Author Organization [employer] Address [address] [facility] 7t [place] [address] Care Team Providers Care Die Cast Supervisor Name Role Phone Nichole Andrea MD Primary Care Provider + Reason for Visit * Reason Onset Date Comments ED F/U and Status Check 07/14/2024 Encounter Details Date Type Department Care Team (Late st Contact Info) Description 07/14/2024 Telephone [facility] MEDICINE [address] [place] [address] Huma Herring RN ED F/U and Status Check Social History Tobacco Use Types Packs/Day Years [...] encounter Miscellaneous Notes * Telephone Encounter - Huma Herring RN - 07/14/2024 2:20 PM EST TC placed to pt in regards to message below from Dr. Andrea but unable to contact as phone onlyhad a busy signal. Will postpone for another attempt ----- Message from Nichole Andrea MD sent at 07/14/2024 12:53 PM EST ----- Patient was seen in the ED with shortness of breath and fever apparently consistent with RSV URI. Please call patient to see if she needs additional follow-up in 1 or 2 days or she can wait for appointment with me on September documented in this encounter Plan of Treatment Upcoming Encounters Date Type Department Care Team (Late st Contact Info) Description 09/06/2024 8:00 AM EDT Office Visit [facility] ADULT DENTAL [address] [place] [address] Ana, Damari [address] [place] [address] 09/08/2024 3:00 PM EDT Office Visit [facility] MEDICINE [address] [place] [address] Nichole Andrea MD [address] [place] [address] documented as of this encounter Visit Diagnoses Not on filedocumented in this encounter Care Teams Die Cast Supervisor Relationship Specialty Start Date End Date Nichole Andrea MD [address] [place] [address] PCP - General Family Medicine 05/27/18 documented as of this encounter
--- OUTSIDE RECORDS SUMMARY | 2024-07-29 08:53 | XMS_ITS | Clinical Summary ---
Author Organization [facility] Address [address] [place] [phone] Phone Care Team Providers Care Town Administrator Name Role Phone Yisel Hooker MD Primary Care Provider Unavailabl e Immunizations Immunization Administration Dates Next Due Unknown Vaccine 06/23/2007 [...] age to complete this topic Care Teams Town Administrator Relationship Specialty Start Date End Date Yisel Hooker MD PCP - General 01/17/17
--- OUTSIDE RECORDS SUMMARY | 2024-07-29 08:53 | XMS_ITS | Encounter Summary ---
Author Organization [employer] Address [address] [address] [facility] [address] 7[address] [place] [address] Care Team Providers Care Bankruptcy Law Specialist Name Role Phone Nichole Andrea MD Primary Care Provider + Reason for Visit * Reason Comments Care Coordination Outreach Encounter Details Date Type Department Care Team (Latest Contact Info) Description 07/13/2024 Patient Outreach [facility] [address] [place] [address] Nichole Andrea MD [address] [place] [address] Care Coordination (Outreach) Social History Tobacco Use Types Packs/Day Years [...] PM EST documented as of this encounter Progress Notes * Magalys Colby - 07/13/2024 10:23 AM EST CHW Magalys Colby , placed outbound call to patient in regards to offer services. CHW introducing herself from [facility] CM Department with CHW's name, department and direct contact [phone] requesting call back. Will re-attempt to contact within 5 days. and address not confirmed. documented in this encounter Plan of Treatment Upcoming Encounters Date Type Department Care Team (Late st Contact Info) Description 09/06/2024 8:00 AM EDT Office Visit [facility] ADULT DENTAL [address] [place] [address] Damari Perez [address] [place] [address] 09/08/2024 3:00 PM EDT Office Visit [facility] MEDICINE [address] [place] [address] Nichole Andrea MD [address] [place], [place] [phone] documented as of this encounter Visit Diagnoses Not on filedocumented in this encounter Care Teams Bankruptcy Law Specialist Relationship Specialty Start Date End Date Nichole Andrea MD [address] [place] [address] [phone] PCP - General Family Medicine 05/27/18 documented as of this encounter
--- OUTSIDE RECORDS SUMMARY | 2024-07-29 08:54 | XMS_ITS | Clinical Summary ---
Author Organization [employer] Address [address] [facility] 7[address] [place] [address] Care Team Providers Care Returned Materials Inspector Name Role Phone Nichole Andrea MD Primary [...] eorder (will not trigger notification to Pharmacy)) Active Problems Problem Noted Date Diagnosed Date [...] intercourse exclusively with AFAB - f/u with GLOBAL COORDINATOR - counseled regarding weight reduction SEBAS (obstructive [...] (10/15/2023 10:51 AM EDT): - seen by GLOBAL COORDINATOR, awaiting for surgery - refer to chari , she needs to lose weight prior to surgery Assessment & Plan (06/30/2023 8:05 PM EST): FU with GLOBAL COORDINATOR at [facility]. Dental caries 07/11/2022 Foot pain, bilateral 06/04/2022 [...] life style modifications, diet and referral to oracle specialist. Recommended to decrease soda and sugary [...] exercise, life style modifications, diet, referral to oracle specialist. Discussed re lower calorie intake, increase dietary fiber Will refer to aerial hurricane hunter Pt given information about weight reduction programs at both [facility] and [facility] Assessment & Plan (06/30/2023 8:05 PM EST): Discussed re weight reduction options including exercise, life style modifications, diet, referral to oracle specialist, she wants to hold off on it for now.. Discussed re lower calorie intake, increase dietary fiber Resolved Problems Problem Noted Date Diagnosed Date Resolved Date Overweight (BMI 25.0-29.9) 05/11/2022 0 06/17/2023 Encounters Date Type Department Care Team Description 07/29/2024 Orders Only GENERIC EXTERNAL DATA DEPARTMENT Provider, Generic External Data 07/28/2024 Orders Only [facility] External Provider, [facility] 07/28/2024 Patient Outreach [facility] [address] [place] [address] Nichole Andrea MD Care Coordination (Outreach) 07/20/[address] [address] Nichole Andrea MD Appointment Request 07/20/2024 Patient Outreach [facility] [address] [place] [address] Nichole Andrea MD Care Coordination (Outreach) 07/15/[address] [address] Leigha Newsome, TEJ Follow up ED 07/14/[address] [address] Huma Herring RN ED F/U and Status Check 07/13/[address] [address] Nichole Andrea MD ER Follow-up 07/13/2024 Patient Outreach [facility] [address], [place] [phone] Nichole Andrea MD Care Coordination (Outreach) 07/12/2024 Orders Only GENERIC EXTERNAL DATA DEPARTMENT Provider, Generic External Data 07/07/2024 6:40 PM EST Office Visit [facility] [address] [place] [phone] Cough in adult patient (Primary Dx); Palpitations 07/07/2024 Travel 06/29/2024 Orders Only GENERIC EXTERNAL DATA DEPARTMENT Provider, Generic External Data 06/24/[address] [address] Meli Ch [place] Chart prep 06/22/[address] [phone] Nichole Andrea MD Referral 06/15/2024 1:40 PM EST Office Visit [facility] [address] [place] [address] [phone] Debo Hayes NP Hypertension, unspecified type (Primary Dx); Frontal sinusitis, unspecified chronicity from Last 3 Months Immunizations Name Administration [...] 8:00 AM EDT Office Visit [facility] [address] [place], [place] [phone] González Perezaris [address] [place], [place] [phone] 09/08/2024 3:00 PM EDT Office Visit [facility] [address] [place], [place] [phone] Nichole Andrea MD [address] [place], [place] [phone] Health Maintenance Due Date Last Done Comments [...] exists Dental X-Ray: Full Mouth 03/09/2027 03/08/2024, 03/0 09/2020 Zoster Vaccines (1 of 2) 2047 [...] Procedure Name Priority Date/Time Associated Diagnosis Comments HIGH SENSITIVITY TROPONIN I Routine 07/29/2024 4:00 AM EST HIGH SENSITIVITY TROPONIN I Routine 07/28/2024 9:07 PM EST LIPASE Routine 07/28/2024 9:07 PM EST COMPREHENSIVE METABOLIC PANEL Routine 07/28/2024 9:07 PM EST PROTHROMBIN TIME-INR Routine 07/28/2024 9:07 PM EST CBC WITH AUTO DIFFERENTIAL Routine 07/28/2024 9:07 PM EST SARS COV2/INFLUENZA A/B AND RSV RNA QL NAAT Routine 07/28/2024 9:07 PM EST XR CHEST 2 VIEWS Routine 07/28/2024 8:47 PM EST SARS COV2/INFLUENZA A/B AND RSV [...] 1:43 PM EST Frontal sinusitis, unspecified chronicity PROPHYLAXIS - ADULT Routine 03/08/2024 8 :00 AM EDT Dental plaque on multiple teeth INTRAORAL - COMPLETE SERIES OF RADIOGRAPHIC IMAGES Routine 03/08/2024 8:00 [...] Recently Relevant to Health Maintenance Results * High Sensitivity Troponin I (07/29/2024 4:00 AM EST) Only the most recent of2 resultswithin the time period is included. TROPONIN I HIGH SENSITIVITY <2.7 <3.5 - 17.0 ng/L [facility] Comment:The Concepcion high sens itivity Troponin-I results should beused in conjunction with other diagnostic information suchas ECG, clinical observations and information, and patientsymptoms to aid in the diagnosis of [place]. 07/29/2024 4:00 AM EST 07/29/2024 4:03 AM EST us Generic External Data Provider LAB BLOOD ORDERAB LES Final Result [facility] [address] [place] [phone] * SARS-CoV-2 RNA, Influenza A/B, and RSV RNA, Ql NAAT (07/28/2024 9:07 PM EST) Only the most recent of2 resultswithin the time period is included. Influenza A PCR NEGATIVE Negative [facility] Influenza B PCR NEGATIVE Negative [facility] Resp Syncy Virus RNA Qual PCR NEGATIVE Negative [facility] SARS COV2 PCR NEGATIVE Negative [facility] Comment:All test results mus t [...] use by authorized laboratories.Testing performed on the Space[employer] GeneXpert utilizingreal-time RT-PCR.All SARS CoV2 and positive influenza A/B results arereported to [facility]. 07/28/2024 9:07 PM EST 07/28/2024 9:11 PM EST us Generic External Data Provider LAB MICROBIOLOGY - GENERAL ORDERABLES Final Result [facility] [address] [place] [address] [phone] * (ABNORMAL) CBC auto differential (07/28/2024 9:07 PM EST) White Blood Count 12.3(H) 4.8 - 10.8 X10*3/uL [facility] Red Blood Count 4.59 4.20 - 5.50 X10*6/uL [facility] Hemoglobin 12.6 12.0 - 16.0 g/dl [facility] Hematocrit 39.0 37.0 - 47.0 % [facility] Mean Corpuscular Volume 85.0 80.0 - 98.0 fL [facility] Mean Corpuscular Hemoglobin 27.5 27.0 - 33.0 pg [facility] Mean Corpuscular HGB Conc 32.3 31.0 - 35.0 g/dl [facility] Red Cell Distribution Width 13.9 11.0 - 16.0 % [facility] Platelet Count 369 160 - 400 X10*3/uL [facility] Mean Platelet Volume 9.2(L) 9.4 - 12.3 fL [facility] Neutrophils Percent Auto 63.5 45 - 73 % [facility] Imm Gran Pct Auto 0.2 0.0 - 0.4 % [facility] Lymphocytes Percent Auto 20.4 20 - 40 % [facility] Monocytes Percent Auto 8.2 2 - 11 % [facility] Eosinophils Percent Auto 7.2(H) 0 - 4 % [facility] Basophils Percent Auto 0.5 0 - 2 % [facility] NRBC Pct Auto 0.0 0.0 - 0.2 /100WBC [facility] Neutrophils Absolute Auto 7.8 2.0 - 8.3 x10*3/uL [facility] Imm Gran Abs Auto 0.03 0.00 - 0.03 X10*3/uL [facility] Lymphocytes Absolute Auto 2.5 1.2 - 4.9 X10*3/uL [facility] Monocytes Absolute Auto 1.0 0.1 - 1.2 X10*3/uL [facility] Eosinophils Absolute Auto 0.9(H) 0.0 - 0.4 X10*3/uL [facility] Basophils Absolute Auto 0.1 0.0 - 0.2 X10*3/uL [facility] NRBC Abs Auto 0.000 0.0 - 0.012 X10*3/uL [facility] 07/28/2024 9:07 PM EST 07/28/2024 9:11 PM EST us Generic External Data Provider LAB BLOOD ORDERAB LES Final Result Performing Organization Address City/State/[facility] Co de Phone Number [facility] [address] [place] [phone] * (ABNORMAL) Prothrombin Time-INR (07/28/2024 9:07 PM EST) Prothrombin Time 12.8(H) 10.9 - 12.4 SEC [facility] INTERNATIONAL NORM RATIO 1.1 0.9 - 1.1 [facility] Comment:INTERNATIONAL NORMAL IZED RATIO (INR) REFERENCE RANGES Reference RangeFor patients not on anticoagulant therapy: 0.9 - 1.1INR ranges for oral anticoagulanttherapy:For prevention and treatment of venous thrombosis and pulmonary embolism: 2.0 - 3.0For acute myocardial infarction with aspirin therapy: 2.0 - 3.0For acute myocardial infarction without aspirin therapy: 3.0 - 4.0For patients with mechanical prosthetic heart valves: 2.5 - 3.5 07/28/2024 9:07 PM EST 07/28/2024 9:11 PM EST us Generic External Data Provider LAB BLOOD ORDERAB LES Final Result Performing Organization Address City/[facility]/ZIP Co de Phone Number [facility] [address] [place] [address] [phone] * Lipase (07/28/2024 9:07 PM EST) Lipase 24 8 - 78 U/L [facility] 07/28/2024 9:07 PM EST 07/28/2024 9:11 PM EST Generic External Data Provider LAB BLOOD ORDERAB LES Final Result Performing Organization Address [facility] Co de Phone Number [facility] [address] [place] [address] [phone] * (ABNORMAL) Comprehensive Metabolic Panel (07/28/2024 9:07 PM EST) Sodium 140 135 - 145 mmol/L [facility] Potassium 4.2 3.3 - 5.1 mmol/L [facility] Chloride 107 96 - 108 mmol/L [facility] Carbon Dioxide 26 22 - 29 mmol/L [facility] Anion Gap 11(L) 12 - 20 [facility] Urea Nitrogen (BUN) 10 9 - 16 mg/dL [facility] Creatinine, Serum 0.63 0.5 - 1.4 mg/dL [facility] Creatinine Clr Calc Pharmacy 197.4 [facility] Comment:Provided height and weight: 162.56 cm,151.046 kg.eGFR (calculated from the MDRD study equation) and eCrCl(calculated from the Cockcroft-Gault equation) are based ondifferent parameters and may not yield comparable results.If eCrCl result is absurd, please check patient'sheight/weight. Estimated Glomerular Filt Rate >60 [facility] Comment:Chronic Kidney Disea se: Estimated GFR < 60 mL/min/1.58k1Lladjr Kidney Disease: Estimated GFR < 15 mL/min/1.73m2 Glucose 100 60 - 115 mg/dL [facility] Calcium 8.7 8.4 - 10.2 mg/dL [facility] Bilirubin, Total 0.1 0.0 - 1.0 mg/dL [facility] Aspartate Amino Transferase 17 5 - 31 U/L [facility] Alanine Aminotransferase 16 0 - 31 U/L [facility] Total Protein 7.7 6.5 - 8.0 g/dL [facility] Albumin Level 3.8 3.5 - 5.0 g/dL [facility] Alkaline Phosphatase 86 39 - 117 U/L [facility] 07/28/2024 9:07 PM EST 07/28/2024 9:11 PM EST us Generic External Data Provider LAB BLOOD ORDERAB LES Final Result [facility] [address] [place] [address] [phone] * XR Chest 2 Views (07/28/2024 8:47 PM EST) Only the most recent of2 resultswithin the time period is included. Anatomical Region Laterality Modality Chest Radiographic Lillian ging 07/28/2024 8:47 PM EST Narrative 07/28/2024 8:49 PM EST ? [facility] ?[address] ?[place] [address] ?XRay Report ? Signed ? Patient: Westry,Rafaela A ?MR#: [id number] ?? 650 ? : 1995 ?Acct:[id number] ? Age/Sex: 29 / F ?ADM Date: 02/19/25 ? Loc: HO.ED ? Attending Dr: ? Ordering Physician: Yomi Butts ?? Date of Service: 07/28/24 ?? Procedure(s): XR chest 2V ?? Accession Number(s): [id number] ? cc: Nichole Andrea MD; Yomi Butts ? CLINICAL HISTORY: pain ? Chest Radiographs, 2 views ? Comparison: 07/12/24 ? Findings: ?? No cardiomegaly. ?? Normal mediastinal contours. ?? No pneumothorax. No opacity. No pleural effusion. ?? Normal upper abdomen. ?? No acute fracture. ? Impression: ?? No acute findings. ? This document has been electronically signed by: Ni Gonzalez MD ?? on 07/28/2024 20:47:32 ? Dictated By: ?Ni Moon MD ? Signed By: ?<Electronically signed by Ni Moon MD in OV> ? 07/28/242047 ? DD/ 46 ? TD/TT: 07/28/242046 ? Geriatric Case Manager: ? Procedure Note Donandre, Image - 07/28/2024 [place] [address] XRay Report Signed Patient: Rafaela Terrell AMR#: [id number] 650 : 1995Acct:[id number] Age/Sex: FADM Date: 07/28/24 Loc: HO.ED Attending Dr: Ordering Physician: Yomi Btuts Date of Service: 07/28/24 Procedure(s): XR chest 2V Accession Number(s): [id number] cc: Nichole Andrea MD; Yomi Butts CLINICAL HISTORY: pain Chest Radiographs, 2 views Comparison: 07/12/24 Findings: No cardiomegaly. Normal mediastinal contours. No pneumothorax. No opacity. No pleural effusion. Normal upper abdomen. No acute fracture. Impression: No acute findings. This document has been electronically signed by: Ni Gonzalez MD on 07/28/2024 20:47:32 Dictated By: Ni Moon MD Signed By: <Electronically signed by Ni Moon MD in OV> 07/28/242047 DD/ 46 TD/TT: 07/28/242046 Geriatric Case Manager: [facility] External Provider IMG XR PROCEDURES Final Result * Strep A Nucleic Acid (07/12/2024 4:08 PM EST) IDNOW SERIAL# [id number] [facility] Strep A Nucleic Acid Negative Negative [facility] Comment:All test results mus t be [...] LAB MICROBIOLOGY - GENERAL ORDERABLES Final Result [facility] [address] [place] [phone] * ECG 12 lead (07/07/2024 8:23 PM EST) Kaelyn Rios NP - 07/07/2024 8:23 PM EST HR 82 bpm, left axis deviation. Sinus rhythm ECG Kaelyn Segovia NP ECG ORDERABLES Final Result * POCT Influenza B manually resulted (07/07/2024 8:22 PM EST) [facility] [address] Rapid Influenza B Ag Negative Negative, Indeterminate QC Media Lot # [id number] Lot# Expiration Date Swab 07/07/2024 8:22 PM EST Kaelyn Segovia NP POINT OF CARE TEST ENTER/EDIT O RDERABLES Final Result * POCT Influenza A manually resulted (07/07/2024 8:21 PM EST) [facility] [address] Rapid Influenza A Ag Negative Negative, Indeterminate QC Media Lot # [id number] Lot# Expiration Date Swab Nasopharyngeal structure / Unknown 07/07/2024 8:21 PM EST Kaelyn Segovia NP POINT OF CARE TEST ENTER/EDIT O RDERABLES Final Result * POCT Rapid COVID Ag (07/07/2024 8:20 PM EST) Only the most recent of2 resultswithin the time period is included. Pathologist [facility] Rapid COVID Ag Negative QC Media Lot # [id number] Lot# Expiration Date [id number] Swab 07/07/2024 8:20 PM EST Kaelyn Segovia COMMERCIAL FISHING VESSEL OPERATOR POINT OF CARE TEST ENTER/EDIT O RDERABLES Final Result * (ABNORMAL) Bacterial Vaginosis (06/29/2024 9:44 AM EST) [facility] [address] TRICHOMONAS VAGINALIS DETECTION BY PCR NOT DETECTED Not Detect [facility] BACTERIAL VAGINOSIS DETECTION BY PCR NEGATIVE Negative [facility] Comment:The BV organism targ ets of [...] DETECTION BY PCR NOT DETECTED Not Detect [facility] Evelyn glab krusei PCR DETECTED(A) Not Detect [facility] 06/29/2024 9:44 AM EST 06/29/2024 3:28 PM EST Generic External Data Provider LAB MICROBIOLOGY - GENERAL ORDERABLES Final Result [facility] [address] [place] [phone] * Chlamydia/N. Gonorrhoeae RNA, TMA, Urogenitial (06/29/2024 9:44 AM EST) Pathologist [facility] CT PCR NOT DETECTED Not Detect. [facility] Comment:A not detected test result does [...] psychologicalconsequences. NG PCR NOT DETECTED Not Detect. [facility] Comment:A not detected test result does [...] AM EST 06/29/2024 3:28 PM EST Narrative [facility] - 06/30/2024 3:23 AM EST Vaginal us Generic External Data Provider LAB MICROBIOLOGY - GENERAL ORDERABLES Final Result [facility] [address] [place] [phone] * Influenza B (ID NOW Rapid Molecular) (06/15/2024 1:43 PM EST) Influenza B Negative Negative, Indeterminate [facility] Swab 06/15/2024 1:43 PM EST us Debo Hayes COMMERCIAL FISHING VESSEL OPERATOR POINT OF CARE TEST ENTER/EDIT OR DERABLES Final Result Performing Organization Address [facility]/ZIP Co de Phone Number [facility] [address] [place] [address] [phone] * Influenza A (ID NOW Rapid Molecular) (06/15/2024 1:43 PM EST) Influenza A Negative Negative, Indeterminate [facility] Swab 06/15/2024 1:43 PM EST Debo Hayes COMMERCIAL FISHING VESSEL OPERATOR POINT OF CARE TEST ENTER/EDIT OR DERABLES Final Result Performing Organization Address [facility] de Phone Number [facility] [address] [place] [address] [phone] * Pap Smear (06/19/2022 3:50 PM EST) 06/19/2022 3:50 PM EST 06/20/2022 9:45 AM EST Narrative [facility] - 06/29/2022 3:25 PM EST ----- ------- Name: Rafaela Terrell ?Age/Sex: 27/F ? : 1995 Unit#: [id number] ?? Attend Dr: Huma Ochoa CNM ?Re06/19/22 ?Status: DEP REF ? Location: HO.LNP ?Disch: ? ----- ------- SPEC : [id number] ?RECD: 06/20/22 ? STATUS: ??SOUT ? REQ NUM: [id number] ? ENEIDA: 06/19/22 ? SUBM DR: Huma Ochoa CNM ? ENTERED: ??06/20/22 ?SP TYPE: Pap Smr ?OTHR DR: Nichole Andrea MD ? ORDERED: ??Pap Smear ? Interpretation ?? Satisfactory for evaluation. ?? Negative for intraepithelial lesion or malignancy. ?Clinical Information LMP: 05/27/22 Previous PAP test: 04/07/20, WNL ? Material Received ?? ThinPrep-Cervical Copies To: ?? Nichole Andrea MD ?? [address] ?? [place] [address] ? Huma Ochoa CNM ?? [address] ?? [place] [address] ?? [phone] ----- ------- Signed (signature on file) Anabel Matthews 06/29/22 1525 ? ----- ------- ? END OF REPORT ? [facility] External Provider LAB CYT OLOGY ORDERABLES Final Result [facility] [address] [place] [address] [phone] * HIV 1/2 ANTIGEN/ANTIBODY,FOURTH GENERATION W/RFL [...] ? For additional information please refer to http://[employer].Woo With Style/faq/IPV827 (This link is being provided for informational/ [...] ? For additional information please refer to http://[employer] Style/faq/MQQ842 (This link is being provided for informational/ educational purposes only.) ? The performance of this assay has not been clinically validated in patients less than 2 years old. ?? 11/11/2019 12:0 4 PM EDT Anna [facility] LAB BLOOD ORDERABLES Angeli l Result [facility] [address] from Last 3 Months or Most Recently Relevant to Health Maintenance Insurance [facility] C3 HSN FULL DENTAL-[facility] MEDICAID STAND ADULT Care Teams Returned Materials Inspector Relationship Specialty Start Date End Date Nichole Andrea MD [address] [place] [phone] PCP - General Family Medicine 05/27/18
--- OUTSIDE RECORDS SUMMARY | 2024-07-29 08:54 | XMS_ITS | Encounter Summary ---
Author Organization [employer] Address [address] [place] [address] Care Team Providers Care Truck Engine Technician Name Role Phone Nichole Andrea MD Primary Care Provider + Reason for Visit * Reason Onset Date Comments Follow up ED 07/15/2024 Encounter Details Date Type Department Care Team ([facility] st Contact Info) Description 07/15/2024 Telephone [facility] [address] [place], [place] [phone] Leigha Newsome RN [address] [place] [address] Follow up ED Social History Tobacco Use Types Packs/Day Years [...] encounter Miscellaneous Notes * Telephone Encounter - Leigha Newsome RN - 07/15/2024 10:07 AM EST Noted. TC placed to patient [phone] in regards to below message. Patient reports she continueswith dry cough and nasal congestion. Patient denies fevers, vomiting or diarrhea. Patient reports she is eating and drinking normally. Patient advised to continue fluids and if s/s return or worsen to call [facility] to be re-evaluated. Patient verbalized understanding. Patient to f/u PRN. ----- Message from Nichole Andrea MD sent [...] Description 09/06/2024 8:00 AM EDT Office Visit [facility] ADULT DENTAL [address] [place] [address] Ana Damari [address] [place] [address] 09/08/2024 3:00 PM EDT Office Visit [facility] [address] [place] [address] Nichole Andrea MD [address] [place] [address] documented as of this encounter Visit Diagnoses Not on filedocumented in this encounter Care Teams Truck Engine Technician Relationship Specialty Start Date End Date Nichole Andrea MD [address] [place] [address] PCP - General Family Medicine 05/27/18 documented as of this encounter
--- OUTSIDE RECORDS SUMMARY | 2024-07-29 08:54 | XMS_ITS | Encounter Summary ---
Author Organization [employer] Address [address] [place] [address] Care Team Providers Care Rivet Catcher Name Role Phone Nichole Andrea MD Primary Care Provider + Reason for Visit * Reason Comments Care Coordination Outreach Encounter Details Date Type Department Care Team (Latest Contact Info) Description 07/20/2024 Patient Outreach [facility] [address] [place], [place] [phone] Nichole Andrea MD [address] [place] [address] Care Coordination (Outreach) Social History Tobacco Use [...] encounter Progress Notes * Magalys Colby - 07/20/2024 1:22 PM EST CHW Magalys Colby, placed outbound call to patient introducing herself from [facility], in regards to offering services. Patient's name and was confirmed. Patient agrees to participate in program. Appt. for initial assessment scheduled for 07/29/24 @ 10:00 AM. CHW reinforced direct contact information or CM for any additional questions or concerns and extended clinic hours on Mondays and Wednesdays, and Walk-In Urgent Care Located in [facility] of [facility]. Patient provided with after-hours line for [facility], , which offer night time triage service and option to transfer to bone cooking operator provider if needed. Patient verbalizes understanding, and able to repeat back to ad writer. documented in this encounter Plan of Treatment Upcoming Encounters Date Type Department Care Team ([facility] st Contact Info) Description 09/06/2024 8:00 AM EDT Office Visit [facility] ADULT DENTAL [address] [place], [place] [phone] Damari Perez [address] [place] [address] 09/08/2024 3:00 PM EDT Office Visit [facility] MEDICINE [address] [place] [address] Nichole Andrea MD [address] [place] [address] documented as of this encounter Visit Diagnoses Not on filedocumented in this encounter Care Teams Rivet Catcher Relationship Specialty Start Date End Date Nichole Andrea MD [address] [place], [place] [phone] PCP - General Family Medicine 05/27/18 documented as of this encounter
--- OUTSIDE RECORDS SUMMARY | 2024-07-29 08:54 | XMS_ITS | Encounter Summary ---
Author Organization [facility] Address [address] [place] [address] 7t [place] [address] Care Team Providers Care Dental Hygienist Name Role Phone Nichole Andrea MD Primary Care Provider + Encounter Details Date Type Department Care Team (Late st Contact Info) Description 07/28/2024 Orders Only [facility] External Provider, [facility] Social History Tobacco Use Types Packs/Day Years [...] 09/06/2024 8:00 AM EDT Office Visit [facility] [address] [place] [address] Ana Damari [address] [place] [address] 09/08/2024 3:00 PM EDT Office Visit [facility] MED[facility] [address] [place] [address] Nichole Andrea MD [address] [place] [address] documented as of this encounter Procedures Procedure Name Priority Date/Time Associated Diagnosis Comments HIGH SENSITIVITY TROPONIN I Routine 07/28/2024 9:07 PM EST SARS COV2/INFLUENZA A/B AND RSV RNA QL NAAT Routine 07/28/2024 9:07 PM EST CBC WITH AUTO DIFFERENTIAL Routine 07/28/2024 9:07 PM EST PROTHROMBIN TIME-INR Routine 07/28/2024 9:07 PM EST LIPASE Routine 07/28/2024 9:07 PM EST COMPREHENSIVE METABOLIC PANEL Routine 07/28/2024 9:07 PM EST XR CHEST 2 VIEWS Routine 07/28/2024 8:47 PM EST documented in this encounter Results * SARS-CoV-2 RNA, Influenza A/B, and RSV RNA, Ql NAAT (07/28/2024 9:07 PM EST) Influenza A PCR NEGATIVE Negative [facility] Influenza B PCR NEGATIVE Negative [facility] Resp Syncy Virus RNA Qual PCR NEGATIVE Negative [facility] SARS COV2 PCR NEGATIVE Negative [facility] Comment:All test results mus t [...] use by authorized laboratories.Testing performed on the [employer] GeneXpert utilizingreal-time RT-PCR.All SARS CoV2 and positive influenza A/B results arereported to [facility]. 07/28/2024 9:07 PM EST 07/28/2024 9:11 PM EST us Generic External Data Provider LAB MICROBIOLOGY - GENERAL ORDERABLES Final Result Performing Organization Address [facility] Co de Phone Number [facility] [address] [place] [phone] * High Sensitivity Troponin I (07/28/2024 9:07 PM EST) [facility] TROPONIN I HIGH SENSITIVITY <2.7 <3.5 - 17.0 ng/L [facility] Comment:The Concepcion high sens itivity Troponin-I results should beused in conjunction with other diagnostic information suchas ECG, clinical observations and information, and patientsymptoms to aid in the diagnosis of [place]. 07/28/2024 9:07 PM EST 07/28/2024 9:11 PM EST Generic External Data Provider LAB BLOOD ORDERAB LES Final Result Performing Organization Address [facility] Co de Phone Number [facility] [address] [place] [phone] * Lipase (07/28/2024 9:07 PM EST) [facility] Lipase 24 8 - 78 U/L [facility] 07/28/2024 9:07 PM EST 07/28/2024 9:11 PM EST Generic External Data Provider LAB BLOOD ORDERAB LES Final Result Performing Organization Address [facility] Co de Phone Number [facility] [address] [place] [phone] * (ABNORMAL) Comprehensive Metabolic Panel (07/28/2024 9:07 PM EST) [facility] Sodium 140 135 - 145 mmol/L [facility] Potassium 4.2 3.3 - 5.1 mmol/L [facility] Chloride 107 96 - 108 mmol/L [facility] Carbon Dioxide 26 22 - 29 mmol/L [facility] Anion Gap 11(L) 12 - 20 [facility] Urea Nitrogen (BUN) 10 9 - 16 mg/dL [facility] Creatinine, Serum 0.63 0.5 - 1.4 mg/dL [facility] Creatinine Clr Calc Pharmacy 197.4 [facility] Comment:Provided height and weight: 162.56 cm,151.046 kg.eGFR (calculated from the MDRD study equation) and eCrCl(calculated from the Cockcroft-Gault equation) are based ondifferent parameters and may not yield comparable results.If eCrCl result is absurd, please check patient'sheight/weight. Estimated Glomerular Filt Rate >60 [facility] Comment:Chronic Kidney Disea se: Estimated GFR < 60 mL/min/1.64b0[place] Kidney Disease: Estimated GFR < 15 mL/min/1.73m2 Glucose 100 60 - 115 mg/dL [facility] Calcium 8.7 8.4 - 10.2 mg/dL [facility] Bilirubin, Total 0.1 0.0 - 1.0 mg/dL [facility] Aspartate Amino Transferase 17 5 - 31 U/L [facility] Alanine Aminotransferase 16 0 - 31 U/L [facility] Total Protein 7.7 6.5 - 8.0 g/dL [facility] Albumin Level 3.8 3.5 - 5.0 g/dL [facility] Alkaline Phosphatase 86 39 - 117 U/L [facility] 07/28/2024 9:07 PM EST 07/28/2024 9:11 PM EST us Generic External Data Provider LAB BLOOD ORDERAB LES Final Result [facility] [address] [place], [place] [phone] * (ABNORMAL) Prothrombin Time-INR (07/28/2024 9:07 PM EST) Prothrombin Time 12.8(H) 10.9 - 12.4 SEC [facility] INTERNATIONAL NORM RATIO 1.1 0.9 - 1.1 [facility] Comment:INTERNATIONAL NORMAL IZED RATIO (INR) REFERENCE [...] Provider LAB BLOOD ORDERAB LES Final Result [facility] [address] [place] [phone] * (ABNORMAL) CBC auto differential (07/28/2024 9:07 PM EST) White Blood Count 12.3(H) 4.8 - 10.8 X10*3/uL [facility] Red Blood Count 4.59 4.20 - 5.50 X10*6/uL [facility] Hemoglobin 12.6 12.0 - 16.0 g/dl [facility] Hematocrit 39.0 37.0 - 47.0 % [facility] Mean Corpuscular Volume 85.0 80.0 - 98.0 fL [facility] Mean Corpuscular Hemoglobin 27.5 27.0 - 33.0 pg [facility] Mean Corpuscular HGB Conc 32.3 31.0 - 35.0 g/dl [facility] Red Cell Distribution Width 13.9 11.0 - 16.0 % [facility] Platelet Count 369 160 - 400 X10*3/uL [facility] Mean Platelet Volume 9.2(L) 9.4 - 12.3 fL [facility] Neutrophils Percent Auto 63.5 45 - 73 % [facility] Imm Gran Pct Auto 0.2 0.0 - 0.4 % [facility] Lymphocytes Percent Auto 20.4 20 - 40 % [facility] Monocytes Percent Auto 8.2 2 - 11 % [facility] Eosinophils Percent Auto 7.2(H) 0 - 4 % [facility] Basophils Percent Auto 0.5 0 - 2 % [facility] NRBC Pct Auto 0.0 0.0 - 0.2 /100WBC [facility] Neutrophils Absolute Auto 7.8 2.0 - 8.3 x10*3/uL [facility] Imm Gran Abs Auto 0.03 0.00 - 0.03 X10*3/uL [facility] Lymphocytes Absolute Auto 2.5 1.2 - 4.9 X10*3/uL [facility] Monocytes Absolute Auto 1.0 0.1 - 1.2 X10*3/uL [facility] Eosinophils Absolute Auto 0.9(H) 0.0 - 0.4 X10*3/uL [facility] Basophils Absolute Auto 0.1 0.0 - 0.2 X10*3/uL [facility] NRBC Abs Auto 0.000 0.0 - 0.012 X10*3/uL [facility] 07/28/2024 9:07 PM EST 07/28/2024 9:11 PM EST us Generic External Data Provider LAB BLOOD ORDERAB LES Final Result Performing Organization Address City/State/[facility] Co de Phone Number [facility] [address] [place] [phone] * XR Chest 2 Views (07/28/2024 8:47 PM EST) Anatomical Region Laterality Modality Chest Radiographic Lillian ging 07/28/2024 8:47 PM EST Narrative 07/28/2024 8:49 PM EST ? [facility] ?[address] ?[place] [address] ?XRay Report ? Signed ? Patient: Westry,Rafaela A ?MR#: [id number] ?? 650 ? : 1995 ?Acct:[id number] ? Age/Sex: 29 / F ?ADM Date: 02/19/25 ? Loc: HO.ED ? Attending Dr: ? Ordering Physician: Yomi Butts ?? Date of Service: 07/28/24 ?? Procedure(s): XR chest 2V ?? Accession Number(s): [id number] ? cc: Nichole Andrea MD; Yomi Butts [...] ? DD/ 46 ? TD/TT: 07/28/242046 ? Pens And Pencils Dipper: ? Procedure Note Donjaclynter, Image - 07/28/[address] [address] XRay Report Signed Patient: Rafaela Terrell AMR#: [id number] 650 : 1995Acct:[id number] Age/Sex: 29 FADM Date: 07/28/24 Loc: HO.ED Attending Dr: Ordering Physician: Yomi Butts Date of Service: 07/28/24 Procedure(s): XR chest 2V Accession Number(s): [id number] cc: Nichole Andrea MD; Yomi Butts CLINICAL [...] in OV> 07/28/242047 DD/ 46 TD/TT: 07/28/242046 Pens And Pencils Dipper: [facility] External Provider IMG XR PROCEDURES Final Result documented in this encounter Visit Diagnoses Not on filedocumented in this encounter Care Teams Dental Hygienist Relationship Specialty Start Date End Date Nichole Andrea MD [address] [place] [phone] PCP - General Family Medicine 05/27/18 documented as of this encounter
--- OUTSIDE RECORDS SUMMARY | 2024-07-29 08:54 | XMS_ITS | Encounter Summary ---
Author Organization [facility] Address [address] [place] [address] 7t [place] [address] Care Team Providers Care Workforce Analyst Name Role Phone Nichole Andrea MD Primary Care Provider + Encounter Details Date Type Department Care Team (Late st Contact Info) Description 07/29/2024 Orders Only GENERIC EXTERNAL DATA [...] Description 09/06/2024 8:00 AM EDT Office Visit [facility] ADULT D[facility] [address] [place] [address] Ana, Damari [address] [place] [address] 09/08/2024 3:00 PM EDT Office Visit [facility] MEDICINE [address] [place] [address] Nichole Andrea MD [address] [place] [address] documented as of this encounter Procedures Procedure Name Priority Date/Time Associated Diagnosis Comments HIGH SENSITIVITY TROPONIN I Routine 07/29/2024 4:00 AM EST documented in this encounter Results * High Sensitivity Troponin I (07/29/2024 4:00 AM EST) TROPONIN I HIGH SENSITIVITY <2.7 <3.5 - 17.0 ng/L [facility] Comment:The Concepcion high sens itivity Troponin-I results should beused in conjunction with other diagnostic information suchas ECG, clinical observations and information, and patientsymptoms to aid in the diagnosis of [place]. 07/29/2024 4:00 AM EST 07/29/2024 4:03 AM EST us Generic External Data Provider LAB BLOOD ORDERAB LES Final Result Performing Organization Address City/State/[facility] Co de Phone Number [facility] [address] [place] [phone] documented in this encounter Visit Diagnoses Not on filedocumented in this encounter Care Teams Workforce Analyst Relationship Specialty Start Date End Date Nichole Andrea MD [address] [place] [phone] PCP - General Family Medicine 05/27/18 documented as of this encounter
--- OUTSIDE RECORDS SUMMARY | 2024-07-29 08:54 | XMS_ITS | Encounter Summary ---
Author Organization [employer] Address [address] [facility] 7t [place] [address] Care Team Providers Care Cable Repairer Name Role Phone Nichole Andrea MD Primary Care Provider + Reason for Visit * Reason Onset Date Comments ER Follow-up 07/13/2024 Encounter Details Date Type Department Care Team ([facility] st Contact Info) Description 07/13/2024 Telephone [facility] MEDICINE [address] [place], [place] [phone] Nichole Andrea MD [address] [place] [address] ER Follow-up Social History Tobacco Use Types Packs/Day Years [...] encounter Miscellaneous Notes * Telephone Encounter - Mar Bhagat RN - 07/13/2024 2:16 PM EST Call returned to Rafaela Terrell to triage below. Reports that was discharged home. No Rx given. Ptreports was having chest tightness, low grade temp and cough. No vomiting or diarrhea. Pt has been using Tylenol PRN for temp. Pt given home care measures of rest, fluids, inhalers PRN. To seek ER ifsx worsen. Can call on for follow up if sx fail to improve. Reviewed [facility] operating hours and that wait times vary. Reviewed home care advise, ER precautions and reasons to call back. Protocol Used: Common Cold (Adult) Protocol-Based Disposition: Home Care Positive Triage Question: * Colds with no complications * All higher-acuity triage questions were negative Care Advice Discussed: * Reasons To Call Back - Fever lasts over 3 days - You become short of breath - You become worse * Telephone Encounter - Reji Dobbs - 07/13/2024 12:17 PM EST Patient calling to report ED visit on : Date: 07/12/2024 Hospital: [facility] Seen for: RSV Symptomatic Yes *if yes message should go to Triage Patient advised will forward to team nurse for follow up documented in this encounter Plan of Treatment Upcoming Encounters Date Type Department Care Team (Late st Contact Info) Description 09/06/2024 8:00 AM EDT Office Visit [facility] ADULT DENTAL [address] [place] [address] Ana, Damari [address] [place] [address] 09/08/2024 3:00 PM EDT Office Visit [facility] MEDICINE [address] [place] [address] Nichole Andrea MD [address] [place] [address] documented as of this encounter Visit Diagnoses Not on filedocumented in this encounter Care Teams Cable Repairer Relationship Specialty Start Date End Date Nichole Andrea MD [address] [place] [address] PCP - General Family Medicine 05/27/18 documented as of this encounter
--- OUTSIDE RECORDS SUMMARY | 2024-07-29 08:54 | XMS_ITS | Encounter Summary ---
Author Organization [employer] Address [address] 7t [place] [address] Care Team Providers Care Tennis Ball Cover Cementer Name Role Phone Nichole Andrea MD Primary Care Provider + Reason for Visit * Reason Comments Care Coordination Outreach Encounter Details Date Type Department Care Team (Latest Contact Info) Description 07/28/2024 Patient Outreach [facility] [address] [place], [place] [phone] Nichole Andrea MD [address] [place] [address] Care Coordination (Outreach) Social History Tobacco Use [...] encounter Progress Notes * Magalys Colby - 07/28/2024 11:51 AM EST CHW Magalys Colby placed outbound call to patient introducing herself from [facility] CM Department, in regards to remind patient of Adult Complex Care program initial assessment appt for tomorrow 07/29/24 @ 10:00 AM via telephone. Patient's name and was confirmed. Patient is aware andconfirmed will be available for call and has no barriers on attending call. Patient verbalized understanding and agrees with plan. documented in this encounter Plan of Treatment Upcoming Encounters Date Type Department Care Team (Late st Contact Info) Description 09/06/2024 8:00 AM EDT Office Visit [facility] ADULT DENTAL [address] [place] [address] Ana, Damari [address] [place] [address] 09/08/2024 3:00 PM EDT Office Visit [facility] MEDICINE [address] [place] [address] Nichole Andrea MD [address] [place] [address] documented as of this encounter Visit Diagnoses Not on filedocumented in this encounter Care Teams Tennis Ball Cover Cementer Relationship Specialty Start Date End Date Nichole Andrea MD [address] [place] [phone] PCP - General Family Medicine 05/27/18 documented as of this encounter
--- OUTSIDE RECORDS SUMMARY | 2024-07-29 08:54 | XMS_ITS | Encounter Summary ---
Author Organization [employer] Address [address] [facility] 7t [place] [address] Care Team Providers Care Ada Accommodation Consultant Name Role Phone Nichole Andrea MD [...] as of this encounter Miscellaneous Notes * Result Encounter Note - Nichole Andrea MD - 07/12/2024 4:31 PM EST Patient was seen in the ED with [...] 09/06/2024 8:00 AM EDT Office Visit [facility] ADULT DENTAL [address] [place] [address] Damari Perez [address] [place] [address] 09/08/2024 3:00 PM EDT Office Visit [facility] [address] [facility] [place] [address] Nichole Andrea MD [address] [place] [address] documented as of this encounter Procedures Procedure [...] EST) Influenza A PCR NEGATIVE Negative [facility] Influenza B PCR NEGATIVE Negative [facility] Resp Syncy Virus RNA Qual PCR POSITIVE(A) Negative [facility] SARS COV2 PCR NEGATIVE Negative [facility] Comment:All test results mus t be [...] use by authorized laboratories.Testing performed on the [employer] GeneXpert utilizingreal-time RT-PCR.All SARS CoV2 and positive influenza A/B results arereported to [facility]. 07/12/2024 4:08 PM EST 07/12/2024 4:12 PM EST Generic External Data Provider LAB MICROBIOLOGY - GENERAL ORDERABLES Final Result Performing Organization Address [facility] de Phone Number [facility] [address] [place] [address] [phone] * Strep A Nucleic Acid (07/12/2024 4:08 PM EST) [employer]NOW SERIAL# [id number] [facility] Strep A Nucleic Acid Negative Negative [facility] Comment:All test results mus t [...] GENERAL ORDERABLES Final Result Performing Organization Address [facility] de Phone Number [facility] [address] [place] [address] [phone] * XR Chest 2 Views (07/12/2024 4:03 PM EST) Anatomical Region Laterality Modality Chest Radiographic Lillian ging 07/12/2024 4:03 PM EST Narrative 07/12/2024 4:42 PM EST ? [facility] ?[address] ?[place] [address] ?XRay Report ? Signed ? Patient: Westry,Rafaela A ?MR#: [id number] ?? 650 ? : 1995 ?Acct:[id number] ? Age/Sex: 29 / F ?ADM Date: 02/03/25 ? Loc: HO.ED ? Attending Dr: ? Ordering Physician: Libertad Enamorado ?? Date of Service: 07/12/24 ?? Procedure(s): XR chest 2V ?? Accession Number(s): [id number] ? cc: Nichole Andrea MD; Libertad Enamorado [...] DD/ 1603 ? TD/TT: 07/12/24 1630 ? Kiln Placer: ? Procedure Note Donotdeisiinterpreter, Image - 07/12/2024 [place] [address] XRay Report Signed Patient: Rafaela Terrell AMR#: [id number] 650 : 1995Acct:[id number] Age/Sex: Date: 07/12/24 Loc: .ED Attending Dr: Ordering Physician: Libertad Enamorado Date of Service: 07/12/24 Procedure(s): XR chest 2V Accession Number(s): [id number] cc: Nichole Andrea MD; Libertad Enamorado EXAMINATION: [...] 07/12/24 1639 DD/ 1603 TD/TT: 07/12/24 1630 Kiln Placer: [facility] External Provider IMG XR PROCEDURES Final Result documented in this encounter Visit Diagnoses Not on filedocumented in this encounter Care Teams Ada Accommodation Consultant Relationship Specialty Start Date End Date Nichole Andrea MD [address] [place] [phone] PCP - General Family Medicine 05/27/18 documented as of this encounter
--- OUTSIDE RECORDS SUMMARY | 2024-07-29 08:54 | XMS_ITS | Encounter Summary ---
Author Organization [employer] Address [address] 7t [place] [address] Care Team Providers Care Auction Assistant Name Role Phone Nichole Andrea MD Primary Care Provider + Encounter Details Date Type Department Care Team (Late Contact Info) Description 07/07/2024 6:40 PM EST Office Visit [facility] [address] [place] [address] Cough in adult patient (Primary Dx); Palpitations [...] Description 09/06/2024 8:00 AM EDT Office Visit [facility] ADULT DENT[facility] [address] [place] [address] González Perezaris [address] [place] [address] 09/08/2024 3:00 PM EDT Office Visit [facility] [address] [facility] [place] [address] Nichole Andrea MD [address] [place] [address] documented as of this encounter Procedures Procedure [...] manually resulted (07/07/2024 8:22 PM EST) Pathologist [facility] Rapid Influenza B Ag Negative Negative, Indeterminate QC Media Lot # [id number] Lot# Expiration Date [id number] Swab 07/07/2024 8:22 PM EST us Kaelyn Segovia NP POINT OF CARE TEST ENTER/EDIT O RDERABLES Final Result * POCT Influenza A manually resulted (07/07/2024 8:21 PM EST) [facility] Rapid Influenza A Ag Negative Negative, Indeterminate QC Media Lot # [id number] Lot# Expiration Date 8,626 Swab Nasopharyngeal structure / Unknown 07/07/2024 8:21 PM EST Kaelyn Juliette MANAGER COUNCIL POINT OF CARE TEST ENTER/EDIT O RDERABLES Final Result * POCT Rapid COVID Ag (07/07/2024 8:20 PM EST) [facility] Rapid COVID Ag Negative QC Media Lot # [id number] Lot# Expiration Date [id number] Swab 07/07/2024 8:20 PM EST us Kaelyn Segovia MANAGER COUNCIL POINT OF CARE TEST ENTER/EDIT O RDERABLES Final Result documented in this encounter Visit Diagnoses Diagnosis Cough in adult patient- Primary Palpitations documented in this encounter Care Teams Auction Assistant Relationship Specialty Start Date End Date Nichole Andrea MD [address] [place] [phone] PCP - General Family Medicine 05/27/18 documented as of this encounter
--- OUTSIDE RECORDS SUMMARY | 2024-07-29 08:55 | XMS_ITS | Encounter Summary ---
Author Organization [employer] Address [address] [facility] 7t [place] [address] Care Team Providers Care Photo Retoucher Name Role Phone Nichole Andrea MD Primary Care Provider + Reason for Visit * Reason Onset Date Comments Appointment Request 07/20/2024 Encounter Details Date Type Department Care Team ([facility] st Contact Info) Description 07/20/2024 Telephone [facility] [address] [place], [place] [phone] Nichole Andrea MD [address] [place], [place] [phone] Appointment Request Social History Tobacco Use Types [...] Telephone Encounter - Meli Ch [place] - 07/20/2024 3:05 PM EST Tc to pt to r/s appt from 09/08/24 as PCP will be in that afternoon. Appt has been scheduled for 09/08/24 at 3:00 pm, LVM with appt info. documented in this encounter Plan of Treatment Upcoming Encounters Date Type Department Care Team (Late st Contact Info) Description 09/06/2024 8:00 AM EDT Office Visit [facility] ADULT DENTAL [address] [place] [address] Damari Perez [address] [place] [address] 09/08/2024 3:00 PM EDT Office Visit [facility] MED[facility] [address] [place] [address] Nichole Andrea MD [address] [place] [address] documented as of this encounter Visit Diagnoses Not on filedocumented in this encounter Care Teams Photo Retoucher Relationship Specialty Start Date End Date Nichole Andrea MD [address] [place] [address] PCP - General Family Medicine 05/27/18 documented as of this encounter
[2024-07-29 08:56] VITALS: BP 139/68; PULSE 77; RESP 18; TEMP 36.6; O2SAT 99
[2024-07-29 09:02] VITALS: BP 139/68; PULSE 77; RESP 18; TEMP 36.6; O2SAT 99
[2024-07-29 09:15] LABS: HCG Quantitative < 2 mIU/mL
== END 2024-07-29 09:28 | disposition home or self-care (01) ==
PROVIDERS: Physician Assistant; Emergency Provider Emergency Medicine; PCP Internal Medicine
DX: R07.89 Other chest pain (principal); I49.8 Other specified cardiac arrhythmias; Z03.818 Encounter for observation for suspected exposure to other biological agents ruled out; Z79.899 Other long term (current) drug therapy
CPT/HCPCS: 0241U; 36415; 71046; 80053; 83690; 84484; 84702; 85025; 85610; 93005; 99283; 99284

== ENCOUNTER → 2024-07-28 19:43 | Outpatient (BNV) | payer MEDICAID, SELFPAY | PROVIDERS: Emergency Provider Emergency Medicine; PCP Internal Medicine; Visit Provider Internal Medicine | DX: I49.9 Cardiac arrhythmia, unspecified (principal) | CPT/HCPCS: 93010 ==

== ENCOUNTER → 2024-07-28 19:58 | Outpatient (BNV) | payer MEDICAID, SELFPAY | PROVIDERS: PCP Internal Medicine; Visit Provider Radiology Diagnostic Radiology | DX: R07.9 Chest pain, unspecified (principal) | CPT/HCPCS: 71046 ==

== ENCOUNTER 2024-08-13 11:02 | Outpatient (REF) | payer MEDICAID, SELFPAY ==
--- NOTE | ~2024-08-13 | US_ITS ---
EXAMINATION: US PELVIS CLINICAL INFORMATION: Pelvic and perineal pain COMPARISON: None available. TECHNIQUE: Ultrasound of the pelvis is performed using both transabdominal and transvaginal transducers along with Doppler. Transvaginal imaging is performed due to inadequate visualization transabdominally. FINDINGS: Uterus: The uterus is anteverted , anteflexed and measures 8.0 x 3.1 x 3.5 cm. The double wall endometrial thickness is 0.5 cm. The uterus is smooth in contour and has normal myometrial echogenicity. No visible fibroid. Adnexa: Both ovaries are visualized. There is normal color flow to the adnexa. There is no ovarian torsion. There is no pelvic ascites or fluid collection. Right ovary measures 3.8 x 2.4 x 2.2 cm. Volume 10.6 mL. There is a anechoic corpus luteal cyst measuring 1.5 x 1.5 x 1.3 cm. Previously right ovary measured 4.1 x 2.3 x 2.2 cm and volume 10.9 mL. mL. Left ovary measures 2.6 x 1.8 x 3.5 cm. Volume 11.8 mL. There is a complex anechoic cyst measuring 1.4 x 1.1 x 1.1 cm there is an echogenic area in left ovary measuring 2.0 0.8 x 1.5 cm similar previous study. Previously it measured 2.3 x 1.8 x 1.1 cm. Previously left ovary measures 4.0 x 1.8 x 3.4 cm in volume 12.8 mL. There is small amount of free fluid in the cul-de-sac. US/US pelvic and transvaginal IMPRESSION: Corpus luteal cyst right ovary. There is an echogenic area in the left ovary which is similar to previous study. In addition is a complex cyst left ovary. The uterus is grossly unremarkable. Minimal free fluid in the pelvis Electronically signed by: Carlton Chung MD 08/13/2024 12:11 PM [facility]
--- OUTSIDE RECORDS SUMMARY | 2024-08-13 12:45 | XMS_ITS | Encounter Summary ---
Author Organization [employer] Address [address] [place] [address] Care Team Providers Care Qc Lab Technician Name Role Phone Nichole Andrea MD Primary Care Provider + Encounter Details Date Type Department Care Team (Late st Contact Info) Description 08/13/2024 Orders Only [facility] External Provider, [facility] Social History Tobacco Use Types Packs/Day Years Used Date Smoking Tobacco: Never Passive Smoke Exposure: Never Smokeless Tobacco: Never Alcohol Use Standard Drinks/Week Comments Yes 0 (1 standard drink = 0.6 oz pur e alcohol) casual Housing Stability Answer Date Recorded What is your housing situation today? I have joselin moralez 07/29/[address] you li ve. Do you have problems with any of the following? None of the above 07/29/2024 Food Insecurity Answer Date Recorded Within the past 12 months, y ou worried that your food would run out before you got money to buy more: Never True 07/29/2024 Within the past 12 months,th e food you bought just didn't last and you didn't have enough money to get more: Never True Transportation Answer Date Recorded In the past 12 months, has l ack of transportation kept you from medical appts, meetings, work or from getting things needed for daily living? No 07/29/2024 Utilities Answer Date Recorded In the past 12 months, has t he electric, gas, oil or water company threatened to shut off services in your home? No 07/29/2024 Internet Access Answer Date Recorded Internet Access Q1 Yes 07/29/2024 Internet Access Q2 Not on file 07/29/2024 Comments No Sex and Gender Information Value [...] Description 09/06/2024 8:00 AM EDT Office Visit [facility] ADULT DENTAL [address] [place] [address] González Perezaris [address] [place] [address] 09/08/2024 3:00 PM EDT Office Visit [facility] MEDICINE [address] [place] [address] Nichole Andrea MD [address] [place] [address] documented as of this encounter Procedures Procedure Name Priority Date/Time Associated Diagnosis Comments US PELVIS TRANSVAGINAL Routine 08/13/2024 11:21 AM EST documented in this encounter Results * US Pelvis Transvaginal (08/13/2024 11:21 AM EST) Anatomical Region Laterality Modality Pelvis Ultrasound 08/13/2024 11:2 1 AM EST Narrative 08/13/2024 12:14 PM EST ? [facility] ?[address] ?[place] [address] ? Ultrasound Report ? Signed ? Patient: Westry,Rafaela A ?MR#: [id number] ?? 650 ? : 1995 ?Acct:[id number] ? Age/Sex: 29 / F ?ADM Date: 03/07/25 ? Loc: HO.US ? Attending Roxanne Mcallister CNM ? Ordering Physician: Lamar Mcallister CNM ?? Date of Service: 08/13/24 ?? Procedure(s): US pelvic and transvaginal ?? Accession Number(s): [id number] ? cc: Nichole Andrea MD; Lamar Mcallister CNM ? EXAMINATION: ? US PELVIS ? CLINICAL INFORMATION: ? Pelvic and perineal pain ? COMPARISON: ?? None available. ? TECHNIQUE: ?? Ultrasound of the pelvis is performed using both transabdominal and ?? transvaginal transducers along with Doppler. Transvaginal imaging is ?? performed due to inadequate visualization transabdominally. ? FINDINGS: ?? Uterus: ?? The uterus is anteverted , anteflexed and measures 8.0 x 3.1 x 3.5 cm. ? The double wall endometrial thickness is 0.5 cm. ? The uterus is smooth in contour and has normal myometrial echogenicity. ?No visible fibroid. ? Adnexa: ?? Both ovaries are visualized. There is normal color flow to the adnexa. ?? There is no ovarian torsion. ??There is no pelvic ascites or fluid ?? collection. ? Right ovary measures 3.8 x 2.4 x 2.2 cm. Volume 10.6 mL. There is a ?? anechoic corpus luteal cyst measuring 1.5 x 1.5 x 1.3 cm. Previously ?? right ovary measured 4.1 x 2.3 x 2.2 cm and volume 10.9 mL. mL. ? Left ovary measures 2.6 x 1.8 x 3.5 cm. Volume 11.8 mL. There is a ?? complex anechoic cyst measuring 1.4 x 1.1 x 1.1 cm there is an ?? echogenic area in left ovary measuring 2.0 0.8 x 1.5 cm similar ?? previous study. Previously it measured 2.3 x 1.8 x 1.1 cm. Previously ?? left ovary measures 4.0 x 1.8 x 3.4 cm in volume 12.8 mL. ? There is small amount of free fluid in the cul-de-sac. ? US/US pelvic and transvaginal ?? IMPRESSION: ?? Corpus luteal cyst right ovary. ? There is an echogenic area in the left ovary which is similar to ?? previous study. In addition is a complex cyst left ovary. ? The uterus is grossly unremarkable. ? Minimal free fluid in the pelvis ? Electronically signed by: ??Carlton Chung MD ??08/13/2024 12:11 PM EST RP ? Dictated By: ?Carlton Chung MD ? Signed By: ?<Electronically signed by Carlton Chung MD in OV> ?08/13/24 1211 ? DD/ 1121 ? TD/TT: 08/13/24 1139 ? Foiling Machine Adjuster: MSM ? Procedure Note Donotuseinterpreter, Image - 08/13/[address] [address] Ultrasound Report Signed Patient: Rafaela Terrell AMR#: [id number] 650 : 1995Acct:[id number] Age/Sex: 29 FADM Date: 08/13/24 Loc: HO.US Attending Dr: Lamar Mcallister CNM Ordering Physician: Lamar Mcallister CNM Date of Service: 08/13/24 Procedure(s): US pelvic and transvaginal Accession Number(s): [id number] cc: Nichole Andrea MD; Lamar Mcallister CNM EXAMINATION: US PELVIS CLINICAL INFORMATION: Pelvic and perineal pain COMPARISON: None available. TECHNIQUE: Ultrasound of the pelvis is performed using both transabdominal and transvaginal transducers along with Doppler. Transvaginal imaging is performed due to inadequate visualization transabdominally. FINDINGS: Uterus: The uterus is anteverted , anteflexed and measures 8.0 x 3.1 x 3.5 cm. The double wall endometrial thickness is 0.5 cm. The uterus is smooth in contour and has normal myometrial echogenicity. No visible fibroid. Adnexa: Both ovaries are visualized. There is normal color flow to the adnexa. There is no ovarian torsion. There is no pelvic ascites or fluid collection. Right ovary measures 3.8 x 2.4 x 2.2 cm. Volume 10.6 mL. There is a anechoic corpus luteal cyst measuring 1.5 x 1.5 x 1.3 cm. Previously right ovary measured 4.1 x 2.3 x 2.2 cm and volume 10.9 mL. mL. Left ovary measures 2.6 x 1.8 x 3.5 cm. Volume 11.8 mL. There is a complex anechoic cyst measuring 1.4 x 1.1 x 1.1 cm there is an echogenic area in left ovary measuring 2.0 0.8 x 1.5 cm similar previous study. Previously it measured 2.3 x 1.8 x 1.1 cm. Previously left ovary measures 4.0 x 1.8 x 3.4 cm in volume 12.8 mL. There is small amount of free fluid in the cul-de-sac. US/US pelvic and transvaginal IMPRESSION: Corpus luteal cyst right ovary. There is an echogenic area in the left ovary which is similar to previous study. In addition is a complex cyst left ovary. The uterus is grossly unremarkable. Minimal free fluid in the pelvis Electronically signed by: Carlton Chung MD 08/13/2024 12:11 PM [facility] Dictated By: Carlton Chung MD Signed By: <Electronically signed by Carlton Chugn MD in OV> 08/13/24 1211 DD/ 1121 TD/TT: 08/13/24 1139 Foiling Machine Adjuster: [place] [facility] External Provider IMG US PROCEDURES Final Result documented in this encounter Visit Diagnoses Not on filedocumented in this encounter Care Teams Qc Lab Technician Relationship Specialty Start Date End Date Nichole Andrea MD [address] [place] [phone] PCP - General Family Medicine 05/27/18 documented as of this encounter
--- OUTSIDE RECORDS SUMMARY | 2024-08-13 12:46 | XMS_ITS | Encounter Summary ---
Author Organization [employer] Address [address] [place] [address] Care Team Providers Care Repair Clerk Name Role Phone Nichole Andrea MD Primary Care Provider + Reason for Visit * Reason Comments Care Coordination Outreach Encounter Details Date Type Department Care Team (Latest Contact Info) Description 08/12/2024 Patient Outreach [facility] [address] [place], [place] [phone] Nichole Andrea MD [address] [place] [address] Care Coordination (Outreach) Social History Tobacco Use Types Packs/Day Years Used Date Smoking Tobacco: Never Passive Smoke Exposure: Never Smokeless Tobacco: Never Alcohol Use Standard Drinks/Week Comments Yes 0 (1 standard drink = 0.6 oz pur e alcohol) casual Housing Stability Answer Date Recorded What is your housing situation today? I have joselinmax moralez 07/29/[address] you [...] encounter Progress Notes * Magalys Colby - 08/12/2024 11:16 AM EST CHW Magalys Colby placed outbound call to patient to follow up on SDOH needs. Patient's name, and address confirmed. Patient states is doing well. No further questions or concerns. CHW reinforced direct contact information or CM for any additional questions or concerns and extended clinic hours on Mondays and Wednesdays, and Walk-In Urgent Care Located in [facility]. Patient provided with after-hours line for [facility], , which offer night time triage service and option to transfer to product controller provider if needed. Patient verbalizes understanding, and able to repeat back to technical report writer. A follow up call willbe placed within 10 days, patient agrees with plan. documented in this encounter Plan of Treatment Upcoming Encounters Date Type Department Care Team (Late st Contact Info) Description 09/06/2024 8:00 AM EDT Office Visit [facility] ADULT DENTAL [address] [place], [place] [phone] González Perezaris [address] [place], [place] [phone] 09/08/2024 3:00 PM EDT Office Visit [facility] MEDICINE [address] [place], [place] [phone] Nichole Andrea MD [address] [place], [place] [phone] documented as of this encounter Visit Diagnoses Not on filedocumented in this encounter Care Teams Repair Clerk Relationship Specialty Start Date End Date Nichole Andrea MD [address] [place] [phone] PCP - General Family Medicine 05/27/18 documented as of this encounter
--- OUTSIDE RECORDS SUMMARY | 2024-08-13 12:46 | XMS_ITS | Encounter Summary ---
Author Organization [employer] Address [address] [facility] [address]t [place] [address] Care Team Providers Care Forepart Laster Name Role Phone Nichole Andrea MD Primary Care Provider + Reason for Visit * Reason Onset Date Comments Nurse Triage 11/25/2023 Encounter Details Date Type Department Care Team ([facility] st Contact Info) Description 11/25/2023 Telephone [facility] MEDICINE [address] [place], [place] [phone] Nichole Andrea MD [address] [place], [place] [phone] Nurse Triage Social History Tobacco Use Types [...] . Pt is advised to come to [facility] to be seen by provider if needed. Pt agrees with home care advised and if time available will come to [facility]. Pt agrees with disposition and [...] 8:00 AM EDT Office Visit [facility] ADULT DENTAL [address] [place] [address] Ana, Damari [address] [place] [address] 09/08/2024 3:00 PM EDT Office Visit [facility] MEDICINE [address] [place] [address] Nichole Andrea MD [address] [place] [address] documented as of this encounter Visit Diagnoses Not on filedocumented in this encounter Care Teams Forepart Laster Relationship Specialty Start Date End Date Nichole Andrea MD [address] [place] [phone] PCP - General Family Medicine 05/27/18 documented as of this encounter
--- OUTSIDE RECORDS SUMMARY | 2024-08-13 12:46 | XMS_ITS | Encounter Summary ---
Author Organization [employer] Address [address] [facility] [address] [place] [address] Care Team Providers Care Multimedia Artist Name Role Phone Nichole Andrea MD Primary Care Provider + Reason for Visit * Reason Onset Date Comments Medication Question 02/04/2023 Encounter Details Date Type Department Care Team ([facility] st Contact Info) Description 02/04/2023 Telephone [facility] MEDICINE [address] [place], [place] [phone] Nichole Andrea MD [address] [place], [place] [phone] Medication Question Social History Tobacco Use Types [...] seems like the [facility] has already filledscript and should be [...] Office Visit [facility] ADULT DENTAL [address] [place] [address] Ana, Damari [address] [place] [address] 09/08/2024 3:00 PM EDT Office Visit [facility] MEDICINE [address] [place] [address] Nichole Andrea MD [address] [place] [address] documented as of this encounter Visit Diagnoses Not on filedocumented in this encounter Care Teams Multimedia Artist Relationship Specialty Start Date End Date Nichole Andrea MD [address] [place] [address] PCP - General Family Medicine 05/27/18 documented as of this encounter
--- OUTSIDE RECORDS SUMMARY | 2024-08-13 12:46 | XMS_ITS | Encounter Summary ---
Author Organization [employer] Address [address] [place] [address] Care Team Providers Care Song And Dance Performer Name Role Phone Nichole Andrea MD Primary Care Provider + Encounter Details Date Type Department Care Team (Late st Contact Info) Description 07/28/2024 Orders Only [facility] External Provider, [facility] Social History Tobacco Use Types Packs/Day [...] Description 09/06/2024 8:00 AM EDT Office Visit [facility] ADULT DENTAL [address] [place] [address] Ana, Damari [address] [place] [address] 09/08/2024 3:00 PM EDT Office Visit [facility] MEDICINE [address] [place] [address] Nichole Andrea MD [address] [place] [address] documented as of this encounter Procedures Procedure [...] PM EST) Influenza A PCR NEGATIVE Negative [facility] Influenza B PCR NEGATIVE Negative [facility] Resp Syncy Virus RNA Qual PCR NEGATIVE Negative [facility] SARS COV2 PCR NEGATIVE Negative [facility] Comment:All test results mus t [...] use by authorized laboratories.Testing performed on the [employer] GeneXpert utilizingreal-time RT-PCR.All SARS CoV2 and positive influenza A/B results arereported to [facility]. 07/28/2024 9:07 PM EST 07/28/2024 9:11 PM EST Generic External Data Provider LAB MICROBIOLOGY - GENERAL ORDERABLES Final Result Performing Organization Address City/[facility]/ZIP Co de Phone Number [facility] [address] [place] [phone] * High Sensitivity Troponin I (07/28/2024 9:07 PM EST) [facility] TROPONIN I HIGH SENSITIVITY <2.7 <3.5 - 17.0 ng/L [facility] Comment:The Con[employer]ion high sens itivity Troponin-I results should beused in conjunction with other diagnostic information suchas ECG, clinical observations and information, and patientsymptoms to aid in the diagnosis of CT. 07/28/2024 9:07 PM EST 07/28/2024 9:11 PM EST Generic External Data Provider LAB BLOOD ORDERAB LES Final Result Performing Organization Address [facility]/ZIP Co de Phone Number [facility] [address] [place] [phone] * Lipase (07/28/2024 9:07 PM EST) Lipase 24 8 - 78 U/L [facility] 07/28/2024 9:07 PM EST 07/28/2024 9:11 PM EST us Generic External Data Provider LAB BLOOD ORDERAB LES Final Result [facility] [address] [place] [phone] [phone] * (ABNORMAL) Comprehensive Metabolic Panel (07/28/2024 9:07 PM EST) Sodium 140 135 - 145 mmol/L [facility] Potassium 4.2 3.3 - 5.1 mmol/L [facility] Chloride 107 96 - 108 mmol/L [facility] Carbon Dioxide 26 22 - 29 mmol/L [facility] Anion Gap 11(L) 12 - 20 [facility] Urea Nitrogen (BUN) 10 9 - 16 mg/dL [facility] Creatinine, Serum 0.63 0.5 - 1.4 mg/dL [facility] Creatinine Clr Calc Pharmacy 197.4 [facility] Comment:Provided height and weight: 162.56 cm,151.046 kg.eGFR (calculated from the MDRD study equation) and eCrCl(calculated from the Cockcroft-Gault equation) are based ondifferent parameters and may not yield comparable results.If eCrCl result is absurd, please check patient'sheight/weight. Estimated Glomerular Filt Rate >60 [facility] Comment:Chronic Kidney Disea se: Estimated GFR < 60 mL/min/1.58g3Myqygl Kidney Disease: Estimated GFR < 15 mL/min/1.73m2 Glucose 100 60 - 115 mg/dL [facility] Calcium 8.7 8.4 - 10.2 mg/dL [facility] Bilirubin, Total 0.1 0.0 - 1.0 mg/dL [facility] Aspartate Amino Transferase 17 5 - 31 U/L [facility] Alanine Aminotransferase 16 0 - 31 U/L [facility] Total Protein 7.7 6.5 - 8.0 g/dL [facility] Albumin Level 3.8 3.5 - 5.0 g/dL [facility] Alkaline Phosphatase 86 39 - 117 U/L [facility] 07/28/2024 9:07 PM EST 07/28/2024 9:11 PM EST Generic External Data Provider LAB BLOOD ORDERAB LES Final Result Performing Organization Address [facility] Co de Phone Number [facility] [address] [place] [phone] * (ABNORMAL) Prothrombin Time-INR (07/28/2024 9:07 PM EST) Prothrombin Time 12.8(H) 10.9 - 12.4 SEC [facility] INTERNATIONAL NORM RATIO 1.1 0.9 - 1.1 [facility] Comment:INTERNATIONAL NORMAL IZED RATIO (INR) REFERENCE [...] ORDERAB LES Final Result Performing Organization Address City/[facility] Co de Phone Number [facility] [address] [place] [phone] * (ABNORMAL) CBC auto differential (07/28/2024 9:07 PM EST) White Blood Count 12.3(H) 4.8 - 10.8 X10*3/uL [facility] Red Blood Count 4.59 4.20 - 5.50 X10*6/uL [facility] Hemoglobin 12.6 12.0 - 16.0 g/dl [facility] Hematocrit 39.0 37.0 - 47.0 % [facility] Mean Corpuscular Volume 85.0 80.0 - 98.0 fL [facility] Mean Corpuscular Hemoglobin 27.5 27.0 - 33.0 pg [facility] Mean Corpuscular HGB Conc 32.3 31.0 - 35.0 g/dl [facility] Red Cell Distribution Width 13.9 11.0 - 16.0 % [facility] Platelet Count 369 160 - 400 X10*3/uL [facility] Mean Platelet Volume 9.2(L) 9.4 - 12.3 fL [facility] Neutrophils Percent Auto 63.5 45 - 73 % [facility] Imm Gran Pct Auto 0.2 0.0 - 0.4 % [facility] Lymphocytes Percent Auto 20.4 20 - 40 % [facility] Monocytes Percent Auto 8.2 2 - 11 % [facility] Eosinophils Percent Auto 7.2(H) 0 - 4 % [facility] Basophils Percent Auto 0.5 0 - 2 % [facility] NRBC Pct Auto 0.0 0.0 - 0.2 /100WBC [facility] Neutrophils Absolute Auto 7.8 2.0 - 8.3 x10*3/uL [facility] Imm Gran Abs Auto 0.03 0.00 - 0.03 X10*3/uL [facility] Lymphocytes Absolute Auto 2.5 1.2 - 4.9 X10*3/uL [facility] Monocytes Absolute Auto 1.0 0.1 - 1.2 X10*3/uL [facility] Eosinophils Absolute Auto 0.9(H) 0.0 - 0.4 X10*3/uL [facility] Basophils Absolute Auto 0.1 0.0 - 0.2 X10*3/uL [facility] NRBC Abs Auto 0.000 0.0 - 0.012 X10*3/uL [facility] 07/28/2024 9:07 PM EST 07/28/2024 9:11 PM EST us Generic External Data Provider LAB BLOOD ORDERAB LES Final Result [facility] [address] [place] [address] [phone] * XR Chest 2 Views (07/28/2024 8:47 PM EST) Anatomical Region Laterality Modality Chest Radiographic Lillian ging 07/28/2024 8:47 PM EST Narrative 07/28/2024 8:49 PM EST ? [facility] ?[address] ?[place] [address] ?XRay Report ? Signed ? Patient: Rafaela Terrell ?MR#: [id number] ?? 650 ? : 1995 ?Acct:[id number] ? Age/Sex: 29 / F ?ADM Date: 07/28/24 ? Loc: HO.ED ? Attending Dr: ? Ordering Physician: Yomi Butts ?? Date of Service: 07/28/24 ?? Procedure(s): XR chest 2V ?? Accession Number(s): [id number] ? cc: Nichole Andrea MD; Yomi Butts [...] ? DD/ 46 ? TD/TT: 07/28/242046 ? Primary Care Physician: ? Procedure Note Jeremiah Romero - 07/28/2024 [facility] [address] [place] [address] XRay Report Signed Patient: Rafaela Terrell AMR#: [id number] 650 : 1995Acct:[id number] Age/Sex: 29 / FADM Date: 07/28/24 Loc: HO.ED Attending Dr: Ordering Physician: Yomi Butts Date of Service: 07/28/24 Procedure(s): XR chest 2V Accession Number(s): [id number] cc: Nichole Andrea MD; Yomi Butts CLINICAL [...] in OV> 07/28/242047 DD/ 46 TD/TT: 07/28/242046 Primary Care Physician: [facility] External Provider IMG XR PROCEDURES Final Result documented in this encounter Visit Diagnoses Not on filedocumented in this encounter Care Teams Song And Dance Performer Relationship Specialty Start Date End Date Nichole Andrea MD [address] [place] [phone] PCP - General Family Medicine 05/27/18 documented as of this encounter
--- OUTSIDE RECORDS SUMMARY | 2024-08-13 12:46 | XMS_ITS | Encounter Summary ---
Author Organization [employer] Address [address]t [place] [address] Care Team Providers Care Payment Specialist Name Role Phone Nichole Andrea MD [...] your housing situation today? I have joselin kirt 07/29/[address] you li [...] Description 09/06/2024 8:00 AM EDT Office Visit [facility] ADULT DENTAL [address] [place] [address] Ana, Damari [address] [place] [address] 09/08/2024 3:00 PM EDT Office Visit [facility] MEDICINE [address] [place] [address] Nichole Andrea MD [address] [place] [address] documented as of this encounter Procedures Procedure Name Priority Date/Time Associated Diagnosis Comments HIGH SENSITIVITY TROPONIN I Routine 07/29/2024 4:00 AM EST HCG, TOTAL, QN Routine 07/29/2024 4:00 AM EST documented in this encounter Results * hCG, Total, Quantitative (07/29/2024 4:00 AM EST) HCG Quantitative <2 mIU/mL [facility] Comment:Weeks post LMP Appro ximate hCG(Last Menstrual Period) Range (mIU/ml)3 - 4 weeks 9 - 1304 - 5 weeks 75 - 2,6005 - 6 weeks 850 - 20,8006 - 7 weeks 4000 - 100,2007 - 12 weeks 11,500 - 289,46315 - 16 weeks 18,300 - 137,33336 - 29 weeks (2nd trimester) 1,400 - 53,32679 - 41 weeks (3rd trimester) 940 - 60,000The Concepcion B-hCG assay is used for the early detection ofpregnancy; it cannot be used to diagnose any conditionunrelated to . If a B-hCG level is not supportedby the clinical evidence, results should be confirmed by analternative method (qualitative urine hCG, for example). 07/29/2024 4:00 AM EST 07/29/2024 8:52 AM EST us Generic External Data Provider LAB BLOOD ORDERAB LES Final Result Performing Organization Address [facility] Co de Phone Number [facility] [address] [place] [phone] * High Sensitivity Troponin I (07/29/2024 4:00 AM EST) TROPONIN I HIGH SENSITIVITY <2.7 <3.5 - 17.0 ng/L [facility] Comment:The Concepcion high sens itivity Troponin-I results should beused in conjunction with other diagnostic information suchas ECG, clinical observations and information, and patientsymptoms to aid in the diagnosis of VT. 07/29/2024 4:00 AM EST 07/29/2024 4:03 AM EST Generic External Data Provider LAB BLOOD ORDERAB LES Final Result Performing Organization Address [facility] de Phone Number [facility] [address] [place] [phone] documented in this encounter Visit Diagnoses Not on filedocumented in this encounter Care Teams Payment Specialist Relationship Specialty Start Date End Date Nichole Andrea MD [address] [place] [phone] PCP - General Family Medicine 05/27/18 documented as of this encounter
--- OUTSIDE RECORDS SUMMARY | 2024-08-13 12:46 | XMS_ITS | Encounter Summary ---
Author Organization [employer] Address [address] [facility] 7t [place] [address] Care Team Providers Care Senior Procurement Manager Name Role Phone Nichole Andrea MD Primary Care Provider + Reason for Visit * Reason Onset Date Comments ED F/U and Status Check 07/14/2024 Encounter Details Date Type Department Care Team (Late st Contact Info) Description 07/14/2024 Telephone [facility] MEDICINE [address] [place] [address] Huma Herring RN ED F/U and Status [...] Description 09/06/2024 8:00 AM EDT Office Visit [facility] ADULT DENTAL [address] [place] [address] Ana, Damari [address] [place] [address] 09/08/2024 3:00 PM EDT Office Visit [facility] MEDICINE [address] [place] [address] Nichole Andrea MD [address] [place] [address] documented as of this encounter Visit Diagnoses Not on filedocumented in this encounter Care Teams Senior Procurement Manager Relationship Specialty Start Date End Date Nichole Andrea MD [address] [place] [address] PCP - General Family Medicine 05/27/18 documented as of this encounter
--- OUTSIDE RECORDS SUMMARY | 2024-08-13 12:46 | XMS_ITS | Encounter Summary ---
Author Organization [employer] Address [address] 7[address] [place] [address] Care Team Providers Care Vocational Aide Name Role Phone Nichole Andrea MD Primary Care Provider + Reason for Visit * Reason Onset Date Comments Follow up ED 07/15/2024 Encounter Details Date Type Department Care Team ([facility] st Contact Info) Description 07/15/2024 Telephone [facility] MEDICINE [address] [place], [place] [phone] Leigha Newsome RN [address] [place] [address] Follow up ED Social History Tobacco Use [...] AM EST Noted. TC placed to patient [phone] in regards to below message. Patient reports she continueswith dry cough and nasal congestion. Patient denies fevers, vomiting or diarrhea. Patient reports she is eating and drinking normally. Patient advised to continue fluids and if s/s return or worsen to call [facility] to be re-evaluated. Patient verbalized understanding. Patient [...] 8:00 AM EDT Office Visit [facility] ADULT DENTAL [address] [place] [address] Ana Damari [address] [place] [address] 09/08/2024 3:00 PM EDT Office Visit [facility] MEDICINE [address] [place] [address] Nichole Andrea MD [address] [place] [address] documented as of this encounter Visit Diagnoses Not on filedocumented in this encounter Care Teams Vocational Aide Relationship Specialty Start Date End Date Nichole Andrea MD [address] [place] [address] PCP - General Family Medicine 05/27/18 documented as of this encounter
--- OUTSIDE RECORDS SUMMARY | 2024-08-13 12:46 | XMS_ITS | Encounter Summary ---
Author Organization [facility] Address [address] [facility] 7t [place] [address] Care Team Providers Care Paper Cone Drying Machine Operator Name Role Phone Nichole Andrea MD Primary Care Provider + Encounter Details Date Type Department Care Team (Late Contact Info) Description 08/09/2022 Abstract [facility] ADULT DENTAL [address] [place], [place] [phone] Madi Summers DDS [address] [place], [place] [phone] Social History Tobacco Use Types Packs/Day Years [...] Office Visit [facility] ADULT DENTAL [address] [place], [place] [phone] Damari Perez [address] [place] [address] 09/08/2024 3:00 PM EDT Office Visit [facility] MEDICINE [address] [place], [place] [phone] Nichole Andrea MD [address] [place] [address] documented as of this encounter Visit Diagnoses Not on filedocumented in this encounter Care Teams Paper Cone Drying Machine Operator Relationship Specialty Start Date End Date Nichole Andrea MD [address] [place] [phone] PCP - General Family Medicine 05/27/18 documented as of this encounter
--- OUTSIDE RECORDS SUMMARY | 2024-08-13 12:46 | XMS_ITS | Encounter Summary ---
Author Organization [employer] Address [address] [facility] 7t [place] [address] Care Team Providers Care Bag Sealer Name Role Phone Nichole Andrea MD Primary Care Provider + Reason for Referral * Consultation (Routine) - Closed Specialty Diagnoses / Procedures Referred By Contac t Referred To Contact Nutrition Diagnoses Obesity, morbid, BMI 50 or higher (CMS/HCC) Nichole Andrea MD [address] [place] [address] Phone: tel: fax: Referral ID Status Reason Start Date Expiration Date V isits Requested Visits Authorized [id number] Closed Consult and Treat 07/29/2024 07/29/2025 1 1 Reason for Visit * Reason Onset Date Comments Care Coordination 07/29/2024 C3 initial a ssessment Encounter Details Date Type Department Care Team (Late st Contact Info) Description 07/29/2024 Telephone [facility] CHC MED & PEDS [address] [place], [place] [phone] Nichole Andrea MD [address] [place] [address] Care Coordination (C3CM initial assessment) Social History Tobacco Use Types Packs/Day Years Used Date Smoking Tobacco: Never Passive Smoke Exposure: Never Smokeless Tobacco: Never Alcohol Use Standard Drinks/Week Comments Yes 0 (1 standard drink = 0.6 oz pur e alcohol) casual Housing Stability Answer Date Recorded What is your housing situation today? I have joselin sing 07/29/[address] you li [...] Telephone Encounter - Nichole Andrea MD - 07/29/2024 12:42 PM EST Referral to nutrition sent * Telephone Encounter - Hamida Rutherford RN - 07/29/2024 11:48 AM EST Pt is requesting referral to nutrition for weight loss management * Telephone Encounter - Hamida Rutherford RN - 07/29/2024 11:39 AM EST TAE Rutherford RN placed outbound call to patient for agreed upon time for initial assessment for enrollment into Adult Care Management Program. Patient's name, , and address were verified. Patient is a 29-year-old female with medical history significant for hypertension and depression. CM spoke with patient who states she has an upcoming appointment with OBGYN on 08/31. Pt states she was seen at [facility] today for RSV and was prescribed IBU. Pt states she was advised to increase fluid intake and monitor symptoms. CM informed patient of the walk-in clinic at [facility] and their working hours. Patient advised to utilize the walk-in clinic for minor illness to cut down on the burden on the ED staff. Pt states she wears eye glasses and is up to date with her visit with the dentist and the artificial glass eye maker. Pt reports adherence to low sodium diet and walks as a form of exercise. Pt states she would like to lose weight and will like to be referred to the air hole driller. CM will send a message toP regarding patient's request. Pt states she walks as a form of exercise. Per pt she sees the therapist twice a week for depression which has been effective. Pt states she sometimes feel depressed but omaira well by engaging in activities that distracts her. Pt states she feels safe in her home and denies drinking, smoking or taking any illegal drugs. According to pt, she is compliant with all her medications and denies any side effect at this time. Pt denies any personal goals at this time. CM plan is to provide health education on disease management and appointment reminder. Also, CM will connect patient to resources needed to improve patient's health. Care management program explained and contacted information given. Patient verbalizes understanding, and able to repeat back to designer writer. A follow up call will be placed within 10 days, patient agrees with plan. TAE Rutherford RN, provided notification to PCP Dr. Viera of patient's enrollment into C3 Complex Care Program. TAE Rutherford RN, completed care plan and sent to HIM to be scanned into the medical record. PCP notified and awaiting review from provider. documented in this encounter Plan of Treatment Upcoming Encounters Date Type Department Care Team (Late st Contact Info) Description 09/06/2024 8:00 AM EDT Office Visit [facility] ADULT DENTAL [address] [place] [address] González Perezaris [address] [place] [address] 09/08/2024 3:00 PM EDT Office Visit [facility] MEDICINE [address] [place] [phone] Nichole Andrea MD [address] [place], [place] [phone] Scheduled Referrals Name Type Priority Associated Diagnoses Orde r Schedule Referral to Nutrition Therapy Outpatient Referral Routine Obesity, morbid, BMI 50 or higher (CMS/HCC) Expected: 07/29/2024 (Approximate), Expires: 07/29/2025 documented as of this encounter Visit Diagnoses Diagnosis Obesity, morbid, BMI 50 or higher (CMS/HCC)- Primary documented in this encounter Care Teams Bag Sealer Relationship Specialty Start Date End Date Nichole Andrea MD [address] [place] [phone] PCP - General Family Medicine 05/27/18 documented as of this encounter
--- OUTSIDE RECORDS SUMMARY | 2024-08-13 12:46 | XMS_ITS | Encounter Summary ---
Author Organization [employer] Address [address] [facility] 7t [place] [address] Care Team Providers Care Neurology Stroke Physician Name Role Phone Nichole Andrea MD Primary Care Provider + Reason for Visit * Reason Onset Date Comments Appointment Request 07/20/2024 Encounter Details Date Type Department Care Team ([facility] st Contact Info) Description 07/20/2024 Telephone [facility] MEDICINE [address] [place], [place] [phone] Nichole Andrea MD [address] [place], [place] [phone] Appointment Request Social History Tobacco Use Types [...] Visit [facility] ADULT DENTAL [address] [place] [address] Damari Perez [address] [place] [address] 09/08/2024 3:00 PM EDT Office Visit [facility] MEDICINE [address] [place] [address] Nichole Andrea MD [address] [place] [address] documented as of this encounter Visit Diagnoses Not on filedocumented in this encounter Care Teams Neurology Stroke Physician Relationship Specialty Start Date End Date iNchole Andrea MD [address] [place] [address] PCP - General Family Medicine 05/27/18 documented as of this encounter
--- OUTSIDE RECORDS SUMMARY | 2024-08-13 12:46 | XMS_ITS | Encounter Summary ---
Author Organization [employer] Address [address] [address] [place] [address] Care Team Providers Care Goodyear Welter Name Role Phone Nichole Andrea MD Primary Care Provider + Reason for Visit * Reason Onset Date Comments chartprep 08/05/2024 Encounter Details Date Type Department Care Team ([facility] st Contact Info) Description 08/05/[address] [facility] CHC MED & PEDS [address] [place], [place] [phone] Nichole Andrea MD [address] [place] [address] chartprep Social History Tobacco Use Types Packs/Day Years [...] encounter Miscellaneous Notes * Telephone Encounter - Vanessa Mosqueda MA - 08/05/2024 10:24 AM EST Chart Prep Labs: done Images: done Vaccines due: yes Covid, pcv20, and hpv Referrals: complete Screenings: pap smear Overdue care gaps: Sbirt, PHQ-9, AMBER-7 documented in this encounter Plan of Treatment Upcoming Encounters Date Type Department Care Team (Late st Contact Info) Description 09/06/2024 8:00 AM EDT Office Visit [facility] ADULT DENTAL [address] [place] [address] Ana, Damari [address] [place] [address] 09/08/2024 3:00 PM EDT Office Visit [facility] MEDICINE [address] [place] [address] Nichole Andrea MD [address] [place] [address] documented as of this encounter Visit Diagnoses Not on filedocumented in this encounter Care Teams Goodyear Welter Relationship Specialty Start Date End Date Nichole Andrea MD [address] [place] [address] PCP - General Family Medicine 05/27/18 documented as of this encounter
--- OUTSIDE RECORDS SUMMARY | 2024-08-13 12:46 | XMS_ITS | Clinical Summary ---
Author Organization [facility] Address [address] [place] [phone] Phone Care Team Providers Care Iron Pellet Tester Name Role Phone Yisel Hooker MD Primary [...] age to complete this topic Care Teams Iron Pellet Tester Relationship Specialty Start Date End Date Yisel Hooker MD PCP - General 01/17/17
--- OUTSIDE RECORDS SUMMARY | 2024-08-13 12:46 | XMS_ITS | Encounter Summary ---
Author Organization [employer] Address [address] [facility] 7t [place] [address] Care Team Providers Care Caddymaster Name Role Phone Nichole Andrea MD Primary Care Provider + Reason for Visit * Reason Onset Date Comments Appointment Request 05/30/2023 Encounter Details Date Type Department Care Team (Late st Contact Info) Description 05/30/2023 Telephone [facility] MEDICINE [address] [place], [place] [phone] Nichole Andrea MD [address] [place] [address] Appointment Request Social History Tobacco Use Types [...] Description 09/06/2024 8:00 AM EDT Office Visit [facility] ADULT DENTAL [address] [place] [address] Ana, Damari [address] [place] [address] 09/08/2024 3:00 PM EDT Office Visit [facility] MEDICINE [address] [place] [address] Nichole Andrea MD [address] [place] [address] documented as of this encounter Visit Diagnoses Not on filedocumented in this encounter Care Teams Caddymaster Relationship Specialty Start Date End Date Nichole Andrea MD [address] [place] [address] PCP - General Family Medicine 05/27/18 documented as of this encounter
--- OUTSIDE RECORDS SUMMARY | 2024-08-13 12:46 | XMS_ITS | Clinical Summary ---
Author Organization [employer] Address [address] [facility] [address] [place] [address] Care Team Providers Care Customer Experience Specialist Name Role Phone Nichole Andrea MD [...] record from that organization. Blood Pressure Monitor kitIndications:Pr imary hypertension Use as directed 3x/week 1 kit 4 Active cetirizine (ZyrTEC) 10 MG tabletIndications :Bedbug bite, initial encounter Take 1 tablet (10 mg) by mouth Once per day. 90 tablet 3 4 11/25/19 25 Active azelastine (Astelin) 0.1 % nasal spray Administer 1 spray into each nostril 2 times daily. Use in each nostril as directed 30 mL 12 4 03/15/20 25 Active fluticasone furoate (Arnuity Ellipta) 200 MCG/ACT inhaler Inhale 1 puff Once per day. Rinse mouth with water after use to reduce aftertaste and incidence of candidiasis. Do not swallow. 1 each 11 4 03/15/20 25 Active Spacer/Aero-Holdi ng Chambers deviceIndications :Moderate persistent asthma without complication Use as directed 4x/d prn SOB, with inhaler 1 Units 4 Active lisinopril (Prinivil) 20 MG tablet Take 1 tablet (20 mg) by mouth Once per day. 30 tablet 11 5 06/15/19 26 Active albuterol (Ventolin HFA) 108 (90 Base) MCG/ACT inhalerIndication s:Cough in adult patient Inhale 2 puffs Every 4-6 hours as needed for wheezing or shortness of breath. 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 Dental caries 07/11/2022 Foot pain, bilateral [...] is doing well now. Continue Fu with MH provider for anxiety sxs. She feels safe [...] life style modifications, diet and referral to flight communications specialist. Recommended to decrease soda and sugary [...] exercise, life style modifications, diet, referral to flight communications specialist. Discussed re lower calorie intake, increase dietary fiber Will refer to intermediate frame tender Pt given information about weight reduction programs at both [facility] and [facility] Assessment & Plan (06/30/2023 8:05 PM EST): Discussed re weight reduction options including exercise, life style modifications, diet, referral to flight communications specialist, she wants to hold off on it for now.. Discussed re lower calorie intake, increase dietary fiber Resolved Problems Problem Noted Date Diagnosed Date Resolved Date Overweight (BMI 25.0-29.9) 05/11/2022 0 06/17/2023 Encounters Date Type Department Care Team Description 08/13/2024 Orders Only [facility] External Provider, [facility] 08/12/2024 Patient Outreach [facility] PEDS [address] [place] [address] Nichole Andrea MD Care Coordination (Outreach) 08/05/2024 Telephone [facility] [address] [place] [address] Nichole Andrea MD chartprep 08/02/2024 Telephone [facility] MEDIC[facility] [address] [facility] [place] [address] Nichole Andrea MD 07/29/2024 Telephone [facility] [address] [place] [address] Nichole Andrea MD Care Coordination ([facility] initial assessment) 07/29/2024 Orders Only GENERIC EXTERNAL DATA DEPARTMENT Provider, Generic External Data 07/28/2024 Orders Only [facility] External Provider, [facility] 07/28/2024 Patient Outreach [facility] [address] [place] [address] Nichole Andrea MD Care Coordination (Outreach) 07/20/[address] [address] Nichole Andrea MD Appointment Request 07/20/2024 Patient Outreach [facility] [address] [place] [address] Nichole Andrea MD Care Coordination (Outreach) 07/15/[address] [address] Leigha Newsome, TEJ Follow up ED 07/14/[address] [address] Huma Herring RN ED F/U and Status Check 07/13/[address] [address] Nichole Andrea MD ER Follow-up 07/13/2024 Patient Outreach [facility] [address] [place] [address] Nichole Andrea MD Care Coordination (Outreach) 07/12/2024 Orders Only GENERIC EXTERNAL DATA DEPARTMENT Provider, Generic External Data 07/07/2024 6:40 PM EST Office Visit [facility] [address] [place] [address] [phone] Cough in adult patient (Primary Dx); Palpitations 07/07/2024 Travel 06/29/2024 Orders Only GENERIC EXTERNAL DATA DEPARTMENT Provider, Generic External Data 06/24/[address] [address] Meli Ch [place] Chart prep 06/22/[address] [place] [address] Nichole Andrea MD Referral 06/15/2024 1:40 PM EST Office Visit [facility] [address] [place] [address] Debo Hayes NP Hypertension, unspecified type (Primary Dx); Frontal sinusitis, unspecified chronicity from Last 3 Months Immunizations Name Administration Dates Next Due DTaP 01/26/2009, 2,05/18/1998,07/28,1997,1997 HPV, Quadrivalent 05/30/2011,03/25/2011,01/18/20 11 Hep B, Adolescent or Pediatric 1997,1996,1997 Hib ([facility]) 05/18/1998, 8,1997,04/08 IPV 01/04/2002, 8,1997,04/08 Influenza Injectable [...] Office Visit [facility] ADULT DENTAL [address] [facility] [place] [address] González Perezaris [address] [place] [address] 09/08/2024 3:00 PM EDT Office Visit [facility] MEDICINE [address] [place] [address] Nichole Andrea MD [address] [place] [address] Health Maintenance Due Date Last Done Comments Depression Screening 1997 Lipid Panel 1997 Alcohol/Substance Use Screening 2009 HPV Vaccines [...] Screening 04/21/2025 04/21/2024 Pap Smear 06/19/2025 06/19/2022 SDOH Screening 07/29/2025 07/29/2024 DTaP/Tdap/Td Vaccines (8 - Td or Tdap) [...] Associated Diagnosis Comments US PELVIS TRANSVAGINAL Routine 11:21 AM EST HCG, TOTAL, QN Routine 07/29/2024 4:00 AM EST HIGH SENSITIVITY TROPONIN I Routine 07/29/2024 4:00 [...] Recently Relevant to Health Maintenance Results * US Pelvis Transvaginal (08/13/2024 11:21 AM EST) Anatomical Region Laterality Modality Pelvis Ultrasound 08/13/2024 11:2 1 AM EST Narrative 08/13/2024 12:14 PM EST ? [facility] ?[address] ?[place] [address] ? Ultrasound Report ? Signed ? Patient: Rafaela Terrell A ?MR#: [id number] ?? 650 ? : 1995 ?Acct:[id number] ? Age/Sex: 29 / F ?ADM Date: 08/13/24 ? Loc: HO.US ? Attending Dr: Lamar Mcallister CNM ? Ordering Physician: Lamar Mcallister CNM ?? Date of Service: 08/13/24 ?? Procedure(s): US pelvic and transvaginal ?? Accession Number(s): [id number] ? cc: Nichole Andrea MD; Lamar Mcallister [...] of free fluid in the cul-de-sac. ? US/ pelvic and transvaginal ?? IMPRESSION: ?? Corpus [...] DD/ 1121 ? TD/TT: 08/13/24 1139 ? Senior J2Ee Developer: MSM ? Procedure Note Jeremiah Romero - 08/13/[address] [address] Ultrasound Report Signed Patient: Rafaela Terrell AMR#: [id number] 650 : 1995Acct:[id number] Age/Sex: 29 / FADM Date: 08/13/24 Loc: HO.US Attending Dr: Lamar Mcallister CNM Ordering Physician: Lamar Mcallister CNM Date of Service: 08/13/24 Procedure(s): US pelvic and transvaginal Accession Number(s): [id number] cc: Nichole Andrea MD; Lamar Mcallister CNM [...] MD Signed By: <Electronically signed by Carlton Chung MD in OV> 08/13/24 1211 DD/ 1121 TD/TT: 08/13/24 1139 Senior J2Ee Developer: [place] [facility] External Provider IMG US PROCEDURES Final Result * High Sensitivity Troponin I (07/29/2024 4:00 AM EST) Only the most recent of2 resultswithin the time period is included. TROPONIN I HIGH SENSITIVITY <2.7 <3.5 - 17.0 ng/L [facility] Comment:The Concepcion high sens itivity Troponin-I results should beused in conjunction with other diagnostic information suchas ECG, clinical observations and information, and patientsymptoms to aid in the diagnosis of [place]. 07/29/2024 4:00 AM EST 07/29/2024 4:03 AM EST Generic External Data Provider LAB BLOOD ORDERAB LES Final Result Performing Organization Address City/State/[facility] Co de Phone Number [facility] [address] [place] [phone] * hCG, Total, Quantitative (07/29/2024 4:00 AM EST) HCG Quantitative <2 mIU/mL [facility] Comment:Weeks post LMP Appro ximate hCG(Last Menstrual Period) Range (mIU/ml)3 - 4 weeks 9 - 1304 - 5 weeks 75 - 2,6005 - 6 weeks 850 - 20,8006 - 7 weeks 4000 - 100,2007 - 12 weeks 11,500 - 289,57148 - 16 weeks 18,300 - 137,84202 - 29 weeks (2nd trimester) 1,400 - 53,54511 - 41 weeks (3rd trimester) 940 - 60,000The Concepcion B- hCG assay is used for the early detection ofpregnancy; it cannot be used to diagnose any conditionunrelated to . If a B-hCG level is not supportedby the clinical evidence, results should be confirmed by analternative method (qualitative urine hCG, for example). 07/29/2024 4:00 AM EST 07/29/2024 8:52 AM EST Generic External Data Provider LAB BLOOD ORDERAB LES Final Result Performing Organization Address [facility] de Phone Number [facility] [address] [place] [phone] * SARS-CoV-2 RNA, Influenza A/B, and RSV RNA, Ql NAAT (07/28/2024 9:07 PM EST) Only the most recent of2 resultswithin the time period is included. Pathologist [facility] Influenza A PCR NEGATIVE Negative [facility] Influenza B PCR NEGATIVE Negative [facility] Resp Syncy Virus RNA Qual PCR NEGATIVE Negative [facility] SARS COV2 PCR NEGATIVE Negative [facility] Comment:All test results mus t [...] use by authorized laboratories.Testing performed on the [employer]band Voice GeneXpert utilizingreal-time RT-PCR.All SARS CoV2 and positive influenza A/B results arereported to [facility]. 07/28/2024 9:07 PM EST 07/28/2024 9:11 PM EST Generic External Data Provider LAB MICROBIOLOGY - GENERAL ORDERABLES Final Result Performing Organization Address [facility] Co de Phone Number [facility] [address] [place] [phone] * (ABNORMAL) CBC auto differential (07/28/2024 9:07 PM EST) Pathologist [facility] White Blood Count 12.3(H) 4.8 - 10.8 X10*3/uL [facility] Red Blood Count 4.59 4.20 - 5.50 X10*6/uL [facility] Hemoglobin 12.6 12.0 - 16.0 g/dl [facility] Hematocrit 39.0 37.0 - 47.0 % [facility] Mean Corpuscular Volume 85.0 80.0 - 98.0 fL [facility] Mean Corpuscular Hemoglobin 27.5 27.0 - 33.0 pg [facility] Mean Corpuscular HGB Conc 32.3 31.0 - 35.0 g/dl [facility] Red Cell Distribution Width 13.9 11.0 - 16.0 % [facility] Platelet Count 369 160 - 400 X10*3/uL [facility] Mean Platelet Volume 9.2(L) 9.4 - 12.3 fL [facility] Neutrophils Percent Auto 63.5 45 - 73 % [facility] Imm Gran Pct Auto 0.2 0.0 - 0.4 % [facility] Lymphocytes Percent Auto 20.4 20 - 40 % [facility] Monocytes Percent Auto 8.2 2 - 11 % [facility] Eosinophils Percent Auto 7.2(H) 0 - 4 % [facility] Basophils Percent Auto 0.5 0 - 2 % [facility] NRBC Pct Auto 0.0 0.0 - 0.2 /100WBC [facility] Neutrophils Absolute Auto 7.8 2.0 - 8.3 x10*3/uL [facility] Imm Gran Abs Auto 0.03 0.00 - 0.03 X10*3/uL [facility] Lymphocytes Absolute Auto 2.5 1.2 - 4.9 X10*3/uL [facility] Monocytes Absolute Auto 1.0 0.1 - 1.2 X10*3/uL [facility] Eosinophils Absolute Auto 0.9(H) 0.0 - 0.4 X10*3/uL [facility] Basophils Absolute Auto 0.1 0.0 - 0.2 X10*3/uL [facility] NRBC Abs Auto 0.000 0.0 - 0.012 X10*3/uL [facility] 07/28/2024 9:07 PM EST 07/28/2024 9:11 PM EST us Generic External Data Provider LAB BLOOD ORDERAB LES Final Result Performing Organization Address City/[facility]/ZIP Co de Phone Number [facility] [address] [place] [phone] * (ABNORMAL) Prothrombin Time-INR (07/28/2024 9:07 PM EST) Prothrombin Time 12.8(H) 10.9 - 12.4 SEC [facility] INTERNATIONAL NORM RATIO 1.1 0.9 - 1.1 [facility] Comment:INTERNATIONAL NORMAL IZED RATIO (INR) [...] ORDERAB LES Final Result Performing Organization Address [facility] Co de Phone Number [facility] [address] [place] [phone] * Lipase (07/28/2024 9:07 PM EST) Pathologist [facility] Lipase 24 8 - 78 U/L [facility] 07/28/2024 9:07 PM EST 07/28/2024 9:11 PM EST us Generic External Data Provider LAB BLOOD ORDERAB LES Final Result Performing Organization Address [facility] Co de Phone Number [facility] [address] [place] [phone] * (ABNORMAL) Comprehensive Metabolic Panel (07/28/2024 9:07 PM EST) Sodium 140 135 - 145 mmol/L [facility] Potassium 4.2 3.3 - 5.1 mmol/L [facility] Chloride 107 96 - 108 mmol/L [facility] Carbon Dioxide 26 22 - 29 mmol/L [facility] Anion Gap 11(L) 12 - 20 [facility] Urea Nitrogen (BUN) 10 9 - 16 mg/dL [facility] Creatinine, Serum 0.63 0.5 - 1.4 mg/dL [facility] Creatinine Clr Calc Pharmacy 197.4 [facility] Comment:Provided height and weight: 162.56 cm,151.046 kg.eGFR (calculated from the MDRD study equation) and eCrCl(calculated from the Cockcroft-Gault equation) are based ondifferent parameters and may not yield comparable results.If eCrCl result is absurd, please check patient'sheight/weight. Estimated Glomerular Filt Rate >60 [facility] Comment:Chronic Kidney Disea se: Estimated GFR < 60 mL/min/1.03p6Ugadae Kidney Disease: Estimated GFR < 15 mL/min/1.73m2 Glucose 100 60 - 115 mg/dL [facility] Calcium 8.7 8.4 - 10.2 mg/dL [facility] Bilirubin, Total 0.1 0.0 - 1.0 mg/dL [facility] Aspartate Amino Transferase 17 5 - 31 U/L [facility] Alanine Aminotransferase 16 0 - 31 U/L [facility] Total Protein 7.7 6.5 - 8.0 g/dL [facility] Albumin Level 3.8 3.5 - 5.0 g/dL [facility] Alkaline Phosphatase 86 39 - 117 U/L [facility] 07/28/2024 9:07 PM EST 07/28/2024 9:11 PM EST us Generic External Data Provider LAB BLOOD ORDERAB LES Final Result [facility] [address] [place] [phone] [phone] * XR Chest 2 Views (07/28/2024 8:47 PM EST) Only the most recent of2 resultswithin the time period is included. Anatomical Region Laterality Modality Chest Radiographic Lillian ging 07/28/2024 8:47 PM EST Narrative 07/28/2024 8:49 PM EST ? [facility] ?[address] ?[place] [address] ?XRay Report ? Signed ? Patient: Nidhi,Rafaela A ?MR#: [id number] ?? 650 ? : 1995 ?Acct:[id number] ? Age/Sex: 29 / F ?ADM Date: 07/28/24 ? Loc: HO.ED ? Attending Dr: ? Ordering Physician: Yomi Butts ?? Date of Service: 07/28/24 ?? Procedure(s): XR chest 2V ?? Accession Number(s): [id number] ? cc: Nichole Andrea MD; Yomi Butts [...] ? DD/ 46 ? TD/TT: 07/28/242046 ? Senior J2Ee Developer: ? Procedure Note Heather, Image - 07/28/[address] [address] XRay Report Signed Patient: Rafaela Terrell AMR#: [id number] 650 : 1995Acct:[id number] Age/Sex: 29 / FADM Date: 07/28/24 Loc: HO.ED Attending Dr: Ordering Physician: Yomi Butts Date of Service: 07/28/24 Procedure(s): XR chest 2V Accession Number(s): [id number] cc: Nichole Andrea MD; Yomi Butts CLINICAL [...] in OV> 07/28/242047 DD/ 46 TD/TT: 07/28/242046 Senior J2Ee Developer: [facility] External Provider IMG XR PROCEDURES Final Result * Strep A Nucleic Acid (07/12/2024 4:08 PM EST) IDNOW SERIAL# [id number] [facility] Strep A Nucleic Acid Negative Negative [facility] Comment:All test results mus t [...] LAB MICROBIOLOGY - GENERAL ORDERABLES Final Result [facility] [address] [place] [phone] * ECG 12 lead (07/07/2024 8:23 PM EST) Narrative Kaelyn Segovia NP - 07/07/2024 8:23 PM EST HR 82 bpm, left axis deviation. Sinus rhythm ECG Kaelyn Appram COMPUTER SALESPERSON RETAIL ECG ORDERABLES Final Result * POCT Influenza B manually resulted (07/07/2024 8:22 PM EST) Pathologist [facility] Rapid Influenza B Ag Negative Negative, Indeterminate QC Media Lot # [id number] Lot# Expiration Date Swab 07/07/2024 8:22 PM EST [facility] COMPUTER SALESPERSON RETAIL POINT OF CARE TEST ENTER/EDIT O RDERABLES Final Result * POCT Influenza A manually resulted (07/07/2024 8:21 PM EST) [facility] Rapid Influenza A Ag Negative Negative, Indeterminate QC Media Lot # [id number] Lot# Expiration Date Swab Nasopharyngeal structure / Unknown 07/07/2024 8:21 PM EST [facility] POINT OF CARE TEST ENTER/EDIT O RDERABLES Final Result * POCT Rapid COVID Ag (07/07/2024 8:20 PM EST) Only the most recent of2 resultswithin the time period is included. [facility] Rapid COVID Ag Negative QC Media Lot # [id number] Lot# Expiration Date [id number] Swab 07/07/2024 8:20 PM EST [facility] POINT OF CARE TEST ENTER/EDIT O RDERABLES Final Result * (ABNORMAL) Bacterial Vaginosis (06/29/2024 9:44 AM EST) [facility] TRICHOMONAS VAGINALIS DETECTION BY PCR NOT DETECTED Not Detect [facility] BACTERIAL VAGINOSIS DETECTION BY PCR NEGATIVE Negative [facility] Comment:The BV organism targ ets of [...] DETECTION BY PCR NOT DETECTED Not Detect [facility] Evelyn glab krusei PCR DETECTED(A) Not Detect [facility] 06/29/2024 9:44 AM EST 06/29/2024 3:28 PM EST us Generic External Data Provider LAB MICROBIOLOGY - GENERAL ORDERABLES Final Result [facility] [address] [place] [phone] * Chlamydia/N. Gonorrhoeae RNA, TMA, Urogenitial (06/29/2024 9:44 AM EST) CT PCR NOT DETECTED Not Detect. [facility] Comment:A not detected test result does [...] psychologicalconsequences. NG PCR NOT DETECTED Not Detect. [facility] Comment:A not detected test result does [...] AM EST 06/29/2024 3:28 PM EST Narrative [facility] - 06/30/2024 3:23 AM EST Vaginal us Generic External Data Provider LAB MICROBIOLOGY - GENERAL ORDERABLES Final Result Performing Organization Address [facility] Co de Phone Number [facility] [address] [place] [phone] * Influenza B (ID NOW Rapid Molecular) (06/15/2024 1:43 PM EST) Influenza B Negative Negative, Indeterminate [facility] Swab 06/15/2024 1:43 PM EST Debo Hayes COMPUTER SALESPERSON RETAIL POINT OF CARE TEST ENTER/EDIT OR DERABLES Final Result Performing Organization Address [facility] de Phone Number [facility] [address] [place] [phone] * Influenza A (ID NOW Rapid Molecular) (06/15/2024 1:43 PM EST) Influenza A Negative Negative, Indeterminate [facility] Swab 06/15/2024 1:43 PM EST Debo Hayes COMPUTER SALESPERSON RETAIL POINT OF CARE TEST ENTER/EDIT OR DERABLES Final Result Performing Organization Address [facility] de Phone Number [facility] [address] [place] [phone] * Pap Smear (06/19/2022 3:50 PM EST) 06/19/2022 3:50 PM EST 06/20/2022 9:45 AM EST Narrative [facility] - 06/29/2022 3:25 PM EST ----- ------- Name: Rafaela Terrell ?Age/Sex: 27/F ? : 1995 Unit#: [id number] ?? Attend Dr: Huma Ochoa CNM ?Re06/19/22 ?Status: DEP REF ? Location: HO.LNP ?Disch: ? ----- ------- SPEC : [id number] ?RECD: 06/20/22 ? STATUS: ??SOUT ? REQ NUM: [id number] ? ENEIDA: 06/19/22-1549 ? SUBM DR: Huma Ochoa CNM ? ENTERED: ??01/12/23-0957 ?SP TYPE: Pap Smr ?OTHR DR: Nichole Andrea MD ? ORDERED: ??Pap Smear ? Interpretation ?? Satisfactory for evaluation. ?? Negative for intraepithelial lesion or malignancy. ?Clinical Information LMP: 05/27/22 Previous PAP test: 04/07/20, WNL ? Material Received ?? ThinPrep-Cervical Copies To: ?? Nichole Andrea MD ?? [address] [facility] ?? [place] [address] ? Huma Ochoa CNM ?? [address] [place] [address] Dr. Leonard [facility] ?? [place] [address] ?? [phone] ----- ------- Signed (signature on file) Anabel Vyas Cassie 06/29/22 1525 ? ----- ------- ? END OF REPORT ? [facility] External Provider LAB CYT OLOGY ORDERABLES Final Result [facility] [address] [place] [phone] * HIV 1/2 ANTIGEN/ANTIBODY,FOURTH GENERATION W/RFL [...] ? For additional information please refer to http://education.[employer]/faq/ZHK464 (This link is being provided for informational/ [...] ? For additional information please refer to http://education.[employer].Viptable/faq/EVC121 (This link is being provided for informational/ educational purposes only.) ? The performance of this assay has not been clinically validated in patients less than 2 years old. ?? 11/11/2019 12:0 4 PM EDT us Anna [facility] BLOOD ORDERABLES Angeli price Result [facility] Anywhere [address] from Last 3 Months or Most Recently Relevant to Health Maintenance Insurance [facility] C3 HSN FULL * Guarantor: Rafaela Terrell Account Type Relation to Patient Date of Phone Billing Address Dental Self 1995 [address] [place] [address] [facility] MEDICAID STAND ADULT Care Teams Customer Experience Specialist Relationship Specialty Start Date End Date Nichole Andrea MD [address] [place] [phone] PCP - General Family Medicine 05/27/18
--- OUTSIDE RECORDS SUMMARY | 2024-08-13 12:46 | XMS_ITS | Encounter Summary ---
Author Organization [facility] Address [address] [place] [phone] Phone Care Team Providers Care Estate Planning Director Name Role Phone Yisel Hooker MD Primary Care Provider Unavailabl e Encounter Details Date Type Department Care Team (Late st Contact Info) Description 04/10/2017 Conversion Encounter [facility] - [address] [address] Social History Tobacco Use Types Packs/Day Years [...] on filedocumented in this encounter Care Teams Estate Planning Director Relationship Specialty Start Date End Date Yisel Hooker MD PCP - General 01/17/17 documented as of this encounter
--- OUTSIDE RECORDS SUMMARY | 2024-08-13 12:46 | XMS_ITS | Encounter Summary ---
Author Organization [employer] Address [address] 7t [place] [address] Care Team Providers Care Senior Mortgage Underwriter Name Role Phone Nichole Andrea MD Primary Care Provider + Reason for Visit * Reason Comments Care Coordination Outreach Encounter Details Date Type Department Care Team (Latest Contact Info) Description 07/20/2024 Patient Outreach [facility] [address] [place], [place] [phone] Nichole Andrea MD [address] [place] [address] Care Coordination (Outreach) Social History Tobacco Use [...] outbound call to patient introducing herself from [facility], in regards to offering services. Patient's name and was confirmed. Patient agrees to participate in program. Appt. for initial assessment scheduled for 07/29/24 @ 10:00 AM. CHW reinforced direct contact information or CM for any additional questions or concerns and extended clinic hours on Mondays and Wednesdays, and Walk-In Urgent Care Located in [facility]. Patient provided with after-hours line for [facility], , which offer night time triage service and option to transfer to transplant surgeon provider if needed. Patient verbalizes understanding, and able to repeat back to filing writer. documented in this encounter Plan of Treatment Upcoming Encounters Date Type Department Care Team ([facility] st Contact Info) Description 09/06/2024 8:00 AM EDT Office Visit [facility] ADULT DENTAL [address] [place], [place] [phone] Damari Perez [address] [place] [address] 09/08/2024 3:00 PM EDT Office Visit [facility] MEDICINE [address] [place] [address] Nichole Andrea MD [address] [place] [address] documented as of this encounter Visit Diagnoses Not on filedocumented in this encounter Care Teams Senior Mortgage Underwriter Relationship Specialty Start Date End Date Nichole Andrea MD [address] [place], [place] [phone] PCP - General Family Medicine 05/27/18 documented as of this encounter
--- OUTSIDE RECORDS SUMMARY | 2024-08-13 12:46 | XMS_ITS | Encounter Summary ---
Author Organization [employer] [facility] Address [address] [place] [address] 7t [place] [address] Care Team Providers Care Guide Winder Name Role Phone Nichole Andrea MD Primary Care Provider + Encounter Details Date Type Department Care Team (Latest Contact Info) Description 08/21/2020 Abstract [facility] CONVERSIONS Dental, Provider, DDS Social History Tobacco [...] 8:00 AM EDT Office Visit [facility] ADULT DENTAL [address] [place] [address] González Perezaris [address] [place] [address] 09/08/2024 3:00 PM EDT Office Visit [facility] MEDICINE [address] [place] [address] Nichole Andrea MD [address] [place] [address] documented as of this encounter Visit Diagnoses Not on filedocumented in this encounter Care Teams Guide Winder Relationship Specialty Start Date End Date Nichole Andrea MD [address] [place] [address] PCP - General Family Medicine 05/27/18 documented as of this encounter
--- OUTSIDE RECORDS SUMMARY | 2024-08-13 12:46 | XMS_ITS | Encounter Summary ---
Author Organization [employer] Address [address] [facility] 7t [place] [address] Care Team Providers Care Sales Exhibitor Name Role Phone Nichole Andrea MD Primary Care Provider + Encounter Details Date Type Department Care Team (Late Contact Info) Description 05/30/2023 Telephone [facility] MEDICINE [address] [place] [address] Nichole Andrea MD [address] [place] [address] Social History Tobacco Use Types Packs/Day Years [...] 8:00 AM EDT Office Visit [facility] ADULT DENTAL [address] [place], [place] [phone] Damari Perez [address] [place] [address] 09/08/2024 3:00 PM EDT Office Visit [facility] MEDICINE [address] [place] [address] Nichole Andrea MD [address] [place] [address] documented as of this encounter Visit Diagnoses Not on filedocumented in this encounter Care Teams Sales Exhibitor Relationship Specialty Start Date End Date Nichole Andrea MD [address] [place] [address] PCP - General Family Medicine 05/27/18 documented as of this encounter
--- OUTSIDE RECORDS SUMMARY | 2024-08-13 12:46 | XMS_ITS | Encounter Summary ---
Author Organization [employer] Address [address] 7t [place] [address] Care Team Providers Care Metal Baler Name Role Phone Nichole Andrea MD Primary Care Provider + Encounter Details Date Type Department Care Team ([facility] st Contact Info) Description 08/02/2024 Telephone [facility] MEDICINE [address] [place], [place] [phone] Nichole Andrea MD [address] [place], [place] [phone] Social History Tobacco Use Types Packs/Day Years [...] encounter Miscellaneous Notes * Telephone Encounter - Edda Burris RN - 08/02/2024 11:19 AM EST TC placed to pt per below PCP message. Pt denies chest pain, dizziness, headache, fever, chills. Ptreports mild SOB but is not new since her previous dx of RSV. Pt reports blurred vision on and off for the last 2 days. Pt reports she was told her follow up appointment on 09/08/24 would need to be rescheduled as the provider would not be available. RN states there is not a record of this, but can book a follow up appointment. Pt booked for follow up appointment with Kaelyn Segovia on 08/11/24. Advised pt to come to [facility] for evaluation today due to new symptom of blurred vision. Pt verbalized understanding and denies questions at this time. ----- Message from Nichole Andrea MD sent at 08/01/2024 12:59 PM EST ----- Patient seen in the ED on 07/29/2024 with chest pain. Please call to follow-up health status and see if she needs visits for follow-up ED visit. documented in this encounter Plan of Treatment Upcoming Encounters Date Type Department Care Team (Late st Contact Info) Description 09/06/2024 8:00 AM EDT Office Visit [facility] ADULT DENTAL [address] [place] [address] Damari Perez [address] [place] [address] 09/08/2024 3:00 PM EDT Office Visit [facility] MEDICINE [address] [place] [address] Nichole Andrea MD [address] [place] [address] documented as of this encounter Visit Diagnoses Not on filedocumented in this encounter Care Teams Metal Baler Relationship Specialty Start Date End Date Nichole Andrea MD [address] [place] [address] PCP - General Family Medicine 05/27/18 documented as of this encounter
--- OUTSIDE RECORDS SUMMARY | 2024-08-13 12:46 | XMS_ITS | Encounter Summary ---
Author Organization [employer] Address [address] 7t [place] [address] Care Team Providers Care Account Manager Trainee Name Role Phone Nichole Andrea MD Primary Care Provider + Reason for Visit * Reason Comments Care Coordination Outreach Encounter Details Date Type Department Care Team (Latest Contact Info) Description 07/28/2024 Patient Outreach [facility] MED & PEDS [address] [place], [place] [phone] Nichole Andrea MD [address] [place] [address] Care Coordination (Outreach) Social History Tobacco Use [...] outbound call to patient introducing herself from [facility] CM Department, in regards to remind patient [...] Description 09/06/2024 8:00 AM EDT Office Visit [facility] ADULT DENTAL [address] [place] [address] Ana, Damari [address] [place] [address] 09/08/2024 3:00 PM EDT Office Visit [facility] MEDICINE [address] [place] [address] Nichole Andrea MD [address] [place] [address] documented as of this encounter Visit Diagnoses Not on filedocumented in this encounter Care Teams Account Manager Trainee Relationship Specialty Start Date End Date Nichole Andrea MD [address] [place] [address] PCP - General Family Medicine 05/27/18 documented as of this encounter
== END 2024-08-13 11:03 | disposition home or self-care (01) ==
LOC: HO.US 11:02
PROVIDERS: PCP Internal Medicine; Visit Provider Advanced Practice Midwife
DX: R10.2 Pelvic and perineal pain (principal)
CPT/HCPCS: 76830; 76856

== ENCOUNTER → 2024-08-13 11:03 | Outpatient (BNV) | payer MEDICAID, SELFPAY | PROVIDERS: PCP Internal Medicine; Visit Provider Radiology Diagnostic Radiology | DX: R10.2 Pelvic and perineal pain (principal) | CPT/HCPCS: 76830; 76856 ==

== ENCOUNTER 2024-08-26 11:43 | Outpatient (AMB) | payer MEDICAID, SELFPAY ==
--- NOTE | 2024-08-26 11:44 | MHC.OFFVIS ---
Intake Visit Reasons: Ultra sound follow up Intake Note: cell #[phone] Cut Out Worker: Cut Out Worker Present Allergies prednisone Allergy (Unknown, Verified 07/28/24 19:56) Flushing environmental allergies Allergy (Verified 07/28/24 19:56) Unknown Is last menstrual period known: Yes Last menstrual period: 08/19/24 HPI Comments Details: Tele Health Visit Total time I personally spent on visit and management today: 15 minutes. Time spent included review of pertinent office notes in the electronic health record; review of laboratory and imaging results; review of personal family medical history; discussing diagnosis and plan of care with the patient; documenting the encounter in the EMR. Patient presents to discuss: Follow up ultrasound results. History of right-sided in mid center pelvic pain. Today she reports the pain also occurs on her left ovary area with her cycle, overall pelvic pain can occur randomly in different areas. History of left teratoma-surgery 2020. [facility] Medical History Sleep apnea Vitamin D deficiency Ovarian cyst Hirsutism History of depression History of anxiety Asthma Surgical History Hx of ovarian cystectomy Family History Father HTN (hypertension) Diabetes Mother HTN (hypertension) Diabetes Maternal Grandmother Cervical cancer Uterine cancer Maternal Grandfather Colon cancer Social History Household Members: None Housing: Apartment Alcohol intake: current Alcohol intake frequency: holidays/special occasions only Alcohol type: wine Patient Tobacco Use Status: Never used Tobacco Current occupational status: student Sexual orientation: Straight/Heterosexual Gender identity: Female Female Reproductive History Menstrual Age of Menarche: 14 Date of last menstrual period: 08/19/24 Review of Systems Const All systems reviewed & are unremarkable except as noted in HPI and below Endo Reports no additional complaints Physical Exam Const General: cooperative, healthy appearing and no acute distress Psych Appearance: well kempt Attitude: cooperative Thought process: Normal thought process present Telehealth Telehealth Telehealth Platform: [facility] Location of provider rendering services: practice address Location of patient: address on file Patient Identification confirmed using: Name, : Yes Telehealth method: video Patient verbally consented to treatment: Yes Patient verbally consented to billing insurance company: Yes Patient informed of any privacy concerns related to visit: Yes Results Reviewed Results Reviewed: [address] [address] Ultrasound Report Signed Patient: Rafaela Terrell MR#: [id number] : 1995 Acct:[id number] Age/Sex: 29 / F ADM Date: 08/13/24 Loc: HO.US Attending Dr: Lamar Mcallister CNM Ordering Physician: Lamar Mcallister CNM Date of Service: 08/13/24 Procedure(s): US pelvic and transvaginal Accession Number(s): [id number] cc: Ncihole Andrea MD; Lamar Mcallister CNM~ EXAMINATION: US PELVIS CLINICAL INFORMATION: Pelvic and perineal pain COMPARISON: None available. TECHNIQUE: Ultrasound of the pelvis is performed using both transabdominal and transvaginal transducers along with Doppler. Transvaginal imaging is performed due to inadequate visualization transabdominally. FINDINGS: Uterus: The uterus is anteverted , anteflexed and measures 8.0 x 3.1 x 3.5 cm. The double wall endometrial thickness is 0.5 cm. The uterus is smooth in contour and has normal myometrial echogenicity. No visible fibroid. Adnexa: Both ovaries are visualized. There is normal color flow to the adnexa. There is no ovarian torsion. There is no pelvic ascites or fluid collection. Right ovary measures 3.8 x 2.4 x 2.2 cm. Volume 10.6 mL. There is a anechoic corpus luteal cyst measuring 1.5 x 1.5 x 1.3 cm. Previously right ovary measured 4.1 x 2.3 x 2.2 cm and volume 10.9 mL. mL. Left ovary measures 2.6 x 1.8 x 3.5 cm. Volume 11.8 mL. There is a complex anechoic cyst measuring 1.4 x 1.1 x 1.1 cm there is an echogenic area in left ovary measuring 2.0 0.8 x 1.5 cm similar previous study. Previously it measured 2.3 x 1.8 x 1.1 cm. Previously left ovary measures 4.0 x 1.8 x 3.4 cm in volume 12.8 mL. There is small amount of free fluid in the cul-de-sac. US/US pelvic and transvaginal IMPRESSION: Corpus luteal cyst right ovary. There is an echogenic area in the left ovary which is similar to previous study. In addition is a complex cyst left ovary. The uterus is grossly unremarkable. Minimal free fluid in the pelvis Electronically signed by: Carlton Chung MD 08/13/2024 12:11 PM EST RP Dictated By: Carlton Chung MD Signed By: <Electronically signed by Carlton Chung MD in OV> 08/13/24 1211 DD/ 1121 TD/TT: 08/13/24 1139 Fence Post Cutter: [place] Assessment & Plan Assessment & Plan (1) Complex ovarian cyst: Code(s): N83.299 - Other ovarian cyst, unspecified side Category: Medical Plan Discuused: US findings, complex ovarian cyst and dermoid. Counseled regarding findings of: Complex ovarian cyst, which is often benign, and most resolve on their own overtime. Some develop into premalignant or malignant tumors. Limitations of testing for diagnostic purposes. Further monitoring and evaluation is recommended with US, possible CT, or MRI study. If persists, or is indicated (Ca-125, Carbohydrate Antigen 19-9, & Carcinoembryonic Antigen) labs will be ordered and referral to [facility] or general gynecology for MD care if indicated for possible surgical consult. Follow up in person for test results. All of her questions and concerns were addressed to the best of my ability and shared decision making. She is agreeable to the plan of care. Obtain pathology and op note from [facility] 2020 surgical notes. This note is constructed using voice recognition software. While every effort has been made to ensure accuracy, activities volunteer errors may have been included. Orders: Orders US pelvic and transvaginal 09/27/24 N83.299 - Other ovarian cyst, unspecified side Coding Level of Care Code Tele Est Pt Level 3 (35903) Diagnoses Complex ovarian cyst N83.299
== END 2024-08-26 12:38 | disposition home or self-care (01) ==
LOC: HO.HWS 11:43
PROVIDERS: PCP Internal Medicine; Visit Provider Advanced Practice Midwife
DX: N83.299 Other ovarian cyst, unspecified side (principal)
CPT/HCPCS: 99213

== ENCOUNTER 2024-10-06 14:54 | Outpatient (REF) | payer MEDICAID, SELFPAY ==
--- OUTSIDE RECORDS SUMMARY | 2024-10-06 16:00 | XMS_ITS ---
Author Organization [employer] Address [address] [place] [address] 7 [place] [address] Care Team Providers Care Steam Presser Name Role Phone Nichole Andrea MD Primary Care Provider + CHW Complex Status:Identified (Enrolling) Start date:10/01/2024 Enrollment reason:ADT Feed Overview [facility] ED on 09/30/2024 Case Team Name Relationship Phone Magalys Colby (Responsible Staff) Continued Care and Services Coordination
--- OUTSIDE RECORDS SUMMARY | 2024-10-06 16:00 | XMS_ITS | Clinical Summary ---
Author Organization [facility] Address [address] [place] [address] Phone Care Team Providers Care Lead Web Developer Name Role Phone Yisel Hooker MD Primary [...] age to complete this topic Care Teams Lead Web Developer Relationship Specialty Start Date End Date Yisel Hooker MD PCP - General 01/17/17
--- OUTSIDE RECORDS SUMMARY | 2024-10-06 16:00 | XMS_ITS | Encounter Summary ---
Author Organization [employer] Address [address] [facility] 7t [place] [address] Care Team Providers Care Cable Television Technician Name Role Phone Nichole Andrea MD Primary Care Provider + Reason for Visit * Reason Onset Date Comments Nurse Triage 11/25/2023 Encounter Details Date Type Department Care Team ([facility] st Contact Info) Description 11/25/2023 Telephone [facility] MEDICINE [address] [place], [place] [phone] Nichole Andrea MD [address] [place], [place] [phone] Nurse Triage Social History Tobacco Use Types [...] . Pt is advised to come to [facility] to be seen by provider if needed. Pt agrees with home care advised and if time available will come to [facility]. Pt agrees with disposition and home care [...] Care Team (Late st Contact Info) Description 12/17/2024 9:45 AM EDT Office Visit [facility] MEDICINE [address] [place] [address] Nichole Andrea MD [address] [place] [address] 03/14/2025 8:00 AM EDT Office Visit [facility] ADULT DENTAL [address] [place], [place] [phone] Damari Perez [address] [place], [place] [phone] documented as of this encounter Visit Diagnoses Not on filedocumented in this encounter Care Teams Cable Television Technician Relationship Specialty Start Date End Date Nichole Andrea MD [address] [place] [address] PCP - General Family Medicine 05/27/18 documented as of this encounter
--- OUTSIDE RECORDS SUMMARY | 2024-10-06 16:00 | XMS_ITS | Encounter Summary ---
Author Organization [employer] Address [address] [place] [address] 7t [place] [address] Care Team Providers Care Workers Compensation Claims Examiner Name Role Phone Nichole Andrea MD Primary Care Provider + Reason for Visit * Reason Onset Date Comments Medication Question 02/04/2023 Encounter Details Date Type Department Care Team ([facility] st Contact Info) Description 02/04/2023 Telephone [facility] MEDICINE [address] [place], [place] [phone] Nichole Andrea MD [address] [place], [place] [phone] Medication Question Social History Tobacco Use Types [...] seems like the [employer] [facility] has already filledscript and should be all [...] Description 12/17/2024 9:45 AM EDT Office Visit [facility] MEDICINE [address] [place] [address] Nichole Andrea MD [address] [place] [address] 03/14/2025 8:00 AM EDT Office Visit [facility] ADULT DENTAL [address] [place] [address] González Perezaris [address] [place] [address] documented as of this encounter Visit Diagnoses Not on filedocumented in this encounter Care Teams Workers Compensation Claims Examiner Relationship Specialty Start Date End Date Nichole Andrea MD [address] [place] [address] PCP - General Family Medicine 05/27/18 documented as of this encounter
--- OUTSIDE RECORDS SUMMARY | 2024-10-06 16:00 | XMS_ITS | Encounter Summary ---
Author Organization [employer] Address [address] [facility] 7t [place] [address] Care Team Providers Care Marble Cutter Operator Name Role Phone Nichole Andrea MD Primary Care Provider + Reason for Visit * Reason Onset Date Comments Appointment Request 05/30/2023 Encounter Details Date Type Department Care Team (Late st Contact Info) Description 05/30/2023 Telephone [facility] MEDICINE [address] [place], [place] [phone] Nichole Andrea MD [address] [place] [address] Appointment Request Social History Tobacco Use Types [...] Department Care Team (Late Contact Info) Description 12/17/2024 9:45 AM EDT Office Visit [facility] MEDICINE [address] [place] [address] Nichole Andrea MD [address] [place] [address] 03/14/2025 8:00 AM EDT Office Visit [facility] ADULT DENTAL [address] [place] [address] Damari Perez [address] [place] [address] documented as of this encounter Visit Diagnoses Not on filedocumented in this encounter Care Teams Marble Cutter Operator Relationship Specialty Start Date End Date Nichole Andrea MD [address] [place] [phone] PCP - General Family Medicine 05/27/18 documented as of this encounter
--- OUTSIDE RECORDS SUMMARY | 2024-10-06 16:00 | XMS_ITS ---
Author Organization [employer] Address [address] [facility] 7t [place] [address] Care Team Providers Care Sliver Lap Tender Name Role Phone Nichole Andrea MD Primary Care Provider + CM Complex Status:Identified (Enrolling) Start date:10/01/2024 Enrollment reason:ADT Feed Overview ED- Pt went to [facility] ED on 09/30/24. Case Team Name Relationship Phone Hamida Rutherford RN Registered Nurse(Responsible S taff) Continued Care and Services Coordination
--- OUTSIDE RECORDS SUMMARY | 2024-10-06 16:00 | XMS_ITS | Encounter Summary ---
Author Organization [employer] Address [address] [facility] 7t [place] [address] Care Team Providers Care Lock Corner Machine Operator Name Role Phone Nichole Andrea MD Primary Care Provider + Encounter Details Date Type Department Care Team ([facility] Contact Info) Description 08/09/2022 Abstract [facility] ADULT DENTAL [address] [place], [place] [phone] Madi Summers DDS [address] [place], [place] [phone] Social History Tobacco Use Types Packs/Day Years [...] Upcoming Encounters Date Type Department Care Team ([facility] Contact Info) Description 12/17/2024 9:45 AM EDT Office Visit [facility] MEDICINE [address] [place], [place] [phone] Nichole Andrea MD [address] [place] [address] 03/14/2025 8:00 AM EDT Office Visit [facility] ADULT DENTAL [address] [place], [place] [phone] González Perezaris [address] [place] [address] documented as of this encounter Visit Diagnoses Not on filedocumented in this encounter Care Teams Lock Corner Machine Operator Relationship Specialty Start Date End Date Nichole Andrea MD [address] [place] [address] PCP - General Family Medicine 05/27/18 documented as of this encounter
--- OUTSIDE RECORDS SUMMARY | 2024-10-06 16:00 | XMS_ITS | Encounter Summary ---
Author Organization [employer] Address [address] [facility] 7t [place] [address] Care Team Providers Care Crab Fisherman Name Role Phone Nichole Andrea MD Primary Care Provider + Encounter Details Date Type Department Care Team (Late Contact Info) Description 05/30/2023 Telephone [facility] MEDICINE [address] [place] [phone] Nichole Andrea MD [address] [place] [address] Social History Tobacco Use Types Packs/Day Years [...] Description 12/17/2024 9:45 AM EDT Office Visit [facility] MEDICINE [address] [place] [phone] Nichole Andrea MD [address] [place] [address] 03/14/2025 8:00 AM EDT Office Visit [facility] ADULT DENTAL [address] [place] [address] [phone] Ana Damari 230 [place] [address] documented as of this encounter Visit Diagnoses Not on filedocumented in this encounter Care Teams Crab Fisherman Relationship Specialty Start Date End Date Nichole Andrea MD [address] [place] [address] PCP - General Family Medicine 05/27/18 documented as of this encounter
--- OUTSIDE RECORDS SUMMARY | 2024-10-06 16:00 | XMS_ITS | Encounter Summary ---
Author Organization [facility], [facility] Address [address] [place] [address] Care Team Providers Care Facilities Maintenance Technician Name Role Phone Nichole Andrea MD Primary Care Provider + Encounter Details Date Type Department Care Team (Latest Contact Info) Description 08/21/2020 Abstract [facility] CONVERSIONS Dental, Provider, DDS Social [...] Description 12/17/2024 9:45 AM EDT Office Visit [facility] MEDIC[facility] [address] [place] [address] Nichole Andrea MD [address] [place] [address] 03/14/2025 8:00 AM EDT Office Visit [facility] ADULT DENTAL [address] [place] [address] Damari Perez [address] [place] [address] documented as of this encounter Visit Diagnoses Not on filedocumented in this encounter Care Teams Facilities Maintenance Technician Relationship Specialty Start Date End Date Nichole Andrea MD [address] [place] [address] PCP - General Family Medicine 05/27/18 documented as of this encounter
--- OUTSIDE RECORDS SUMMARY | 2024-10-06 16:00 | XMS_ITS | Encounter Summary ---
Author Organization [facility] Address [address] [place] [phone] Phone Care Team Providers Care Patient Accounts Clerk Name Role Phone Yisel Hooker MD Primary Care Provider Unavailabl e Encounter Details Date Type Department Care Team (Late st Contact Info) Description 04/10/2017 Conversion Encounter [facility] - [address] [address] Social History Tobacco Use Types Packs/Day Years [...] on filedocumented in this encounter Care Teams Patient Accounts Clerk Relationship Specialty Start Date End Date Yisel Hooker MD PCP - General 01/17/17 documented as of this encounter
--- OUTSIDE RECORDS SUMMARY | 2024-10-06 16:01 | XMS_ITS | Encounter Summary ---
Author Organization [employer] Address [address] [place] [address] Care Team Providers Care Circuit Court Judge Name Role Phone Nichole Andrea MD Primary Care Provider + Reason for Visit * Reason Comments Vaginal Discharge Encounter Details Date Type Department Care Team ([facility] st Contact Info) Description 10/06/2024 2:20 PM EDT Office Visit [facility] [address] [place] [address] Diarrhea, unspecified type (Primary Dx); Vaginal discharge Social History Tobacco Use Types Packs/Day Years [...] Sign Reading Time Taken Comments Blood Pressure 153/75 10/06/2024 2:19 PM EDT Pulse 101 10/06/2024 2:19 PM EDT Temperature 36.7 ??C (98.1 ??F) 10/06/2024 2:19 PM ED T Respiratory Rate 18 10/06/2024 2:19 PM EDT Oxygen Saturation 99% 10/06/2024 2:19 PM EDT Inhaled Oxygen Concentration - - Weight 142 kg (314 lb) 10/06/2024 2:19 PM EDT Height - - Body Mass Index 53.9 09/08/2024 2:54 PM EDT documented in this encounter Plan of Treatment Upcoming Encounters Date Type Department Care Team (Late st Contact Info) Description 12/17/2024 9:45 AM EDT Office Visit [facility] [address] [place] [phone] Nichole Andrea MD [address] [place] [address] 03/14/2025 8:00 AM EDT Office Visit [facility] ADULT DENTAL [address] [place] [address] Damari Perez [address] [place] [address] Scheduled Orders Name Type Priority Associated Diagnoses Orde r Schedule Chlamydia/N. Gonorrhoeae RNA, TMA, Urogenitial Microbiology Routine Vaginal discharge Ordered: 10/06/2024 Bacterial Vaginosis Microbiology Routine Vaginal discharge Ordered: 10/06/2024 Giardia Antigen, EIA, Stool Lab Routine Diarrhea, unspecified type Expected: 10/06/2024, Expires: 10/06/2025 Stool - Gastrointestinal panel Microbiology Routine Diarrhea, unspecified type Expected: 10/06/2024 (Approximate), Expires: 10/06/2025 Fecal Leukocycte Stain Lab Routine Diarrhea, unspecified type Expected: 10/06/2024 (Approximate), Expires: 10/06/2025 HIV-1/2 Antigen and Antibodies, Fourth Generation, with Reflexes Lab Routine Vaginal discharge Expected: 11/05/2024 (Approximate), Expires: 10/06/2025 Hepatitis Panel, General Lab Routine Vaginal discharge Expected: 11/05/2024 (Approximate), Expires: 10/06/2025 Syphilis Screen Lab Routine Vaginal discharge Expected: 11/05/2024 (Approximate), Expires: 10/06/2025 hCG, Total, Quantitative Lab Routine Vaginal discharge Expected: 10/13/2024 (Approximate), Expires: 10/06/2025 documented as of this encounter Procedures Procedure Name Priority Date/Time Associated Diagnosis Comments POCT URINALYSIS DIPSTICK Routine 10/06/2024 2:29 PM EDT Vaginal discharge documented in this encounter Results * (ABNORMAL) POCT urinalysis dipstick manually resulted (10/06/2024 2:29 PM EDT) Color, UA Yellow Comment:Dark Clarity, UA Clear Glucose, UA Negative Bilirubin, UA Few 15 Ketones, UA Positive Spec Grav, UA 1.030 Blood, UA Positive(A) Negative, None Detected pH, UA 5.5 Protein, UA 1+ 70+ Comment:30mg Urobilinogen, UA 0.2 Leukocytes, UA Trace Negative, Rare, Trace Nitrite, UA Negative Negative, None Detected Appearance, UA OK Urine 10/06/2024 2:29 PM EDT Nichole Andrea MD POINT OF CARE TEST ENTER /EDIT ORDERABLES Final Result documented in this encounter Visit Diagnoses Diagnosis Diarrhea, unspecified type- Primary Vaginal discharge Leukorrhea, not specified as infective documented in this encounter Care Teams Circuit Court Judge Relationship Specialty Start Date End Date Nichole Andrea MD [address] [place] [address] PCP - General Family Medicine 05/27/18 documented as of this encounter
--- OUTSIDE RECORDS SUMMARY | 2024-10-06 16:01 | XMS_ITS | Encounter Summary ---
Author Organization [employer] Address [address] [place] [address] Care Team Providers Care Ad Trafficker Name Role Phone Nichole Andrea MD Primary Care Provider + Encounter Details Date Type Department Care Team (Late st Contact Info) Description 10/01/[address] [facility] [address] [place], [place] [phone] Nichole Andrea MD [address] [place] [address] Social History Tobacco Use Types Packs/Day Years [...] as of this encounter Progress Notes * Hamida Rutherford RN - 10/01/2024 10:48 AM EDT TAE Rutherford RN, performed chart review, in anticipation of initial assessment with patient, as patient has stratified for C3 Adult Complex Care through the ADT feed. History significant for hypertension, depression. Specialists include optometry, otolaryngology, dentist, [facility]. ED visits within the last 12 months include 4 visits. Patient was seen at [facility] ED on 09/30/2024. Last appointment in PCP office on 09/08/24. Next appointment scheduled for 12/17/2024. documented in this encounter Plan of Treatment Upcoming Encounters Date Type Department Care Team (Late st Contact Info) Description 12/17/2024 9:45 AM EDT Office Visit [facility] [address] [place] [address] Nichole Andrea MD [address] [place] [address] 03/14/2025 8:00 AM EDT Office Visit [facility] ADULT DENTAL [address] [place] [address] Damari Perez [address] [place] [address] documented as of this encounter Visit Diagnoses Not on filedocumented in this encounter Care Teams Ad Trafficker Relationship Specialty Start Date End Date Nichole Andrea MD [address] [place] [address] PCP - General Family Medicine 05/27/18 documented as of this encounter
--- OUTSIDE RECORDS SUMMARY | 2024-10-06 16:01 | XMS_ITS | Encounter Summary ---
Author Organization [employer] Address [address] [place] [address] Care Team Providers Care Internal Grinder Name Role Phone Nichole Andrea MD Primary Care Provider + Reason for Visit * Reason Onset Date Comments Nurse Triage 10/06/2024 Encounter Details Date Type Department Care Team ([facility] st Contact Info) Description 10/06/2024 Telephone [facility] [address] [place], [place] [phone] Nichole Andrea MD [address] [place], [place] [phone] Nurse Triage Social History Tobacco Use Types [...] past 12 months, has t he electric, [employer], oil or water [employer] threatened to shut off services in your [...] Telephone Encounter - Mar Bhagat RN - 10/06/2024 11:46 AM EDT Call returned to Rafaeal Terrell to triage below. Reports having sx of diarrhea x 2 weeks. Per pt having 3-4 episodes of watery stools. Per pt unsure if any blood, pus or mucus in stools. Pt having pain itching of vulva. Per pt having both white and yellow discharge. Also endorses odor to discharge. Endorses darker yellow urine. Pt does have concerns for STI. No blisters on vulva. Pt offered apptwith team provider, has class until 2:00pm. Will seek WIC. Reviewed WIC operating hours and that wait times vary. Reviewed home care advise, ER precautions and reasons to call back. Protocol Used: Vaginal Discharge (Adult) Protocol-Based Disposition: See in Office or Video Visit within 3 Days Positive Triage Questions: * Bad smelling vaginal discharge * Abnormal color vaginal discharge (i.e., yellow, green, lange) * Patient is worried they have a sexually transmitted infection (STI) * All higher-acuity triage questions were negative Care Advice Discussed: * Reassurance and Education - Vaginal Yeast Infection * Reasons To Call Back - Fever or abdomen pain occur - You become worse * Telephone Encounter - Damari Franco - 10/06/2024 10:59 AM EDT Symptoms: Diarrhea, Vaginal Symptoms - Not Bleeding Outcome: Schedule an urgent appointment (within 1 hour) or talk to a nurse or provider soon Reason: Any pelvic pain The caller accepted this outcome. Contact pt at [phone] documented in this encounter Plan of Treatment Upcoming Encounters Date Type Department Care Team (Late st Contact Info) Description 12/17/2024 9:45 AM EDT Office Visit [facility] [address] [place] [phone] Nichole Andrea MD [address] [place] [phone] 03/14/2025 8:00 AM EDT Office Visit [facility] ADULT DENTAL [address] [place] [address] Damari Perez [address] [place] [address] documented as of this encounter Visit Diagnoses Not on filedocumented in this encounter Care Teams Internal Grinder Relationship Specialty Start Date End Date Nichole Andrea MD [address] [place] [phone] PCP - General Family Medicine 05/27/18 documented as of this encounter
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
--- OUTSIDE RECORDS SUMMARY | 2024-10-06 16:01 | XMS_ITS | Encounter Summary ---
Author Organization [employer] Address [address] [place] [address] Care Team Providers Care Cracker Dough Mixer Name Role Phone Nichole Andrea MD Primary Care Provider + Reason for Visit * Reason Comments Care Coordination C3 Chart review Encounter Details Date Type Department Care Team (Latest Contact Info) Description 10/01/2024 Patient Outreach [facility] [address] [place], [place] [phone] Nichole Andrea MD [address] [place] [address] Care Coordination (C3CM Chart review) Social History Tobacco Use Types Packs/Day Years [...] Office Visit [facility] [address] [place] [address] Nichole Andrea MD [address] [place] [address] 03/14/2025 8:00 AM EDT Office Visit [facility] ADULT DENTAL [address] [place] [address] Ana, Damari [address] [place] [address] documented as of this encounter Visit Diagnoses Not on filedocumented in this encounter Care Teams Cracker Dough Mixer Relationship Specialty Start Date End Date Nichole Andrea MD [address] [place] [phone] PCP - General Family Medicine 05/27/18 documented as of this encounter
--- OUTSIDE RECORDS SUMMARY | 2024-10-06 16:01 | XMS_ITS | Encounter Summary ---
Author Organization [employer] Address [address] [address] Care Team Providers Care Racehorse Trainer Name Role Phone Nichole Andrea MD Primary Care Provider + Encounter Details Date Type Department Care Team (Latest Contact Info) Description 10/06/2024 Travel Social History Tobacco Use Types Packs/Day [...] Description 12/17/2024 9:45 AM EDT Office Visit [facility] [address] [place] [address] Nichole Andrea MD [address] [place] [address] 03/14/2025 8:00 AM EDT Office Visit [facility] ADULT DENTAL [address] [place] [address] Damari Perez [address] [place] [address] documented as of this encounter Visit Diagnoses Not on filedocumented in this encounter Care Teams Racehorse Trainer Relationship Specialty Start Date End Date Nichole Andrea MD [address] [place] [address] PCP - General Family Medicine 05/27/18 documented as of this encounter
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
[2024-10-06 16:26] LABS: HCG Quantitative < 2 mIU/mL
[2024-10-06 20:18] LABS: Bacterial Vaginosis PCR NEGATIVE (Negative); Candida Group PCR DETECTED (Not Detect); Candida glab krusei PCR NOT DETECTED (Not Detect); Trichomonas vaginalis PCR NOT DETECTED (Not Detect)
[2024-10-06 20:46] LABS: CT PCR NOT DETECTED (Not Detect.); NG PCR NOT DETECTED (Not Detect.)
== END 2024-10-06 14:55 | disposition home or self-care (01) ==
LOC: HO.HHCL 14:54
PROVIDERS: Visit Provider Internal Medicine
DX: N89.8 Other specified noninflammatory disorders of vagina (principal)
CPT/HCPCS: 36415; 81515; 84702; 87491; 87591

== ENCOUNTER 2024-10-07 13:18 | Outpatient (REF) | payer MEDICAID, SELFPAY ==
[2024-10-07 14:35] LABS: Leukocytes Stool Qualitative NEGATIVE (NEGATIVE)
--- OUTSIDE RECORDS SUMMARY | 2024-10-07 15:43 | XMS_ITS | Encounter Summary ---
Author Organization [employer] Address [address] [facility] 7t [place] [address] Care Team Providers Care Tubular Stock Glass Bulb Machine Former Name Role Phone Nichole Andrea MD Primary Care Provider + Reason for Visit * Reason Onset Date Comments Medication Question 02/04/2023 Encounter Details Date Type Department Care Team ([facility] st Contact Info) Description 02/04/2023 Telephone [facility] [address] [place], [place] [phone] Nichole Andrea MD [address] [place], [place] [phone] Medication Question Social History Tobacco Use Types [...] [facility] [employer] has already filledscript and should be all [...] Description 12/17/2024 9:45 AM EDT Office Visit [facility] [address] [place] [address] Nichole Andrea MD [address] [place] [address] 03/14/2025 8:00 AM EDT Office Visit [facility] ADULT DENTAL [address] [place] [address] González Perezaris [address] [place] [address] documented as of this encounter Visit Diagnoses Not on filedocumented in this encounter Care Teams Tubular Stock Glass Bulb Machine Former Relationship Specialty Start Date End Date Nichole Andrea MD [address] [place] [address] PCP - General Family Medicine 05/27/18 documented as of this encounter
--- OUTSIDE RECORDS SUMMARY | 2024-10-07 15:43 | XMS_ITS ---
Author Organization [employer] Address [address] [facility] 7t [place] [address] Care Team Providers Care Screen Print Operator Name Role Phone Nichole Andrea MD Primary Care Provider + CM Complex Status:Identified (Enrolling) Start date:10/01/2024 Enrollment reason:ADT Feed Overview ED- Pt went to [facility] ED on 09/30/24. Case Team Name Relationship Phone Hamida Rutherford RN Registered Nurse(Responsible S taff) Continued Care and Services Coordination
--- OUTSIDE RECORDS SUMMARY | 2024-10-07 15:43 | XMS_ITS | Encounter Summary ---
Author Organization [employer] Address [address] [place] [address] Care Team Providers Care Branch Account Manager Name Role Phone Nichole Andrea MD Primary Care Provider + Encounter Details Date Type Department Care Team (Late st Contact Info) Description 10/07/2024 Orders Only [facility] [address] [place], [place] [phone] Nichole Andrea MD [address] [place], [place] [phone] Social History Tobacco Use Types Packs/Day Years [...] Description 12/17/2024 9:45 AM EDT Office Visit [facility] [address] [place] [address] Nichole Andrea MD [address] [place] [address] 03/14/2025 8:00 AM EDT Office Visit [facility] ADULT DENTAL [address] [place] [address] Ana, Damari [address] [place] [address] documented as of this encounter Procedures Procedure Name Priority Date/Time Associated Diagnosis Comments LEUKOCYTES STOOL QUALITATIVE Routine 10/07/2024 4:00 AM EDT documented in this encounter Results * Leukocytes Stool Qualitative (10/07/2024 4:00 AM EDT) Leukocytes Stool Qualitative NEGATIVE NEGATIVE [facility] 10/07/2024 4:00 AM EDT 10/07/2024 1:18 PM EDT us Nichole Andrea MD LAB BODY FLUIDS AND STOO LS ORDERABLES Final Result [facility] [address] [place] [address] [phone] documented in this encounter Visit Diagnoses Not on filedocumented in this encounter Care Teams Branch Account Manager Relationship Specialty Start Date End Date Nichole Andrea MD [address] [place] [address] PCP - General Family Medicine 05/27/18 documented as of this encounter
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
--- OUTSIDE RECORDS SUMMARY | 2024-10-07 15:43 | XMS_ITS | Encounter Summary ---
Author Organization [facility] Address [address] [place] [address] Phone Care Team Providers Care Autism Motor Specialist Name Role Phone Yisel Hooker MD Primary Care Provider Unavailabl e Encounter Details Date Type Department Care Team (Late st Contact Info) Description 04/10/2017 Conversion Encounter [facility] - [address] [address] Social History Tobacco Use Types Packs/Day Years [...] on filedocumented in this encounter Care Teams Autism Motor Specialist Relationship Specialty Start Date End Date Yisel Hooker MD PCP - General 01/17/17 documented as of this encounter
--- OUTSIDE RECORDS SUMMARY | 2024-10-07 15:43 | XMS_ITS | Encounter Summary ---
Author Organization [employer] Address [address] [facility]t [place] [address] Care Team Providers Care Terrazzo Layer Helper Name Role Phone Nichole Andrea MD Primary Care Provider + Reason for Visit * Reason Comments Vaginal Discharge Encounter Details Date Type Department Care Team ([facility] st Contact Info) Description 10/06/2024 2:20 PM EDT Office Visit [facility] [address] [place] [address] Diarrhea, unspecified type (Primary Dx); Vaginal discharge [...] Description 12/17/2024 9:45 AM EDT Office Visit [facility] [address] [place] [phone] Nichole Andrea MD [address] [place] [address] 03/14/2025 8:00 AM EDT Office Visit [facility] [address] [place] [address] Damari Perez [address] [place] [address] Scheduled Orders Name Type Priority Associated Diagnoses Orde r Schedule Giardia Antigen, EIA, Stool Lab Routine Diarrhea, [...] Routine 10/06/2024 2:22 PM EDT Vaginal discharge documented in this [...] DETECTION BY PCR NOT DETECTED Not Detect [facility] BACTERIAL VAGINOSIS DETECTION BY PCR NEGATIVE Negative [facility] Comment:The BV organism targ ets [...] of 14. ESTHER GROUP DETECTION BY PCR DETECTED(A) Not Detect [facility] Esther glab krusei PCR NOT DETECTED Not Detect [facility] Swab Vaginal structure / Unknown 10/06/2024 2:22 PM EDT 10/06/2024 5:52 PM EDT Nichole Andrea MD LAB MICROBIOLOGY - GENER AL ORDERABLES Final Result [facility] [address] [place] [phone] * Chlamydia/N. Gonorrhoeae RNA, TMA, Urogenitial (10/06/2024 2:22 PM EDT) CT PCR NOT DETECTED Not Detect. [facility] Comment:A not detected test result [...] psychologicalconsequences. NG PCR NOT DETECTED Not Detect. [facility] Comment:A not detected test result [...] PM EDT 10/06/2024 5:52 PM EDT Narrative [facility] - 10/06/2024 8:46 PM EDT Vaginal us Nichole Andrea MD LAB MICROBIOLOGY - GENER AL ORDERABLES Final Result [facility] [address] [place] [phone] [phone] documented in this encounter Visit Diagnoses Diagnosis Diarrhea, unspecified type- Primary Vaginal discharge Leukorrhea, not specified as infective documented in this encounter Care Teams Terrazzo Layer Helper Relationship Specialty Start Date End Date Nichole Andrea MD [address] [place] [phone] PCP - General Family Medicine 05/27/18 documented as of this encounter
--- OUTSIDE RECORDS SUMMARY | 2024-10-07 15:43 | XMS_ITS | Clinical Summary ---
Author Organization [facility] Address [address] [place] [phone] Phone Care Team Providers Care Director Of Channel Marketing Name Role Phone Yisel Hooker MD Primary [...] age to complete this topic Care Teams Director Of Channel Marketing Relationship Specialty Start Date End Date Yisel Hooker MD PCP - General 01/17/17
--- OUTSIDE RECORDS SUMMARY | 2024-10-07 15:43 | XMS_ITS | Encounter Summary ---
Author Organization [facility] [facility] Address [address] [facility] 7t [place] [address] Care Team Providers Care Silk Washing Machine Operator Name Role Phone Nichole Andrea MD Primary Care Provider + Encounter Details Date Type Department Care Team (Latest Contact Info) Description 08/21/2020 Abstract [facility] CONVERSIONS Dental, Provider, DDS Social History [...] Description 12/17/2024 9:45 AM EDT Office Visit [facility] [address] [place] [address] Nichole Andrea MD [address] [place] [address] 03/14/2025 8:00 AM EDT Office Visit [facility] [address] [place] [address] Damari Perez [address] [place] [address] documented as of this encounter Visit Diagnoses Not on filedocumented in this encounter Care Teams Silk Washing Machine Operator Relationship Specialty Start Date End Date Nichole Andrea MD [address] [place] [address] PCP - General Family Medicine 05/27/18 documented as of this encounter
--- OUTSIDE RECORDS SUMMARY | 2024-10-07 15:43 | XMS_ITS ---
Author Organization [employer] Address [address] [place] [address] 7 [place] [address] Care Team Providers Care General Administrator Name Role Phone Nichole Andrea MD Primary Care Provider + CHW Complex Status:Identified (Enrolling) Start date:10/01/2024 Enrollment reason:ADT Feed Overview [facility] ED on 09/30/2024 Case Team Name Relationship Phone Magalys Colby (Responsible Staff) Continued Care and Services Coordination
--- OUTSIDE RECORDS SUMMARY | 2024-10-07 15:43 | XMS_ITS | Encounter Summary ---
Author Organization [employer] Address [address] [facility] 7t [place] [address] Care Team Providers Care Chief Design Engineer Name Role Phone Nichole Andrea MD Primary Care Provider + Reason for Visit * Reason Onset Date Comments Appointment Request 05/30/2023 Encounter Details Date Type Department Care Team (Late st Contact Info) Description 05/30/2023 Telephone [facility] [address] [place], [place] [phone] Nichole Andrea MD [address] [place] [address] Appointment Request Social History Tobacco Use Types [...] Description 12/17/2024 9:45 AM EDT Office Visit [facility] [address] [place] [address] Nichole Andrea MD [address] [place] [address] 03/14/2025 8:00 AM EDT Office Visit [facility] [address] [place] [address] Damari Perez [address] [place] [address] documented as of this encounter Visit Diagnoses Not on filedocumented in this encounter Care Teams Chief Design Engineer Relationship Specialty Start Date End Date Nichole Andrea MD [address] [place] [address] PCP - General Family Medicine 05/27/18 documented as of this encounter
--- OUTSIDE RECORDS SUMMARY | 2024-10-07 15:43 | XMS_ITS | Encounter Summary ---
Author Organization [employer] Address [address] [facility] 7t [place] [address] Care Team Providers Care Metal Drawer Name Role Phone Nichole Andrea MD Primary Care Provider + Encounter Details Date Type Department Care Team ([facility] Contact Info) Description 08/09/2022 Abstract [facility] [address] [place], [place] [phone] Madi Summers DDS [address] [place], [place] [phone] Social History Tobacco Use Types Packs/Day Years [...] Description 12/17/2024 9:45 AM EDT Office Visit [facility] [address] [place], [place] [phone] Nichole Andrea MD [address] [place] [address] 03/14/2025 8:00 AM EDT Office Visit [facility] [address] [place], [place] [phone] González Perezaris [address] [place] [address] documented as of this encounter Visit Diagnoses Not on filedocumented in this encounter Care Teams Metal Drawer Relationship Specialty Start Date End Date Nichole Andrea MD [address] [place] [address] PCP - General Family Medicine 05/27/18 documented as of this encounter
--- OUTSIDE RECORDS SUMMARY | 2024-10-07 15:43 | XMS_ITS | Encounter Summary ---
Author Organization [employer] Address [address] [facility] 7t [place] [address] Care Team Providers Care It Infrastructure Architect Name Role Phone Nichole Andrea MD Primary Care Provider + Encounter Details Date Type Department Care Team (Late Contact Info) Description 05/30/2023 Telephone [facility] [address] [place] [address] [phone] Nichole Andrea MD [address] [place] [phone] Social History Tobacco Use Types Packs/Day Years [...] 12/17/2024 9:45 AM EDT Office Visit [facility] [address] [place] [address] [phone] Nichole Andrea MD [address] [place] [address] 03/14/2025 8:00 AM EDT Office Visit [facility] [address] [place] [address] [phone] Ana Damari [address] [place] [address] documented as of this encounter Visit Diagnoses Not on filedocumented in this encounter Care Teams It Infrastructure Architect Relationship Specialty Start Date End Date Nichole Andrea MD [address] [place] [address] PCP - General Family Medicine 05/27/18 documented as of this encounter
--- OUTSIDE RECORDS SUMMARY | 2024-10-07 15:43 | XMS_ITS | Encounter Summary ---
Author Organization [employer] Address [address] [facility] 7t [place] [address] Care Team Providers Care Bulldozer Operator Name Role Phone Nichole Andrea MD Primary Care Provider + Reason for Visit * Reason Onset Date Comments Nurse Triage 11/25/2023 Encounter Details Date Type Department Care Team ([facility] st Contact Info) Description 11/25/2023 Telephone [facility] [address] [place], [place] [phone] Nichole Andrea MD [address] [place], [place] [phone] Nurse Triage Social History Tobacco Use Types [...] . Pt is advised to come to [facility] to be seen by provider if needed. Pt agrees with home care advised and if time available will come to [facility]. Pt agrees with disposition and home [...] Description 12/17/2024 9:45 AM EDT Office Visit [facility] [address] [place] [address] Nichole Andrea MD [address] [place] [address] 03/14/2025 8:00 AM EDT Office Visit [facility] [address] [place], [place] [phone] Damari Perez [address] [place], [place] [phone] documented as of this encounter Visit Diagnoses Not on filedocumented in this encounter Care Teams Bulldozer Operator Relationship Specialty Start Date End Date Nichole Andrea MD [address] [place] [address] PCP - General Family Medicine 05/27/18 documented as of this encounter
--- OUTSIDE RECORDS SUMMARY | 2024-10-07 15:43 | XMS_ITS | Encounter Summary ---
Author Organization [employer] Address [address] 7[address] [place] [address] Care Team Providers Care Chief Compressor Station Engineer Name Role Phone Nichole Andrea MD Primary Care Provider + Reason for Visit * Reason Onset Date Comments Medication Question 10/07/2024 Encounter Details Date Type Department Care Team ([facility] st Contact Info) Description 10/07/2024 Telephone [facility] [address] [place], [place] [phone] Nichole Andrea MD [address] [place], [place] [phone] Medication Question Social History Tobacco Use Types [...] encounter Miscellaneous Notes * Telephone Encounter - Marshal Beauchamp - 10/07/2024 11:51 AM EDT TC from pt reports getting seen at [facility] by pcp on 10/06/24. Pt stated recieved test results amd now Wanting to know what medication should be prescribed by pcp ./ documented in this encounter Plan of Treatment Upcoming Encounters Date Type Department Care Team (Late st Contact Info) Description 12/17/2024 9:45 AM EDT Office Visit [facility] [address] [place] [address] Nichole Andrea MD [address] [place] [address] 03/14/2025 8:00 AM EDT Office Visit [facility] [address] [place] [address] Ana, Damari [address] [place] [address] documented as of this encounter Visit Diagnoses Not on filedocumented in this encounter Care Teams Chief Compressor Station Engineer Relationship Specialty Start Date End Date Nichole Andrea MD [address] [place] [address] PCP - General Family Medicine 05/27/18 documented as of this encounter
--- OUTSIDE RECORDS SUMMARY | 2024-10-07 15:44 | XMS_ITS | Encounter Summary ---
Author Organization [employer] Address [address] [facility] [address] 7t [place] [address] Care Team Providers Care Layer Off Name Role Phone Nichole Andrea MD Primary Care Provider + Reason for Visit * Reason Onset Date Comments Nurse Triage 10/06/2024 Encounter Details Date Type Department Care Team ([facility] st Contact Info) Description 10/06/2024 Telephone [facility] [address] [place], [place] [phone] Nichole Andrea MD [address] [place], [place] [phone] Nurse Triage Social History Tobacco Use Types [...] past 12 months, has t he electric, [employer], oil or water [employer] threatened to shut off services in your [...] 10/06/2024 11:46 AM EDT Call returned to Rafaela Terrell to triage below. Reports having sx [...] caller accepted this outcome. Contact pt at [phone] documented in this encounter Plan of Treatment Upcoming Encounters Date Type Department Care Team (Late st Contact Info) Description 12/17/2024 9:45 AM EDT Office Visit [facility] [address] [place] [address] Nichole Andrea MD [address] [place] [address] 03/14/2025 8:00 AM EDT Office Visit [facility] [address] [place] [address] Damari Perez [address] [place] [address] documented as of this encounter Visit Diagnoses Not on filedocumented in this encounter Care Teams Layer Off Relationship Specialty Start Date End Date Nichole Andrea MD [address] [place] [address] PCP - General Family Medicine 05/27/18 documented as of this encounter
--- OUTSIDE RECORDS SUMMARY | 2024-10-07 15:44 | XMS_ITS | Encounter Summary ---
Author Organization [employer] Address [address] [facility] [address]t [place] [address] Care Team Providers Care Crewman Armoured Personnel Carrier [id number] Name Role Phone Nichole Andrea MD Primary [...] AM EDT Office Visit [facility] [address] [place] [address] Nichole Andrea MD [address] [place] [address] 03/14/2025 8:00 AM EDT Office Visit [facility] [address] [place] [address] Damari Perez [address] [place] [address] documented as of this encounter Visit Diagnoses Not on filedocumented in this encounter Care Teams Crewman Armoured Personnel Carrier M113 Relationship Specialty Start Date End Date Nichole Andrea MD [address] [place] [phone] PCP - General Family Medicine 05/27/18 documented as of this encounter
[2024-10-08 10:19] LABS: Adenovirus F 40/41 Not Detected (Not Detect.); Astrovirus Not Detected (Not Detect.); Campylobacter Not Detected (Not Detect.); Cryptosporidium Not Detected (Not Detect.); Cyclospora cayetanensis Not Detected (Not Detect.); E. coli EAEC Not Detected (Not Detect.); E. coli EPEC Not Detected (Not Detect.); E. coli ETEC Not Detected (Not Detect.); E. coli STEC Not Detected (Not Detect.); Entamoeba histolytica Not Detected (Not Detect.); Giardia lamblia Not Detected (Not Detect.); Plesiomonas shigelloides Not Detected (Not Detect.); Rotavirus A Not Detected (Not Detect.); Salmonella Not Detected (Not Detect.); Sapovirus Not Detected (Not Detect.); Shigella sp./EIEC Not Detected (Not Detect.); Vibrio Not Detected (Not Detect.); Vibrio Cholerae Not Detected (Not Detect.); Yersinia enterocolitica Not Detected (Not Detect.)
[2024-10-08 10:22] LABS: Norovirus GI/GII Detected (Not Detect.)
== END 2024-10-07 13:19 | disposition home or self-care (01) ==
LOC: HO.HHCLNP 13:18
PROVIDERS: Visit Provider Internal Medicine
DX: R19.7 Diarrhea, unspecified (principal)
CPT/HCPCS: 36415; 87329; 87507; 89055

== ENCOUNTER 2024-10-29 12:30 | Outpatient (REF) | payer MEDICAID, SELFPAY ==
--- OUTSIDE RECORDS SUMMARY | 2024-10-29 12:33 | XMS_ITS | Clinical Summary ---
Author Organization [facility] Address [address] [place] [phone] Phone Care Team Providers Care Financial Planning Analyst Name Role Phone Yisel Hooker MD Primary [...] age to complete this topic Care Teams Financial Planning Analyst Relationship Specialty Start Date End Date Yisel Hooker MD PCP - General 01/17/17
[2024-10-29 14:11] LABS: Anion Gap 12 (12-20); Blood Urea Nitrogen 10 mg/dL (9-16); Calcium 9.1 mg/dL (8.4-10.2); Carbon Dioxide 26 mmol/L (22-29); Chloride 108 mmol/L (96-108); Cholesterol 135 mg/dL (<200); Estimated Glomerular Filt Rate > 60; Glucose Random 107 mg/dL (60-115); HDL Cholesterol 34 mg/dL (>40); LDL Cholesterol Calculated 86 mg/dL (<100); Potassium 3.9 mmol/L (3.3-5.1); Sodium 142 mmol/L (135-145); Triglycerides 78 mg/dL (<150)
[2024-10-29 14:16] LABS: Estimated Average Glucose 123 mg/dL; Hemoglobin A1C 137.5272 umol/L; Hemoglobin A1c % 5.9 % (<6.0)
[2024-10-29 14:38] LABS: HCG Quantitative < 2 mIU/mL; TSH reflex Free T4 1.22 uIU/mL (0.32-4.0); Vitamin D 25-OH Total 14.9 ng/mL (>30)
[2024-10-29 14:52] LABS: Reflex LDLD? No
[2024-11-01 07:53] LABS: Syphilis Screen Nonreactive (Nonreactive)
[2024-11-01 08:24] LABS: HBS Num1 0.56 mIU/mL (0-7.99); HBc Num1 0.18 S/CO (0.00-0.79); HBsAGNum1 0.31 S/CO (0.00-0.99); HIV AB/AG Nonreactive (Nonreactive); HIV Num 1 0.06 S/CO (0.00-0.99); Hepatitis A Antibody IgM 0.16 Index (0-0.79); Hepatitis B Core Antibody Nonreactive (Nonreactive); Hepatitis B Surface Antigen Negative (Negative); ~HepC Num1 0.22 S/CO (0.00-0.79); ~Hepatitis A Antibody IgM Nonreactive (Nonreactive); ~Hepatitis B Surface Antibody NONREACTIVE (Nonreactive); ~Hepatitis C Antibody Nonreactive (Nonreactive)
== END 2024-10-29 12:31 | disposition home or self-care (01) ==
LOC: HO.HHCL 12:30
PROVIDERS: Visit Provider Internal Medicine
DX: I10 Essential (primary) hypertension (principal); Z11.3 Encounter for screening for infections with a predominantly sexual mode of transmission; N89.8 Other specified noninflammatory disorders of vagina; T74.21XD Adult sexual abuse, confirmed, subsequent encounter
CPT/HCPCS: 36415; 80048; 80061; 82306; 83036; 84443; 84702; 86704; 86706; 86709; 86780; 86803; 87340; 87389

== ENCOUNTER 2024-11-03 15:26 | Outpatient (REF) | payer MEDICAID, SELFPAY ==
--- NOTE | ~2024-11-03 | US_ITS ---
EXAMINATION: US PELVIS TRANSABDOMINAL AND TRANSVAGINAL HISTORY: N83.299 - Other ovarian cyst, unspecified side COMPARISON: Comparison is made with the prior examination dated 08/13/2024. TECHNIQUE: Transabdominal and endovaginal real-time 2D lange-scale ultrasound was performed. FINDINGS: Uterus: The uterus is normal in size, measuring 6.8 x 2.5 x 3.8 cm. Myometrium has a normal echotexture. No fibroids are identified. Endometrium: The endometrial stripe measures 3 mm in thickness. Right ovary: The right ovary measures 3.3 x 2.2 x 2.2 cm. The right ovary is normal in size and echotexture. Left ovary: The left ovary measures 3.1 x 1.4 x 2.9 cm. There is a complex cystic structure containing low-level echoes measuring 11 x 8 x 11 mm, similar in size to the prior study. An echogenic focus is also seen measuring 15 x 5 x 9 mm also similar in appearance. Pelvic fluid: none. US/US pelvic and transvaginal IMPRESSION: 11 mm complex left ovarian cyst and 15 mm echogenic focus in the left ovary without change. Electronically signed by: Tristin Almonte MD 11/04/2024 07:21 AM EDT
--- OUTSIDE RECORDS SUMMARY | 2024-11-03 16:01 | XMS_ITS | Clinical Summary ---
Author Organization [facility] Address [address] [place] [address] Phone Care Team Providers Care Business Process Analyst Name Role Phone Yisel Hooker MD [...] age to complete this topic Care Teams Business Process Analyst Relationship Specialty Start Date End Date Yisel Hooker MD PCP - General 01/17/17
== END 2024-11-03 15:27 | disposition home or self-care (01) ==
LOC: HO.US 15:26
PROVIDERS: PCP Internal Medicine; Visit Provider Advanced Practice Midwife
DX: N83.299 Other ovarian cyst, unspecified side (principal)
CPT/HCPCS: 76830; 76856

== ENCOUNTER → 2024-11-03 15:28 | Outpatient (BNV) | payer MEDICAID, SELFPAY | PROVIDERS: PCP Internal Medicine; Visit Provider Radiology Diagnostic Radiology | DX: N83.202 Unspecified ovarian cyst, left side (principal) | CPT/HCPCS: 76830; 76856 ==

== ENCOUNTER 2024-11-11 13:27 | Outpatient (REF) | payer MEDICAID, SELFPAY ==
--- OUTSIDE RECORDS SUMMARY | 2024-11-11 15:52 | XMS_ITS | Clinical Summary ---
Author Organization [facility] Address [address] [place] [phone] Phone Care Team Providers Care Automobile Body Repairer Helper Name Role Phone Yisel Hooker MD Primary [...] age to complete this topic Care Teams Automobile Body Repairer Helper Relationship Specialty Start Date End Date Yisel Hooker MD PCP - General 01/17/17
[2024-11-11 16:48] LABS: Anion Gap 11 (12-20); Blood Urea Nitrogen 10 mg/dL (9-16); Calcium 9.2 mg/dL (8.4-10.2); Carbon Dioxide 26 mmol/L (22-29); Chloride 108 mmol/L (96-108); Estimated Glomerular Filt Rate > 60; Glucose Random 91 mg/dL (60-115); Potassium 3.9 mmol/L (3.3-5.1); Sodium 141 mmol/L (135-145)
[2024-11-12 05:12] LABS: Syphilis Screen Nonreactive (Nonreactive)
[2024-11-12 05:39] LABS: HIV AB/AG Nonreactive (Nonreactive); HIV Num 1 0.06 S/CO (0.00-0.99)
== END 2024-11-11 13:28 | disposition home or self-care (01) ==
LOC: HO.HHCL 13:27
PROVIDERS: Nurse Practitioner Family; Visit Provider Internal Medicine
DX: N89.8 Other specified noninflammatory disorders of vagina (principal); I10 Essential (primary) hypertension
CPT/HCPCS: 36415; 80048; 86780; 87389

== ENCOUNTER 2024-11-24 13:11 | Outpatient (AMB) | payer MEDICAID, SELFPAY ==
[2024-11-24 13:13] VITALS: BP 100/66; BMI 52.3
--- NOTE | 2024-11-24 13:13 | MHC.OFFVIS ---
Vital Signs 11/24/24 13:13 Height 5 ft 4 in Weight 305 lb BMI 52.3 BP 100/66 Intake Visit Reasons: Ultrasound Follow up/Birthcontrol Consult Allergies prednisone Allergy (Unknown, Verified 11/24/24 13:17) Flushing environmental allergies Allergy (Verified 11/24/24 13:17) Unknown Is last menstrual period known: Yes Last menstrual period: 11/22/24 HPI Comments Details: Patient is here today for her ultrasound follow up results history of ovarian cyst, has pelvic pain on either left or right sides. History of left partial cystectomy in 2020 (dermoid) at [facility]. Currently has a her cycle on day 2, and wants to have start control, using condoms now. Provera not utilized since her 30 lb weight loss this year. Has used ParaGard in the past, history of uterine prolapse and IUD had sidplaced after 6 months. Had tried multiple different types of pessaries which did not stay in place. She denies any contraindications to control such as: migraines with aura, history of DVT or pulmonary emboli, liver disease, thrombolic disorders, Lupus, +NICHOLE, breast cancer, or smoking. [facility] Medical History Sleep apnea Vitamin D deficiency Ovarian cyst Hirsutism History of depression History of anxiety Asthma Surgical History Hx of ovarian cystectomy Family History Father HTN (hypertension) Diabetes Mother HTN (hypertension) Diabetes Maternal Grandmother Cervical cancer Uterine cancer Maternal Grandfather Colon cancer Social History Household Members: None Housing: Apartment Alcohol intake: current Alcohol intake frequency: holidays/special occasions only Alcohol type: wine Patient Tobacco Use Status: Never used Tobacco Current occupational status: student Sexual orientation: Straight/Heterosexual Gender identity: Female Female Reproductive History Menstrual Age of Menarche: 14 Date of last menstrual period: 11/22/24 Review of Systems Const All systems reviewed & are unremarkable except as noted in HPI and below Physical Exam Vital Signs: Last Vital Signs BP 100/66 11/24/24 13:13 BMI result Body Mass Index 52.3 Const General: cooperative, healthy appearing and no acute distress Orientation/consciousness: patient oriented x3 GI Inspection: Yes normal to inspection Palpation (GI): Soft to palpation and Other GI palpation findings present (Nontender) Rectal Exam - Female: visual inspection normal General: Yes bladder normal to palpation External Female Exam: normal appearance of the urethra Speculum Exam - Vagina: normal appearance of the vagina, normal palpation, normal vaginal discharge and vaginal bleeding Speculum Exam - Cervix: normal appearance of the cervix, normal palpation and Other cervical findings present (Elongated cervix) Bimanual exam- vagina & uterus: normal bimanual exam, normal palpation, uterine size normal, bladder normal to palpation, normal palpation, uterine shape normal and non-tender Bimanual Exam- Adnexa, other: normal adnexae OB/external & speculum: vaginal bleeding Neuro General: patient oriented x3 Results AMB Test Urine AMB Test Urine Negative Last Edit by WESTON Travis on 11/24/24 13:59 Results Reviewed Results Reviewed: Laboratory Last Values Tst Clinic Negative 11/24/24 13:58 [place] [address] Ultrasound Report Signed Patient: Rafaela Terrell MR#: [id number] : 1995 Acct:[id number] Age/Sex: 29 / F ADM Date: 11/03/24 Loc: HO. Attending Dr: Lamar Mcallister CNM Ordering Physician: Lamar Mcallister CNM Date of Service: 11/03/24 Procedure(s): US pelvic and transvaginal Accession Number(s): [id number] cc: Nichole Andrea MD; Lamar Mcallister CNM~ EXAMINATION: US PELVIS TRANSABDOMINAL AND TRANSVAGINAL HISTORY: N83.299 - Other ovarian cyst, unspecified side COMPARISON: Comparison is made with the prior examination dated 08/13/2024. TECHNIQUE: Transabdominal and endovaginal real-time 2D lange-scale ultrasound was performed. FINDINGS: Uterus: The uterus is normal in size, measuring 6.8 x 2.5 x 3.8 cm. Myometrium has a normal echotexture. No fibroids are identified. Endometrium: The endometrial stripe measures 3 mm in thickness. Right ovary: The right ovary measures 3.3 x 2.2 x 2.2 cm. The right ovary is normal in size and echotexture. Left ovary: The left ovary measures 3.1 x 1.4 x 2.9 cm. There is a complex cystic structure containing low-level echoes measuring 11 x 8 x 11 mm, similar in size to the prior study. An echogenic focus is also seen measuring 15 x 5 x 9 mm also similar in appearance. Pelvic fluid: none. US/US pelvic and transvaginal IMPRESSION: 11 mm complex left ovarian cyst and 15 mm echogenic focus in the left ovary without change. Electronically signed by: Tristin Almonte MD 11/04/2024 07:21 AM EDT RP Dictated By: Tristin Almonte MD Signed By: <Electronically signed by Tristin Almonte MD in OV> 11/04/24 0721 DD/ 1533 TD/TT: 11/03/24 1544 Processing Technician: Assessment & Plan Assessment & Plan (1) Complex ovarian cyst: Code(s): N83.299 - Other ovarian cyst, unspecified side Category: Medical Plan: Counseled regarding findings of: Ultrasound results. Complex ovarian cyst, which is often benign, and most resolve on their own overtime. Some develop into premalignant or malignant tumors. Limitations of testing for diagnostic purposes. Further monitoring and evaluation is recommended with US, possible CT, or MRI study. If persists, or is indicated (Ca-125, Carbohydrate Antigen 19-9, & Carcinoembryonic Antigen) labs will be ordered and referral to [facility] or general gynecology for MD care if indicated for possible surgical consult. Follow up in person for test results. All of her questions and concerns were addressed to the best of my ability and shared decision making. She is agreeable to the plan of care. This note is constructed using voice recognition software. While every effort has been made to ensure accuracy, piece meat trimmer errors may have been included. (2) Uterine prolapse: Code(s): N81.4 - Uterovaginal prolapse, unspecified Category: Medical Plan: Continue weight loss, consider pelvic floor therapy in the future. Handout on PT services provided. Patient to call if considered referral. The patient expressed understanding and agreement with the plan of care. All of her questions and concerns were addressed to the best of my ability. (3) Counseling for control, oral contraceptives: Code(s): Z30.09 - Encounter for other general counseling and advice on contraception Plan: Instructed on pill use: How to take: Take at the same time of day. Take with food if nausea occurs, and closer to bedtime may be helpful. What to do when missing a pill or taking one late: take as soon as you remember, and use a back up method (condoms, or abstinence is required) for 7 days. Side effects: break through bleeding, nausea, mood changes, breast tenderness, headaches, bloating. Most of these all resolve in the first 2-3 months of use. Warnings: serious complications from the pill associated with a DVT (deep viem thrombosis), risks to stroke, PE (pulmonary emboli), potentially fatal. Report any serious side effects: call 911 and seek medical emergenct treatment for any ACHES . Abdominal pain (sever). Chest pain (difficulty breathing). Headache (severe). Extremity pain(sudden pain in one extermity). Sudden blindness/loss of vision. Report any medical changes to our office so that we can determine if the pill is an appropriate method for continued use. Keep all follow up appointments for pill use surveilance as directed. The patient expressed understanding and agreement with the plan of care. All of her questions and concerns were addressed to the best of my ability. Total time I personally spent on visit and management today: ?40 minutes. Time spent included review of pertinent office notes in the electronic health record; review of laboratory and imaging results; review of personal family medical history; performing physical exam; discussing diagnosis and plan of care with the patient; documenting the encounter in the EMR. (4) Pelvic pain: Code(s): R10.2 - Pelvic and perineal pain Category: Medical Plan GC chlamydia BV panel obtained. UPT is negative. Await results for plan of care. Monitor for pain if any increase or persistent pain to report to the office sooner. The patient expressed understanding and agreement with the plan of care. All of her questions and concerns were addressed to the best of my ability. Orders: Orders US pelvic and transvaginal 01/17/25 N83.299 - Other ovarian cyst, unspecified side Bacterial Vaginosis Panel Today Z20.2 - Contact with and (suspected) exposure to infections with a predominantly sexual mode of transmission CT NG by PCR Today Z20.2 - Contact with and (suspected) exposure to infections with a predominantly sexual mode of transmission AMB HCG Urine Test Today Z32.02 - Encounter for test, result negative Medications: New norethindrone (contraceptive) (Aneta) 0.35 mg PO DAILY 90 tabs 0RF 90 days Discontinued medroxyprogesterone (Provera) Discontinued Reason: No Longer Medically Relevant 10 mg PO DAILY 10 days 10 tabs 6RF Coding Level of Care Code Est Pt Level 3 (56366) Diagnoses Complex ovarian cyst N83.299 Uterine prolapse N81.4 Counseling for control, oral contraceptives Z30.09 Pelvic pain R10.2
--- OUTSIDE RECORDS SUMMARY | 2024-11-24 15:02 | XMS_ITS | Encounter Summary ---
Author Organization [employer] Address [address] [place] [address] [address] [place] [address] Care Team Providers Care Rehabilitation Services Coordinator Name Role Phone Nichole Andrea MD Primary Care Provider + Reason for Visit * Reason Onset Date Comments Medication Question 02/04/2023 Encounter Details Date Type Department Care Team ([facility] st Contact Info) Description 02/04/2023 Telephone [facility] [address] [place] [address] Nichole Andrea MD [address] [place] [address] Medication Question Social History Tobacco Use Types [...] seems like [facility] has already filledscript and should be [...] 9:45 AM EDT Office Visit [facility] [address] [place] [address] Nichole Andrea MD [address] [place] [address] 12/20/2024 10:00 AM EDT Clinical Support [facility] [address] [place] [address] [place] [address] 03/14/2025 8:00 AM EDT Office Visit [facility] [address] [place] [address] Damari Perez [address] [place] [address] documented as of this encounter Visit Diagnoses Not on filedocumented in this encounter Care Teams Rehabilitation Services Coordinator Relationship Specialty Start Date End Date Nichole Andrea MD [address] [place] [address] PCP - General Family Medicine 05/27/18 documented as of this encounter
== END 2024-11-24 14:11 | disposition home or self-care (01) ==
LOC: HO.HWS 13:11
PROVIDERS: PCP Internal Medicine; Visit Provider Advanced Practice Midwife
DX: N83.299 Other ovarian cyst, unspecified side (principal); N81.4 Uterovaginal prolapse, unspecified; Z30.09 Encounter for other general counseling and advice on contraception; R10.2 Pelvic and perineal pain; Z32.02 Encounter for pregnancy test, result negative
CPT/HCPCS: 99213

== ENCOUNTER 2024-11-24 13:58 | Outpatient (REF) | payer MEDICAID, SELFPAY | END 2024-11-24 13:59 | disposition home or self-care (01) | LOC: HO.LNP 13:58 | PROVIDERS: Visit Provider Advanced Practice Midwife | DX: Z13.89 Encounter for screening for other disorder (principal) ==

== ENCOUNTER 2024-11-24 13:58 | Outpatient (REF) | payer MEDICAID, SELFPAY ==
[2024-11-24 16:16] LABS: Bacterial Vaginosis PCR NEGATIVE (Negative); Candida Group PCR NOT DETECTED (Not Detect); Candida glab krusei PCR NOT DETECTED (Not Detect); Trichomonas vaginalis PCR NOT DETECTED (Not Detect)
[2024-11-24 16:46] LABS: CT PCR NOT DETECTED (Not Detect.); NG PCR NOT DETECTED (Not Detect.)
== END 2024-11-24 13:59 | disposition home or self-care (01) ==
LOC: HO.LAB 13:58
PROVIDERS: Visit Provider Advanced Practice Midwife
DX: N83.292 Other ovarian cyst, left side (principal); N81.4 Uterovaginal prolapse, unspecified; Z30.09 Encounter for other general counseling and advice on contraception; R10.2 Pelvic and perineal pain; Z20.2 Contact with and (suspected) exposure to infections with a predominantly sexual mode of transmission
CPT/HCPCS: 81025; 81515; 87491; 87591; 99212

== ENCOUNTER 2024-12-17 10:38 | Outpatient (REF) | payer MEDICAID, SELFPAY ==
--- NOTE | ~2024-12-17 | XR_ITS ---
EXAMINATION: XR FOOT, LEFT CLINICAL INFORMATION: left foot pain/ ro fracture COMPARISON: None available. TECHNIQUE: AP, lateral, and oblique views of the left foot. FINDINGS: The metatarsals are intact. The phalanges are intact with normal alignment. Small plantar calcaneal spur. Normal plantar arch. No gross joint effusion. No lytic or blastic lesions. No metallic or radiopaque foreign body. No subcutaneous emphysema. XR/XR foot LT min 3V IMPRESSION: Negative exam. Electronically signed by: Win Diaz MD 12/17/2024 12:17 PM EDT
--- OUTSIDE RECORDS SUMMARY | 2024-12-17 09:45 | XMS_ITS | Encounter Summary ---
Author Organization [employer] Address [address] [place] [address] Care Team Providers Care Public Improvement Inspector Name Role Phone Nichole Andrea MD Primary Care Provider + Reason for Visit * Reason Comments Follow-up Encounter Details Date Type Department Care Team ([facility] Contact Info) Description 12/17/2024 9:45 AM EDT Office Visit [facility] [address] [place] [address] Nichole Andrea MD [address] [place] [address] Primary hypertension (Primary Dx); Moderate persistent asthma without complication; Depressive disorder; Vitamin D deficiency; Left foot pain; Encounter for immunization; Preventative health care Social History Tobacco Use Types Packs/Day Years Used Date Smoking Tobacco: Never Passive Smoke Exposure: Never Smokeless Tobacco: Never Tobacco Cessation:Counseling Given: Not Answered Alcohol Use Standard Drinks/Week Comments Yes 0 (1 standard drink = 0.6 oz pur e alcohol) casual Depression Answer Date Recorded Patient Health Questionnaire-9 Score 10 12/17/2024 Patient Health Questionnaire-9 Score 10 12/17/2024 Last PHQ-9: Questionnaire Data Not on file 0 12/17/2024 Housing Stability Answer Date Recorded What is [...] off services in your home? No 07/29/2024 Depression Answer Date Recorded Patient Health Questionnaire-2 Score 2 12/17/2024 Internet Access Answer Date Recorded Internet Access [...] Sign Reading Time Taken Comments Blood Pressure 124/80 12/17/2024 9:35 AM EDT Pulse 84 12/17/2024 9:35 AM EDT Temperature 36.6 C (97.8 F) 12/17/2024 9:35 AM EDT Respiratory Rate 20 12/17/2024 9:35 AM EDT Oxygen Saturation - - Inhaled Oxygen Concentration - - Weight 142 kg (313 lb 3.2 oz) 12/17/2024 9:35 AM EDT Height 162.6 cm (5' 4 ) 12/17/2024 9:35 AM EDT Body Mass Index 53.76 12/17/2024 9:35 AM EDT documented in this encounter Functional Status * Over the past 2 weeks, how often have you been bothered by any of the following problems? Question Answer Date of Assessment Author Patient Health Questionnaire-2 Score 2 12/17/2024 9:45 AM EDT Giulia Salomon MA * Little interest or pleasure in doing things Answer Date of Assessment Author Several days 12/17/2024 9:45 AM EDT Giulia Gamboa MA * Feeling down, depressed, or hopeless Answer Date of Assessment Author Several days 12/17/2024 9:45 AM Giulia Almodovar MA * Trouble falling or staying asleep, or sleeping too much Answer Date of Assessment Author More than half the days 12/17/2024 9:45 AM ZEESHANT Giulia Atwood MA * Feeling tired or having little energy Answer Date of Assessment Author Several days 12/17/2024 9:45 AM Giulia Almodovar MA * Poor appetite or overeating Answer Date of Assessment Author More than half the days 12/17/2024 9:45 AM ZEESHANT Giulia Atwood MA * Feeling bad about yourself - or that you are a failure or have let yourself or your family down Answer Date of Assessment Author Several days 12/17/2024 9:45 AM Giulia Almodovar MA * Trouble concentrating on things, such as reading the newspaper or watching television Answer Date of Assessment Author Several days 12/17/2024 9:45 AM Giulia Almodovar MA * Moving or speaking so slowly that other people could have noticed? Or the opposite - being so fidgety or restless that you have been moving around a lot more than usual. Answer Date of Assessment Author Several days 12/17/2024 9:45 AM Giulia Almodovar MA * Thoughts that you would be better off or hurting yourself in some way Answer Date of Assessment Author Not at all 12/17/2024 9:45 AM Giulia Almodovar MA * Patient Health Questionnaire-9 Score Answer Date of Assessment Author 10 12/17/2024 9:45 AM Giulia Almodovar MA * How difficult have these problems made it for you to do your work, take care of things at home, or get along with other people? Answer Date of Assessment Author Somewhat difficult 12/17/2024 9:45 AM Giulia Hatfield MA * Over the last 2 weeks, how often have you been bothered by any of the following problems? Question Answer Date of Assessment Author Feeling nervous, anxious, or on edge 1 12/17/2024 9:46 AM EDT Giulia Salomon MA Not being able to stop or control worrying 12/17/2024 9:46 AM EDT Giulia Salomon MA Worrying too much about different things 12/17/2024 9:46 AM EDT Giulia Salomon MA Trouble relaxing 12/17/2024 9:46 AM EDT Giulia Atwood MA Being so restless that it is hard to sit still 12/17/2024 9:46 AM EDT Giulia Salomon MA Feeling afraid as if something awful might happen 12/17/2024 9:46 AM EDT Giulia Yusuf MA documented as of this encounter Progress Notes * Nichole Andrea MD - 12/17/2024 9:45 AM EDT Images from the original note were not included. SUBJECTIVE: Rafaela Terrell is a 29 y.o. year old female who presents for follow up htn/asthma/labs/BMI. Deniesrecent illness, injury, or hospitalization. She's doing well, she's living with her parents and struggles with their dynamics. 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 LMP 11/22/24. BP at home is usually normal, she did not bring BP readings today Acute Concerns: Left foot pain x 6-8m, more so in the past 2-3w. Social History Social History Narrative Not on file Problem List[1] Family History[2] Review of Systems Constitutional: Negative for chills, fatigue and fever. HENT: Negative for congestion, ear pain, nosebleeds, rhinorrhea, sinus pressure, sore throat and trouble swallowing. Eyes: Negative for pain and discharge. Respiratory: Negative for cough, chest tightness and shortness of breath. Cardiovascular: Negative for chest pain, palpitations and leg swelling. Gastrointestinal: Negative for abdominal pain, blood in stool, constipation, diarrhea and nausea. Endocrine: Negative for polydipsia and polyuria. Genitourinary: Negative for dysuria, frequency, genital sores, pelvic pain and vaginal discharge. Musculoskeletal: Positive for arthralgias and gait problem. Negative for back pain and neck pain. Skin: Negative for rash. Allergic/Immunologic: Negative for environmental allergies. Neurological: Negative for dizziness, seizures, weakness, light-headedness and headaches. Hematological: Negative for adenopathy. Psychiatric/Behavioral: Negative for agitation, behavioral problems, self-injury and suicidal ideas. The patient is nervous/anxious. OBJECTIVE: Vitals: 12/17/24 0935 BP: 124/80 Pulse: 84 Resp: 20 Temp: 97.8 ??F (36.6 ??C) Physical Exam HENT: Right Ear: Tympanic membrane and ear canal normal. Left Ear: Tympanic membrane and ear canal normal. Mouth/Throat: Mouth: Mucous membranes are moist. Pharynx: No oropharyngeal exudate or posterior oropharyngeal erythema. Eyes: Pupils: Pupils are equal, round, and reactive to light. Cardiovascular: Rate and Rhythm: Regular rhythm. Pulses: Normal pulses. Dorsalis pedis pulses are 2+ on the right side and 2+ on the left side. Posterior tibial pulses are 2+ on the right side and 2+ on the left side. Heart sounds: Normal heart sounds. No murmur heard. Pulmonary: Breath sounds: Normal breath sounds. Abdominal: General: Bowel sounds are normal. Palpations: Abdomen is soft. Tenderness: There is no abdominal tenderness. Musculoskeletal: General: Normal range of motion. Cervical back: Neck supple. Right foot: No deformity. Left foot: No deformity. Feet: Feet: Right foot: Protective Sensation: 7 sites tested. 7 sites sensed. Skin integrity: No ulcer or fissure. Toenail Condition: Right toenails are normal. Left foot: Protective Sensation: 7 sites tested. 7 sites sensed. Skin integrity: No ulcer or fissure. Toenail Condition: Left toenails are normal. Comments: Tenderness on medial aspect of left foot Skin: General: Skin is warm. Neurological: General: No focal deficit present. Mental Status: She is alert and oriented to person, place, and time. Psychiatric: Mood and Affect: Mood normal. Behavior: Behavior normal. Problem List Items Addressed This Visit Primary hypertension - Primary Controlled. Compliant w/meds Continue lisinopril and follow-up with me in 4 months I counseled re low salt diet/increase moderate physical activity. Check home BP BIW and prn CP/GOMEZ/SANCHES Non smoking patient. Asthma Controlled on Symbicort twice daily. Advised to use it as needed for asthma exacerbations instead of albuterol. We discussed about COVID and influenza immunization in the fall. She is getting PCV 20 vaccine today Follow-up with me in 6 months Depressive disorder Seems to be doing better with counseling on sertraline. Advised to follow-up closely with mental health team. We discussed about options regarding job search with [employer] and reach out to [employer] benefits health care liaison. She feels safe at home, she feels that her parents know her limits and she is looking to move out to her own place, however she is aware that she has to find a better pain job for more hours on her current job. Vitamin D deficiency Started vitamin D supplementation sign 6 months. Advised to walk outdoors or perform outdoor exercise for least 50 minutes daily. Left foot pain Unclear if she had a trauma, rule out fracture. Ordered x-rays of left foot and follow-up results. Relevant Medications ergocalciferol (Vitamin D2) 1.25 MG (94200 UT) capsule Other Relevant Orders XR Foot 3+ Views Left Preventative health care She is having PCV 20+ HPV booster today (the previous 3 doses were given to close apart) Other Visit Diagnoses Encounter for immunization Relevant Orders PCV-20 VACCINE 6 wks + (Completed) Follow Up: Medications Ordered Prior to Encounter[3] [1] Patient Active Problem List Diagnosis Abnormal uterine bleeding Acanthosis nigricans Acne Acute low back pain Allergic rhinitis Anxiety disorder Asthma Attention deficit hyperactivity disorder, predominantly inattentive type Benign cyst of breast Cyst of ovary Depressive disorder Female hirsutism Flexural eczema Food insecurity Loss of hair Low vision, both eyes Obesity Sleep disorder Pain in female pelvis Panic attack Suspected COVID-19 virus infection Tremor Preventative health care Encounter for initial prescription of contraceptives, unspecified Foot pain, bilateral Dental caries Uterine prolapse Primary hypertension Witnessed episode of apnea Vaginal discharge Enlarged tonsils SEBAS (obstructive sleep apnea) Bed bug bite Cervical cancer screening Disease due to severe acute respiratory syndrome coronavirus 2 (SARS-CoV-2) Influenza Neck fullness Ovarian teratoma Polycystic ovarian syndrome Scoliosis deformity of spine Sinusitis Urinary tract infection Urine incontinence Vitamin D deficiency Candidiasis of genitalia in female Vulvovaginitis evelyn albicans Acute asthma exacerbation Complex ovarian cyst Encounter for IUD removal Family planning advice Screen for sexually transmitted diseases Well woman exam Hirsutism Obesity, morbid, BMI 50 or higher (CMS/HCC) Severe obesity (CMS/HCC) Pelvic pain Malpositioned IUD Diarrhea Unprotected sexual intercourse Left foot pain [2] No family history on file. [3] Current Outpatient Medications on File Prior to Visit Medication Sig Dispense Refill albuterol (Ventolin HFA) 108 (90 Base) MCG/ACT inhaler Inhale 2 puffs Every 4-6 hours as needed forwheezing or shortness of breath. 18 g 1 azelastine (Astelin) 0.1 % nasal spray Administer 1 spray into each nostril 2 times daily. Use in each nostril as directed 30 mL 12 betamethasone dipropionate 0.05 % cream Apply topically 2 times daily. 30 g 1 Blood Pressure Monitor kit Use as directed 3x/week 1 kit 0 budesonide-formoterol (Symbicort) 160-4.5 MCG/ACT inhaler Inhale 2 puffs in the morning and at bedtime. Rinse mouth with water after use to reduce aftertaste and incidence of candidiasis. Do not swallow. 1 each 11 cetirizine (ZyrTEC) 10 MG tablet Take 1 tablet (10 mg) by mouth Once per day. 90 tablet 3 lisinopril (Prinivil) 20 MG tablet Take 1 tablet (20 mg) by mouth Once per day. 30 tablet 11 Spacer/Aero-Holding Chambers device Use as directed 4x/d prn SOB, with inhaler 1 Units 0 No current facility-administered medications on file prior to visit. documented in this encounter Miscellaneous Notes * Assessment & Plan Note - Nichole Andrea MD - 12/17/2024 11:10 AM EDT Associated Problem(s): Left foot pain Unclear if she had a trauma, rule out fracture. Ordered x-rays of left foot and follow-up results. * Assessment & Plan Note - Nichole Andrea MD - 12/17/2024 11:09 AM EDT Associated Problem(s): Preventative health care She is having PCV 20+ HPV booster today (the previous 3 doses were given to close apart) * Assessment & Plan Note - Nichole Andrea MD - 12/17/2024 11:09 AM EDT Associated Problem(s): Asthma Controlled on Symbicort twice daily. Advised to use it as needed for asthma exacerbations instead of albuterol. We discussed about COVID and influenza immunization in the fall. She is getting PCV 20 vaccine today Follow-up with me in 6 months * Assessment & Plan Note - Nichole Andrea MD - 12/17/2024 11:07 AM EDT Associated Problem(s): Depressive disorder Seems to be doing better with counseling on sertraline. Advised to follow-up closely with mental health team. We discussed about options regarding job search with [employer] and reach out to [facility] benefits health care liaison. She feels safe at home, she feels that her parents know her limits and she is looking to move out to her own place, however she is aware that she has to find a better pain job for more hours on her current job. * Assessment & Plan Note - Nichole Andrea MD - 12/17/2024 11:06 AM EDT Associated Problem(s): Vitamin D deficiency Started vitamin D supplementation sign 6 months. Advised to walk outdoors or perform outdoor exercise for least 50 minutes daily. * Assessment & Plan Note - Nichole Andrea MD - 12/17/2024 11:06 AM EDT Associated Problem(s): Primary hypertension Controlled. Compliant w/meds Continue lisinopril and follow-up with me in 4 months I counseled re low salt diet/increase moderate physical activity. Check home BP BIW and prn CP/GOMEZ/SANCHES Non smoking patient. documented in this encounter Plan of Treatment Upcoming Encounters Date Type Department Care Team (Late st Contact Info) Description 12/20/2024 10:00 AM EDT Clinical Support [facility] [address] [place] [address] Jocelynn Bingham, RD [address] [place] [address] 03/14/2025 8:00 AM EDT Office Visit [facility] AD[facility] DENT[facility] [address] [place] [address] Ana, Damari [address] [place] [address] Scheduled Orders Name Type Priority Associated Diagnoses Orde r Schedule XR Foot 3+ Views Left Imaging Routine Left foot pain Expected: 12/17/2024, Expires: 12/17/2025 documented as of this encounter Visit Diagnoses Diagnosis Primary hypertension- Primary Unspecified essential hypertension Moderate persistent asthma without complication Depressive disorder Depressive disorder, not elsewhere classified Vitamin D deficiency Left foot pain Pain in soft tissues of limb Encounter for immunization Preventative health care Routine general medical examination at a health care facility documented in this encounter Additional Health Concerns Assessment Noted Time PHQ-9 Depression Total Score: 10 025 9:45 AM EDT documented as of this encounter Care Teams Public Improvement Inspector Relationship Specialty Start Date End Date Nichole Andrea MD [address] [place] [id number] PCP - General Family Medicine 05/27/18 documented as of this encounter
--- OUTSIDE RECORDS SUMMARY | 2024-12-17 11:14 | XMS_ITS | Clinical Summary ---
Author Organization [facility] Address [address] [place] [phone] Phone Care Team Providers Care Firing Pin Gauger Name Role Phone Yisel Hooker MD Primary [...] of 3 - 19+ 3-dose series) 02/13/2016 COVID-19 Vaccine ( - 2023-2 5 season) 2024 Influenza Vaccines (#1) 2025 HIB Vaccines Aged Out No longer eligi [...] age to complete this topic Care Teams Firing Pin Gauger Relationship Specialty Start Date End Date Yisel Hooker MD PCP - General 01/17/17
== END 2024-12-17 10:39 | disposition home or self-care (01) ==
LOC: HO.HHCX 10:38
PROVIDERS: PCP Internal Medicine; Visit Provider Internal Medicine
DX: M79.672 Pain in left foot (principal)
CPT/HCPCS: 73630

== ENCOUNTER → 2024-12-17 10:59 | Outpatient (BNV) | payer MEDICAID, SELFPAY | PROVIDERS: PCP Internal Medicine; Visit Provider Radiology Diagnostic Radiology | DX: M79.672 Pain in left foot (principal) | CPT/HCPCS: 73630 ==

== ENCOUNTER 2025-01-04 10:35 | Outpatient (AMB) | payer MEDICAID, SELFPAY ==
--- NOTE | 2025-01-04 10:43 | A.OFFVIS_ITS ---
Vital Signs 01/04/25 10:45 Height 5 ft 4 in Weight 308 lb BMI 52.9 BP 120/74 Blood Pressure Location Lt brachial Position Sitting Pulse 88 Pulse Oximetry (%) 99 Oxygen Delivery Method Room Air Intake Visit Reasons: abd bloating diarrhea Intake Note: Patient new consult for abd bloating and constipation Patient cc: abdominal bloating, acid reflux on and off, constipation with some blood on and off. Cd Mixer Helper Required: No Accompanied by: Self / Same As Patient Allergies prednisone Allergy (Unknown, Verified 01/04/25 10:41) Flushing environmental allergies Allergy (Verified 01/04/25 10:41) Unknown Medication List - Last Reconciled 01/04/25 by Callie Jamil CNP albuterol sulfate 2.5 mg (3 mL) inhalation Q4-6H PRN albuterol sulfate 90 mcg/actuation (ProAir HFA) 2 puffs inhalation Q4-6H PRN cetirizine (Zyrtec) 10 mg PO DAILY fluticasone propionate 110 mcg/actuation (Flovent HFA) 1 puff inhalation Q12H hydroxyzine HCl 10 mg PO BEDTIME lisinopril 20 mg PO DAILY sertraline 25 mg PO DAILY HPI HPI abd bloating diarrhea: Details: Patient is a 29-year-old female with PMH of vitamin D deficiency, depression, anxiety, asthma and sleep apnea. Referred by PCP for further evaluation of change in stool pattern. The patient reports a longstanding history of constipation for the past few years. She reports diarrhea after following a norovirus infection two months ago which as now resolved. She describes her constipation as hard stools that are painful to pass, accompanied by bloating and abdominal pain, primarily in the middle of her abdomen. The pain typically resolves after a bowel movement. To manage her constipation, Rafaela has implemented dietary changes, including increased consumption of fiber, greens, vegetables, and fruits. She also engages in walks, exercise, increased water intake, and abdominal massages. Rafaela was diagnosed with an anal fissure about a month ago at a walk-in clinic, presenting with severe anal pain that gradually improved after a week and a half. She continues to experience rectal bleeding, both when wiping and visible in the toilet. The patient reports occasional heartburn, occurring about twice a week, which usually resolves on its own. She denies any regurgitation or trouble swallowing. The patient has been experiencing n/v, which she attributes to a new ADHD medication. She reports mild nausea, particularly when not eating enough with the medication. Rafaela has lost almost 30 pounds since July due to diet changes. Shares recent life changes that may be contributing to her symptoms include stress related to a new job, and relocation. 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 Reports known uterine prolapse with previous pelvic floor therapy. Patient denies: fever/chills, appetite changes, regurgitation, dysphasia, unintentional wt loss. Social hx: -Occasional alcohol use (usually a glass of wine) -denies recreational drug use -non-smoker -family hx as below -denies personal hx of CA -denies any other significant cardiopulmonary history -tolerated anesthesia in the past without difficulty. [facility] Medical History (Updated 01/04/25 @ 11:34 by Callie Jamil CNP) Blood in stool Constipation Sleep apnea Vitamin D deficiency Ovarian cyst Hirsutism History of depression History of anxiety Asthma Surgical History Hx of ovarian cystectomy Family History Father HTN (hypertension) Diabetes Mother HTN (hypertension) Diabetes Maternal Grandmother Cervical cancer Uterine cancer Maternal Grandfather Colon cancer Social History Household Members: None Housing: Apartment Alcohol intake: current Alcohol intake frequency: holidays/special occasions only Alcohol type: wine Patient Tobacco Use Status: Never used Tobacco Current occupational status: student Sexual orientation: Straight/Heterosexual Gender identity: Female Female Reproductive History Menstrual Age of Menarche: 14 Review of Systems Const Reports as per HPI ENT Reports as per HPI Card Reports as per HPI Resp Reports as per HPI GI Reports as per HPI Reports as per HPI Physical Exam Vital Signs: Last Vital Signs Pulse 88 01/04/25 10:45 BP 120/74 01/04/25 10:45 Pulse Ox 99 01/04/25 10:45 Oxygen Delivery Method Room Air 01/04/25 10:45 BMI result Body Mass Index 52.9 Const General: healthy appearing, no acute distress and well developed Nutritional Appearance: obese Orientation/consciousness: patient oriented x3 HEENT Head: Yes normal to inspection, Yes normocephalic and Yes atraumatic Face and sinus: Yes normal facial exam Eyes General: appearance normal, both eyes and all related structures Neck Neck: Yes normal visual inspection Resp Effort & Inspection: normal respiratory effort, able to speak in complete sentences, no tracheal deviation and symmetric chest movement Auscultation: clear to auscultation bilaterally Cardio Jugular venous distension: no JVD Rate: regular rate Rhythm: regular rhythm Heart sounds: S1 normal heart sound present, S2 normal heart sound present, no gallops and no murmurs GI Inspection: Yes normal to inspection, No distended, Yes obesity and Yes striae Palpation (GI): Soft to palpation, not firm, nontender and No hepatosplenomegaly present Auscultation: normal bowel sounds Rectal Exam - Female: visual inspection normal, normal sphincter tone, No Lesions present (GI), No Anal fissure(s) present, No hemorrhoids, No Laceration(s) present (GI), No Excoriation present (GI), No mass and No tenderness Neuro General: patient oriented x3 Gait exam (Neuro): Normal gait present Psych Appearance: grossly normal Mental Status: mental status grossly normal Speech and movement: Normal speech and movement present Affect: normal affect Attitude: cooperative Thought process: Normal thought process present Thought content: Normal thought content present Insight: Good insight present (Psych) Judgement: Good judgement present (Psych) Assessment & Plan Assessment & Plan (1) Constipation: Code(s): K59.00 - Constipation, unspecified Category: Medical Qualifiers: Constipation type: unspecified constipation type Qualified Code(s): K59.00 - Constipation, unspecified Plan: Several-year history of constipation, characterized by hard stools, painful defecation, bloating, and abdominal pain. Symptoms typically resolve after bowel movements. Recent norovirus infection 2 months ago may have exacerbated symptoms. Some improvement with lifestyle modifications. No prior use of constipation medications. Rectal examination revealed good anal tone without palpable masses or visible fissures. Symptoms c/w IBS-C. Plan: - Start MiraLAX daily, titrating to achieve formed stools (Premier type 3-4) - Continue dietary modifications (high fiber, increased water intake) - Maintain physical activity regimen - Schedule colonoscopy within 8 weeks to evaluate for internal causes of bleeding -Educated that effective constipation management is critical to ensure adequate bowel prep and diagnostic yield for colonoscopy. - Provided colonoscopy prep instructions - Advised to purchase 64 oz of Gatorade (avoid red, blue, or purple) - Nothing by mouth on procedure day - No oral intake 4 hours prior to procedure - Arrange reliable transportation due to sedation - Follow up after colonoscopy unless symptoms change (2) Blood in stool: Code(s): K92.1 - Melena Category: Medical Plan: History of anal fissures. A small skin tag was noted on exam today, but no active fissures or hemorrhoids were visualized. Given the persistence of bleeding and family history of colon cancer (maternal grandfather), further evaluation is warranted. Reviewed labs from July, October and November 2024, no evidence of anemia and unremarkable CMP, including normal LFTs. Plan: - Colonoscopy scheduled within 8 weeks (see above for prep details) - Continue MiraLAX to prevent constipation and reduce straining - Monitor for worsening symptoms and report any changes prior to colonoscopy Plan Follow-up after colonoscopy or sooner as needed Time: I spent a total of 45 minutes on the date of encounter which includes: Preparing to see the patient (reviewed previous documentation, test results and medical history) Performing a medically appropriate exam and/or evaluation Ordering medications, tests, and procedures Documenting clinical information in the health record Medications: New bisacodyl (Dulcolax (bisacodyl)) Take four tablets pre colonoscopy instructions 20 mg (4 x 5 mg) PO ONCE 4 tabs 0RF 1 day polyethylene glycol 3350 (Miralax) per colonoscopy prep instructions 238 grams PO ONCE 238 grams 0RF Coding Level of Care Code New Pt New Pt Level 4 (06983) Patient Type New Diagnoses Constipation, unspecified constipation type K59.00 Constipation type: unspecified constipation type Blood in stool K92.1
[2025-01-04 10:45] VITALS: BP 120/74; PULSE 88; O2SAT 99; BMI 52.9
--- OUTSIDE RECORDS SUMMARY | 2025-01-04 11:39 | XMS_ITS | Encounter Summary ---
Author Organization [employer] Address [address] [place] [address] 7 [place] [address] Care Team Providers Care Inventory Assistant Name Role Phone Nichole Andrea MD Primary Care Provider + Reason for Visit * Reason Onset Date Comments Medication Question 02/04/2023 Encounter Details Date Type Department Care Team ([facility] st Contact Info) Description 02/04/2023 Telephone [facility] [address] [place] [address] Nichole Andrea MD [address] [place] [address] Medication Question Social History Tobacco Use Types [...] seems like the [facility] [employer] [facility] on [facility] has already filledscript and should be [...] Care Team (Late st Contact Info) Description 01/17/2025 9:00 AM EDT Clinical Support [facility] DI[facility]ET[facility]NUTRITION [address] [place] [address] Jocelynn Bingham, RD [address] [place] [address] 03/14/2025 8:00 AM EDT Office Visit [facility] ADULT DENTAL [address] [place] [address] Ana, Damari [address] [place] [address] documented as of this encounter Visit Diagnoses Not on filedocumented in this encounter Care Teams Inventory Assistant Relationship Specialty Start Date End Date Nichole Andrea MD [address] [place] [address] PCP - General Family Medicine 05/27/18 documented as of this encounter
--- OUTSIDE RECORDS SUMMARY | 2025-01-04 11:39 | XMS_ITS | Clinical Summary ---
Author Organization [facility] Address [address] [place] [address] Phone Care Team Providers Care Geophysical Drafter Name Role Phone Yisel Hooker MD Primary [...] age to complete this topic Care Teams Geophysical Drafter Relationship Specialty Start Date End Date Yisel Hooker MD PCP - General 01/17/17
== END 2025-01-04 11:35 | disposition home or self-care (01) ==
LOC: HO.HGI 10:35
PROVIDERS: PCP Internal Medicine; Visit Provider Nurse Practitioner Family
DX: K59.00 Constipation, unspecified (principal); K92.1 Melena
CPT/HCPCS: 99204

== ENCOUNTER → 2025-01-04 10:35 | Outpatient (BNVA) | payer MEDICAID, SELFPAY | PROVIDERS: PCP Internal Medicine; Visit Provider Nurse Practitioner Family | DX: K92.1 Melena (principal); K59.00 Constipation, unspecified | CPT/HCPCS: 99212 ==

== ENCOUNTER 2025-03-10 10:55 | Outpatient (REF) | payer MEDICAID, SELFPAY ==
--- NOTE | ~2025-03-10 | US_ITS ---
CLINICAL HISTORY: N83.299 - COMPLEX OVARIAN CYST US pelvis transabdominal and transvaginal Comparison: 11/03/2024 Findings: Transabdominal scanning performed for overall anatomy. Transvaginal scanning performed for additional detail. Anteverted uterus is 8.6 cm length. Normal myometrium. Endometrium 9 mm thickness. No lesions. Right ovary 2.7 x 1.5 x 2 cm. Left ovary 3.9 x 1.4 x 2.7 cm. Normal color Doppler of both ovaries. There are bilateral follicles. There are no new dominant cystic or solid masses. Minimal left adnexal free fluid. IMPRESSION: 1. Minimal left adnexal free fluid This document has been electronically signed by: Franco Valencia MD on 03/11/2025 09:47:04
--- OUTSIDE RECORDS SUMMARY | 2025-03-10 12:51 | XMS_ITS | Encounter Summary ---
Author Organization [facility] Address [address] [place] [phone] Phone Care Team Providers Care Housekeeper Child Care Name Role Phone Yisel Hooker MD Primary Care Provider Unavailabl e Encounter Details Date Type Department Care Team (Late st Contact Info) Description 04/10/2017 Conversion Encounter [facility] - [address] [address] Social History Tobacco Use Types Packs/Day Years [...] on filedocumented in this encounter Care Teams Housekeeper Child Care Relationship Specialty Start Date End Date Yisel Hooker MD PCP - General 01/17/17 documented as of this encounter
--- OUTSIDE RECORDS SUMMARY | 2025-03-10 12:51 | XMS_ITS | Encounter Summary ---
Author Organization [employer] Address [address] [place] [address] 7 [place] [address] Care Team Providers Care Tree Topper Name Role Phone Nichole Andrea MD Primary Care Provider + Reason for Visit * Reason Onset Date Comments Medication Question 02/04/2023 Encounter Details Date Type Department Care Team ([facility] st Contact Info) Description 02/04/[address] [facility] [address] [place] [address] Nichole Andrea MD [address] [place] [address] Medication Question Social History Tobacco Use Types [...] seems like the [employer] [facility] on [facility] has already filledscript and should be [...] Care Team (Late st Contact Info) Description 03/14/2025 8:00 AM EDT Office Visit [facility] ADULT DENTAL [address] [place] [address] Ana, Damari [address] [place] [address] documented as of this encounter Visit Diagnoses Not on filedocumented in this encounter Care Teams Tree Topper Relationship Specialty Start Date End Date Nichole Andrea MD [address] [place] [address] PCP - General Family Medicine 05/27/18 documented as of this encounter
--- OUTSIDE RECORDS SUMMARY | 2025-03-10 12:51 | XMS_ITS | Encounter Summary ---
Author Organization [employer] Address [address] 7[address] [place] [address] Care Team Providers Care Refractory Bricklayer Name Role Phone Nichole Andrea MD Primary Care Provider + Reason for Visit * Reason Onset Date Comments Appointment Request 12/20/2024 Encounter Details Date Type Department Care Team ([facility] st Contact Info) Description 12/20/2024 Telephone [facility] [address] [place] [address] Nichole Andrea MD [address] [place] [address] Appointment Request Social History Tobacco Use Types [...] encounter Miscellaneous Notes * Telephone Encounter - [place] Montano - 12/20/2024 8:52 AM EDT Tc from pt requesting to reschedule today's nutrition appt. Please contact pt at [phone]. documented in this encounter Plan of Treatment Upcoming Encounters Date Type Department Care Team (Late st Contact Info) Description 03/14/2025 8:00 AM EDT Office Visit [facility] ADULT DENTAL [address] [place] [address] Ana, Damari [address] [place] [address] documented as of this encounter Visit Diagnoses Not on filedocumented in this encounter Additional Health Concerns Assessment Noted Time PHQ-9 Depression Total Score: 10 025 9:45 AM EDT documented as of this encounter Care Teams Refractory Bricklayer Relationship Specialty Start Date End Date Nichole Andrea MD [address] [place] [address] PCP - General Family Medicine 05/27/18 documented as of this encounter
--- OUTSIDE RECORDS SUMMARY | 2025-03-10 12:51 | XMS_ITS | Encounter Summary ---
Author Organization [employer] Address [address] [facility] 7 [place] [address] Care Team Providers Care Booth Supervisor Name Role Phone Nichole Andrea MD Primary Care Provider + Reason for Visit * Reason Onset Date Comments Appointment Request 05/30/2023 Encounter Details Date Type Department Care Team (Late Contact Info) Description 05/30/2023 Telephone [facility] MEDICINE [address] [place] [address] Nichole Andrea MD [address] [place] [address] Appointment Request Social History Tobacco Use Types [...] Department Care Team (Late Contact Info) Description 03/14/2025 8:00 AM EDT Office Visit [facility] ADULT DENTAL [address] [place] [address] González Perezaris [address] [place], [place] [phone] documented as of this encounter Visit Diagnoses Not on filedocumented in this encounter Care Teams Booth Supervisor Relationship Specialty Start Date End Date Nichole Andrea MD [address] [place] [address] PCP - General Family Medicine 05/27/18 documented as of this encounter
--- OUTSIDE RECORDS SUMMARY | 2025-03-10 12:51 | XMS_ITS | Clinical Summary ---
Author Organization [facility] Address [address] [place] [phone] Phone Care Team Providers Care Construction Tech Name Role Phone Yisel Hooker MD Primary [...] of 3 - 19+ 3-dose series) 02/13/2016 HPV Vaccines (1 - 3-dose SCD M series) 02/13/2024 Influenza Vaccines (#1) 2025 COVID-19 Vaccine (1 - 2024-2 6 season) 2025 HIB Vaccines Aged Out No longer [...] age to complete this topic Care Teams Construction Tech Relationship Specialty Start Date End Date Yisel Hooker MD PCP - General 01/17/17
--- OUTSIDE RECORDS SUMMARY | 2025-03-10 12:51 | XMS_ITS | Encounter Summary ---
Author Organization [employer] Address [address] 7[address] [place] [address] Care Team Providers Care Automation Clerk Name Role Phone Nichole Andrea MD Primary Care Provider + Encounter Details Date Type Department Care Team ([facility] st Contact Info) Description 01/06/2025 Results Follow-Up [facility]INE [address] [place] [address] Nichole Andrea MD [address] [place] [address] XR Foot 3+ Views Left Social History Tobacco Use Types Packs/Day Years Used Date Smoking Tobacco: Never Passive Smoke Exposure: Never Smokeless Tobacco: Never Alcohol Use Standard Drinks/Week Comments Yes 0 (1 standard drink = 0.6 oz pur e alcohol) casual Depression Answer Date Recorded Patient Health Questionnaire-9 Score 10 01/07/2025 Patient Health Questionnaire-9 Score 10 01/07/2025 Last PHQ-9: Questionnaire Data Not on file 0 01/07/2025 Housing Stability Answer Date Recorded What is [...] Date Recorded Patient Health Questionnaire-2 Score 2 01/07/2025 Internet Access Answer Date Recorded Internet Access Q1 Yes 07/29/2024 Internet Access Q2 Not on file 07/29/2024 Comments No Sex and Gender Information Value Date Recorded Sex Assigned at Female 04/08/2022 10:14 AM EDT Legal Sex Female 10:14 AM EDT Gender Identity Female 04/08/2022 10:14 AM EDT Sexual Orientation Bisexual 06/03/2022 12 :40 PM EST documented as of this encounter Functional Status * Over the past 2 weeks, how often have you been bothered by any of the following problems? Question Answer Date of Assessment Author Patient Health Questionnaire-2 Score 2 01/07/2025 2:46 PM EDT Fernando Flowers * Little interest or pleasure in doing things Answer Date of Assessment Author Several days 01/07/2025 2:46 PM EDT Fernando Drew * Feeling down, depressed, or hopeless Answer Date of Assessment Author Several days 01/07/2025 2:46 PM EDT Fernando Drew * Trouble falling or staying asleep, or sleeping too much Answer Date of Assessment Author More than half the days 01/07/2025 2:46 PM EDT Fernando Ho * Feeling tired or having little energy Answer Date of Assessment Author Several days 01/07/2025 2:46 PM EDT Fernando Drew * Poor appetite or overeating Answer Date of Assessment Author More than half the days 01/07/2025 2:46 PM EDT Fernando Ho * Feeling bad about yourself - or that you are a failure or have let yourself or your family down Answer Date of Assessment Author Several days 01/07/2025 2:46 PM EDT Fernando Drew * Trouble concentrating on things, such as reading the newspaper or watching television Answer Date of Assessment Author Several days 01/07/2025 2:46 PM EDT Fernando Drew * Moving or speaking so slowly that other people could have noticed? Or the opposite - being so fidgety or restless that you have been moving around a lot more than usual. Answer Date of Assessment Author Several days 01/07/2025 2:46 PM EDT Fernando Drew * Thoughts that you would be better off or hurting yourself in some way Answer Date of Assessment Author Not at all 01/07/2025 2:46 PM EDT Fernnado Drew * Patient Health Questionnaire-9 Score Answer Date of Assessment Author 10 01/07/2025 2:46 PM EDT Fernando Drew * How difficult have these problems made it for you to do your work, take care of things at home, or get along with other people? Answer Date of Assessment Author Somewhat difficult 01/07/2025 2:46 PM EDT Fernando Reese * Over the last 2 weeks, how often have you been bothered by any of the following problems? Question Answer Date of Assessment Author Feeling nervous, anxious, or on edge 1 01/07/2025 2:44 PM EDT Fernando Spangler Not being able to stop or control worrying 1 01/07/2025 2:44 PM EDT Fernando Spangler Worrying too much about different things 1 01/07/2025 2:44 PM EDT Fernando Spangler Trouble relaxing 1 01/07/2025 2:44 PM EDT Fernando Ho Being so restless that it is hard to sit still 1 01/07/2025 2:44 PM EDT Fernando Spangler Becoming easily annoyed or irritable 2 01/07/2025 2:44 PM EDT Fernando Spangler Feeling afraid as if something awful might happen 1 01/07/2025 2:44 PM EDT Fernando Meek AMBER-7 Total Score 8 01/07/2025 2:44 PM EDT Fernando Spangler documented as of this encounter Miscellaneous Notes * Result Encounter Note - Nichole Andrea MD - 01/06/2025 9:16 AM EDT X-ray on 12/17/2024 reviewed with patient via [employer], see note in MyChart documented in this encounter Plan of Treatment Upcoming Encounters Date Type Department Care Team (Late st Contact Info) Description 03/14/2025 8:00 AM EDT Office Visit [facility] ADULT DENTAL [address] [place] [address] Ana, Damari [address] [place] [address] documented as of this encounter Visit Diagnoses Not on filedocumented in this encounter Additional Health Concerns Assessment Noted Time PHQ-9 Depression Total Score: 025 9:45 AM EDT documented as of this encounter Care Teams Automation Clerk Relationship Specialty Start Date End Date Nichole Andrea MD [address] [place] [address] PCP - General Family Medicine 05/27/18 documented as of this encounter
--- OUTSIDE RECORDS SUMMARY | 2025-03-10 12:51 | XMS_ITS | Encounter Summary ---
Author Organization [employer] Address [address] [facility] 7t [place] [address] Care Team Providers Care Manager Intermediate Name Role Phone Nichole Andrea MD Primary Care Provider + Reason for Visit * Reason Onset Date Comments Nurse Triage 11/25/2023 Encounter Details Date Type Department Care Team ([facility] st Contact Info) Description 11/25/2023 Telephone [facility] MEDICINE [address] [place] [address] Nichole Andrea MD [address] [place] [address] Nurse Triage Social History Tobacco Use Types [...] . Pt is advised to come to [facility] to be seen by provider if needed. Pt agrees with home care advised and if time available will come to [facility]. Pt agrees with disposition and home [...] Upcoming Encounters Date Type Department Care Team ([facility] st Contact Info) Description 03/14/2025 8:00 AM EDT Office Visit [facility] ADULT DENTAL [address] [place] [address] Ana Damari [address] [place] [address] documented as of this encounter Visit Diagnoses Not on filedocumented in this encounter Care Teams Manager Intermediate Relationship Specialty Start Date End Date Nichole Andrea MD [address] [place] [address] PCP - General Family Medicine 05/27/18 documented as of this encounter
--- OUTSIDE RECORDS SUMMARY | 2025-03-10 12:51 | XMS_ITS | Encounter Summary ---
Author Organization [employer] Address [address] [facility] [facility] 7t [place] [address] Care Team Providers Care Photonics Engineering Technologist Name Role Phone Nichole Andrea MD Primary Care Provider + Encounter Details Date Type Department Care Team ([facility] Contact Info) Description 05/30/2023 Telephone [facility] MEDICINE [address] [place] [address] Nichole Andrea MD [address] [place] [address] Social History Tobacco Use Types Packs/Day Years [...] Upcoming Encounters Date Type Department Care Team ([facility] Contact Info) Description 03/14/2025 8:00 AM EDT Office Visit [facility] ADULT DENTAL [address] [place] [address] Ana, Damari [address] [place] [address] documented as of this encounter Visit Diagnoses Not on filedocumented in this encounter Care Teams Photonics Engineering Technologist Relationship Specialty Start Date End Date Nichole Andrea MD [address] [place] [address] PCP - General Family Medicine 05/27/18 documented as of this encounter
--- OUTSIDE RECORDS SUMMARY | 2025-03-10 12:51 | XMS_ITS | Encounter Summary ---
Author Organization [employer] Address [address] [facility] [address] [place] [address] Care Team Providers Care Decator Operator Name Role Phone Nichole Andrea MD Primary Care Provider + Encounter Details Date Type Department Care Team ([facility] Contact Info) Description 08/09/2022 Abstract [facility] [address] [place] [address] Madi Summers DDS [address] [place] [address] Social History Tobacco Use Types Packs/Day Years [...] Upcoming Encounters Date Type Department Care Team ([facility] Contact Info) Description 03/14/2025 8:00 AM EDT Office Visit [facility] [address] [place] [address] Damari Perez [address] [place] [address] documented as of this encounter Visit Diagnoses Not on filedocumented in this encounter Care Teams Decator Operator Relationship Specialty Start Date End Date Nichole Andrea MD [address] [place] [id number] PCP - General Family Medicine 05/27/18 documented as of this encounter
--- OUTSIDE RECORDS SUMMARY | 2025-03-10 12:51 | XMS_ITS | Clinical Summary ---
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 Vol.31,#8,2007 Blood Venous blood specimen / Unknown 10/29/2024 12:33 PM EDT 10/29/2024 1:17 PM EDT us Nichole Andrea MD LAB BLOOD ORDERABLES Fin al Result [facility] [address] [place] [phone] * Pap Smear (06/19/2022 3:50 PM EST) 06/19/2022 3:50 PM EST 06/20/2022 9:45 AM EST Narrative [facility] - 06/29/2022 3:25 PM EST ----- ------- Name: Rafaela Terrell Age/Sex: 27/F : 1995 Unit#: [id number] Attend Dr: Huma Ochoa CNM Re06/19/22 Status: DEP REF Location: HO.LNP Disch: ----- ------- SPEC : [id number] RECD: 06/20/2245 STATUS: KANDI LAI NUM: [id number] ENEIDA: 06/19/221550 [facility] DR: Huma Ochoa CNM ENTERED: 06/20/22 SP TYPE: Pap Smr OTHR DR: Nichole Andrea MD ORDERED: Pap Smear Interpretation Satisfactory for evaluation. Negative for intraepithelial lesion or malignancy. Clinical Information LMP: 05/27/22 Previous PAP test: 04/07/20, WNL Material Received ThinPrep-Cervical Copies To: Nichole Adnrea MD [address] [place], [place] [phone] [address] Leonard [address] [place] [phone] ----- ------- Signed (signature on file) Anabel Matthews 06/29/22 1525 ----- ------- END OF REPORT [facility] External Provider LAB [facility] ORDERABLES Final Result [facility] [address] [place], [place] [phone] from Last 3 Months or Most Recently Relevant to Health Maintenance Insurance [employer] * Guarantor: Rafaela Terrell Account Type Relation to Patient Date of Phone Billing Address Dental Self [address] [place] [address] [facility] AD[facility] Care Teams Director Of Clinical Services Relationship Specialty Start Date End Date Nichole Andrea MD [address] [place] [address] PCP - General Family Medicine 05/27/18
--- OUTSIDE RECORDS SUMMARY | 2025-03-10 12:51 | XMS_ITS | Encounter Summary ---
Author Organization [employer] Address [address] [place] [address] 7t [place] [address] Care Team Providers Care Customer Service Advocate Name Role Phone Nichole Andrea MD Primary Care Provider + Encounter Details Date Type Department Care Team (Latest Contact Info) Description 08/21/2020 Abstract [facility] CONVERSIONS Dental, Provider, DDS Social History [...] Description 03/14/2025 8:00 AM EDT Office Visit [facility] ADULT DENTAL [address] [place] [address] Ana, Damari [address] [place] [address] documented as of this encounter Visit Diagnoses Not on filedocumented in this encounter Care Teams Customer Service Advocate Relationship Specialty Start Date End Date Nichole Andrea MD [address] [place] [address] PCP - General Family Medicine 05/27/18 documented as of this encounter
== END 2025-03-10 10:56 | disposition home or self-care (01) ==
LOC: HO.US 10:55
PROVIDERS: PCP Internal Medicine; Visit Provider Advanced Practice Midwife
DX: N83.299 Other ovarian cyst, unspecified side (principal)
CPT/HCPCS: 76830; 76856

== ENCOUNTER → 2025-03-10 10:56 | Outpatient (BNV) | payer MEDICAID, SELFPAY | PROVIDERS: PCP Internal Medicine; Visit Provider Specialist | DX: N83.299 Other ovarian cyst, unspecified side (principal) | CPT/HCPCS: 76830; 76856 ==

== ENCOUNTER 2025-04-06 11:41 | Outpatient (AMB) | payer MEDICAID, SELFPAY ==
--- NOTE | 2025-04-06 11:43 | A.OFFVIS_ITS ---
Intake Visit Reasons: Ultra sound follow up Healthcare Recruiter: Healthcare Recruiter Present Allergies prednisone Allergy (Unknown, Verified 04/06/25 11:43) Flushing environmental allergies Allergy (Verified 04/06/25 11:43) Unknown Is last menstrual period known: Yes Last menstrual period: 03/18/25 HPI Comments Details: Patient is here today for a follow up pelvic ultrasound, history of complex ovarian cyst. She reports her cycles are on the shorter side, 1 week before her cycle she experiencing cramping and spotting lasting for 3 days. She is having a colonoscopy this week due to rectal bleeding and history of constipation. [facility] Medical History Blood in stool Constipation Sleep apnea Vitamin D deficiency Ovarian cyst Hirsutism History of depression History of anxiety Asthma Surgical History Hx of ovarian cystectomy Family History Father HTN (hypertension) Diabetes Mother HTN (hypertension) Diabetes Maternal Grandmother Cervical cancer Uterine cancer Maternal Grandfather Colon cancer Social History Household Members: None Housing: Apartment Alcohol intake: current Alcohol intake frequency: holidays/special occasions only Alcohol type: wine Patient Tobacco Use Status: Never used Tobacco Current occupational status: student Sexual orientation: Straight/Heterosexual Gender identity: Female Female Reproductive History Menstrual Age of Menarche: 14 Date of last menstrual period: 03/18/25 Review of Systems Const All systems reviewed & are unremarkable except as noted in HPI and below Endo Reports no additional complaints Physical Exam Const General: cooperative, healthy appearing and no acute distress Psych Appearance: well kempt Attitude: cooperative Thought process: Normal thought process present Results Reviewed Results Reviewed: [address] [address] Ultrasound Report Signed Patient: Rafaela Terrell MR#: [id number] : 1995 Acct:[id number] Age/Sex: 30 / F ADM Date: 03/10/25 Loc: HO. Attending Dr: Lamar Mcallister CNM Ordering Physician: Lamar Macllister CNM Date of Service: 03/10/25 Procedure(s): US pelvic and transvaginal Accession Number(s): [id number] cc: Nichole Andrea MD; Lamar Mcallister CNM~ Reason for Exam: N83.299 - COMPLEX OVARIAN CYST CLINICAL HISTORY: N83.299 - COMPLEX OVARIAN CYST US pelvis transabdominal and transvaginal Comparison: 11/03/2024 Findings: Transabdominal scanning performed for overall anatomy. Transvaginal scanning performed for additional detail. Anteverted uterus is 8.6 cm length. Normal myometrium. Endometrium 9 mm thickness. No lesions. Right ovary 2.7 x 1.5 x 2 cm. Left ovary 3.9 x 1.4 x 2.7 cm. Normal color Doppler of both ovaries. There are bilateral follicles. There are no new dominant cystic or solid masses. Minimal left adnexal free fluid. IMPRESSION: 1. Minimal left adnexal free fluid This document has been electronically signed by: Franco Valencia MD on 03/11/2025 09:47:04 Dictated By: Franco Valencia MD Signed By: <Electronically signed by Franco Valencia MD in OV> 03/11/25946 DD/ 6 TD/TT: 03/11/25946 Inlayer: Assessment & Plan Assessment & Plan (1) Encounter to discuss test results: Code(s): Z71.2 - Person consulting for explanation of examination or test findings Plan Discussed: Ultrasound findings-minimal left adnexal free fluid. No evidence of complex ovarian cyst. Annual exam as scheduled. Monitor menstrual cycles, report any unscheduled bleeding, bleeding episodes <24 days apart or heavy/prolonged menstrual bleeding. Call the office for a follow up for any concerns. The patient expressed understanding and agreement with the plan of care. All of her questions and concerns were addressed to the best of my ability. This note is constructed using voice recognition software. While every effort has been made to ensure accuracy, dental mechanic errors may have been included. Coding Level of Care Code Est Pt Level 3 (00305) Diagnoses Encounter to discuss test results Z71.2
--- OUTSIDE RECORDS SUMMARY | 2025-04-06 15:05 | XMS_ITS | Encounter Summary ---
Author Organization [employer] Address [address] [facility] 7t [place] [address] Care Team Providers Care Incident Manager Name Role Phone Nichole Andrea MD Primary Care Provider + Encounter Details Date Type Department Care Team ([facility] Contact Info) Description 08/09/2022 Abstract [facility] ADULT DENTAL [address] [place] [address] Madi Summers DDS [address] [place] [address] Social History Tobacco Use Types Packs/Day Years [...] Upcoming Encounters Date Type Department Care Team ([facility] Contact Info) Description 04/11/2025 9:00 AM EST Clinical Support [facility] DIABETES/NUTRITION [address] [place] [address] [place] [address] documented as of this encounter Visit Diagnoses Not on filedocumented in this encounter Care Teams Incident Manager Relationship Specialty Start Date End Date Nichole Andrea MD [address] [place] [address] PCP - General Family Medicine 05/27/18 documented as of this encounter
--- OUTSIDE RECORDS SUMMARY | 2025-04-06 15:05 | XMS_ITS | Encounter Summary ---
Author Organization [employer] Address [address] [place] [address] 7 [place] [address] Care Team Providers Care Grade Recorder Name Role Phone Nichole Andrea MD Primary Care Provider + Encounter Details Date Type Department Care Team (Latest Contact Info) Description 08/21/2020 Abstract [facility] CONVERSIONS Dental, Provider, DDS Social History Tobacco [...] Care Team (Late st Contact Info) Description 04/11/2025 9:00 AM EST Clinical Support [facility] DIABETES/NUTRITION [address] [place] [address] [place] [address] documented as of this encounter Visit Diagnoses Not on filedocumented in this encounter Care Teams Grade Recorder Relationship Specialty Start Date End Date Nichole Andrea MD [address] [place] [address] PCP - General Family Medicine 05/27/18 documented as of this encounter
--- OUTSIDE RECORDS SUMMARY | 2025-04-06 15:06 | XMS_ITS | Encounter Summary ---
Author Organization [employer] Address [address] [place] [address] 7 [place] [address] Care Team Providers Care Pruner Name Role Phone Nichole Andrea MD Primary Care Provider + Reason for Visit * Reason Onset Date Comments Medication Question 02/04/2023 Encounter Details Date Type Department Care Team ([facility] st Contact Info) Description 02/04/2023 Telephone [facility] MEDICINE [address] [place] [address] Nichole Andrea MD [address] [place] [address] Medication Question Social History Tobacco Use Types [...] seems like the [facility] has already filledscript and should be [...] Description 04/11/2025 9:00 AM EST Clinical Support [facility] DIABETES/NUTRITION [address] [place] [address] Jocelynn Bingham, JUSTIN [address] [place] [address] documented as of this encounter Visit Diagnoses Not on filedocumented in this encounter Care Teams Pruner Relationship Specialty Start Date End Date Nichole Andrea MD [address] [place] [address] PCP - General Family Medicine 05/27/18 documented as of this encounter
--- OUTSIDE RECORDS SUMMARY | 2025-04-06 15:06 | XMS_ITS | Encounter Summary ---
Author Organization [employer] Address [address] [facility] 7t [place] [address] Care Team Providers Care Dress Shoe Inspector Name Role Phone Nichole Andrea MD Primary Care Provider + Reason for Visit * Reason Onset Date Comments Nurse Triage 11/25/2023 Encounter Details Date Type Department Care Team ([facility] st Contact Info) Description 11/25/2023 Telephone [facility] MEDICINE [address] [place] [address] Nichole Andrea MD [address] [place] [address] Nurse Triage Social History Tobacco Use Types [...] . Pt is advised to come to [facility] to be seen by provider if needed. Pt agrees with home care advised and if time available will come to [facility]. Pt agrees with disposition and home care [...] Description 04/11/2025 9:00 AM EST Clinical Support [facility] DIABETES/NUTRITION [address] [place], [place] [phone] Jocelynn Bingham [address] [place], [place] [phone] documented as of this encounter Visit Diagnoses Not on filedocumented in this encounter Care Teams Dress Shoe Inspector Relationship Specialty Start Date End Date Nichole Andrea MD [address] [place] [address] PCP - General Family Medicine 05/27/18 documented as of this encounter
--- OUTSIDE RECORDS SUMMARY | 2025-04-06 15:06 | XMS_ITS | Encounter Summary ---
Author Organization [employer] Address [address] [facility] 7t [place] [address] Care Team Providers Care Control Specialist Name Role Phone Nichole Andrea MD Primary Care Provider + Reason for Visit * Reason Onset Date Comments Change PCP 03/16/2025 Telephone Call 03/16/2025 Encounter Details Date Type Department Care Team ([facility] st Contact Info) Description 03/16/2025 Telephone [facility] MEDICINE [address] [place] [address] Nichole Andrea MD [address] [place] [address] Change PCP; Telephone Call Social History Tobacco Use Types Packs/Day Years [...] encounter Miscellaneous Notes * Telephone Encounter - Hamida Colby - 03/30/2025 11:35 AM EDT Incoming call from patient stating she spoke with Earnest today 03/29/25 to request CPAP supplies however Earnest needs the prescription, sleep study,chart notes and pt demographics to complete patients request. Knockdown Worker reached to Nida DEUTSCH specialist to inform her. Nida is aware. Patient was informed that the request will be worked on today, to please follow up with Earnest this afternoon. Patient verbalized agreement. Thanks. * Telephone Encounter - Esmer Chacon - 03/16/2025 11:26 AM EDT Tc from pt requesting for PCP change , pt is unsatisfied with current pcp Contact pt at [phone] documented in this encounter Plan of Treatment Upcoming Encounters Date Type Department Care Team (Late st Contact Info) Description 04/11/2025 9:00 AM EST Clinical Support [facility] DIABETES/NUTRITION [address] [place] [address] Jocelynn Bingham, JUSTIN [address] [place] [address] documented as of this encounter Visit Diagnoses Not on filedocumented in this encounter Additional Health Concerns Assessment Noted Time PHQ-9 Depression Total Score: 10 025 2:46 PM EDT documented as of this encounter Care Teams Control Specialist Relationship Specialty Start Date End Date Nichole Andrea MD [address] [place] [address] PCP - General Family Medicine 05/27/18 documented as of this encounter
--- OUTSIDE RECORDS SUMMARY | 2025-04-06 15:06 | XMS_ITS | Encounter Summary ---
Author Organization [employer] Address [address] 7[address] [place] [address] Care Team Providers Care Bike Technician Name Role Phone Nichole Andrea MD Primary Care Provider + Reason for Visit * Reason Onset Date Comments Appointment Request 12/20/2024 Encounter Details Date Type Department Care Team ([facility] st Contact Info) Description 12/20/2024 Telephone [facility] MEDICINE [address] [place] [address] Nichole Andrea MD [address] [place] [address] Appointment Request Social History Tobacco Use Types [...] encounter Miscellaneous Notes * Telephone Encounter - Moodymanda Montano - 12/20/2024 8:52 AM EDT Tc from pt requesting to reschedule today's nutrition appt. Please contact pt at [phone]. documented in this encounter Plan of Treatment Upcoming Encounters Date Type Department Care Team (Late st Contact Info) Description 04/11/2025 9:00 AM EST Clinical Support [facility] DIABETES/NUTRITION [address] [place] [address] [place] [address] documented as of this encounter Visit Diagnoses Not on filedocumented in this encounter Additional Health Concerns Assessment Noted Time PHQ-9 Depression Total Score: 10 025 9:45 AM EDT documented as of this encounter Care Teams Bike Technician Relationship Specialty Start Date End Date Nichole Andrea MD [address] [place] [address] PCP - General Family Medicine 05/27/18 documented as of this encounter
--- OUTSIDE RECORDS SUMMARY | 2025-04-06 15:06 | XMS_ITS | Clinical Summary ---
Author Organization [facility] Address [address] [place] [address] Phone Care Team Providers Care Manager Testing Name Role Phone Yisel Hooker MD Primary [...] age to complete this topic Care Teams Manager Testing Relationship Specialty Start Date End Date Yisel Hooker MD PCP - General 01/17/17
--- OUTSIDE RECORDS SUMMARY | 2025-04-06 15:06 | XMS_ITS | Encounter Summary ---
Author Organization [employer] Address [address] [facility] 7t [place] [address] Care Team Providers Care Industrial Truck Mechanic Name Role Phone Nichole Andrea MD Primary Care Provider + Encounter Details Date Type Department Care Team ([facility] Contact Info) Description 05/30/2023 Telephone [facility] MEDICINE [address] [place] [address] Nichole Andrea MD [address] [place] [phone] Social History Tobacco Use Types Packs/Day Years [...] Upcoming Encounters Date Type Department Care Team ([facility] Contact Info) Description 04/11/2025 9:00 AM EST Clinical Support [facility] DIABETES/NUTRITION [address] [place] [address] [place] [address] documented as of this encounter Visit Diagnoses Not on filedocumented in this encounter Care Teams Industrial Truck Mechanic Relationship Specialty Start Date End Date Nichole Andrea MD [address] [place] [address] PCP - General Family Medicine 05/27/18 documented as of this encounter
--- OUTSIDE RECORDS SUMMARY | 2025-04-06 15:06 | XMS_ITS | Clinical Summary ---
Author Organization [employer] Address [address] [facility] 7t [place] [address] Care Team Providers Care Adjunct History Instructor Name Role Phone Nichole Andrea MD [...] nostril as directed 30 mL 12 4 Active Spacer/Aero-Holdi ng Chambers deviceIndications :Moderate persistent [...] 18 g 1 5 07/07/19 26 Active budesonide-formot keyshawn (Symbicort) 160-4.5 MCG/ACT inhaler Inhale 2 puffs in the morning and at bedtime. Rinse mouth with water after use to reduce aftertaste and incidence of candidiasis. Do not swallow. 1 each 5 09/09/19 26 Active betamethasone dipropionate 0.05 % cream Apply topically 2 times daily. 30 g 1 5 Active ergocalciferol (Vitamin D2) 1.25 MG (44695 UT) capsule Take 1 capsule (1.25 mg) by mouth 1 (one) time per week. 12 capsule 1 5 06/03/20 25 Active atomoxetine (Strattera) 40 MG capsule Take 40 mg by mouth in the morning. 5 Active sertraline (Zoloft) 25 MG tablet Take 1 tablet by mouth Once per day. Active sodium chloride ([place]) 0.65 % nasal spray Administer 1 spray into each nostril if needed for congestion. 15 mL 2 5 02/10/20 26 Active fexofenadine (Radha) 180 MG tablet Take 1 tablet (180 mg) by mouth Once per day. 30 tablet 2 5 02/10/20 26 Active Active Problems Problem Noted Date [...] safe with current partner. Follow-up labs from [facility] last week, unfortunately patient did not take [...] at this time, follow-up test done at [facility] last week Assessment & Plan (08/08/2023 [...] (10/15/2023 10:51 AM EDT): - seen by PEST CONTROL WORKER HELPER, awaiting for surgery - refer to chari , she needs to lose weight prior to surgery Assessment & Plan (06/30/2023 8:05 PM EST): FU with PEST CONTROL WORKER HELPER at [facility]. Dental caries 07/11/2022 Foot pain, bilateral [...] with weight finders and reach out to [facility] benefits rn progressive care. She feels safe at home, she feels [...] style modifications, diet and referred again to clinical documentation improvement specialist. Recommended to decrease soda and sugary [...] life style modifications, diet and referral to clinical documentation improvement specialist. Recommended to decrease soda and sugary [...] exercise, life style modifications, diet, referral to clinical documentation improvement specialist. Discussed re lower calorie intake, increase dietary fiber Will refer to privacy manager Pt given information about weight reduction programs at both [facility] and [facility] Assessment & Plan (06/30/2023 8:05 PM EST): Discussed re weight reduction options including exercise, life style modifications, diet, referral to clinical documentation improvement specialist, she wants to hold off on [...] intercourse exclusively with AFAB - f/u with PEST CONTROL WORKER HELPER - counseled regarding weight reduction Habitual snoring [...] organization. Date Type Department Care Team Description 03/21/2025 Telephone [facility] [address] [place] [phone] Nichole Andrea MD 03/16/[address] [address] Nichole Andrea MD Change PCP; Telephone Call 03/14/2025 8:00 AM EDT Office Visit [facility] [address] [place] [phone] Damari Perez Dental plaque on multiple teeth (Primary Dx); Enlarged tonsils 02/09/2025 2:00 PM EDT Office Visit [facility] [address] [place] [phone] Gina Hart MD Allergic rhinitis, unspecified seasonality, unspecified trigger (Primary Dx); Cough in adult patient 02/09/2025 Orders Only [facility] [address] [place] [phone] Gina Hart MD 02/09/2025 Telephone [facility] [address] [place] [phone] Nichole Andrea MD Medication Question 02/09/2025 Travel 02/08/2025 Refill [facility] [address] [place] [phone] Denia Pichardo MD Bedbug bite, initial encounter 02/02/2025 6:00 PM EDT Office Visit [facility] [address] [place] [address] Gina Oh MD Primary hypertension (Primary Dx); Cough in adult patient; Viral upper respiratory tract infection 02/02/2025 Travel 01/25/2025 9:00 AM EDT Clinical Support [facility]TR[facility] [address] [place] [address] Primary hypertension (Primary Dx); Class 3 severe obesity with serious comorbidity and body mass index (BMI) of 50.0 to 59.9 in adult 01/25/2025 Travel 01/06/2025 Results Follow-Up [facility] [address], [place] [phone] Nichole Andrea MD XR Foot 3+ Views Left from Last 3 Months Immunizations Immunization Administration [...] Description 04/11/2025 9:00 AM EST Clinical Support [facility] [address], [place] [phone] Jocelynn [address] [place], [place] [phone] Health Maintenance Due Date Last Done Comments [...] Screening 03/14/2026 03/14/2025 Dental X-Ray: Bitewings 03/15/2026 03/14/20, 03/08/2024, 07/11/2022 Dental X-Ray: Full Mouth 03/09/2027 [...] 6:14 PM EDT Cough in adult patient HIV 1/2 ANTIGEN/ANTIBODY, FOURTH GENERATION W/RFL Routine [...] AM EDT Narrative 03/11/2025 9:48 AM EDT [address] [address] Ultrasound Report Signed Patient: Rafaela Terrell MR#: [id number] : 1995 Acct:[id number] Age/Sex: 30 / F ADM Date: 03/10/25 Loc: HO.US Attending Dr: Lamar Mcallister CNM Ordering Physician: Lamar Mcallister CNM Date of Service: 03/10/25 Procedure(s): US pelvic and transvaginal Accession Number(s): [id number] cc: Nichole Andrea MD; Lamar Mcallister CNM [...] in OV> 03/11/25946 DD/ 6 TD/TT: 03/11/25946 Senior Php Web Developer: Procedure Note Donotuseinterpreter, Image - 03/11/[address] [address] Ultrasound Report Signed Patient: Rafaela Terrell AMR#: [id number] : 1995Acct:[id number] Age/Sex: 30 / FADM Date: 03/10/25 Loc: HO.US Attending Dr: Lamar Mcallister CNM Ordering Physician: Lamar Mcallister CNM Date of Service: 03/10/25 Procedure(s): US pelvic and transvaginal Accession Number(s): [id number] cc: Nichole Andrea MD; Lamar Mcallister CNM [...] in OV> 03/11/25946 DD/ 6 TD/TT: 03/11/25946 Senior Php Web Developer: [facility] External Provider IMG US PROCEDURES Final Result * Influenza B (ID NOW Rapid Molecular) (02/09/2025 2:30 PM EDT) Influenza B Negative Negative, Indeterminate [facility] Swab 02/09/2025 2:30 PM EDT Gina Colby MD POINT OF CARE BLANCHE T ENTER/EDIT ORDERABLES Final Result [facility] [address] [place] [phone] * Influenza A (ID NOW Rapid Molecular) (02/09/2025 2:30 PM EDT) [facility] Influenza A Negative Negative, Indeterminate [facility] Swab 02/09/2025 2:30 PM EDT Gina Colby MD POINT OF CARE BLANCHE T ENTER/EDIT ORDERABLES Final Result [facility] [address] [place] [phone] * POCT Rapid COVID Ag (02/09/2025 2:22 PM EDT) Only the most recent of2 resultswithin the time period is included. [facility] Rapid COVID Ag Negative Swab 02/09/2025 2:22 PM EDT Gina Colby MD POINT OF CARE BLANCHE T ENTER/EDIT ORDERABLES Final Result * HIV-1/2 Antigen and Antibodies, Fourth Generation, with Reflexes (11/11/2024 1:30 PM EDT) [facility] HIV AB/AG Nonreactive Nonreactive [facility] [...] below the limit ofdetection of this assay.The Webmedx HIV Ag/Ab Combo assay result andsupplemental assay results should be interpreted inconjunction with the patient's clinical presentation,history and other laboratory results. If the results areinconsistent with clinical evidence, additional testing issuggested to confirm the result. Blood Venous blood specimen / Unknown 11/11/2024 1:30 PM EDT 11/11/2024 4:03 PM EDT Nichole Andrea MD LAB BLOOD ORDERABLES Fin al Result Performing Organization Address [facility]/ZIP Co de Phone Number [facility] [address] [place] [phone] * (ABNORMAL) Lipid Panel with Reflex to Direct LDL (10/29/2024 12:33 PM EDT) Triglycerides 78 <150 mg/dL [facility] Comment:Desirable Triglyceri de: less than 150 mg/dLBorderline High Triglyceride 150-199 mg/dLHigh Triglyceride: 200-499 mg/dLVery High Triglyceride: greater than or equal to 5OO mg/dL Cholesterol 135 <200 mg/dL [facility] Comment:Desirable Cholestero l: less than 200 mg/dLBorderline High Cholesterol: 200-239 mg/dLHigh Cholesterol: greater than 239 mg/dL LDL Cholesterol Calculated 86 <100 mg/dL [facility] Comment:Desirable LDL: less than 100 mg/dLNear Optimal/Above Optimal LDL: 110- 129 mg/dLBorderline High LDL: 130-159 mg/dLHigh LDL: 160-189 mg/dLVery High LDL: greater than or equal to 190 mg/dL HDL Cholesterol 34(L) >40 mg/dL [facility] Comment:Desirable HDL: great er than 40 mg/dL Note: This HDL assay may give artificially low results in patients with liver disease. Blood 10/29/2024 12:3 3 PM EDT 10/29/2024 1:17 PM EDT us Nichole Andrea MD LAB BLOOD ORDERABLES Fin al Result Performing Organization Address [facility]/ZIP Co de Phone Number [facility] [address] [place] [phone] * Hepatitis Panel, General (10/29/2024 12:33 PM EDT) Hepatitis A IgM Nonreactive Nonreactive [facility] Comment:IgM antibodies to GOMEZ V not detected; does not exclude earlyacute or recovered HAV infection. ~Hepatitis B Surface Antibody NONREACTIVE Nonreactive [facility] Comment:Nonreactive: < 8.00 mIU/mL Hepatitis B Core Antibody Nonreactive Nonreactive [facility] Hepatitis C Antibody Nonreactive Nonreactive [facility] Comment:Antibodies to HCV no t detected; does not exclude early acuteHCV infection. Hepatitis B Surface Ag Negative Negative [facility] Blood 10/29/2024 12:3 3 PM EDT 10/29/2024 1:17 PM EDT Nichole Andrea MD LAB BLOOD ORDERABLES Fin al Result Performing Organization Address [facility] Co de Phone Number [facility] [address] [place] [phone] * Hemoglobin A1c (10/29/2024 12:33 PM EDT) Hemoglobin A1c 5.9 <6.0 % [facility] Comment:Hemoglobin A1C Refer ence Range Adults: 4.8 - 6.0 % Non diabetic: < 6.0 % Goal: < 7.0 %Additional Action Suggested: > 8.0 %Note: Hemoglobin A1c results are invalid for patients with abnormal amounts of HbF. Blood transfusions may impact the HbA1c concentration in the patient sample. Estimated Average Glucose 123 mg/dL [facility] Comment:eAG = Estimated ave rage glucose which is %A1C expressed asaverage glucose, using the formula of the X6B-VdfatdvKttmwyv Glucose study (ADAG), Diabetes Care, Vol.31,#8,Jan. 2007 Blood Venous blood specimen / Unknown 10/29/2024 12:33 PM EDT 10/29/2024 1:17 PM EDT Nichole Andrea MD LAB BLOOD ORDERABLES Fin al Result Performing Organization Address [facility] Co de Phone Number [facility] [address] [place] [phone] * Pap Smear (06/19/2022 3:50 PM EST) 06/19/2022 3:50 PM EST 06/20/2022 9:45 AM EST [facility] - 06/29/2022 3:25 PM EST ----- ------- Name: Rafaela Terrell Age/Sex: 27/F : 1995 Unit#: [id number] Attend Dr: Huma Ochoa [facility] Re06/19/22 Status: DEP REF Location: [facility] Disch: ----- ------- SPEC : [id number] RECD: 06/20/22 STATUS: KANDI LAI NUM: [id number] ENEIDA: 06/19/22-1550 [facility] DR: Huma Ochoa [facility] ENTERED: 06/20/22 SP TYPE: Pap Smr OTHR DR: Nichole Andrea MD ORDERED: Pap Smear Interpretation Satisfactory for evaluation. Negative for intraepithelial lesion or malignancy. Clinical Information LMP: 05/27/22 Previous PAP test: 04/07/20, WNL Material Received ThinPrep-Cervical Copies To: Nichole Andrea MD [address] [place] [phone] Huma Ochoa [address] Leonard [address] [place] [phone] ----- ------- Signed (signature on file) Anabel Matthews 06/29/22 1525 ----- ------- END OF REPORT [facility] External Provider LAB [facility] ANTOINE YARBROUGHABLES Final Result [facility] [address] [place] [address] [phone] from Last 3 Months or Most Recently Relevant to Health Maintenance Insurance [facility] C3 * Guarantor: Rafaela Terrell Account Type Relation to Patient Date of Phone Billing Address Dental Self [address] [place] [address] [place] [employer] [place] AD[place] Care Teams Adjunct History Instructor Relationship Specialty Start Date End Date Nichole Andrea MD [address] [place] [phone] PCP - General Family Medicine 05/27/18
--- OUTSIDE RECORDS SUMMARY | 2025-04-06 15:06 | XMS_ITS | Encounter Summary ---
Author Organization [employer] Address [address] [facility] [address] [place] [address] Care Team Providers Care Clinical Training Specialist Name Role Phone Nichole Andrea MD Primary Care Provider + Reason for Visit * Reason Onset Date Comments Appointment Request 05/30/2023 Encounter Details Date Type Department Care Team (Late Contact Info) Description 05/30/2023 Telephone [facility] MEDICINE [address] [place] [address] Nichole Andrea MD [address] [place] [address] Appointment Request Social History Tobacco Use Types [...] Department Care Team (Late Contact Info) Description 04/11/2025 9:00 AM EST Clinical Support [facility] DIABETES/NUTRITION [address] [place], [place] [phone] Jocelynn [address] [place], [place] [phone] documented as of this encounter Visit Diagnoses Not on filedocumented in this encounter Care Teams Clinical Training Specialist Relationship Specialty Start Date End Date Nichole Andrea MD [address] [place], [place] [phone] PCP - General Family Medicine 05/27/18 documented as of this encounter
--- OUTSIDE RECORDS SUMMARY | 2025-04-06 15:06 | XMS_ITS | Clinical Summary ---
Author Organization [facility] Address [address] [place] [address] Care Team Providers Care Jewelry Technician Name Role Phone Nichole Andrea MD Primary Care Provider [phone] Allergies No known active allergies Medications dicyclomine (BENTYL) 10 MG capsule Take 1 capsule (10 mg total) by mouth 4 (four) times a day. 20 capsule 5 Active ondansetron (ZOFRAN-ODT) 4 MG disintegrating tablet Take 1 tablet (4 mg total) by mouth 3 times daily (every 8 hours) as needed for nausea or vomiting. Place tablet on tongue to dissolve. 10 tablet Active famotidine (PEPCID) 20 MG tablet Take 1 tablet (20 mg total) by mouth 2 (two) times a day. 28 tablet 5 04/07/20 25 Active Encounters Date Type Department Care Team Description 03/24/2025 10:30 PM EDT Ancillary Procedure [facility] Emergency Department [address] [place] [phone] Kirk Urban MD 03/24/2025 5:40 PM EDT - 03/24/2025 11:26 PM EDT Emergency [facility] Emergency Department [address] [place] [phone] Kirk Urban MD Nausea (Primary Dx); Abdominal cramping Discharge Disposition: Home or Self Care 03/24/2025 Travel from Last 3 Months Social History Tobacco Use Types Packs/Day Years Used Date Smoking Tobacco: Never Assessed Comments No Sex and Gender Information Value Date Recorded Sex Assigned at Female 03/24/2025 6:58 PM EDT Legal Sex Female 5:35 PM EDT Gender Identity Female 03/24/2025 6:58 PM EDT Sexual Orientation Choose not to disclose 2024 7:06 PM EDT Last Filed Vital Signs Vital Sign Reading Time Taken Comments Blood Pressure 140/92 03/24/2025 8:08 PM EDT Pulse 96 03/24/2025 8:08 PM EDT Temperature 37.6 C (99.6 F) 03/24/2025 5:37 PM EDT Respiratory Rate 18 03/24/2025 8:08 PM EDT Oxygen Saturation 100% 03/24/2025 8:08 PM EDT Inhaled Oxygen Concentration - - Weight - - Height - - Body Mass Index - - Plan of Treatment Health Maintenance Due Date Last Done Comments Hepatitis C Virus Screening 1995 DTaP/Tdap/Td Vaccines (1 - Tdap) 02/13/2016 Hepatitis B Vaccines (1 of 3 - 19+ 3-dose series) 02/13/2016 Pap Smear (Ages 21-65) 2018 Influenza Vaccine 01/07/2025 03/15/2024, , 04/19/2018, Additional history exists COVID-19 Vaccine (2024- season) 2025 09/26/2020, 08/29/2020 HIV Screening Completed 11/11/2024 HPV Vaccines (No Doses Required) Completed Pneumococcal Vaccine: Pediatric (0-5 Years) and At-Risk Patients (6 to 49 Years) Aged Out No longer eligible based on patient's age to complete this topic Procedures Procedure Name Priority Date/Time Associated Diagnosis Comments ED PERFORMED US ABDOMINAL STAT 03/24/2025 9:47 PM EDT POCT , URINE (CHARGE) STAT 03/24/2025 6:37 PM EDT LIPASE STAT 03/24/2025 5:49 PM EDT COMPREHENSIVE METABOLIC PANEL STAT 03/24/2025 5:49 PM EDT COMPLETE BLOOD COUNT, WITH DIFFERENTIAL STAT 03/24/2025 5:49 PM EDT from Last 3 Months Results * Ed Performed Us Abdominal (03/24/2025 9:47 PM EDT) Anatomical Region Laterality Modality Ultrasound 03/24/2025 9:42 PM EDT Narrative 03/24/2025 10:27 PM EDT Biliary ( ED) Exam Information: Exam Category: Diagnostic (Nuvia) Exam Occurrence: Initial exam Indication(s) for Exam: Nausea/Vomiting Views Obtained: Gallbladder - Long Mascot, Gallbladder - Short Mascot Findings: Gallbladder - Long Mascot: No gallstones Gallbladder - Short Mascot: No gallstones Sonographic De Los Santos's Sign: Absent Anterior Gallbladder Wall Thickness: <= 4 mm Interpretation: No sonographic evidence of significant biliary pathology identified Medical Decision Making: All focused emergency ultrasounds are limited exams. Comprehensive studies should be obtained for further evaluation as clinically indicated. Attending Signature: I have personally performed or supervised the performance of the ultrasound, reviewed the images as archived, and agree with the findings and impression as documented Electronically signed by Kirk Urban on March at 10:27 PM Procedure Note Kirk Urban MD - 03/24/2025 Biliary ( ED) Exam Information: Exam Category: Diagnostic (Double Spindle Shaper Operator) Exam Occurrence: Initial exam Indication(s) for Exam: Nausea/Vomiting Views Obtained: Gallbladder - Long Mascot, Gallbladder - Short Mascot Findings: Gallbladder - Long Mascot: No gallstones Gallbladder - Short Mascot: No gallstones Sonographic De Los Santos's Sign: Absent Anterior Gallbladder Wall Thickness: <= 4 mm Interpretation: No sonographic evidence of significant biliary pathologyidentified Medical Decision Making: All focused emergency ultrasounds are limited exams. Comprehensive studies should be obtained for further evaluation asclinically indicated. Attending Signature: I have personally performed or supervised theperformance of the ultrasound, reviewed the images as archived, and agreewith the findings and impression as documented Electronically signed by Kirk Urban on March at10:27 PM us Kirk Urban MD IMG US ORDERABLES Final Result * POCT , Urine (03/24/2025 6:37 PM EDT) Preg Test, Ur Negative Negative Lot Number [id number] Family Law Legal Assistant Pass Pass 03/24/2025 6:37 PM EDT Marilou Sorto PA-C POINT OF CARE TEST ORDERABLES Final Result * (ABNORMAL) Complete Blood Count, with Differential (03/24/2025 5:49 PM EDT) Pathologist [facility] White Blood Cell Count 11.1(H) 4.0 - 11.0 Thou/uL 03/24/2025 6:40 PM EDT [facility] Platelet Count 359 150 - 450 Thou/uL 03/24/2025 6:40 PM [facility] Hemoglobin 12.9 11.7 - 15.7 g/dL 03/24/2025 6:40 PM [facility] Hematocrit 40.4 35.0 - 47.0 % 03/24/2025 6:40 PM [facility] Red Blood Cell Count 4.66 4.00 - 5.40 Mil/uL 03/24/2025 6:40 PM [facility] MCV 87 80 - 100 fL 03/24/2025 6:40 PM [facility] MCH 27.7 26.0 - 34.0 pg 03/24/2025 6:40 PM [facility] MCHC 31.9 30.0 - 36.0 g/dL 03/24/2025 6:40 PM [facility] RDW 13.2 11.5 - 14.5 % 03/24/2025 6:40 PM [facility] MPV 9.9 7.5 - 12.5 fL 03/24/2025 6:40 PM [facility] Neutrophils Auto 79.9 % 03/24/20 6:40 PM [facility] Immature Granulocytes 0.5 % 03/24/2025 6:40 PM [facility] Lymphocytes Auto 9.5 % 03/24/20 6:40 PM [facility] Monocytes Auto 6.8 % 03/24/2025 6:40 PM [facility] Eosinophils Auto 3.0 % 03/24/20 6:40 PM EDT [facility] Basophils Auto 0.3 % 03/24/2025 6:40 PM EDT [facility] Abs Neutrophils Auto 8.86(H) 2.00 - 7.50 Thou/uL 03/24/2025 6:40 PM EDT [facility] Abs Immature Granulocytes 0.06 0.00 - 0.10 Thou/uL 03/24/2025 6:40 PM EDT [facility] Abs Lymphocytes Auto 1.06(L) 1.50 - 4.50 Thou/uL 03/24/2025 6:40 PM EDT [facility] Abs Monocytes Auto 0.76 0.20 - 1.50 Thou/uL 03/24/2025 6:40 PM EDT [facility] Abs Eosinophils Auto 0.33 0.00 - 0.70 Thou/uL 03/24/2025 6:40 PM EDT [facility] Abs Basophils Auto 0.03 0.00 - 0.20 Thou/uL 03/24/2025 6:40 PM EDT [facility] Blood Blood specimen / Unknown 03/24/2025 5:49 PM EDT 03/24/2025 6:22 PM EDT Marilou DEUTSCH-C LAB BLOOD ORDERABLES Final Res ult Performing Organization Address [facility] [place] [address], [place] [address] * Lipase (03/24/2025 5:49 PM EDT) Lipase 25 13 - 60 U/L 03/24/2025 6:57 PM EDT [facility] Blood Blood specimen / Unknown 03/24/2025 5:49 PM EDT 03/24/2025 6:22 PM EDT Marilou Sorto PA-C LAB BLOOD ORDERABLES Final Res ult Performing Organization Address City/[facility] [place] [address], [place] [address] * (ABNORMAL) Comprehensive Metabolic Panel (03/24/2025 5:49 PM EDT) [facility] Glucose 99 65 - 99 mg/dL 03/24/2025 6:57 PM [facility] Comment:Fasting: <100 mg/dL, Non-Fasting: <200 mg/dL (ADA 2004) Blood Urea Nitrogen (BUN) 7(L) 8 - 21 mg/dL 03/24/2025 6:57 PM [facility] Creatinine 0.67 0.40 - 1.10 mg/dL 03/24/2025 6:57 PM [facility] eGFR >90 >59 03/24/2025 6:57 PM [facility] Comment:CKD-EPI (2020) in mL /min/1.73 sq meters. Sodium 135(L) 136 - 145 mmol/L 03/24/2025 6:57 PM [facility] Potassium 3.8 3.4 - 5.3 mmol/L 03/24/2025 6:57 PM [facility] Chloride 102 98 - 107 mmol/L 03/24/2025 6:57 PM [facility] CO2 22 22 - 33 mmol/L 03/24/2025 6:57 PM [facility] Calcium 8.7 8.7 - 10.5 mg/dL 03/24/2025 6:57 PM [facility] Alkaline Phosphatase 91 32 - 122 U/L 03/24/2025 6:57 PM [facility] Aspartate Aminotrans (AST) 19 10 - 50 U/L 03/24/2025 6:57 PM [facility] Alanine Aminotrans (ALT) 10 10 - 50 U/L 03/24/2025 6:57 PM [facility] Bilirubin, Total 0.3 0.2 - 1.0 mg/dL 03/24/2025 6:57 PM [facility] Protein, Total 7.7 6.3 - 8.3 g/dL 03/24/2025 6:57 PM [facility] Albumin 4.1 3.5 - 5.0 g/dL 03/24/2025 6:57 PM [facility] BUN/Creatinine Ratio 10 10.0 - 25.0 Ratio 03/24/2025 6:57 PM EDT [facility] Globulin 3.6 1.5 - 3.9 g/dL 03/24/2025 6:57 PM EDT [facility] Albumin/Globulin Ratio 1.1 1.0 - 3.0 Ratio 03/24/2025 6:57 PM EDT [facility] Anion Gap 11 7 - 17 03/24/2025 6:57 PM EDT [facility] Blood Blood specimen / Unknown 03/24/2025 5:49 PM EDT 03/24/2025 6:22 PM EDT us Marilou Sorto PA-C LAB BLOOD ORDERABLES Final Res ult [address] [address], [address] [address] from Last 3 Months Insurance [facility] Care Teams Jewelry Technician Relationship Specialty Start Date End Date Nichole Andrea MD [address] [place] [phone] PCP - General 03/24/25
--- OUTSIDE RECORDS SUMMARY | 2025-04-06 15:06 | XMS_ITS | Encounter Summary ---
Author Organization [facility] Address [address] [place] [phone] Phone Care Team Providers Care Travel Guide Name Role Phone Yisel Hooker MD Primary Care Provider Unavailabl e Encounter Details Date Type Department Care Team (Late st Contact Info) Description 04/10/2017 Conversion Encounter [facility] - [address] [address] Social History Tobacco Use Types Packs/Day Years [...] on filedocumented in this encounter Care Teams Travel Guide Relationship Specialty Start Date End Date Yisel Hooker MD PCP - General 01/17/17 documented as of this encounter
== END 2025-04-06 12:25 | disposition home or self-care (01) ==
LOC: HO.HWS 11:42
PROVIDERS: PCP Internal Medicine; Visit Provider Advanced Practice Midwife
DX: Z71.2 Person consulting for explanation of examination or test findings (principal)
CPT/HCPCS: 99213

== ENCOUNTER → 2025-04-06 11:41 | Outpatient (BNVA) | payer MEDICAID, SELFPAY | PROVIDERS: PCP Internal Medicine; Visit Provider Advanced Practice Midwife | DX: Z71.2 Person consulting for explanation of examination or test findings (principal) | CPT/HCPCS: 99212 ==

== ENCOUNTER 2025-04-08 11:15 | Day surgery (SDC) | payer MEDICAID, SELFPAY ==
--- OUTSIDE RECORDS SUMMARY | 2025-03-14 08:00 | XMS_ITS | Encounter Summary ---
Author Organization [employer] Address [address] 7[address] [place] [address] Care Team Providers Care Technical Training Manager Name Role Phone Nichole Andrea MD Primary Care Provider + Reason for Visit * Reason Comments Routine Cleaning Encounter Details Date Type Department Care Team ([facility] st Contact Info) Description 03/14/2025 8:00 AM EDT Office Visit [facility] ADULT DENTAL [address] [place] [address] Naa, Damari [address] [place] [address] Dental plaque on multiple teeth (Primary Dx); Enlarged tonsils Social History Tobacco Use Types Packs/Day Years [...] Sign Reading Time Taken Comments Blood Pressure 126/78 03/14/2025 8:12 AM EDT Pulse - - Temperature - - Respiratory Rate - - Oxygen Saturation - - Inhaled Oxygen Concentration - - Weight - - Height - - Body Mass Index - - documented in this encounter Progress Notes * Damari Perez - 03/14/2025 8:00 AM EDT Appoint at 8 am. 8:07 am Pt has not registered yet. Patient ID: Rafaela Terrell is a 30 y.o. female. Time Out: Timeout Date: 03/14/25, Timeout Time: 812 (x-rays, prophy, perio chart) Location: [facility] Tooth: Maxilla and Mandible Procedure: Exam, X-rays, Prophylaxis, and Perio chart Verified the above with patient, customer marketing assistant, and provider. Confirmed via patient's chart, intraorally and by radiographs. Gold Leaf Layer: not applicable Medical Hx: Vitals: Blood pressure 126/78. Medications, Med Hx reviewed with patient and updated in chart. Treatment Provided Dental procedures in this visit D0274 - BITEWINGS - 4 RADIOGRAPHIC IMAGES (Completed) Service provider: Damari Perez Billmarce provider: Madi Summers DDS D0220 - INTRAORAL - PERIAPICAL FIRST RADIOGRAPHIC IMAGE (Completed) Service provider: Damari Perez Billmarce provider: Madi Summers DDS D0230 - INTRAORAL - PERIAPICAL EACH ADDITIONAL RADIOGRAPHIC IMAGE (Completed) Service provider: Damari Perez Billing provider: Madi Summers DDS D1110 - PROPHYLAXIS - ADULT (Completed) Service provider: Damari Perez Billing provider: Madi Summers DDS D9450 - CASE PRESENTATION, DETAILED AND EXTENSIVE TREATMENT PLANNING (Completed) Service provider: Damari Perez Billing provider: Madi Summers DDS D1330 - ORAL HYGIENE INSTRUCTIONS (Completed) Service provider: Damari Perez Billing provider: Madi Summers DDS Instruments Used: Ultrasonic Scalers, Hand Scalers, and Prophy angle Oral Cancer Screening: cryptic tonsils, Pt to consult her physician per Dr. Summers's advise. Head/Neck Exam: No Lesions Calculus: trace Plaque: Light and Moderate Stain: none Bleeding: Light Gingiva: pink/magenta OH: Good Perio Chart: Completed Oral hygiene instructions provided to patient including brushing technique and flossing. Recommendations: [place] two times daily, modified sherwood technique, Floss daily, Electric toothbrush, Soft bristle toothbrush, [place] Tongue, Anti-sensitivity toothpaste Recall Frequency: 6 mo NV: 6 months prophy. Hygienist: Damari Perez RDH * Madi Summers DDS - 03/14/2025 8:00 AM EDT Dental procedures in this visit D0274 - BITEWINGS - 4 RADIOGRAPHIC IMAGES (Completed) Service provider: Damari Perez Billmarce provider: Madi Summers DDS D0220 - INTRAORAL - PERIAPICAL FIRST RADIOGRAPHIC IMAGE (Completed) Service provider: Damari Perez Billing provider: Madi Summers DDS D0230 - INTRAORAL - PERIAPICAL EACH ADDITIONAL RADIOGRAPHIC IMAGE (Completed) Service provider: Damari Perez Billmarce provider: Madi Summers DDS D1110 - PROPHYLAXIS - ADULT (Completed) Service provider: Damari Perez Billmarce provider: Madi Summers DDS D9450 - CASE PRESENTATION, DETAILED AND EXTENSIVE TREATMENT PLANNING (Completed) Service provider: Damari Perez Billmarce provider: Madi Summers DDS D1330 - ORAL HYGIENE INSTRUCTIONS (Completed) Service provider: Damari Perez Billing provider: Madi Summers DDS D0120 - PERIODIC ORAL EVALUATION - ESTABLISHED PATIENT (Completed) Service provider: Madi Summers DDS Billing provider: Madi Summers DDS Patient ID: Rafaela Terrell is a 30 y.o. female. Time Out: Timeout Date: 03/14/25, Timeout Time: 0813 (x-rays, prophy, perio chart) Location: [facility] Tooth: Maxilla and Mandible Procedure: Exam, X-rays, and Prophylaxis Verified the above with patient, customer marketing assistant, and provider. Confirmed via patient's chart, intraorally and by radiographs. Gold Leaf Layer: not applicable Chief Complaint Patient presents with Routine Cleaning Medical Hx: Vitals: Blood pressure 126/78. Medical History[1] Medications: Encounter Medications[2] Objective HPI Asymptomatic Head and Neck Exam: Lymph Nodes, Lips, Palate, Buccal Mucosa, Floor of Mouth, Tongue, Alveolar Ridges, Oropharynx, Salivary Ducts, and Vestibules normal appearance, enlarged tonsils, right with more cavernous regions with exudate, asymptomatic Details: Skin NSF OCS: negative Dental Exam As charted Adult complete dentition, no new carious lesion noticed Reference tooth chart for additional findings. Oral Cancer Risk: Low Risk Oral Hygiene Instructions: [place] two times daily, modified sherwood technique, Floss daily, Electric toothbrush, Soft bristle toothbrush, [place] Tongue Caries Risk Assessment: Low- no risk factor Assessment/Plan CLARICE X rays Prophy Suggested to consult PCP / follow up tonsillitis 6 mos recall Patient tolerated procedure well, all questions answered and expressed understanding. Dismissed in good condition. NV: 6 mos recall Social Science Analyst: Damari Perez RD Dentist: Madi Summers DDS [1] Past Medical History: Diagnosis Date Amenorrhea 10/15/2023 Asthma Chronic eczema Depressed 04/21/2024 Elevated blood pressure reading 04/21/2024 Habitual snoring 08/08/2023 Hypertension Mild intermittent asthma 05/11/2022 SEBAS (obstructive sleep apnea) 10/15/2023 Sleep apnea, obstructive Vulvovaginitis evelyn albicans 04/21/2024 [2] Outpatient Encounter Medications as of 03/14/2025 Medication Sig Dispense Refill albuterol (Ventolin HFA) 108 (90 Base) MCG/ACT inhaler Inhale 2 puffs Every 4-6 hours as needed forwheezing or shortness of breath. 18 g 1 atomoxetine (Strattera) 40 MG capsule Take 40 mg by mouth in the morning. azelastine (Astelin) 0.1 % nasal spray Administer [...] candidiasis. Do not swallow. 1 each 11 ergocalciferol (Vitamin D2) 1.25 MG (70466 UT) capsule Take 1 capsule (1.25 mg) by mouth 1 (one) time per week. 12 capsule 1 fexofenadine (Radha) 180 MG tablet Take 1 tablet (180 mg) by mouth Once per day. 30 tablet 2 lisinopril (Prinivil) 20 MG tablet Take 1 tablet (20 mg) by mouth Once per day. 30 tablet 11 sertraline (Zoloft) 25 MG tablet Take 1 tablet by mouth Once per day. sodium chloride (Emporia) 0.65 % nasal spray Administer 1 spray into each nostril if needed for congestion. 15 mL 2 Spacer/Aero-Holding Chambers device Use as directed 4x/d prn SOB, with inhaler 1 Units 0 No facility-administered encounter medications on file as of 03/14/2025. documented in this encounter Plan of Treatment Scheduled Orders Name Type Priority Associated Diagnoses Orde r Schedule PROPHYLAXIS - ADULT Dental Routine 1 Occ urrences starting 03/14/2025 ORAL HYGIENE INSTRUCTIONS Dental Routine 1 Occurrences starting 03/14/2025 CASE PRESENTATION, DETAILED AND EXTENSIVE TREATMENT PLANNING Dental Routine 1 Occurrences starting 03/14/2025 documented as of this encounter Procedures Procedure Name Priority Date/Time Associated Diagnosis Comments PROPHYLAXIS - ADULT Routine 03/14/2025 8 :00 AM EDT Dental plaque on multiple teeth PERIODIC ORAL EVALUATION - ESTABLISHED PATIENT Routine 03/14/2025 8:00 AM EDT ORAL HYGIENE INSTRUCTIONS Routine 03/14/2025 8:00 AM EDT INTRAORAL - PERIAPICAL FIRST RADIOGRAPHIC IMAGE Routine 03/14/2025 8:00 AM EDT Dental plaque on multiple teeth INTRAORAL - PERIAPICAL EACH ADDITIONAL RADIOGRAPHIC IMAGE Routine 03/14/2025 8:00 AM EDT Dental plaque on multiple teeth CASE PRESENTATION, DETAILED AND EXTENSIVE TREATMENT PLANNING Routine 03/14/2025 8:00 AM EDT Dental plaque on multiple teeth BITEWINGS - 4 RADIOGRAPHIC IMAGES Routine 03/14/2025 8:00 AM EDT Dental plaque on multiple teeth documented in this encounter Visit Diagnoses Diagnosis Dental plaque on multiple teeth- Primary Enlarged tonsils Hypertrophy of tonsils alone documented in this encounter Additional Health Concerns Assessment Noted Time PHQ-9 Depression Total Score: 10 025 2:46 PM EDT documented as of this encounter Care Teams Technical Training Manager Relationship Specialty Start Date End Date Nichole Andrea MD [address] [place] [phone] PCP - General Family Medicine 05/27/18 documented as of this encounter
--- OUTSIDE RECORDS SUMMARY | 2025-03-14 17:48 | XMS_ITS | Encounter Summary ---
Author Organization [employer] Address [address] [facility] 7t [place] [address] Care Team Providers Care Sales Lead Generator Name Role Phone Nichole Andrea MD Primary Care Provider + Encounter Details Date Type Department Care Team (Latest Contact Info) Description 08/21/2020 Abstract [facility] CONVERSIONS Dental, Provider, DDS Social History Tobacco [...] filedocumented in this encounter Care Teams Sales Lead Generator Relationship Specialty Start Date End Date Nichole Andrea MD [address] [place] [phone] PCP - General Family Medicine 05/27/18 documented as of this encounter
--- OUTSIDE RECORDS SUMMARY | 2025-03-14 17:48 | XMS_ITS | Encounter Summary ---
Author Organization [employer] Address [address] [facility] 7t [place] [address] Care Team Providers Care Emt/Paramedic Name Role Phone Nichole Andrea MD Primary Care Provider + Encounter Details Date Type Department Care Team ([facility] st Contact Info) Description 08/09/2022 Abstract [facility] ADULT DENTAL [address] [place] [address] Madi Summers DDS [address] [place] [address] Social History Tobacco Use Types Packs/Day Years [...] on filedocumented in this encounter Care Teams Emt/Paramedic Relationship Specialty Start Date End Date Nichole Andrea MD [address] [place] [address] PCP - General Family Medicine 05/27/18 documented as of this encounter
--- OUTSIDE RECORDS SUMMARY | 2025-03-14 17:49 | XMS_ITS | Encounter Summary ---
Author Organization [facility] Address [address] [place] [phone] Phone Care Team Providers Care Gluing Machine Operator Automatic Name Role Phone Yisel Hooker MD Primary Care Provider Unavailabl e Encounter Details Date Type Department Care Team (Late st Contact Info) Description 04/10/2017 Conversion Encounter [facility] - [address] [address] Social History Tobacco Use Types Packs/Day Years [...] on filedocumented in this encounter Care Teams Gluing Machine Operator Automatic Relationship Specialty Start Date End Date Yisel Hooker MD PCP - General 01/17/17 documented as of this encounter
--- OUTSIDE RECORDS SUMMARY | 2025-03-14 17:49 | XMS_ITS | Encounter Summary ---
Author Organization [employer] Address [address]t [place] [address] Care Team Providers Care Career Guidance Counselor Name Role Phone Nichole Andrea MD Primary Care Provider + Reason for Visit * Reason Onset Date Comments Appointment Request 12/20/2024 Encounter Details Date Type Department Care Team ([facility] st Contact Info) Description 12/20/2024 Telephone [facility] MEDICINE [address] [place] [address] Nichole Andrea MD [address] [place] [address] Appointment Request Social History Tobacco Use Types [...] today's nutrition appt. Please contact pt at [phone]. documented in this encounter Plan of Treatment Not on file documented as of this encounter Visit Diagnoses Not on filedocumented in this encounter Additional Health Concerns Assessment Noted Time PHQ-9 Depression Total Score: 10 025 9:45 AM EDT documented as of this encounter Care Teams Career Guidance Counselor Relationship Specialty Start Date End Date Nichole Andrea MD [address] [place] [phone] PCP - General Family Medicine 05/27/18 documented as of this encounter
--- OUTSIDE RECORDS SUMMARY | 2025-03-14 17:49 | XMS_ITS | Encounter Summary ---
Author Organization [employer] Address [address] [place] [address] 7 [place] [address] Care Team Providers Care Erp Engineer Name Role Phone Nichole Andrea MD Primary Care Provider + Reason for Visit * Reason Onset Date Comments Medication Question 02/04/2023 Encounter Details Date Type Department Care Team ([facility] st Contact Info) Description 02/04/2023 Telephone [facility] MEDICINE [address] [place] [address] Nichole Andrea MD [address] [place] [address] Medication Question Social History Tobacco Use Types [...] seems like the [employer] [facility] has already filledscript and should be [...] on filedocumented in this encounter Care Teams Erp Engineer Relationship Specialty Start Date End Date Nichole Andrea MD [address] [place] [phone] PCP - General Family Medicine 05/27/18 documented as of this encounter
--- OUTSIDE RECORDS SUMMARY | 2025-03-14 17:49 | XMS_ITS | Clinical Summary ---
Author Organization [facility] Address [address] [place] [phone] Phone Care Team Providers Care Sales Agent [employer] Insurance Name Role Phone Yisel Hooker MD Primary [...] age to complete this topic Care Teams Sales Agent [employer] Insurance Relationship Specialty Start Date End Date Yisel Hooker MD PCP - General 01/17/17
--- OUTSIDE RECORDS SUMMARY | 2025-03-14 17:49 | XMS_ITS | Encounter Summary ---
Author Organization [employer] Address [address] [facility] 7t [place] [address] Care Team Providers Care Loin Trimmer Name Role Phone Nichole Andrea MD Primary Care Provider + Reason for Visit * Reason Onset Date Comments Appointment Request 05/30/2023 Encounter Details Date Type Department Care Team ([facility] st Contact Info) Description 05/30/2023 Telephone [facility] MEDICINE [address] [place] [address] Nichole Andrea MD [address] [place] [address] Appointment Request Social History Tobacco Use Types [...] on filedocumented in this encounter Care Teams Loin Trimmer Relationship Specialty Start Date End Date Nichole Andrea MD [address] [place] [address] PCP - General Family Medicine 05/27/18 documented as of this encounter
--- OUTSIDE RECORDS SUMMARY | 2025-03-14 17:49 | XMS_ITS | Encounter Summary ---
Author Organization [employer] Address [address] [facility] 7t [place] [address] Care Team Providers Care Combine Mechanic Name Role Phone Nichole Andrea MD Primary Care Provider + Reason for Visit * Reason Onset Date Comments Nurse Triage 11/25/2023 Encounter Details Date Type Department Care Team ([facility] st Contact Info) Description 11/25/2023 Telephone [facility] MEDICINE [address] [place] [address] Nichole Andrea MD [address] [place] [address] Nurse Triage Social History Tobacco Use Types [...] Pt is advised to come to [facility] to be seen by provider if needed. Pt agrees with home care advised and if time available will come to [facility]. Pt agrees with disposition [...] on filedocumented in this encounter Care Teams Combine Mechanic Relationship Specialty Start Date End Date Nichole Andrea MD [address] [place] [phone] PCP - General Family Medicine 05/27/18 documented as of this encounter
--- OUTSIDE RECORDS SUMMARY | 2025-03-14 17:49 | XMS_ITS | Encounter Summary ---
Author Organization [employer] Address [address] [facility] 7t [place] [address] Care Team Providers Care Product Blending Supervisor Name Role Phone Nichole Andrea MD Primary Care Provider + Encounter Details Date Type Department Care Team ([facility] st Contact Info) Description 05/30/[address] [facility] MEDICINE [address] [place] [phone] Nichole Andrea MD [address] [place] [phone] Social History Tobacco Use Types Packs/Day Years [...] on filedocumented in this encounter Care Teams Product Blending Supervisor Relationship Specialty Start Date End Date Nichole Andrea MD [address] [place] [phone] PCP - General Family Medicine 05/27/18 documented as of this encounter
--- OUTSIDE RECORDS SUMMARY | 2025-03-14 17:49 | XMS_ITS | Clinical Summary ---
Author Organization [employer] Address [address] [place] [address] Care Team Providers Care Clinical Abstractor Name Role Phone Nichole Andrea MD Primary [...] as directed 3x/week 1 kit 4 Active azelastine (Astelin) 0.1 % nasal spray Administer 1 spray into each nostril 2 times daily. Use in each nostril as directed 30 mL 12 4 03/15/20 25 Active Spacer/Aero-Hold ing Chambers deviceIndication s:Moderate persistent [...] 18 g 1 5 07/07/19 26 Active budesonide-formo terol (Symbicort) 160-4.5 MCG/ACT inhaler Inhale 2 puffs in the morning and at bedtime. Rinse mouth with water after use to reduce aftertaste and incidence of candidiasis. Do not swallow. 1 each 11 5 09/09/19 26 Active betamethasone dipropionate 0.05 % cream Apply topically 2 times daily. 30 g 1 5 Active ergocalciferol (Vitamin D2) 1.25 MG (68801 UT) capsule Take 1 capsule (1.25 mg) by mouth 1 (one) time per week. 12 capsule 1 5 06/03/20 25 Active atomoxetine (Strattera) 40 MG capsule Take 40 mg by mouth in the morning. 5 Active sertraline (Zoloft) 25 MG tablet Take 1 tablet by mouth Once per day. 5 Active sodium chloride ([place]) 0.65 % nasal spray Administer 1 spray into each nostril if needed for congestion. 15 mL 2 5 02/10/20 26 Active fexofenadine (Radha) 180 MG tablet Take 1 tablet (180 mg) by mouth Once per day. 30 tablet 2 5 02/10/20 26 Active benzonatate (Tessalon Perles) 100 MG capsule Take 1 capsule (100 mg) by mouth if needed in the morning, at noon, and at bedtime for cough for up to 7 days. Do not crush or chew. 20 capsule 5 02/17/20 25 Active Problems Problem Noted Date Diagnosed Date Dental plaque on multiple teeth 03/14/2025 Viral upper respiratory tract infection 02/03/20 25 [...] safe with current partner. Follow-up labs from [facility] last week, unfortunately patient did not [...] at this time, follow-up test done at [facility] last week Assessment & Plan (08/08/2023 [...] (10/15/2023 10:51 AM EDT): - seen by PUMPER GAUGER, awaiting for surgery - refer to chari , she needs to lose weight prior to surgery Assessment & Plan (06/30/2023 8:05 PM EST): FU with PUMPER GAUGER at [facility]. Dental caries 07/11/2022 Foot pain, bilateral [...] PM EDT): - Pt to continue with [facility] counseling, may need a BE to r/o ADHD - will refer to to support pt with BE from her counselor Depressive disorder 08/23/2014 Assessment & Plan (12/17/2024 11:07 AM EDT): Seems to be doing better with counseling on sertraline. Advised to follow-up closely with mental health team. 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 She feels safe at home, she feels [...] style modifications, diet and referred again to family law specialist. Recommended to decrease soda and sugary [...] life style modifications, diet and referral to family law specialist. Recommended to decrease soda and sugary [...] exercise, life style modifications, diet, referral to family law specialist. Discussed re lower calorie intake, increase dietary fiber Will refer to dedicated regional driver Pt given information about weight reduction programs at both [facility] and [facility] Assessment & Plan (06/30/2023 8:05 PM EST): Discussed re weight reduction options including exercise, life style modifications, diet, referral to family law specialist, she wants to hold off on [...] intercourse exclusively with AFAB - f/u with PUMPER GAUGER - counseled regarding weight reduction Habitual snoring [...] organization. Date Type Department Care Team Description 03/14/2025 8:00 AM EDT Office Visit [facility] [address] [place] [phone] Damari Perez Dental plaque on multiple teeth (Primary Dx); Enlarged tonsils 02/09/2025 2:00 PM EDT Office Visit [facility] [address] [place] [phone] Gina Hart MD Allergic rhinitis, unspecified seasonality, unspecified trigger (Primary Dx); Cough in adult patient 02/09/2025 Orders Only [facility] [address] [place] [phone] Gina Hart MD 02/09/2025 Telephone [facility] [address] [place] [address] [phone] Nichole Andrea MD Medication Question 02/09/2025 Travel 02/08/2025 Refill [facility] [address] [place] [phone] Denia Pcihardo MD Bedbug bite, initial encounter 02/02/2025 6:00 PM EDT Office Visit [facility] [address] [place] [phone] Gina Oh MD Primary hypertension (Primary Dx); Cough in adult patient; Viral upper respiratory tract infection 02/02/2025 Travel 01/25/2025 9:00 AM EDT Clinical Support [facility] [address] [place] [phone] Primary hypertension (Primary Dx); Class 3 severe obesity with serious comorbidity and body mass index (BMI) of 50.0 to 59.9 in adult 01/25/2025 Travel 01/06/2025 Results Follow-Up [facility] [address] [place] [address] [phone] Nichloe Andrea MD XR Foot 3+ Views Left 12/27/[address] [address] Nichole Andrea MD Referral 12/21/2024 Telephone [facility] [address] [place] [address] [phone] Nichole Andrea MD Results 12/20/[address] [address] Nichole Andrea MD Appointment Request 12/17/2024 9:45 AM EDT Office Visit [address] [address] Nichole Andrea MD Primary hypertension (Primary Dx); Moderate persistent asthma without complication; Depressive disorder; Vitamin D deficiency; Left foot pain; Encounter for immunization; Preventative health care 12/17/2024 Travel from Last 3 Months Immunizations Immunization Administration [...] Pressure 126/78 03/14/2025 8:12 AM EDT Pulse 79 02/09/2025 2:19 PM EDT [...] 02/02/2025 6:11 PM EDT Plan of Treatment Health Maintenance Due Date Last Done Comments Alcohol/Substance Use Screening 2009 HPV Vaccines (3 - 2-dose series) 08/22/2011 05/30/2011, 03/25/2011, 01/17/2011 Family Planning (PISQ) 02/13/2012 COVID-19 Vaccine ( season) 2025 04/16/2022, 06/23/2021, 09/26/2020, Additional history exists Influenza Vaccine (#1) 2025 , 07/01/2019, 04/19/2018, Additional history exists Pap Smear 06/19/2025 06/19/2022 Depression Monitoring 07/10/2025 01/07/2025, 025 SDOH Screening 07/29/2025 07/29/2024 Disability Screening 09/08/2025 09/08/2024 Dental Oral Exam 09/13/2025 03/14/2025, , 07/11/2022 Dental Prophylaxis 09/13/2025 03/14/2025, 0 09/06/2024, 03/08/2024, Additional history exists Diabetes: Hemoglobin A1C 10/29/2025 025, 11/17/2020, 09/28/2020 DTaP/Tdap/Td Vaccines (8 - Td or Tdap) 11/08/2025 11/09/2015, 01/26/2009, 01/04/2002, Additional history exists Tobacco Screening 03/14/2026 03/14/2025 Dental X-Ray: Bitewings 03/15/2026 03/14/20 25, 03/08/2024, 07/11/2022 Dental X-Ray: Full Mouth 03/09/2027 03/08/2024, 03/0 [...] Procedure Name Priority Date/Time Associated Diagnosis Comments PERIODIC ORAL EVALUATION - ESTABLISHED PATIENT Routine 03/14/2025 8:00 AM EDT ORAL HYGIENE INSTRUCTIONS Routine 03/14/2025 8:00 AM EDT CASE PRESENTATION, DETAILED AND EXTENSIVE TREATMENT PLANNING Routine 03/14/2025 8:00 AM EDT Dental plaque on multiple teeth PROPHYLAXIS - ADULT Routine 03/14/2025 8 :00 AM EDT Dental plaque on multiple teeth INTRAORAL - PERIAPICAL EACH ADDITIONAL RADIOGRAPHIC IMAGE Routine 03/14/2025 8:00 AM EDT Dental plaque on multiple teeth INTRAORAL - PERIAPICAL FIRST RADIOGRAPHIC IMAGE Routine 03/14/2025 8:00 AM EDT Dental plaque on multiple teeth BITEWINGS - 4 RADIOGRAPHIC IMAGES Routine 03/14/2025 8:00 AM EDT Dental plaque on multiple teeth US PELVIS TRANSVAGINAL Routine 03/11/2025 9:47 AM EDT POCT INFLUENZA B (ID NOW RAPID MOLECULAR) [...] Routine 10/29/2024 12:33 PM EDT Primary hypertension INTRAORAL - COMPLETE SERIES OF RADIOGRAPHIC IMAGES Routine 03/08/2024 8:00 AM EDT Dental plaque on multiple teeth PAP SMEAR Routine 06/19/2022 3:50 PM EST from Last 3 Months or Most Recently Relevant to Health Maintenance Results * US Pelvis Transvaginal (03/11/2025 9:47 AM EDT) Anatomical Region Laterality Modality Pelvis Ultrasound 03/11/2025 9:47 AM EDT Narrative 03/11/2025 9:48 AM EDT [address] [address] Ultrasound Report Signed Patient: Rafaela Terrell MR#: [id number] 650 : 1995 Acct:[id number] Age/Sex: 30 / F ADM Date: 03/10/25 Loc: HO.US Attending Dr: Lamar Mcallister CNM Ordering Physician: Lamar Mcallister CNM Date of Service: 03/10/25 Procedure(s): US pelvic and transvaginal Accession Number(s): [id number] cc: Nichole Andrea MD; Lamar Mcallister CNM Reason for Exam: N83.299 - COMPLEX OVARIAN CYST CLINICAL HISTORY: N83.299 - COMPLEX OVARIAN CYST US pelvis transabdominal and transvaginal Comparison: 11/03/2024 Findings: Transabdominal scanning performed for overall anatomy. Transvaginal scanning performed for additional detail. Anteverted uterus is 8.6 cm length. Normal myometrium. Endometrium 9 mm thickness. No lesions. Right ovary 2.7 x 1.5 x 2 cm. Left ovary 3.9 x 1.4 x 2.7 cm. Normal color Doppler of both ovaries. There are bilateral follicles. There are no new dominant cystic or solid masses. Minimal left adnexal free fluid. IMPRESSION: 1. Minimal left adnexal free fluid This document has been electronically signed by: Franco Valencia MD on 03/11/2025 09:47:04 Dictated By: Franco Valencia MD Signed By: <Electronically signed by Franco Valencia MD in OV> 03/11/25946 DD/ 6 TD/TT: 03/11/25946 Application Counselor: Procedure Note Donotdeisiinterpreter, Image - 03/11/2025 [place] [address] Ultrasound Report Signed Patient: Rafaela Terrell AMR#: [id number] 650 : 1995Acct:[id number] Age/Sex: Date: 03/10/25 Loc: HO.US Attending Dr: Lamar Mcallister CNM Ordering Physician: Lamar Mcallister CNM Date of Service: 03/10/25 Procedure(s): US pelvic and transvaginal Accession Number(s): [id number] cc: Nichole Andrea MD; Lamar Mcallister CNM Reason for Exam: N83.299 - COMPLEX OVARIAN CYST CLINICAL HISTORY: N83.299 - COMPLEX OVARIAN CYST US pelvis transabdominal and transvaginal Comparison: 11/03/2024 Findings: Transabdominal scanning performed for overall anatomy. Transvaginal scanning performed for additional detail. Anteverted uterus is 8.6 cm length. Normal myometrium. Endometrium 9 mm thickness. No lesions. Right ovary 2.7 x 1.5 x 2 cm. Left ovary 3.9 x 1.4 x 2.7 cm. Normal color Doppler of both ovaries. There are bilateral follicles. There are no new dominant cystic or solid masses. Minimal left adnexal free fluid. IMPRESSION: 1. Minimal left adnexal free fluid This document has been electronically signed by: Franco Valencia MD on 03/11/2025 09:47:04 Dictated By: Franco Valencia MD Signed By: <Electronically signed by Franco Valencia MD in OV> 03/11/25946 DD/ 6 TD/TT: 03/11/25946 Application Counselor: us [facility] External Provider IMG US PROCEDURES Final Result * Influenza B (ID NOW Rapid Molecular) (02/09/2025 2:30 PM EDT) Influenza B Negative Negative, Indeterminate [facility] Swab 02/09/2025 2:30 PM EDT Gina Colby MD POINT OF CARE BLANCHE T ENTER/EDIT ORDERABLES Final Result Performing Organization Address [facility] Co de Phone Number [facility] [address] [place] [phone] * Influenza A (ID NOW Rapid Molecular) (02/09/2025 2:30 PM EDT) Pathologist [facility] Influenza A Negative Negative, Indeterminate [facility] Swab 02/09/2025 2:30 PM EDT Gina Colby MD POINT OF CARE BLANCHE T ENTER/EDIT ORDERABLES Final Result Performing Organization Address [facility] Co de Phone Number [facility] [address] [place] [phone] * POCT Rapid COVID Ag (02/09/2025 2:22 PM EDT) Only the most recent of2 resultswithin the time period is included. Pathologist [facility] Rapid COVID Ag Negative Swab 02/09/2025 2:22 PM EDT Gina Colby MD POINT OF CARE BLANCHE T ENTER/EDIT ORDERABLES Final Result * XR Foot 3+ Views Left (12/17/2024 10:19 AM EDT) Anatomical Region Laterality Modality Lower Extremities, Foot Left Radiogra phic Imaging 12/17/2024 10:1 9 AM EDT Narrative 12/17/2024 12:[address] PM EDT [address] [address] XRay Report Signed Patient: Rafaela Terrell MR#: [id number] 650 : 1995 Acct:[id number] Age/Sex: 29 / F ADM Date: 12/17/24 Loc: CHUNGX Attending Dr: Nichole Andrea MD Ordering Physician: Nichole Andrea MD Date of Service: 12/17/24 Procedure(s): XR foot LT min 3V Accession Number(s): [id number] cc: Nichole Andrea MD EXAMINATION: XR FOOT, [...] 12/17/24 1217 DD/ 1019 TD/TT: 12/17/24 1020 Application Counselor: Procedure Note Donotuseinterpreter, Image - 12/17/2024 [place] [address] XRay Report Signed Patient: Rafaela Terrell AMR#: [id number] 650 : 1995Acct:[id number] Age/Sex: 29 / FADM Date: 12/17/24 Loc: CHUNGX Attending Dr: Nichole Andrea MD Ordering Physician: Nichole Andrea MD Date of Service: 12/17/24 Procedure(s): XR foot LT min 3V Accession Number(s): [id number] cc: Nichole Andrea MD EXAMINATION: XR FOOT, [...] Win Diaz MD 12/17/2024 12:17 PM EDT RP Dictated By: Win Larios MD Signed By: <Electronically signed by Win Astudillo MDin OV> 12/17/24 1217 DD/ 1019 TD/TT: 12/17/24 1020 Application Counselor: us Nichole Andrea MD IMG XR PROCEDURES Final Result * HIV-1/2 Antigen and Antibodies, Fourth Generation, with Reflexes (11/11/2024 1:30 PM EDT) HIV AB/AG Nonreactive Nonreactive [facility] Comment:HIV-1 p24 Ag and/or HIV-1/HIV-2 Ab not detected.A test result that is nonreactive does not exclude thepossibility of exposure to or infection with HIV-1 and/orHIV-2. Nonreactive results in this assay for individualswith prior exposure to HIV-1 and/or HIV-2 may be due toantigen and antibody levels that are below the limit ofdetection of this assay.The Connexient HIV Ag/Ab Combo assay result andsupplemental assay results should be interpreted inconjunction with the patient's clinical presentation,history and other laboratory results. If the results areinconsistent with clinical evidence, additional testing issuggested to confirm the result. Blood Venous blood specimen / Unknown 11/11/2024 1:30 PM EDT 11/11/2024 4:03 PM EDT us Nichole Andrea MD LAB BLOOD ORDERABLES Fin al Result [facility] [address] [place] [phone] * (ABNORMAL) Lipid Panel with Reflex to Direct LDL (10/29/2024 12:33 PM EDT) Triglycerides 78 <150 mg/dL [facility] Comment:Desirable Triglyceri de: less than 150 mg/dLBorderline High Triglyceride 150-199 mg/dLHigh Triglyceride: 200-499 mg/dLVery High Triglyceride: greater than or equal to 5OO mg/dL Cholesterol 135 <200 mg/dL [facility] Comment:Desirable Cholestero l: less than 200 mg/dLBorderline High Cholesterol: 200-239 mg/dLHigh Cholesterol: greater than 239 mg/dL LDL Cholesterol Calculated 86 <100 mg/dL [facility] Comment:Desirable LDL: less than 100 mg/dLNear Optimal/Above Optimal LDL: 110- 129 mg/dLBorderline High LDL: 130-159 mg/dLHigh LDL: 160-189 mg/dLVery High LDL: greater than or equal to 190 mg/dL HDL Cholesterol 34(L) >40 mg/dL [facility] Comment:Desirable HDL: great er than 40 mg/dL Note: This HDL assay may give artificially low results in patients with liver disease. Blood 10/29/2024 12:3 3 PM EDT 10/29/2024 1:17 PM EDT us Nichole Andrea MD LAB BLOOD ORDERABLES Fin al Result [facility] [address] [place] [phone] * Hepatitis Panel, General (10/29/2024 12:33 PM EDT) Hepatitis A IgM Nonreactive Nonreactive [facility] Comment:IgM antibodies to GOMEZ V not detected; does not exclude earlyacute or recovered HAV infection. ~Hepatitis B Surface Antibody NONREACTIVE Nonreactive [facility] Comment:Nonreactive: < 8.00 mIU/mL Hepatitis B Core Antibody Nonreactive Nonreactive [facility] Hepatitis C Antibody Nonreactive Nonreactive [facility] Comment:Antibodies to HCV no t detected; does not exclude early acuteHCV infection. Hepatitis B Surface Ag Negative Negative [facility] Blood 10/29/2024 12:3 3 PM EDT 10/29/2024 1:17 PM EDT Nichole Andrea MD LAB BLOOD ORDERABLES Fin al Result Performing Organization Address [facility] Co de Phone Number [facility] [address] [place] [phone] * Hemoglobin A1c (10/29/2024 12:33 PM EDT) Hemoglobin A1c 5.9 <6.0 % [facility] Comment:Hemoglobin A1C Refer ence Range Adults: 4.8 - 6.0 % Non diabetic: < 6.0 % Goal: < 7.0 %Additional Action Suggested: > 8.0 %Note: Hemoglobin A1c results are invalid for patients with abnormal amounts of HbF. Blood transfusions may impact the HbA1c concentration in the patient sample. Estimated Average Glucose 123 mg/dL [facility] Comment:eAG = Estimated ave rage glucose which is %A1C expressed asaverage glucose, using the formula of the A7B-DgmeauuTrvyfkc Glucose study (ADAG), Diabetes Care, Vol.31,#8,Aug. 2007 Blood Venous blood specimen / Unknown 10/29/2024 12:33 PM EDT 10/29/2024 1:17 PM EDT us Nichole Andrea MD LAB BLOOD ORDERABLES Fin al Result Performing Organization Address [facility]/ZIP Co de Phone Number [facility] [address] [place] [phone] * Pap Smear (06/19/2022 3:50 PM EST) 06/19/2022 3:50 PM EST 06/20/2022 9:45 AM EST Narrative [facility] - 06/29/2022 3:25 PM EST ----- ------- Name: Rafaela Terrell Age/Sex: 27/ : 1995 Unit#: [id number] [facility] Status: DEP REF Location: [facility] Disch: ----- ------- SPEC : [id number] RECD: 06/20/22 STATUS: KANDI LAI NUM: [id number] ENEIDA: 06/19/22-[address] [facility] [address] ENTERED: 06/20/22 SP TYPE: Pap Smr OTHR DR: Nichole Andrea MD ORDERED: Pap Smear Interpretation Satisfactory for evaluation. Negative for intraepithelial lesion or malignancy. Clinical Information LMP: 05/27/22 Previous PAP test: 04/07/20, WNL Material Received ThinPrep-Cervical Copies To: Nichole Andrea MD [address] [place] [address] [phone] Huma Ochoa [address] [address] ----- ------- Signed (signature on file) Anabel Matthews 06/29/22 1525 ----- ------- END OF REPORT [facility] External Provider LAB CYT BELINDA ORDERABLES Final Result [facility] [address] [place] [phone] [phone] from Last 3 Months or Most Recently Relevant to Health Maintenance Insurance [facility] C3 * Guarantor: Rafaela Terrell Account Type Relation to Patient Date of Phone Billing Address Dental Self [address] [place] [address] [facility] Care Teams Clinical Abstractor Relationship Specialty Start Date End Date Nichole Andrea MD [address] [place] [phone] PCP - General Family Medicine 05/27/18
[2025-04-06 09:07] VITALS: BMI 52.9
--- NOTE | 2025-04-06 09:14 | HO.ANESPROP2 ---
Documented by User: Bella Chan NP 04/06/25 09:14 HPI - Anesthesia Eval Consult details Narrative: 30yo F for Colonoscopy BMI 52.9 PMFSH Active Problems Active Problems: All Active Problems Blood in stool (Acute) Constipation (Acute) Elevated blood pressure reading (Acute) Asthma (Acute) Urine incontinence (Acute) COVID-19 (Acute) Polycystic ovarian syndrome (Acute) Obesity, morbid, BMI 50 or higher (Acute) Incontinence (Acute) Candidiasis of genitalia in female (Acute) Screen for sexually transmitted diseases (Acute) Cervical cancer screening (Acute) Ovarian teratoma (Acute) Vulvovaginitis evelyn albicans (Acute) Pelvic pain (Acute) Complex ovarian cyst (Acute) Vitamin D deficiency (Acute) Ovarian cyst (Acute) Hirsutism (Acute) Well woman exam (Acute) Uterine prolapse (Acute) Past Medical History Medical History Blood in stool Constipation Sleep apnea Vitamin D deficiency Ovarian cyst Hirsutism History of depression History of anxiety Asthma Family History Family History Father HTN (hypertension) Diabetes Mother HTN (hypertension) Diabetes Maternal Grandmother Cervical cancer Uterine cancer Maternal Grandfather Colon cancer Surgical History Surgical History Hx of ovarian cystectomy Social History Social History Household Members: None Housing: Apartment Alcohol intake: current Alcohol intake frequency: does not drink Alcohol type: wine Patient Tobacco Use Status: Never used Tobacco Use of substances other than those prescribed or required for medical reasons: No Are you DNR?: No Advance Directives: No Advance Directives Information Provided: Yes : No Current occupational status: student Sexual orientation: Straight/Heterosexual Gender identity: Female Meds Allergies Allergy/AdvReac Type Severity Reaction Status Date / Time prednisone Allergy Unknown Flushing Verified 04/06/25 11:43 environmental allergies Allergy Unknown Verified 04/06/25 11:43 Home Medications ?Medication ?Instructions ?Recorded ?Confirmed ?Last Taken ?Type cetirizine 10 mg capsule (Zyrtec) 10 mg PO DAILY 03/28/20 04/06/25 Unknown History fluticasone propionate 110 1 puff inhalation Q12H 06/19/22 04/06/25 Unknown History mcg/actuation HFA aerosol inhaler (Flovent HFA) lisinopril 20 mg tablet 20 mg PO DAILY 06/29/24 04/06/25 04/08/25 History sertraline 25 mg tablet 25 mg PO DAILY 11/24/24 04/06/25 04/08/25 History hydroxyzine HCl 10 mg tablet 10 mg PO BEDTIME 01/04/25 04/06/25 Unknown History Exam Height,Weight and Vital Signs: Height 5 ft 4 in Weight 139.706 kg Assessment and Plan Assessment Anesthesia Assessment: Chart Reviewed Documented by User: Corie Hernandez MD 04/08/25 12:22 PMFSH Past Medical History Medical History Blood in stool Constipation Sleep apnea Vitamin D deficiency Ovarian cyst Hirsutism History of depression History of anxiety Asthma Family History Family History Father HTN (hypertension) Diabetes Mother HTN (hypertension) Diabetes Maternal Grandmother Cervical cancer Uterine cancer Maternal Grandfather Colon cancer Surgical History Surgical History Hx of ovarian cystectomy History of Problems with Anesthesia: No Social History Social History Household Members: None Housing: Apartment Alcohol intake: current Alcohol intake frequency: does not drink Alcohol type: wine Patient Tobacco Use Status: Never used Tobacco Use of substances other than those prescribed or required for medical reasons: No Are you DNR?: No Advance Directives: No Advance Directives Information Provided: Yes : No Current occupational status: student Sexual orientation: Straight/Heterosexual Gender identity: Female Meds Allergies Allergy/AdvReac Type Severity Reaction Status Date / Time prednisone Allergy Unknown Flushing Verified 04/06/25 11:43 environmental allergies Allergy Unknown Verified 04/06/25 11:43 Home Medications ?Medication ?Instructions ?Recorded ?Confirmed ?Last Taken ?Type cetirizine 10 mg capsule (Zyrtec) 10 mg PO DAILY 03/28/20 04/06/25 Unknown History fluticasone propionate 110 1 puff inhalation Q12H 06/19/22 04/06/25 Unknown History mcg/actuation HFA aerosol inhaler (Flovent HFA) lisinopril 20 mg tablet 20 mg PO DAILY 06/29/24 04/06/25 04/08/25 History sertraline 25 mg tablet 25 mg PO DAILY 11/24/24 04/06/25 04/08/25 History hydroxyzine HCl 10 mg tablet 10 mg PO BEDTIME 01/04/25 04/06/25 Unknown History Exam Airway Mallampati Class: III TM Dist: >3cm Neck ROM: Full Loose/Missing/Broken Teeth: No Heart: RRR Lungs: CTA Assessment and Plan Assessment Anesthesia Assessment: Anesthesia Plan Discussed Final Anesthetic Review History of Problems with Anesthesia: No NPO: Yes ASA Class: III Final Preanesthetic Review: Meds/Allgs Chart Reviewed, Consent Obtained/Reviewed and Anes Risks/Benef Reviewed Patient Risk: Intermediate Procedure Risk: Low Anesthetic Plan Anesthetic Plan: MAC: Disposition: Standard PACU
[2025-04-08 11:46] VITALS: BMI 53.4
[2025-04-08 11:59] LABS: UPreg QC Valid YES
[2025-04-08 12:00] VITALS: BP 115/69; PULSE 96; RESP 16; TEMP 36.4; O2SAT 96
--- NOTE | 2025-04-08 12:09 | MHC.SHP ---
Pre-Procedural Eval Section A - 24 Hr Update-Section A only Date of Service: 04/08/25 Section B - Complete if H&P > 30 days Chief Complaint: melena,constipation Details of Present Illness: Medical History (Updated 01/04/25 @ 11:34 by Callie Jamil CNP) Blood in stool Constipation Sleep apnea Vitamin D deficiency Ovarian cyst Hirsutism History of depression History of anxiety Asthma Surgical History Hx of ovarian cystectomy Family History Father HTN (hypertension) Diabetes Mother HTN (hypertension) Diabetes Maternal Grandmother Cervical cancer Uterine cancer Maternal Grandfather Colon cancer Present Medications: see Short Stay Collaborative assessment Allergies: Allergies Allergy/AdvReac Type Severity Reaction Status Date / Time prednisone Allergy Unknown Flushing Verified 04/06/25 11:43 environmental allergies Allergy Unknown Verified 04/06/25 11:43 Review of Systems Review of Systems Comment: Ten point ROS negative Exam Exam Comment: Gen appear: No acute distress HEENT: no icterus Chest: No overt resp distress Abd: soft, nontender, nondistended Psych: Stable affect, answering questions appropriately Neuro: A/Ox3 noted to move all extremities spontaneously Ext: no peripheral edema Plan Diagnosis/Plan: Unchanged I have reviewed the history and physical and performed a pertinent physical examination on my patient. No changes have occurred unless specified. Time Spent With Patient Time: Total time managing care of this patient today ____ minutes.
[2025-04-08] MEDS: Lactated Ringers 1,000 ML 100 ML IVCONT (12:19)
--- NOTE | 2025-04-08 13:17 | P.OPN-COLO_ITS ---
Colonoscopy Operative Note Operative Note Date of Service: 04/08/25 Narrative: Procedure: Colonoscopy Indication: Rectal bleeding Endoscopist: Ragini El MD Anesthesia Provider: Marcial Vickers CRNA Anesthesia type: MAC Instrument: Olympus [id number] Consent: Indication, risks vs benefits, and alternatives were discussed with the patient who gave written informed consent to proceed. EKG, pulse, pulse oximetry and blood pressure were monitored throughout the procedure. Please see anesthesia flowsheet. Procedure: The patient was brought to the procedure room and an abdominal binder was affixed to the lower abdomen. She was then placed in the left lateral decubitus position. IV medications were administered by the anesthesia provider in attendance. A digital rectal exam was performed which was abnormal due to finding of a prolapsed hemorrhoid. A distal attachment cap was affixed to the tip of the colonoscope which was then inserted through the anus and advanced through the colon to the cecum at 75 cm,and terminal ileum. Appendiceal orifice and ileocecal valve were identified. Mucosa was carefully examined under high definition white light as the instrument was slowly withdrawn in a retrograde panoramic fashion. Retroflexion was performed in rectum. The procedure was not difficult. There were no immediate obvious complications. The quality of the prep was BBPS: 3+3+3 = adequate Withdrawal time 9 minutes. Limitations: No limitations. Findings: Mucosa: Normal to cecum and terminal ileum. Protruding lesions: * 1 sessile polyp of size 3 mm in sigmoid colon. Cold snare polypectomy was performed. The polyp was completely removed and retrieved. * Small inernal hemorrhoids without stigmata of recent bleeding. Impression: 1. Normal colon and terminal ileum mucosa 2. Total of 1 polyp removed 3. External and internal hemorrhoids Recommendations: - Follow path results. - If polyp is benign/hyperplastic, commence asymptomatic colorectal ca screening at 47 y.o.
[2025-04-08 13:20] VITALS: BP 120/63; PULSE 80; RESP 12; TEMP 36.6; O2SAT 97
[2025-04-08 13:55] VITALS: BP 118/59; PULSE 82; RESP 16; TEMP 36.8; O2SAT 94
== END 2025-04-08 14:07 | disposition home or self-care (01) ==
PROVIDERS: Nurse Practitioner; PCP Internal Medicine; Visit Provider Internal Medicine
PROC: 0DJD8ZZ Inspection of Lower Intestinal Tract, Via Natural or Artificial Opening Endoscopic (ICD-10-PCS; CPT 45378; principal; 2025-04-08 12:40)
DX: K92.1 Melena (principal); K59.00 Constipation, unspecified; K64.8 Other hemorrhoids; K64.4 Residual hemorrhoidal skin tags; K63.5 Polyp of colon
CPT/HCPCS: 45385; 81025; 88305; J2003; J2704

== ENCOUNTER → 2025-04-08 11:15 | Outpatient (BNV) | payer MEDICAID, SELFPAY | PROVIDERS: PCP Internal Medicine; Visit Provider Internal Medicine | DX: K62.5 Hemorrhage of anus and rectum (principal); K63.5 Polyp of colon; K64.8 Other hemorrhoids | CPT/HCPCS: 45385 ==

== ENCOUNTER 2025-04-27 18:18 | Emergency (ER) | payer MEDICAID, SELFPAY ==
--- NOTE | ~2025-04-27 | XR_ITS ---
CLINICAL HISTORY: sob cough Two views of the chest. COMPARISON: XR chest dated 07/28/24 at 20:22 EST FINDINGS: Normal heart and mediastinal contours. No consolidation. No pleural effusion or pneumothorax. No acute fracture. IMPRESSION: 1. No consolidation. This document has been electronically signed by: Kirk Her MD on 04/27/2025 19:24:03
--- NOTE | 2025-04-27 18:22 | ECG_ITS ---
Test Reason : CP Blood Pressure : */* mmHG Vent. Rate : 79 BPM Atrial Rate : 79 BPM P-R Int : 150 ms QRS Dur : 78 ms QT Int : 366 ms P-R-T Axes : -26 -12 -21 degrees QTcB Int : 419 ms Normal sinus rhythm with sinus arrhythmia Minimal voltage criteria for LVH, may be normal variant ( R in aVL ) Inferior infarct , age undetermined Cannot rule out Anterior infarct (cited on or before 12-Jul-2024) Abnormal ECG When compared with ECG of 28-Jul-2024 19:49, Inferior infarct is now Present Referred By: Libertad Enamorado Electronically Signed By: BEBETO SCAHFER
[2025-04-27 18:47] VITALS: BP 184/84; PULSE 81; RESP 18; TEMP 36.3; O2SAT 97; BMI 54.9
--- NOTE | 2025-04-27 18:47 | ED_ITS ---
HPI - Chest Pain General Chief Complaint: Upper Respiratory Symptoms Stated Complaint: CP, fullness in throat, SOB Time Seen by Provider: 04/27/25 22:26 History of Present Illness ED Provider: brandie MEDEL narrative: Author / Clinician: Kofi Hui MD (Emergency Medicine) Chief Complaint Cough and persistent chest fullness/tightness. History of Present Illness The patient presents to the Emergency Department with one week of cough and reports that today the cough is accompanied by a persistent ?fullness and tightness? localized to the top of the chest. The sensation has been present all day without fluctuation and is not worsened by breathing. She awoke this morning with a sharp pain radiating to her back. She denies measured fever but did note waking up sweating. She is able to drink and swallow without difficulty. She feels a sensation in her throat but no true swelling. She denies abdominal pain or vomiting but reports a feeling of fullness in her stomach, generalized weakness, loss of appetite, and minimal oral intake. She recently fell outside a friend?s house but sustained no injuries and denies chest trauma. She occasionally notes swelling and a burning sensation in one ankle, and reports that the burning sensation causes her to limp a lot. No current ankle swelling was observed today. Review of Systems - Constitutional: Reports weakness, loss of appetite, episode of sweating; denies measured fever. - Respiratory: Cough x1 week; chest fullness/tightness; denies shortness of breath or pain with inspiration. - Cardiovascular: Chest tightness/fullness; denies chest trauma. - Gastrointestinal: Reports stomach fullness; denies abdominal pain or vomiting. - ENT: Sensation in throat without true swelling; able to swallow; no sore throat reported. - Musculoskeletal: Recent fall without injury; intermittent ankle swelling and burning sensation in one ankle, with burning sensation causing her to limp a lot. - All other systems not discussed in the encounter are not documented. Physical Exam: - General: Patient appears uncomfortable but in no acute distress. - Neck: Supple; no lymphadenopathy; no visible swelling. - HEENT: Oropharynx without erythema or edema; throat looks normal; able to swallow. - Cardiovascular: No acute findings noted on exam; EKG normal (see ED Course). - Respiratory: Lungs auscultated without focal findings per provider; no respiratory distress. - Extremities: No visible ankle swelling at time of exam. - Neurologic: Grossly intact. Emergency Department Course ? EKG: Normal. ? Chest X-ray: No evidence of pneumonia or other abnormality. ? Lab studies: Comprehensive metabolic panel including electrolytes and kidney function normal. Cardiac enzymes within normal limits. CBC showed mildly elevated WBC, not clinically significant. Not anemic. ? Respiratory viral panel (COVID-19, Influenza, RSV) negative. ? Examination performed as documented above with no acute abnormalities identified. Assessment & Plan Diagnosis: 1. Viral upper respiratory infection with associated cough and chest fullness/tightness. 2. Intermittent ankle pain/swelling, possible neuropathic etiology. Plan: - Symptomatic management for presumed viral illness. - Encouraged patient to follow up with primary care physician tomorrow for re- evaluation. - Recommended referral to a foot/ankle specialist or tutorial laboratory supervisor for evaluation of intermittent ankle swelling and burning sensation. Disposition Discharged home in stable condition with instructions as above. 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 Medications Sertraline; lisinopril; cefampril (patient-reported). Family History Mother had a blood clot after COVID-19 infection. 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 Sexually active; not currently . Denies use of hormonal contraception. Allergies No drug allergies mentioned. Related Data Home Medications ?Medication ?Instructions ?Recorded ?Confirmed cetirizine 10 mg capsule (Zyrtec) 10 mg PO DAILY 03/2804/06/25 fluticasone propionate 110 1 puff inhalation Q12H 06/0904/06/25 mcg/actuation HFA aerosol inhaler (Flovent HFA) lisinopril 20 mg tablet 20 mg PO DAILY 06/29/2403/10 sertraline 25 mg tablet 25 mg PO DAILY 11/24/2403/10 hydroxyzine HCl 10 mg tablet 10 mg PO BEDTIME 01/04/25 04/06/25 Previous Rx's ?Medication ?Instructions ?Recorded albuterol sulfate 2.5 mg/3 mL 2.5 mg (3 mL) inhalation Q4-6H PRN 05/04/23 (0.083 %) solution for nebulization shortness of breat h or wheezing #90 mL albuterol sulfate 90 mcg/actuation 2 puff inhalation Q 4-6H PRN 05/04/23 aerosol inhaler (ProAir HFA) shortness of breath or wh eezing #8.5 grams bisacodyl 5 mg tablet,delayed 20 mg (4 x 5 mg) PO ONCE 1 day #4 01/04/25 release (Dulcolax (bisacodyl)) tabs Allergies Allergy/AdvReac Type Severity Reaction Status Date / Time prednisone Allergy Unknown Flushing Verified 04/27/25 18:50 environmental allergies Allergy Unknown Verified 04/27/25 18:50 PMFSH Past Medical History Medical History (Updated 04/29/25 @ 00:00 by Prakash Sanchez) Blood in stool Constipation Sleep apnea Vitamin D deficiency Ovarian cyst Hirsutism History of depression History of anxiety Asthma Surgical History (Updated 04/27/25 @ 12:54 by Gina Moran) Hx of colonoscopy Hx of ovarian cystectomy Family History Family History Father HTN (hypertension) Diabetes Mother HTN (hypertension) Diabetes Maternal Grandmother Cervical cancer Uterine cancer Maternal Grandfather Colon cancer Social History Social History Household Members: None Housing: Apartment Alcohol intake: current Alcohol intake frequency: does not drink Alcohol type: wine Patient Tobacco Use Status: Never used Tobacco Advance Directives: No Advance Directives Information Provided: No Current occupational status: student Sexual orientation: Straight/Heterosexual Gender identity: Female Physical Exam 2 Vital Signs: Vital Signs: Last Vital Signs Temp 98.4 F 04/28/25 00:58 Pulse 84 04/28/25 00:58 Resp 14 04/28/25 00:58 BP 132/71 04/28/25 00:58 Pulse Ox 100 04/28/25 00:58 O2 Del Method Room Air 04/28/25 00:58 BMI result Body Mass Index 54.9 Course Course Course Narrative: This is a Rapid Medical Exam performed in triage by Libertad Enamorado PA-C. Full HPI, ROS and PE to be performed by primary ED provider. 30 yo F w/pmhx asthma presenting to the ED c/o cough, Asthma, chest pressure & throat pain x last night. Admits to SOB. PE: talking in complete sentences, NAD, lungs CTA, mild tonsillar swelling Plan: EKG, labs, CXR, viral testing, rapid strep Procedures Procedure Narrative Procedure Narrative: EMERGENCY ULTRASOUND INTERPRETATION-Limited Echocardiography [This study was ordered, performed, and interpreted by myself. The study reveals: Impression: NORMAL LV FUNCTION, NO RV DYSFUNCTION, NO PERICARDIAL EFFUSION] [Emergent Cardiac for Indication: Views Used: PLAX, PSSA, A4, Pericardial Effusion/Tamponade Findings: NONE RV Dilation (> LV diam in 4ch apical): NONE Global LV Fxn: NORMAL IVC Dilation and Resp Variation: NORMAL Performed by: MD Ez Images were stored CPT:[id number]] Medical Decision Making Medical Decision Making MDM Narrative: Medical Decision Making: [age] female with atypical chest discomfort full feeling there was reassuring lab work negative cardiac enzyme she looks quite well has no infiltrate on x-ray no hypoxia or respiratory distress wheeze. Could be URI she has been coughing some of the symptomatology suggested pericarditis but she has got no signs of this on ECG or pericardial effusion on echo see report Preliminary Favored Differential Diagnosis: [ ] among additional considered etiologies Testing Interpreted Independently: ?See below for details Radiology or Lab testing Results Reviewed: ?See below for details Consults: ?See below for details Independent Historians/External Chart Reviews: ?See below for details Social Determinants of Health Impacting MDM/Planning: ?See below for details Lab Data MDM Lab Attestation statement: I reviewed the patient's lab results. 04/27/25 18:57 04/27/25 18:57 Labs: Lab Results 04/27/25 Range/Units 18:57 WBC 11.9 H (4.8-10.8) X10*3/uL RBC 4.48 (4.20-5.50) X10*6/uL Hgb 12.3 (12.0-16.0) g/dl Hct 39.2 (37.0-47.0) % MCV 87.5 (80.0-98.0) fL MCH 27.5 (27.0-33.0) pg MCHC 31.4 (31.0-35.0) g/dl RDW 13.5 (11.0-16.0) % Plt Count 370 (160-400) X10*3/uL MPV 9.1 L (9.4-12.3) fL Immature Gran % (Auto) 0.2 (0.0-0.4) % Neut % (Auto) 64.5 (45-73) % Lymph % (Auto) 20.8 (20-40) % [place] % (Auto) 6.8 (2-11) % Eos % (Auto) 7.2 H (0-4) % Baso % (Auto) 0.5 (0-2) % Lymph # (Auto) 2.5 (1.2-4.9) X10*3/uL [place] # (Auto) 0.8 (0.1-1.2) X10*3/uL Eos # (Auto) 0.9 H (0.0-0.4) X10*3/uL Baso # (Auto) 0.1 (0.0-0.2) X10*3/uL Abs Immat Gran (auto) 0.02 (0.00-0.03) X10*3/uL Absolute Neuts (auto) 7.7 (2.0-8.3) x10*3/uL Absolute Nucleated RBC 0.000 (0.0-0.012) X10*3/uL Nucleated RBC % (auto) 0.0 (0.0-0.2) /100WBC Sodium 138 (135-145) mmol/L Potassium 3.8 (3.3-5.1) mmol/L Chloride 104 (96-108) mmol/L Carbon Dioxide 27 (22-29) mmol/L Anion Gap 11 L (12-20) BUN 10 (9-16) mg/dL Creatinine 0.70 (0.5-1.4) mg/dL Estim Creat Clear Calc 171.5 Estimated GFR > 60 Random Glucose 107 (60-115) mg/dL Calcium 8.8 (8.4-10.2) mg/dL Troponin I High Sens < 2.7 (<3.5-17.0) ng/L Influenza Type A (PCR) NEGATIVE (Negative) Influenza Type B (PCR) NEGATIVE (Negative) RSV RNA Qual (PCR) NEGATIVE (Negative) SARS-CoV-2 RNA (RT-PCR) NEGATIVE (Negative) S. pyogenes GrpA LANDRY Negative (Negative) Discharge Plan Discharge Clinical Impression: Chest pain Patient Disposition: Home, Self-Care Instructions: Chest Pain (ED) Additional Instructions: Today you were evaluated for discomfort of your chest and throat and cough. You had reassuring workup including normal chest x-ray lab work and a bedside echocardiogram please call your primary doctor you should be seen in a few days to follow up your symptoms Prescriptions: No Action albuterol sulfate 2.5 mg /3 mL (0.083 %) solution for nebulization 2.5 mg inhalation Q4-6H PRN (Reason: shortness of breath or wheezing) Qty: 90 0RF albuterol sulfate [ProAir HFA] 90 mcg/actuation HFA aerosol inhaler 2 puff inhalation Q4-6H PRN (Reason: shortness of breath or wheezing) Qty: 8.5 0RF Zyrtec 10 mg capsule 10 mg PO DAILY fluticasone propionate [Flovent HFA] 110 mcg/actuation HFA aerosol inhaler 1 puff inhalation Q12H lisinopril 20 mg tablet 20 mg PO DAILY sertraline 25 mg tablet 25 mg PO DAILY hydroxyzine HCl 10 mg tablet 10 mg PO BEDTIME bisacodyl [Dulcolax (bisacodyl)] 5 mg tablet,delayed release (DR/EC) 20 mg PO ONCE 1 Days Qty: 4 0RF Rx Instructions: Take four tablets pre colonoscopy instructions Stand Alone Forms: Work/School Release Interventions: ED Discharge Assessment Last Done: 04/28/25 00:58 Discharge Date/Time: 04/28/25 00:58 Print Language: Venezuelan
[2025-04-27 19:04] LABS: MANUAL DIFF FLAG NO
[2025-04-27 19:06] LABS: Hematocrit 39.2 % (37.0-47.0); Hemoglobin 12.3 g/dl (12.0-16.0); Imm Gran Abs Auto 0.02 X10*3/uL (0.00-0.03); Imm Gran Pct Auto 0.2 % (0.0-0.4); Lymphocytes Absolute Auto 2.5 X10*3/uL (1.2-4.9); Mean Corpuscular HGB Conc 31.4 g/dl (31.0-35.0); Mean Corpuscular Hemoglobin 27.5 pg (27.0-33.0); Mean Corpuscular Volume 87.5 fL (80.0-98.0); NRBC Abs Auto 0.000 X10*3/uL (0.0-0.012); NRBC Pct Auto 0.0 /100WBC (0.0-0.2); Platelet Count 370 X10*3/uL (160-400); Red Blood Count 4.48 X10*6/uL (4.20-5.50); White Blood Count 11.9 X10*3/uL (4.8-10.8)
[2025-04-27 19:13] LABS: IDNOW Serial# 55D5AD1C; Strep A Nucleic Acid Negative (Negative)
[2025-04-27 19:25] LABS: Anion Gap 11 (12-20); Blood Urea Nitrogen 10 mg/dL (9-16); Calcium 8.8 mg/dL (8.4-10.2); Carbon Dioxide 27 mmol/L (22-29); Chloride 104 mmol/L (96-108); Creatinine Clr Calc Pharmacy 171.5; Estimated Glomerular Filt Rate > 60; Potassium 3.8 mmol/L (3.3-5.1); Sodium 138 mmol/L (135-145)
[2025-04-27 19:44] LABS: Troponin-I High Sensitivity < 2.7 ng/L (<3.5-17.0)
[2025-04-27 19:55] LABS: Resp Syncy Virus RNA Qual PCR NEGATIVE (Negative); SARS COV2 PCR INHOUSE NEGATIVE (Negative)
[2025-04-27 21:50] VITALS: BP 132/71; PULSE 84; RESP 14; TEMP 36.9; O2SAT 100
[2025-04-28 00:58] VITALS: BP 132/71; PULSE 84; RESP 14; TEMP 36.9; O2SAT 100
--- OUTSIDE RECORDS SUMMARY | 2025-04-28 05:22 | XMS_ITS | Clinical Summary ---
Author Organization [facility] Address [address] [place] [phone] Phone Care Team Providers Care Timber Treating Tank Operator Name Role Phone Yisel Hooker MD Primary [...] age to complete this topic Care Teams Timber Treating Tank Operator Relationship Specialty Start Date End Date Yisel Hooker MD PCP - General 01/17/17
--- OUTSIDE RECORDS SUMMARY | 2025-04-28 05:22 | XMS_ITS | Clinical Summary ---
Author Organization [facility] Address [address] [place] [address] Care Team Providers Care Rheumatologist Name Role Phone Nichole Andrea MD Primary Care Provider [phone] Allergies No known active allergies Medications dicyclomine (BENTYL) 10 MG capsule Take 1 capsule (10 mg total) by mouth 4 (four) times a day. 20 capsule Active ondansetron (ZOFRAN-ODT) 4 MG disintegrating tablet Take 1 tablet (4 mg total) by mouth 3 times daily (every 8 hours) as needed for nausea or vomiting. Place tablet on tongue to dissolve. 10 tablet Active famotidine (PEPCID) 20 MG tablet Take 1 tablet (20 mg total) by mouth 2 (two) times a day. 28 tablet 5 Active Encounters Date Type Department Care Team Description 03/24/2025 10:30 PM EDT Ancillary Procedure [facility] Emergency Department [address] [place] [phone] Kirk Urban MD 03/24/2025 5:40 PM EDT - 03/24/2025 11:26 PM EDT Emergency [facility] Emergency Department [address] [place] [phone] Kirk Urban MD Nausea (Primary Dx); Abdominal [...] , 04/19/2018, Additional history exists COVID-19 Vaccine ( season) 2025 09/26/2020, 08/29/2020 HIV Screening Completed [...] Exam: Nausea/Vomiting Views Obtained: Gallbladder - [place], Gallbladder - [place] Findings: Gallbladder - [place]: No gallstones Gallbladder - [place]: No gallstones Sonographic De Los Santos's Sign: [...] Exam: Nausea/Vomiting Views Obtained: Gallbladder - [place], Gallbladder - [place] Findings: Gallbladder - [place]: No gallstones Gallbladder - [place]: No gallstones Sonographic [place]'s Sign: [...] Preg Test, Ur Negative Negative Lot Number [id number] Bag Machine Tender Pass Pass 03/24/2025 6:37 PM EDT Marilou Sorto PA-C POINT OF CARE TEST ORDERABLES Final Result * (ABNORMAL) Complete Blood Count, with Differential (03/24/2025 5:49 PM EDT) Pathologist [facility] White Blood Cell Count 11.1(H) 4.0 - 11.0 Thou/uL [facility] 359 150 - 450 Thou/uL 03/24/2025 6:40 PM [facility] Hemoglobin 12.9 11.7 - 15.7 g/dL 03/24/2025 6:40 PM [facility] Hematocrit 40.4 35.0 - 47.0 % 03/24/2025 6:40 PM [facility] Red Blood Cell Count 4.66 4.00 - 5.40 Mil/uL 03/24/2025 6:40 PM [facility] MCV 87 80 - 100 fL 03/24/2025 6:40 PM [facility] MCH 27.7 26.0 - 34.0 pg [...] Eosinophils Auto 3.0 % 03/24/20 6:40 PM [facility] Basophils Auto 0.3 % 03/24/2025 6:40 PM EDT [facility] Abs Neutrophils Auto 8.86(H) 2.00 - 7.50 Thou/uL 03/24/2025 6:40 PM EDT [facility] Abs Immature Granulocytes 0.06 0.00 - 0.10 Thou/uL 03/24/2025 6:40 PM EDT [facility] Abs Lymphocytes Auto 1.06(L) 1.50 - 4.50 Thou/uL 03/24/2025 6:40 PM EDT [facility] Abs Monocytes Auto 0.76 0.20 - 1.50 Thou/uL 03/24/2025 6:40 PM EDT [facility] Abs Eosinophils Auto 0.33 0.00 - 0.70 Thou/uL 03/24/2025 6:40 PM EDT [facility] Abs Basophils Auto 0.03 0.00 - 0.20 Thou/uL 03/24/2025 6:40 PM EDT [facility] Blood Blood specimen / Unknown 03/24/2025 5:49 PM EDT 03/24/2025 6:22 PM EDT Marilou Sorto PA-C LAB BLOOD ORDERABLES Final Res ult Performing Organization Address City/[facility]/[place] [address], [place] [address] * Lipase (03/24/2025 5:49 PM EDT) Lipase 25 13 - 60 U/L 03/24/2025 6:57 PM EDT [facility] Blood Blood specimen / Unknown 03/24/2025 5:49 PM EDT 03/24/2025 6:22 PM EDT Marilou Sorto PA-C LAB BLOOD ORDERABLES Final Res ult Performing Organization Address City/[facility] [place] [address], [place] [address] * (ABNORMAL) Comprehensive Metabolic Panel (03/24/2025 5:49 PM EDT) Glucose 99 65 - 99 mg/dL 03/24/2025 [...] 10.0 - 25.0 Ratio 03/24/2025 6:57 PM [facility] Globulin 3.6 1.5 - 3.9 g/dL 03/24/2025 6:57 PM EDT [facility] Albumin/Globulin Ratio 1.1 1.0 - 3.0 Ratio 03/24/2025 6:57 PM EDT [facility] Anion Gap 11 7 - 17 03/24/2025 6:57 PM EDT [facility] Blood Blood specimen / Unknown 03/24/2025 5:49 PM EDT 03/24/2025 6:22 PM EDT us Marilou Sorto PA-C LAB BLOOD ORDERABLES Final Res ult [facility] [address] [place] [address], [address] [address] from Last 3 Months Insurance [facility] Care Teams Rheumatologist Relationship Specialty Start Date End Date Nichole Andrea MD [address] [place] [phone] PCP - General 03/24/25
--- OUTSIDE RECORDS SUMMARY | 2025-04-28 05:22 | XMS_ITS | Encounter Summary ---
Author Organization [facility] Address [address] [place] [phone] Phone Care Team Providers Care Reinsurance Clerk Name Role Phone Yisel Hooker MD Primary Care Provider Unavailabl e Encounter Details Date Type Department Care Team (Late st Contact Info) Description 04/10/2017 Conversion Encounter [facility] - [address] [address] Social History Tobacco Use Types Packs/Day Years [...] on filedocumented in this encounter Care Teams Reinsurance Clerk Relationship Specialty Start Date End Date Yisel Hooker MD PCP - General 01/17/17 documented as of this encounter
--- OUTSIDE RECORDS SUMMARY | 2025-04-28 05:22 | XMS_ITS ---
Author Name [facility] Organization Unknown Results Test Name/Text Value Interpretation Date Range Source Lipase SerPl-cCnc 25.0 U/L 03/24/2025 13 - 60 H [facility] CO2 SerPl-sCnc 22.0 mmol/L 03/24/2025 22 - 33 [facility] CCT Glucose SerPl-mCnc 99.0 mg/dL 03/24/2025 65 - 99 [facility] Albumin/Glob SerPl 1.1 Ratio 03/24/2025 1 - 3 [facility] GFR/BSA.pred SerPlBld [id number] >90.0 03/24/2025 59 - [facility]CT Calcium SerPl-mCnc 8.7 mg/dL 03/24/2025 8.7 - 10.5 H[facility] ALT SerPl-cCnc 10.0 U/L 03/24/2025 10 - 50 [facility] T Prot SerPl-mCnc 7.7 g/dL 03/24/2025 6.3 - 8.[address] BUN SerPl-mCnc 7.0 mg/dL Below low normal 03/24/2025 8 - 21 [facility] Bilirub SerPl-mCnc 0.3 mg/dL 03/24/2025 0.2 - 1 [facility] Potassium SerPl-sCnc 3.8 mmol/L 03/24/2025 3.4 - 5 .3 [facility] ALP SerPl-cCnc 91.0 U/L 03/24/2025 32 - 122 [facility] T Anion Gap Bld-sCnc 11.0 03/24/2025 7 - 17 [facility] BUN/Creat SerPl 10.0 Ratio 03/24/2025 10 - 25 [facility] CCT Globulin Ser Calc-mCnc 3.6 g/dL 03/24/2025 1.5 - 3.9 [facility] AST SerPl-cCnc 19.0 U/L 03/24/2025 10 - 50 [facility] T Sodium SerPl-sCnc 135.0 mmol/L Below low normal 03/24/2025 1 36 - 145 [facility] Albumin SerPl-mCnc 4.1 g/dL 03/24/2025 3.5 - 5 [facility] Chloride SerPl-sCnc 102.0 mmol/L 03/24/2025 98 - 1 07 [facility] Creat SerPl-mCnc 0.67 mg/dL 03/24/2025 0.4 - 1.1 H [facility]CT Hgb Bld-mCnc 12.9 g/dL 03/24/2025 11.7 - 15.7 [facility] T RDW RBC Auto-Rto 13.2 % 03/24/2025 11.5 - 14.5 [facility]CT MCHC RBC Auto-mCnc 31.9 g/dL 03/24/2025 30 - 36 [facility] Monocytes num Bld Auto 0.76 Thou/uL 03/24/2025 0.2 - 1.5 [facility] Platelet num Bld Auto 359.0 Thou/uL 03/24/2025 150 - 450 [facility] Eosinophil num Bld Auto 0.33 Thou/uL 03/24/2025 0 - 0.7 [facility] PMV Bld Auto 9.9 fL 03/24/2025 7.5 - 12.5 [facility] Hct VFr Bld Auto 40.4 % 03/24/2025 35 - 47 [facility] Lymphocytes num Bld Auto 1.06 Thou/uL Below low normal 03/24/2025 1.5 - 4.5 [facility] MCV RBC Auto 87.0 fL 03/24/2025 80 - 100 [facility] Basophils/leuk NFr Bld Auto 0.3 % 03/24/2025 [facility] WBC num Bld Auto 11.1 Thou/uL Above high normal 03/24/2025 4 - 11 [facility] RBC num Bld Auto 4.66 Mil/uL 03/24/2025 4 - 5.4 [facility] Imm Granulocytes/leuk NFr Bld Auto 0.5 % 03/24/2025 [facility] Basophils num Bld Auto 0.03 Thou/uL 03/24/2025 0 - 0.2 [facility] Lymphocytes/leuk NFr Bld Auto 9.5 % 03/24/2025 [facility] Imm Granulocytes num Bld Auto 0.06 Thou/uL 03/24/2025 0 - 0.1 [facility] Eosinophil/leuk NFr Bld Auto 3.0 % 03/24/2025 [facility] Neutrophils/leuk NFr Bld Auto 79.9 % 03/24/2025 [facility] Neutrophils num Bld Auto 8.86 Thou/uL Above high normal 03/24/2025 2 - 7.5 [facility] Monocytes/leuk NFr Bld Auto 6.8 % 03/24/2025 [facility] MCH RBC Qn Auto 27.7 pg 03/24/2025 26 - [address] Encounters Encounter Type Encounter Reason Primary Diagnosis Location Date Emergency Nausea Nausea [place] 03/24/2025 Care Team Organization Name Specialty Phone Email Start Date End [facility] 03/24/2025 [facility] 03/24/2025 04/22/2025 [facility] 03/24/2025
== END 2025-04-28 00:58 | disposition home or self-care (01) ==
PROVIDERS: Physician Assistant; Emergency Provider Emergency Medicine; PCP Internal Medicine
DX: R07.9 Chest pain, unspecified (principal); R06.02 Shortness of breath; R05.9 Cough, unspecified; Z03.818 Encounter for observation for suspected exposure to other biological agents ruled out; J45.909 Unspecified asthma, uncomplicated
CPT/HCPCS: 36415; 71046; 80048; 84484; 85025; 87637; 87651; 93005; 93308; 99283; 99284

== ENCOUNTER → 2025-04-27 18:22 | Outpatient (BNV) | payer MEDICAID, SELFPAY | PROVIDERS: Emergency Provider Emergency Medicine; PCP Internal Medicine; Visit Provider Internal Medicine | DX: I49.9 Cardiac arrhythmia, unspecified (principal) | CPT/HCPCS: 93010 ==

== ENCOUNTER → 2025-04-27 18:49 | Outpatient (BNV) | payer MEDICAID, SELFPAY | PROVIDERS: PCP Internal Medicine; Visit Provider Radiology Diagnostic Radiology | DX: R06.02 Shortness of breath (principal); R05.9 Cough, unspecified | CPT/HCPCS: 71046 ==